=== PATIENT | male | born 1950 | race Caucasian/White ===

== ENCOUNTER 2017-04-16 14:30 | Outpatient (RCR) | payer MEDICARE ==
--- NOTE | 2017-02-11 16:10 | PT INITIAL EVALUATION ---
MEDICAL DIAGNOSIS: Lung CA TREATMENT DIAGNOSIS: Lung CA DATE OF ONSET: 02/11/17 SUBJECTIVE: Jarret is a 66 year-old male referred to physical therapy secondary to diagnosis of lung cancer with metastasis. Pt has an extensive history of smoking and currently is still smoking. Current patient identified problems included decreased motility and constipation secondary to opioid use for pain, occasional dizziness, increased fatigue with decreased activity, and depression. Pt also experiences SOB and has a history of COPD. Pt currently lives alone in a hotel in [place], [place]. REHAB PROBLEM LIST: Increased Pain Decreased ROM Decreased Endurance Decreased Function Decreased ADL's Decreased Gait PREVIOUS MEDICAL HISTORY: See EMR OCCUPATION: Retired, previously unemployed secondary to disability from depression and anxiety OBJECTIVE: Posture: Posture includes rounded shoulders and increased thoracic kyphosis. ROM: UE ROM full without pain B. Strength: MMT UE all 5/5 excluding R shoulder ER at 4+/5 without pain. Sensation: Pt reports neuropathy in toes at this time. Special Tests: ECOG Performance Status: Grade 3 FACT-G: PWB 9/28, SWB 18/28, EWB 16/, FWB 14/, Total Score 57/108. Other Objective Findings: Pt currently utilizes CPAP at night time, but otherwise is on room air with good oxygen saturation levels. ASSESSMENT: Pt shows signs and symptoms consistent with generalized deconditioning secondary to prolonged inactivity with chronic depression, as well as decreased functioning with oncological dx and tx. Physical therapy is indicated to improve functional endurance with ADL's, decrease risk of complications and side-effects with ongoing oncological tx, and maintain functional mobility and strength. Short Term Goals In 2 months pt will improve ECOG performance status to grade 2 indicating increased functional mobility for improved outcomes with ongoing oncological tx. In 2 months pt will be compliant with a regular aerobic exercise program for improved respiratory function and decreased fatigue to improve functional status. In 4 months pt will maintain full UE ROM and strength >4+/5 indicating maintenance of functional strength and mobility for performance of ADL's. In 4 months pt will improve ECOG performance status to grade 2 indicating increased functional mobility for improved outcomes with ongoing oncological tx. In 4 months pt will be compliant with a regular aerobic exercise program for improved respiratory function and decreased fatigue to improve functional status. Patient's Goals Maintain and improve functional status PLAN: Patient to be seen for Manual Therapy/STM/MET Strengthening/condition Ice/Heat Range of Motion Spinal Stabilization Ultrasound Stretching Iontophoresis Neuromuscular Re-ed Closed Chain Program Electrical Stim Posture/Body mechanics Gait Trg/Balance Trg Biofeedback Home Exercise Program Mech./Manual Traction Therapeutic Activities Pelvic Floor 1x/Week for 4 Months If you have any questions, comments, or concerns about this report or plan, please contact me at . Thank you, Safia De La Fuente, PT, DPT, CLT MTDD
--- NOTE | 2017-03-04 17:18 | PT PLAN OF CARE ---
Physician: PEDRO Brand Patient is being seen: 1x/Week Therapist: Safia De La Fuente, PT, DPT, CLT Medical Diagnosis: Lung CA Treatment Diagnosis: Lung CA Date of Onset: 02/11/17 Date of Initial Evaluation: 02/11/17 Date patient was last seen: 03/04/17 Number of treatments: 2 Number of cancellations/No shows: 0 INTERVENTIONS: Manual Therapy/STM/MET Strengthening/condition Ice/Heat Range of Motion Spinal Stabilization Ultrasound Stretching Iontophoresis Neuromuscular Re-ed Closed Chain Program Electrical Stim Posture/Body mechanics Gait Trg/Balance Trg Biofeedback Home Exercise Program Mech./Manual Traction Therapeutic Activities Pelvic Floor GOALS: In 2 months pt will improve ECOG performance status to grade 2 indicating increased functional mobility for improved outcomes with ongoing oncological tx. In progress In 2 months pt will be compliant with a regular aerobic exercise program for improved respiratory function and decreased fatigue to improve functional status. In progress In 4 months pt will maintain full UE ROM and strength >4+/5 indicating maintenance of functional strength and mobility for performance of ADL's. In 4 months pt will improve ECOG performance status to grade 2 indicating increased functional mobility for improved outcomes with ongoing oncological tx. In 4 months pt will be compliant with a regular aerobic exercise program for improved respiratory function and decreased fatigue to improve functional status. PATIENT'S GOAL: Maintain and improve functional status Status of Patient's Goals: In Progress Patient Compliance: Fair Prognosis: Fair Reasons for continuing therapy: Pt shows signs consistent with R patellofemoral syndrome with lateral knee tracking and compression secondary to R hip weakness. Pt showed improved activation of R hip musculature secondary to exercise with frequent cuing to avoid compensations of trunk rotation. Functional status remains consistent with minor changes in well-being. Increased frequency of physical therapy is indicated to maintain functional strength and decrease pain. Posture: Posture includes rounded shoulders and increased thoracic kyphosis. ROM: UE ROM full without pain B. Strength: MMT UE all 5/5 excluding R shoulder ER at 4+/5 without pain. Special Tests: ECOG Performance Status: Grade 3 FACT-G (Eval 02/11/17): PWB 9, SWB 18/, EWB 16, FWB 14, Total Score 57/108. FACT-G (03/04/17): PWB 10/, SWB 17.5/28, EWB , FWB , Total Score 56 /108. Mobility: Lateral patellar tracking on R LE If you have any questions or concerns, please feel free to contact me at . Thank you, Safia De La Fuente, PT, DPT, CLT MTDD
--- NOTE | 2017-03-25 13:52 | PT PLAN OF CARE ---
Physician: PEDRO Brand Patient is being seen: 1-2x/MO Therapist: Safia De La Fuente, PT, DPT, CLT Medical Diagnosis: Lung CA Treatment Diagnosis: Lung CA Date of Onset: 02/11/17 Date of Initial Evaluation: 02/11/17 Date patient was last seen: 03/25/17 Number of treatments: 3 Number of cancellations/No shows: 0 INTERVENTIONS: Manual Therapy/STM/MET Strengthening/condition Ice/Heat Range of Motion Spinal Stabilization Ultrasound Stretching Iontophoresis Neuromuscular Re-ed Closed Chain Program Electrical Stim Posture/Body mechanics Gait Trg/Balance Trg Biofeedback Home Exercise Program Mech./Manual Traction Therapeutic Activities Pelvic Floor GOALS: In 2 months pt will improve ECOG performance status to grade 2 indicating increased functional mobility for improved outcomes with ongoing oncological tx. In progress In 2 months pt will be compliant with a regular aerobic exercise program for improved respiratory function and decreased fatigue to improve functional status. In progress In 4 months pt will maintain full UE ROM and strength >4+/5 indicating maintenance of functional strength and mobility for performance of ADL's. In 4 months pt will improve ECOG performance status to grade 2 indicating increased functional mobility for improved outcomes with ongoing oncological tx. In 4 months pt will be compliant with a regular aerobic exercise program for improved respiratory function and decreased fatigue to improve functional status. PATIENT'S GOAL: Maintain and improve functional status Status of Patient's Goals: In Progress Patient Compliance: Fair Prognosis: Fair Reasons for continuing therapy: Pt shows onset of neuropathy in B LE in the distal toes as well as ankle. Pt progress with knee and hip strengthening shows improvement with associated decreased pain. Pt continues to have difficulties with side-effects of treatment including nausea, and fatigue, but these show improvement with adjustments to medications. Posture: Posture includes rounded shoulders and increased thoracic kyphosis. ROM: UE ROM full without pain B. Strength: MMT UE all 5/5 excluding R shoulder ER at 4+/5 without pain. Special Tests: ECOG Performance Status: Grade 3 FACT-G (Eval 02/11/17): PWB 9, SWB 18, EWB 16, FWB 14, Total Score 57/108. FACT-G (03/04/17): PWB 10, SWB 17.5, EWB 13, FWB 16, Total Score 56 /108. FACT-G (03/04/17): PWB 06/18, SWB 2128, EWB 02/11, FWB , Total Score 50/ 108. Mobility: Lateral patellar tracking on R LE If you have any questions or concerns, please feel free to contact me at . Thank you, Safia De La Fuente, PT, DPT, CLT MTDD
--- NOTE | 2017-03-27 14:44 | Oncology Note ---
Patient came by the clinic today to request a refill of his oxycodone 5/325. Patient is taking 1-2 tablets as needed for pain in his hips. He is requesting a refill to [facility] pharmacy. Patient is routinely seen in the clinic and this will be refilled quantity 45 today. JAE NUNO [facility], ONC Mar 27, 2017 14:44
[~2017-04-16 14:30] MED LIST: ACE325 PO; ADERALL PO; ALPR-429 PO; AMIT-108 PO; AMIT75TA42 PO; ARI10 PO; ARMO150T4 PO; ASP325 PO; ASPI-719 PO; ATEN-1 PO; AZIT-18 PO; BETA15CR2 TP; BUP100 PO; CHOL200021 PO; CIPR-214 PO; CLO1 PO; CYAN100015 PO; CYAN100080 PO; CYAN1TAB PO; CYTOMEL PO; DES100PT PO; DEX4 PO; DEXT5TAB10 PO; DIA5 PO; DIOVAN; DIS250 PO; DISU250T5 PO; DOC100 PO; ENO40I SQ; ESC10 PO; FLU10 PO; FLUO40CA76 PO; FOL1 PO; FOLI-68 PO; GABA-1 PO; GABA-547 PO; GABA-549 PO; HYDR25CA PO; HYDR25CA83 PO; HYDR50CA47 PO; LATA2.5D7 OP; LIO25 PO; LORA-1221 PO; LOSA25TA50 PO; MECL25TA27 PO; MELA3TAB31 PO; MET5 PO; MIR15 PO; MULT-1335 PO; MULT-775 PO; MULT-925 PO; MULT1TAB64 PO; MVM PO; MYLL PO; NEOM28.45 TOP; OLA5 PO; OLAN1CAP15 PO; OLAN2.5T22 PO; OMEG-84 PO; OMEP40CA45 PO; ONDA4TAB PO; ONDA8TAB91 PO; OXYC-373 PO; OXYC-823 PO; OXYC-854 PO; PAN40 PO; POT5L PO; POTT20 PO; PRAM0.252 PO; PROC10TA95 PO; PROP40TA45 PO; PROP80TA25 PO; PROPANOLOL PO; SUCR1TAB85 PO; TAM4 PO; TAMS0.4C76 PO; TEST2.5G6 TD; THIA100T3 PO; THIA100T55 PO; TRA50 PO; TRAZ-133 PO; VORT10TA PO; [UNRECOGNIZED DRUG - CODE] TD; trintellix PO
[2017-04-23] MEDS ORDERED: LOSA25TA50 PO (09:50)
[2017-04-30] MEDS ORDERED: NYST100016 PO (10:43)
[2017-05-09] MEDS ORDERED: DISU250T5 PO (15:08)
== END 2017-05-12 ==
LOC: PT 14:30
PROVIDERS: ATTEND Nurse Practitioner Family
DX: C78.00 Secondary malignant neoplasm of unspecified lung (principal); F17.210 Nicotine dependence, cigarettes, uncomplicated; K59.03 Drug induced constipation; T40.2X5A Adverse effect of other opioids, initial encounter; R42 Dizziness and giddiness; R53.83 Other fatigue; F32.9 Major depressive disorder, single episode, unspecified; R06.02 Shortness of breath; J44.1 Chronic obstructive pulmonary disease with (acute) exacerbation; F41.9 Anxiety disorder, unspecified; G62.9 Polyneuropathy, unspecified; Z99.89 Dependence on other enabling machines and devices
CPT/HCPCS: 97162

== ENCOUNTER 2017-05-05 13:30 | Outpatient (RCR) | payer MEDICARE ==
[2017-02-25 09:28] LABS: PLATELET COUNT, AUTOMATED 134 K/uL (150-450)
[2017-02-25 09:36] VITALS: BP 167/92
[2017-03-04 09:54] VITALS: BP 127/90
[2017-03-04] MEDS: DEXAMETHASONE SOD PHOS 10MG/ML IVP PRN ×2 (10:27→15:42)
[2017-03-04] MEDS: PALONOSETRON 0.25 MG/5 ML VIAL IVP PRN (10:28)
[2017-03-04] MEDS: FAMOTIDINE 10 MG/ML SDV IV PRN (10:59)
[2017-03-04] MEDS: diphenhydrAMINE 50 MG/ML VIAL IVP PRN (11:01)
[2017-03-04] MEDS: FOSAPREPITANT DIM 150 MG/5 ML 150 MG in NS(*) 0.9% 250 ML BAG 245 ML IVPB PRN (11:15)
--- NOTE | 2017-03-04 12:31 | ONC Progress Note - NP.Halsey ---
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 Patient previously had completed chemotherapy with Alimta and carboplatin 4 cycles in April through June 2016. Upon further review patient was noted to have recurrent disease. Patient started on Avastin, paclitaxel and carboplatin on 02/11/2017. He will receive cycle 2 today. Overall patient is feeling stable. He is weak and fatigued. He has a stable cough with shortness of breath with exertion. He continues to smoke. He has chronic nausea possibly related to his other medications. He does have pain in his hip which he reports is improved. Currently he is only using oxycodone and feels that 2-3 tablets a day keeps his pain fairly stable. 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 Problem List (1) Shortness of breath (2) Malignant bone pain (3) Adenocarcinoma of lung Oncology History The patient is a 66-year-old male with heavy history of tobacco abuse with 1-1/ 2 packs a day for forty-three years. The patient presented with history of shortness of breath and he visited the emergency department. CT scan did reveal significant right upper lobe pulmonary nodule. The patient had after that a PET scan done February 09, 2016 which demonstrated increased uptake in the right upper lobe mass. The mass measured 1.8 cm with SUV 3.3. There were several satellite micro nodules ranging from up to 0.9 cm with metabolic activity of about 2.1. There was a small pretracheal lymph node, 1.6 cm with SUV 2.8. There was a precarinal lymph node 2 cm with SUV 2.8. The patient had bronchoscopy with transbronchial biopsy performed and the pathology was positive for atypical cells suspicious for, but not definitive for malignancy. The patient ended by having cervical mediastinoscopy with biopsy of the right paratracheal lymphadenopathy and staging of the left paratracheal region done by Dr. Adonis Lindsay on March 28, 2016. Two out of three lymph nodes removed from the mediastinum on the right side level 4 came back positive for metastatic adenocarcinoma. The lymph node from level 2 on the right side and lymph nodes from level 4 on the left side came back negative for metastasis. Given that the right mediastinal lymph nodes were positive, the patient had stage IIIA adenocarcinoma of the right upper lobe of the right lung. The patient started chemoradiation with carboplatin and Alimta every three weeks for four cycles on April 24, 2016. The patient completed four courses of carboplatin and Alimta on June 27, 2016. Patient then started chemotherapy with Avastin, paclitaxel and carboplatin on . Medical History Family History: Anxiety disorder MOTHER, , Age:51 FH: depression MOTHER, , Age:51 FH: emphysema FATHER, , Age:72 Pulmonary fibrosis BROTHER OR SISTER Psychosocial History Social History Patient is single no children Occupational History He is on disability and currently on Medicare Alcohol History He denies any abuse, previously was noted to be a heavy drinker Smoking History: Yes (1 PPD FOR 44 YRS) Smoking Status: Current: Every Day Smoker Exposure to Second Hand Smoke?: Yes (Patient smokes 1 1/2 packs daily for forty -three years.) Medications and Allergies Active Scripts Oxycodone Hcl/Acet 5/325 Mg (ENDOCET 5-325 TABLET) 1 Each Tablet, 1 EACH PO Q4- 6H Y for PAIN, #45 TAB Prov:JAE NUNO [facility], ONC 02/27/17 Dexamethasone 4 Mg Tab (DEXAMETHASONE 4 MG TAB) 4 Mg Tab, 4 MG PO BID for 3 Days , #36 TAB Take 4 mg bid x 3 days starting 24 hours prior to each chemotherapy x 6 cycles. Prov:JAE NUNO [facility], ONC 02/04/17 Sucralfate (CARAFATE) 1 Gm Tablet, 1 GM PO QID for 14 Days, #60 TAB Take before meals and at bedtime. Crush the tablet and mix with water before taking. Prov:CHRISTOPHE HOLT [employer] DEVELOPER 01/24/17 Oxycodone Hcl (OXYCONTIN) 10 Mg Tab.er.12h, 10 MG PO Q12H, #60 TAB Prov:JAE NUNO [facility], ONC 01/13/17 Ondansetron Hcl (ZOFRAN) 8 Mg Tablet, 8 MG PO Q12H, #30 TAB 1 Refill Prov:JAE NUNO [facility], ONC 04/17/16 Reported Medications Disulfiram (ANTABUSE) 250 Mg Tab, 250 MG PO DAILY Y for PRN, TAB 01/31/17 Gabapentin (GABAPENTIN) 300 Mg Capsule, 300 MG PO BID, CAPSULE 01/31/17 Armodafinil (NUVIGIL) 150 Mg Tablet, 150 MG PO QAM, TAB 01/31/17 Losartan Potassium (LOSARTAN POTASSIUM) 25 Mg Tablet, 25 MG PO QDAY Y for PRN 01/01/17 Amitriptyline Hcl (AMITRIPTYLINE HCL) 75 Mg Tablet, 75 MG PO QHS, #5 TAB 01/01/17 Cyanocobalamin (Vitamin B-12) (VITAMIN B-12) 1,000 Mcg Tablet.er, 1000 MCG PO DAILY 04/11/16 Cholecalciferol (Vitamin D3) (VITAMIN D) 2,000 Unit Capsule, 2000 UNIT PO 2XW, CAPSULE 04/11/16 Latanoprost (LATANOPROST) 2.5 Ml Drops, 2.5 ML OP HS 04/11/16 [trintellix] No Conflict Check, 20 MG PO DAILY 04/11/16 Omeprazole (PRILOSEC) 40 Mg Capsule.dr, 1 TAB PO QDAY TAKE ONE TABLET BY MOUTH ONCE A DAY 01/07/14 Folic Acid (FOLIC ACID) 1 Mg Tablet, 1 MG PO DAILY 05/26/13 Multivit, Min No.21/Folic Acid (SUPERVITE EC CAPLET) 1 Mg Tablet.dr, 1 MG PO 05/26/13 Tamsulosin Hcl (Flomax) 0.4 Mg Cap, 0.4 MG PO QDAY, #30 2 Refills 04/09/11 Allergies: Coded Allergies: No Known Drug Allergies (Unverified , 01/31/17) Review of System/Physical Exam Review of Systems All Systems Reviewed/Normal: Yes, Except as Noted Respiratory: Positive for Cough, Positive for Shortness of Breath (no requirement for oxygen) Hematologic: Positive for Fatigue (rated a 9 out of 10 today), Positive for Weakness (mild weakness in the right hip) Musculoskeletal: Positive for Muscle Pain, Positive for Joint Pain (hip pain currently on oxycodone 2-3 tablets a day), Positive for Bone Pain Psychiatric: Anxiety, Depression Physical Exam Vital Signs Temperature: 96.0 Pulse: 91 BP Systolic: 127 BP Diastolic: 90 Respiratory Rate: 16 O2 SAT: 96 O2 Delivery: Height (inches) 70.00 Weight lb: 198 Weight oz: 7.0 Weight Kg (Fabián): Pain: 0 ECOG Score: 1 General: Stable, Well Developed, Well Nourished, Not In Acute Distress HEENT: No Trauma, No Conjunctivitis, No Icterus, No Mucositis, No Oral Thrush Neck: Supple Lungs: Clear to Auscultation Heart: Regular Rate, Regular Rhythm, No Gallops Abdomen: Soft and Nontender, No Hepatosplenomegaly, No Masses Extremities: No Cyanosis, No Clubbing, No Edema Lymphadenopathy: No Cervical Psychiatric: Mood appears normal Skin: No Skin Rashes, No Bruising, No Purpura Diagnostic Studies Diagnostic Studies Laboratory Laboratory Tests 03/04/17 09:25 Laboratory Tests 02/25/17 09:11: Red Blood Count 3.66, Mean Corpuscular Volume 98.7, Mean Corpuscular Hemoglobin 34.5, Mean Corpuscular Hemoglobin Concent 34.9, Red Cell Distribution Width 15.8 , Mean Platelet Volume 7.9, Monocytes (%) (Auto) , Eosinophils (%) (Auto) , Basophils (%) (Auto) , Nucleated RBC Relative Count (auto) , Monocytes # (Auto) , Eosinophils # (Auto) , Basophils # (Auto) , Nucleated RBC Absolute Count (auto ) , Neutrophils % (Manual) 17, Band Neutrophils % 0, Lymphocytes % (Manual) 37, Atypical Lymphocytes % 0, Monocytes % (Manual) 44, Eosinophils % (Manual) 2, Basophils % (Manual) 0, Nucleated Red Blood Cells 1, Anisocytosis 1+, Macrocytosis 1+, Peripheral Blood Smear Yes 03/04/17 09:25: White Blood Count 5.7, Hemoglobin 11.8, Hematocrit 34.1, Platelet Count 151, Neutrophils (%) (Auto) 70.6, Lymphocytes (%) (Auto) 12.9, Neutrophils # (Auto) 4.0, Lymphocytes # (Auto) 0.7, Sodium Level 135, Potassium Level 4.0, Chloride Level 102, Carbon Dioxide Level 22, Blood Urea Nitrogen 12, Creatinine 0.80, Glomerular Filtration Rate Calc > 60.0, Random Glucose 87, Calcium Level 9.2, Total Bilirubin 0.8, Aspartate Amino Transf (AST/SGOT) 29, Alanine Aminotransferase (ALT/SGPT) 46, Alkaline Phosphatase 97, Total Protein 7.2, Albumin 3.9 03/04/17 09:50: Urine Color Yellow, Urine Clarity Clear, Urine pH 6.0, Urine Specific [place] 1.010, Urine Protein Negative, Urine Glucose (UA) Negative, Urine Ketones Negative, Urine Blood Negative, Urine Nitrite Negative, Urine Bilirubin Negative , Urine Urobilinogen Negative, Urine Leukocyte Esterase Trace, Urine RBC 3, Urine WBC 4, Urine Squamous Epithelial Cells None, Urine Bacteria Negative, Urine Mucus Few Assessment and Plan Assessment & Plan 1. Recurrent metastatic right upper lobe adenocarcinoma of the right lung. Patient initially diagnosed with a stage IIIa (cT1a cN2 cM0). Diagnosis was achieved by cervical mediastinoscopy with two right mediastinal lymph nodes that came back positive for adenocarcinoma done March 28, 2016. Patient received four cycles of carboplatin and Alimta together with radiation therapy between April 21, 2016 through June 27, 2016. He had a PET scan August 21, 2016, which showed actual response to his treatment. CT chest done on October 23, 2016 showed increase in the size of the right upper lobe mass to 2.4 cm, so PET scan done on December 02, 2016 showed worsening of the right upper lobe consolidation. There was also right hilar and subcarinal lymphadenopathy consistent with metastasis, which are new from the August 2016 scan. There was also right iliac crest and head of the right clavicle bone metastases by PET scan, which are new. Molecular markers all came back negative except for low expression of BD- L1 at 2%. Patient started treatment with Avastin, carboplatin, and Taxol in . Patient is scheduled for cycle 2 today. Overall he is tolerating treatment with expected side effects of increased fatigue and occasional episodes of nausea. Patient does have a history of chronic nausea. 2. Pain in the right hip could be due to his bony metastasis. He completed radiation therapy to the right hip and reports improvement today. Currently using oxycodone 3. Coronary artery disease status post myocardial infarction 2002. 4. History of skin cancer status post radiation therapy. 5. Anxiety and depression. Currently on treatment PLAN 1. Oxycodone 5 mg q.4-6 hourly p.r.n. for pain. 2. Cycle 2 of treatment with Avastin, paclitaxel and carboplatin. Weekly labs per chemotherapy order. 3. Patient to follow in 3 weeks with CBC CMP and cycle 3 4. Patient to contact us with questions or concerns. I will continue to refill his pain medications as needed. I personally spent a total of 20 minutes. Of that 15 minutes was counseling/ coordination of patient's care. See my note above for details. Copies to: AHSAN KOTHARI NANCY J [employer] DEVELOPER-BC, ONC Mar 04, 2017 12:31
[2017-03-04] MEDS: NS(*) 0.9% 500 ML BAG 500 ML IV PRN ×2 (13:45→15:45)
[2017-03-11 09:17] VITALS: BP 120/90
[2017-03-11 09:44] LABS: PLATELET COUNT, AUTOMATED 84 K/uL (150-450)
[2017-03-18 09:35] VITALS: BP 150/86
[2017-03-18 09:42] LABS: PLATELET COUNT, AUTOMATED 148 K/uL (150-450)
[2017-03-25 09:29] VITALS: BP 139/90
[2017-03-25] MEDS: diphenhydrAMINE 50 MG/ML VIAL IVP PRN (09:44)
[2017-03-25] MEDS: DEXAMETHASONE SOD PHOS 10MG/ML IVP PRN (09:44)
[2017-03-25] MEDS: NS(*) 0.9% 500 ML BAG 500 ML IV PRN (09:45)
[2017-03-25] MEDS: FAMOTIDINE 10 MG/ML SDV IV PRN (09:45)
[2017-03-25] MEDS: HEPARIN FLSH (PORT) 500 UN/5ML IVP PRN (09:45)
[2017-03-25] MEDS: PALONOSETRON 0.25 MG/5 ML VIAL IVP PRN (09:45)
[2017-03-25] MEDS: LIDOCAINE/SOD BICARB 8.4% SYR ID PRN (09:45)
[2017-03-25] MEDS: FOSAPREPITANT DIM 150 MG/5 ML 150 MG in NS(*) 0.9% 250 ML BAG 245 ML IVPB PRN (09:55)
--- NOTE | 2017-03-25 10:01 | ONC Progress Note - NP.Halsey ---
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 Patient previously had completed chemotherapy with Alimta and carboplatin 4 cycles in April through June 2016. Upon further review patient was noted to have recurrent disease. Patient started on Avastin, paclitaxel and carboplatin on 02/11/2017. He will receive cycle 3 today. Patient experience shortness of breath and difficulty breathing with his last treatment and was taken to the emergency room. Symptoms resolved and patient was discharged to home. We will monitor him closely today. Overall patient is feeling stable and reports he feels the best today than he has for a week. He continues to feel weak and fatigued. He has a stable cough with shortness of breath with exertion. He continues to smoke. He has oxygen at home but does not wear it during the day, usually wears his CPAP at night. He has chronic nausea possibly related to his other medications and he takes Zofran for management. He does have pain in his hip which he reports is improved. Currently he is only using oxycodone and OxyIR as needed and feels that 2-3 tablets a day keeps his pain fairly stable. Oncology History The patient is a 66-year-old male with heavy history of tobacco abuse with 1-1/ 2 packs a day for forty-three years. The patient presented with history of shortness of breath and he visited the emergency department. CT scan did reveal significant right upper lobe pulmonary nodule. The patient had after that a PET scan done February 09, 2016 which demonstrated increased uptake in the right upper lobe mass. The mass measured 1.8 cm with SUV 3.3. There were several satellite micro nodules ranging from up to 0.9 cm with metabolic activity of about 2.1. There was a small pretracheal lymph node, 1.6 cm with SUV 2.8. There was a precarinal lymph node 2 cm with SUV 2.8. The patient had bronchoscopy with transbronchial biopsy performed and the pathology was positive for atypical cells suspicious for, but not definitive for malignancy. The patient ended by having cervical mediastinoscopy with biopsy of the right paratracheal lymphadenopathy and staging of the left paratracheal region done by Dr. Adonis Lindsay on March 28, 2016. Two out of three lymph nodes removed from the mediastinum on the right side level 4 came back positive for metastatic adenocarcinoma. The lymph node from level 2 on the right side and lymph nodes from level 4 on the left side came back negative for metastasis. Given that the right mediastinal lymph nodes were positive, the patient had stage IIIA adenocarcinoma of the right upper lobe of the right lung. The patient started chemoradiation with carboplatin and Alimta every three weeks for four cycles on April 24, 2016. The patient completed four courses of carboplatin and Alimta on June 27, 2016. Patient then started chemotherapy with Avastin, paclitaxel and carboplatin on . Medical History Family History: Anxiety disorder MOTHER, , Age:51 FH: depression MOTHER, , Age:51 FH: emphysema FATHER, , Age:72 Pulmonary fibrosis BROTHER OR SISTER Psychosocial History Social History Patient is single no children Occupational History He is on disability and currently on Medicare Alcohol History He denies any abuse, previously was noted to be a heavy drinker Smoking History: Yes (1 PPD FOR 44 YRS) Smoking Status: Current: Every Day Smoker Exposure to Second Hand Smoke?: Yes (Patient smokes 1 1/2 packs daily for forty -three years.) Medications and Allergies Active Scripts Oxycodone Hcl (OXYCONTIN) 10 Mg Tab.er.12h, 10 MG PO Q12H, #60 TAB Prov:JAE NUNO [facility], ONC 03/11/17 Oxycodone Hcl/Acet 5/325 Mg (ENDOCET 5-325 TABLET) 1 Each Tablet, 1 EACH PO Q4- 6H Y for PAIN, #45 TAB Prov:JAE NUNOP-[facility], ONC 02/27/17 Dexamethasone 4 Mg Tab (DEXAMETHASONE 4 MG TAB) 4 Mg Tab, 4 MG PO BID for 3 Days , #36 TAB Take 4 mg bid x 3 days starting 24 hours prior to each chemotherapy x 6 cycles. Prov:JAE NUNO [facility], ONC 02/04/17 Sucralfate (CARAFATE) 1 Gm Tablet, 1 GM PO QID for 14 Days, #60 TAB Take before meals and at bedtime. Crush the tablet and mix with water before taking. Prov:CHRISTOPHE HOLT [facility] 01/24/17 Ondansetron Hcl (ZOFRAN) 8 Mg Tablet, 8 MG PO Q12H, #30 TAB 1 Refill Prov:JAE NUNO [employer] [facility] [facility], ONC 04/17/16 Reported Medications Disulfiram (ANTABUSE) 250 Mg Tab, 250 MG PO DAILY Y for PRN, TAB 01/31/17 Gabapentin (GABAPENTIN) 300 Mg Capsule, 300 MG PO BID, CAPSULE 01/31/17 Armodafinil (NUVIGIL) 150 Mg Tablet, 150 MG PO QAM, TAB 01/31/17 Losartan Potassium (LOSARTAN POTASSIUM) 25 Mg Tablet, 25 MG PO QDAY Y for PRN 01/01/17 Amitriptyline Hcl (AMITRIPTYLINE HCL) 75 Mg Tablet, 75 MG PO QHS, #5 TAB 01/01/17 Cyanocobalamin (Vitamin B-12) (VITAMIN B-12) 1,000 Mcg Tablet.er, 1000 MCG PO DAILY 04/11/16 Cholecalciferol (Vitamin D3) (VITAMIN D) 2,000 Unit Capsule, 2000 UNIT PO 2XW, CAPSULE 04/11/16 Latanoprost (LATANOPROST) 2.5 Ml Drops, 2.5 ML OP HS 04/11/16 [trintellix] No Conflict Check, 20 MG PO DAILY 04/11/16 Omeprazole (PRILOSEC) 40 Mg Capsule.dr, 1 TAB PO QDAY TAKE ONE TABLET BY MOUTH ONCE A DAY 01/07/14 Folic Acid (FOLIC ACID) 1 Mg Tablet, 1 MG PO DAILY 05/26/13 Multivit, Min No.21/Folic Acid (SUPERVITE EC CAPLET) 1 Mg Tablet.dr, 1 MG PO 05/26/13 Tamsulosin Hcl (Flomax) 0.4 Mg Cap, 0.4 MG PO QDAY, #30 2 Refills 04/09/11 Allergies: Coded Allergies: No Known Drug Allergies (Unverified , 01/31/17) Review of System/Physical Exam Review of Systems All Systems Reviewed/Normal: Yes, Except as Noted Constitutional: Denies Appetite/Weight Change (decreased appetite although he feels like he is maintaining his weight) Gastrointestinal: Nausea Hematologic: Positive for Fatigue, Positive for Weakness Musculoskeletal: Positive for Bone Pain, Positive for Other (patient feels that his lower extremities are weak. He does try to walk and octant will go to [facility] so he can use a shopping cart to hold onto with ambulation) Psychiatric: Anxiety, Depression Physical Exam Vital Signs Temperature: 97.0 Pulse: 94 BP Systolic: 139 BP Diastolic: 90 Respiratory Rate: 16 O2 SAT: 98 O2 Delivery: Height (inches) 71.00 Weight lb: 198 Weight oz: 7.0 Weight Kg (Fabián): Pain: 0 ECOG Score: 2 General: Stable, Well Developed, Well Nourished, Not In Acute Distress HEENT: No Trauma, No Conjunctivitis, No Icterus, No Mucositis Neck: Supple Lungs: Clear to Auscultation Heart: Regular Rate, Regular Rhythm, No Gallops Abdomen: Soft and Nontender, No Hepatosplenomegaly, No Masses Extremities: No Cyanosis, No Clubbing, No Edema Lymphadenopathy: No Cervical Psychiatric: Mood appears normal, Affect appears normal Skin: No Skin Rashes, No Bruising, No Purpura Diagnostic Studies Diagnostic Studies Laboratory Laboratory Tests 03/25/17 09:13 Laboratory Tests 02/25/17 09:11: Neutrophils % (Manual) 17, Band Neutrophils % 0, Lymphocytes % (Manual) 37, Atypical Lymphocytes % 0, Monocytes % (Manual) 44, Eosinophils % (Manual) 2, Basophils % (Manual) 0, Nucleated Red Blood Cells 1, Anisocytosis 1+, Macrocytosis 1+ 03/18/17 09:30: Red Blood Count 3.04, Mean Corpuscular Volume 99.9, Mean Corpuscular Hemoglobin 35.4, Mean Corpuscular Hemoglobin Concent 35.5, Red Cell Distribution Width 19.5 , Mean Platelet Volume 7.8, Monocytes (%) (Auto) 40.5, Eosinophils (%) (Auto) 2.1, Basophils (%) (Auto) 1.9, Nucleated RBC Relative Count (auto) 0.8, Monocytes # (Auto) 0.7, Eosinophils # (Auto) 0.0, Basophils # (Auto) 0.0, Nucleated RBC Absolute Count (auto) 0.01, Peripheral Blood Smear Yes 03/25/17 09:13: White Blood Count 7.0, Hemoglobin 11.7, Hematocrit 33.2, Platelet Count 221, Neutrophils (%) (Auto) 81.0, Lymphocytes (%) (Auto) 8.8, Neutrophils # (Auto) 5.6, Lymphocytes # (Auto) 0.6, Sodium Level 136, Potassium Level 3.8, Chloride Level 103, Carbon Dioxide Level 21, Blood Urea Nitrogen 14, Creatinine 0.90, Glomerular Filtration Rate Calc > 60.0, Random Glucose 146, Calcium Level 9.2, Total Bilirubin 0.9, Aspartate Amino Transf (AST/SGOT) 32, Alanine Aminotransferase (ALT/SGPT) 53, Alkaline Phosphatase 85, Total Protein 7.3, Albumin 4.0 03/25/17 09:45: Assessment and Plan Assessment & Plan 1. Recurrent metastatic right upper lobe adenocarcinoma of the right lung. Patient initially diagnosed with a stage IIIa (cT1a cN2 cM0). Diagnosis was achieved by cervical mediastinoscopy with two right mediastinal lymph nodes that came back positive for adenocarcinoma done March 28, 2016. Patient received four cycles of carboplatin and Alimta together with radiation therapy between April 21, 2016 through June 27, 2016. He had a PET scan August 21, 2016, which showed actual response to his treatment. CT chest done on October 23, 2016 showed increase in the size of the right upper lobe mass to 2.4 cm, so PET scan done on December 02, 2016 showed worsening of the right upper lobe consolidation. There was also right hilar and subcarinal lymphadenopathy consistent with metastasis, which are new from the August 2016 scan. There was also right iliac crest and head of the right clavicle bone metastases by PET scan, which are new. Molecular markers all came back negative except for low expression of BD- L1 at 2%. Patient started treatment with Avastin, carboplatin, and Taxol in . Patient is scheduled for cycle 3 today. He did have shortness of breath and possible reaction with cycle 2 and was transported to the emergency room. Patient was then released to home. We will reinitiate treatment today and monitor him closely. He continues to have expected side effects of increased fatigue , weakness, shortness of breath and chronic nausea. Patient continues to smoke. 2. Pain in the right hip could be due to his bony metastasis. He completed radiation therapy to the right hip and reports improvement today. Currently using oxycodone and OxyContin 2-3 tablets in the day and reports stable pain 3. Coronary artery disease status post myocardial infarction 2002. 4. History of skin cancer status post radiation therapy. 5. Anxiety and depression. Currently on treatment PLAN 1. Oxycodone 5 mg q.4-6 hourly p.r.n. for pain. 2. Cycle 3 of treatment with Avastin, paclitaxel and carboplatin. Weekly labs per chemotherapy order. 3. Patient to follow in 3 weeks with CBC CMP and cycle 4 4. Patient to contact us with questions or concerns. I will continue to refill his pain medications as needed. I personally spent a total of 20 minutes. Of that 15 minutes was counseling/ coordination of patient's care. See my note above for details. JAE NUNO [employer] [facility] [facility], ONC Mar 25, 2017 10:01
--- NOTE | 2017-03-25 15:26 | EKG ---
FACILITY: [facility] PATIENT NAME: PAT DELANEY : [id number] MR: [id number] V: [id number] EXAM DATE: ORDERING PHYSICIAN: JAE NUNO TECHNOLOGIST: ANDRE Test Reason : CHEMO REATION Blood Pressure : / mmHG Vent. Rate : 116 BPM Atrial Rate : 116 BPM P-R Int : 164 ms QRS Dur : 128 ms QT Int : 368 ms P-R-T Axes : 066 -81 061 degrees QTc Int : 511 ms Sinus tachycardia Right bundle branch block Abnormal ECG When compared with ECG of 04-MAR-2017 16:01, No significant change was found Confirmed by MICHEAL HATCH ([id number]) on 03/25/2017 4:18:53 PM Referred By: YAJAIRA Confirmed By:MICHEAL HATCH
[2017-04-01 09:38] VITALS: BP 116/89
[2017-04-01] MEDS: HEPARIN FLSH (PORT) 500 UN/5ML IVP PRN ×2 (09:51→11:38)
[2017-04-01 09:55] LABS: PLATELET COUNT, AUTOMATED 112 K/uL (150-450)
[2017-04-01] MEDS: LIDOCAINE/SOD BICARB 8.4% SYR ID PRN (11:38)
[2017-04-07] MEDS: NS(*) 0.9% 500 ML BAG 500 ML IV PRN (14:15)
[2017-04-08 14:24] VITALS: BP 158/88
[2017-04-08 14:28] LABS: PLATELET COUNT, AUTOMATED 189 K/uL (150-450)
[2017-04-08] MEDS: NS(*) 0.9% 500 ML BAG 500 ML IV PRN (15:20)
--- NOTE | 2017-04-08 15:25 | ONC Progress Note - NP.Halsey ---
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 Patient previously had completed chemotherapy with Alimta and carboplatin 4 cycles in April through June 2016. Upon further review patient was noted to have recurrent disease. Patient started on Avastin, paclitaxel and carboplatin on 02/11/2017. With cycle 3 he experienced shortness of breath and difficulty breathing. Patient had similar symptoms with cycle 2. Today patient reports that he is feeling very fatigued and weak. He has burning with urination, frequency and urgency. He does not feel well today. He has not been eating well and has not been drinking fluids.. He fever or chills today. Problem List (1) Dysuria (2) Adenocarcinoma of lung (3) Malignant bone pain (4) Shortness of breath (5) Depression (6) Fatigue Oncology History The patient is a 66-year-old male with heavy history of tobacco abuse with 1-1/ 2 packs a day for forty-three years. The patient presented with history of shortness of breath and he visited the emergency department. CT scan did reveal significant right upper lobe pulmonary nodule. The patient had after that a PET scan done February 09, 2016 which demonstrated increased uptake in the right upper lobe mass. The mass measured 1.8 cm with SUV 3.3. There were several satellite micro nodules ranging from up to 0.9 cm with metabolic activity of about 2.1. There was a small pretracheal lymph node, 1.6 cm with SUV 2.8. There was a precarinal lymph node 2 cm with SUV 2.8. The patient had bronchoscopy with transbronchial biopsy performed and the pathology was positive for atypical cells suspicious for, but not definitive for malignancy. The patient ended by having cervical mediastinoscopy with biopsy of the right paratracheal lymphadenopathy and staging of the left paratracheal region done by Dr. Adonis Lindsay on March 28, 2016. Two out of three lymph nodes removed from the mediastinum on the right side level 4 came back positive for metastatic adenocarcinoma. The lymph node from level 2 on the right side and lymph nodes from level 4 on the left side came back negative for metastasis. Given that the right mediastinal lymph nodes were positive, the patient had stage IIIA adenocarcinoma of the right upper lobe of the right lung. The patient started chemoradiation with carboplatin and Alimta every three weeks for four cycles on April 24, 2016. The patient completed four courses of carboplatin and Alimta on June 27, 2016. Patient then started chemotherapy with Avastin, paclitaxel and carboplatin on . He had a reaction with the end of cycle 2 and beginning of cycle 3. Carboplatin has been discontinued. Medical History Family History: Anxiety disorder MOTHER, , Age:51 FH: depression MOTHER, , Age:51 FH: emphysema FATHER, , Age:72 Pulmonary fibrosis BROTHER OR SISTER Psychosocial History Social History Patient is single no children Occupational History He is on disability and currently on Medicare Alcohol History He denies any abuse, previously was noted to be a heavy drinker Smoking History: Yes (1 PPD FOR 44 YRS) Smoking Status: Current: Every Day Smoker Exposure to Second Hand Smoke?: Yes (Patient smokes 1 1/2 packs daily for forty -three years.) Medications and Allergies Active Scripts Oxycodone Hcl/Acet 5/325 Mg (ENDOCET 5-325 TABLET) 1 Each Tablet, 1 EACH PO Q4- 6H Y for PAIN, #45 TAB Prov:JAE NUNO [facility]-, ONC 03/27/17 Oxycodone Hcl (OXYCONTIN) 10 Mg Tab.er.12h, 10 MG PO Q12H, #60 TAB Prov:JAE NUNO [facility] ON[facility] 03/11/17 Dexamethasone 4 Mg Tab (DEXAMETHASONE 4 MG TAB) 4 Mg Tab, 4 MG PO BID for 3 Days , #36 TAB Take 4 mg bid x 3 days starting 24 hours prior to each chemotherapy x 6 cycles. Prov:JAE NUNO [facility] ON[facility] 02/04/17 Sucralfate (CARAFATE) 1 Gm Tablet, 1 GM PO QID for 14 Days, #60 TAB Take before meals and at bedtime. Crush the tablet and mix with water before taking. Prov:CHRISTOPHE HOLT [facility] 01/24/17 Ondansetron Hcl (ZOFRAN) 8 Mg Tablet, 8 MG PO Q12H, #30 TAB 1 Refill Prov:JAE NUNO [facility] ONC 04/17/16 Reported Medications Disulfiram (ANTABUSE) 250 Mg Tab, 250 MG PO DAILY Y for PRN, TAB 01/31/17 Gabapentin (GABAPENTIN) 300 Mg Capsule, 300 MG PO BID, CAPSULE 01/31/17 Armodafinil (NUVIGIL) 150 Mg Tablet, 150 MG PO QAM, TAB 01/31/17 Losartan Potassium (LOSARTAN POTASSIUM) 25 Mg Tablet, 25 MG PO QDAY Y for PRN 01/01/17 Amitriptyline Hcl (AMITRIPTYLINE HCL) 75 Mg Tablet, 75 MG PO QHS, #5 TAB 01/01/17 Cyanocobalamin (Vitamin B-12) (VITAMIN B-12) 1,000 Mcg Tablet.er, 1000 MCG PO DAILY 04/11/16 Cholecalciferol (Vitamin D3) (VITAMIN D) 2,000 Unit Capsule, 2000 UNIT PO 2XW, CAPSULE 04/11/16 Latanoprost (LATANOPROST) 2.5 Ml Drops, 2.5 ML OP HS 04/11/16 [trintellix] No Conflict Check, 20 MG PO DAILY 04/11/16 Omeprazole (PRILOSEC) 40 Mg Capsule.dr, 1 TAB PO QDAY TAKE ONE TABLET BY MOUTH ONCE A DAY 01/07/14 Folic Acid (FOLIC ACID) 1 Mg Tablet, 1 MG PO DAILY 05/26/13 Multivit, Min No.21/Folic Acid (SUPERVITE EC CAPLET) 1 Mg Tablet.dr, 1 MG PO 05/26/13 Tamsulosin Hcl (Flomax) 0.4 Mg Cap, 0.4 MG PO QDAY, #30 2 Refills 04/09/11 Allergies: Coded Allergies: carboplatin (Verified Allergy, Severe, ANAPHYLAXIS, 03/25/17) Carboplatin recieved on 02/11/17 no reaction after receiving full dose. Carboplatin recieved again on 03/04/17 200 of the 500mls recieved and patient began to cough, experienced dizziness, nausea and short of breath, rapid response was called and patient was taken to the ER. Carboplatin recieved for th 3rd time on03/26/17 and patient recived around 75mls of the drug and began to experience the same symptoms as above. Review of System/Physical Exam Review of Systems Constitutional: Positive for Appetite/Weight Change, Denies Fever/Chills/Sweating Respiratory: Positive for Cough, Positive for Shortness of Breath Genitourinary: Denies Dysuria, Denies Nocturia Hematologic: Positive for Fatigue, Positive for Weakness Musculoskeletal: Positive for Muscle Pain, Positive for Bone Pain Psychiatric: Depression Skin: Denies Skin Rash Physical Exam Vital Signs Temperature: 98.3 Pulse: 103 BP Systolic: 158 BP Diastolic: 88 Respiratory Rate: 16 O2 SAT: 99 O2 Delivery: Height (inches) 71.00 Weight lb: 191 Weight oz: 7.0 Weight Kg (Fabián): Pain: 0 ECOG Score: 2 General: Stable, Well Developed, Well Nourished, Not In Acute Distress, Other ( He looks pale in the face and is having difficulty sitting without constant moving. ) HEENT: No Trauma, No Conjunctivitis, No Icterus Lungs: Clear to Auscultation (distant bilaterally) Heart: Regular Rate, Regular Rhythm, No Gallops, No Murmurs Abdomen: No Hepatosplenomegaly, No Masses Extremities: No Cyanosis, No Clubbing, No Edema Psychiatric: Mood appears normal, Affect appears normal, Other (Patient smells of smoke today, ) Skin: No Skin Rashes, No Bruising, No Purpura Diagnostic Studies Diagnostic Studies Laboratory Laboratory Tests 04/08/17 14:21 Laboratory Tests 02/25/17 09:11: Neutrophils % (Manual) 17, Band Neutrophils % 0, Lymphocytes % (Manual) 37, Atypical Lymphocytes % 0, Monocytes % (Manual) 44, Eosinophils % (Manual) 2, Basophils % (Manual) 0, Nucleated Red Blood Cells 1, Anisocytosis 1+, Macrocytosis 1+ 03/25/17 09:45: Urine Color Yellow, Urine Clarity Clear, Urine pH 6.0, Urine Specific [place] 1.003, Urine Protein Negative, Urine Glucose (UA) Negative, Urine Ketones Negative, Urine Blood Negative, Urine Nitrite Negative, Urine Bilirubin Negative , Urine Urobilinogen Negative, Urine Leukocyte Esterase Negative, Urine RBC None , Urine WBC <1, Urine Squamous Epithelial Cells None, Urine Bacteria Negative, Urine Mucus None 04/08/17 14:21: White Blood Count 3.4, Red Blood Count 3.18, Hemoglobin 11.2, Hematocrit 32.5, Mean Corpuscular Volume 102.3, Mean Corpuscular Hemoglobin 35.3, Mean Corpuscular Hemoglobin Concent 34.5, Red Cell Distribution Width 21.9, Platelet Count 189, Mean Platelet Volume 7.7, Neutrophils (%) (Auto) 43.5, Lymphocytes (% ) (Auto) 28.3, Monocytes (%) (Auto) 26.5, Eosinophils (%) (Auto) 1.1, Basophils (%) (Auto) 0.6, Nucleated RBC Relative Count (auto) 0.7, Neutrophils # (Auto) 1.5, Lymphocytes # (Auto) 0.9, Monocytes # (Auto) 0.9, Eosinophils # (Auto) 0.0 , Basophils # (Auto) 0.0, Nucleated RBC Absolute Count (auto) 0.02, Peripheral Blood Smear Yes, Sodium Level 137, Potassium Level 3.7, Chloride Level 103, Carbon Dioxide Level 21, Blood Urea Nitrogen 10, Creatinine 1.00, Glomerular Filtration Rate Calc > 60.0, Random Glucose 123, Calcium Level 9.4, Magnesium Level 1.7, Total Bilirubin 0.9, Aspartate Amino Transf (AST/SGOT) 27, Alanine Aminotransferase (ALT/SGPT) 43, Alkaline Phosphatase 103, Total Protein 7.3, Albumin 3.9 Assessment and Plan Assessment & Plan 1. Recurrent metastatic right upper lobe adenocarcinoma of the right lung. Patient initially diagnosed with a stage IIIa (cT1a cN2 cM0). Diagnosis was achieved by cervical mediastinoscopy with two right mediastinal lymph nodes that came back positive for adenocarcinoma done March 28, 2016. Patient received four cycles of carboplatin and Alimta together with radiation therapy between April 21, 2016 through June 27, 2016. He had a PET scan August 21, 2016, which showed actual response to his treatment. CT chest done on October 23, 2016 showed increase in the size of the right upper lobe mass to 2.4 cm, so PET scan done on December 02, 2016 showed worsening of the right upper lobe consolidation. There was also right hilar and subcarinal lymphadenopathy consistent with metastasis, which are new from the August 2016 scan. There was also right iliac crest and head of the right clavicle bone metastases by PET scan, which are new. Molecular markers all came back negative except for low expression of BD- L1 at 2%. Patient started treatment with Avastin, carboplatin, and Taxol in . He developed a reaction to carboplatin at the end of cycle 2 and beginning of cycle 3. Carboplatin has been discontinued. Dr. Zheng will look at his chart this week and determine plan of care. Patient continues to smoke. 2. Pain in the right hip could be due to his bony metastasis. He completed radiation therapy to the right hip and reports improvement today. Currently using oxycodone and OxyContin 2-3 tablets in the day and reports stable pain 3. Coronary artery disease status post myocardial infarction 2002. 4. History of skin cancer status post radiation therapy. 5. Anxiety and depression. Currently on treatment 6. Dysuria, frequency and urgency. UA today is pending. PLAN 1. Patient hydrated today for fatigue and dysuria. 2. Carboplatin discontinued due to reaction. . 3 Dr. Zheng to determine plan of care. 4 Hydration today for dysuria, UA today. I personally spent a total of 20 minutes. Of that 15 minutes was counseling/ coordination of patient's care. See my note above for details. Copies to: AHSAN KOTHARI NANCY J FNP-BC, ONC Apr 08, 2017 15:25
[2017-04-08] MEDS: LIDOCAINE/SOD BICARB 8.4% SYR ID PRN (15:55)
[2017-04-08] MEDS: HEPARIN FLSH (PORT) 500 UN/5ML IVP PRN (15:56)
[2017-04-10 14:38] VITALS: BP 181/91
--- NOTE | 2017-04-15 07:32 | [facility] ONCOLOGY NOTE ---
EVENT DATE: April 10, 2017 DIAGNOSES 1. Stage IIIA adenocarcinoma of the right upper lobe of the lung. 2. Anxiety and depression. 3. Esophagitis and Marlen-Fregoso tear. 4. Gastroparesis. 5. Hypertension. 6. History of coronary artery disease. 7. History of skin cancer, right ear. CHIEF COMPLAINT Patient is here today for follow up of his right lung cancer on chemotherapy with Avastin, carboplatin and Taxol. ONCOLOGY HISTORY The patient is a 66-year-old male with heavy history of tobacco abuse with 1-1/ 2 packs a day for forty-three years. The patient presented with history of shortness of breath and he visited the emergency department. CT scan did reveal significant right upper lobe pulmonary nodule. The patient had after that a PET scan done February 09, 2016 which demonstrated increased uptake in the right upper lobe mass. The mass measured 1.8 cm with SUV 3.3. There were several satellite micro nodules ranging from up to 0.9 cm with metabolic activity of about 2.1. There was a small pretracheal lymph node, 1.6 cm with SUV 2.8. There was a precarinal lymph node 2 cm with SUV 2.8. The patient had bronchoscopy with transbronchial biopsy performed and the pathology was positive for atypical cells suspicious for, but not definitive for malignancy. The patient ended by having cervical mediastinoscopy with biopsy of the right paratracheal lymphadenopathy and staging of the left paratracheal region done by Dr. Adonis Lindsay on March 28, 2016. Two out of three lymph nodes removed from the mediastinum on the right side level 4 came back positive for metastatic adenocarcinoma. The lymph node from level 2 on the right side and lymph nodes from level 4 on the left side came back negative for metastasis. Given that the right mediastinal lymph nodes were positive, the patient had stage IIIA adenocarcinoma of the right upper lobe of the right lung. The patient started chemoradiation with carboplatin and Alimta every three weeks for four cycles on April 24, 2016. The patient completed four courses of carboplatin and Alimta on June 27, 2016. The patient started treatment with Avastin, carboplatin and Taxol for his current metastatic disease on February 11, 2017. He received three cycles, and treatment was discontinued because of the development of reaction to carboplatin with his second and third cycle. HISTORY OF PRESENT ILLNESS Patient is here today for follow up of his right lung cancer on chemotherapy. He is complaining of nasal discharge. He has cough with expectoration and shortness of breath. He has currently a urinary tract infection under treatment with antibiotic. He has pain in the knees and feet. He is weak, tired and fatigued. PAST MEDICAL HISTORY 1. GERD. 2. Gastroparesis. 3. History of skin cancer of the right ear, status post radiation therapy. 4. History of coronary artery disease, status post myocardial infarction. 5. Obstructive sleep apnea. 6. History of esophagitis/Marlen-Fregoso tear. 7. Benign prostatic hypertrophy on Flomax. 8. Major depressive disorder. 9. Hypertension. 10. Anxiety. PAST SURGICAL HISTORY 1. Right carpal tunnel release surgery. 2. Endoscopic treatment for Marlen-Fregoso tear of the esophagus. SOCIAL HISTORY The patient is single with no children. He is on disability before and currently on Medicare. He smoked 1-1/2 packs a day for forty-three years. He denies any abuse of alcohol or illicit drugs. FAMILY HISTORY Negative for cancer or blood diseases. CURRENT MEDICATIONS 1. Multivitamin one a day. 2. Vitamin B12 at 1000 mcg daily. 3. Vitamin D 2000 IU one to two times per week. 4. Folic acid 1 mg daily. 5. Latanoprost 2.5 mL one drop in each eye at night. 6. Losartan 25 mg daily. 7. Adderall 5 mg up to two a day as needed. 8. Amitriptyline 75 mg at bedtime. 9. Antabuse 250 mg daily. 10. Flomax 0.4 mg daily. 11. Gabapentin 100 mg up to three times a day p.r.n. 12. Trintellix 20 mg daily. 13. Zofran 8 mg q.12h. p.r.n. for nausea and vomiting. 14. Prilosec 40 mg daily. ALLERGIES No known drug allergies. REVIEW OF SYSTEMS CONSTITUTIONAL: No appetite or weight change. No fever, chills or sweating. No recent infection. HEENT: Ears: No tinnitus or hearing problem. Nose: He has nasal discharge. Throat: No sore throat or mouth ulcers. Eyes: No diplopia or visual changes. RESPIRATORY: He has cough with expectoration and shortness of breath. CARDIOVASCULAR: No chest pain, orthopnea, or paroxysmal nocturnal dyspnea (PND) . No edema. No palpitations. GASTROINTESTINAL: He has nausea and constipation. GENITOURINARY: He has urinary tract infection on antibiotic currently. MUSCULOSKELETAL: He has pain in the knees and feet. NEUROLOGICAL: No tingling or numbness in the hands or feet. No headaches or convulsions. HEMATOLOGIC/LYMPHATIC: He is weak, tired and fatigued. SKIN: No skin rash or lumps. PSYCHIATRIC: No anxiety or depression. PHYSICAL EXAMINATION GENERAL: Looks stable. Well-developed, well-nourished, and in no acute distress. VITAL SIGNS: Blood pressure 181/91, pulse 115 per minute, respirations 16 per minute, temperature 97.1, pulse oximetry 92% on room air. HEENT: Head: Atraumatic. No sinus tenderness to palpation. Eyes: No icterus or conjunctivitis. Mouth and throat: No oral thrush or mucositis. NECK: Supple. No cervical or supraclavicular lymphadenopathy. LUNGS: Clear to auscultation and percussion bilaterally. HEART: Regular rate and rhythm. No gallops, murmurs, clicks or rubs. ABDOMEN: Soft and lax. No tenderness. No hepatosplenomegaly. No masses. EXTREMITIES: No cyanosis, clubbing or edema. LYMPHATICS: No peripheral lymphadenopathy. NEUROLOGICAL: Conscious, alert and oriented times three. No focal motor or sensory deficits. PSYCHIATRIC: Mood and affect appear normal. SKIN: No skin rash, bruise or purpuric eruption. DIAGNOSTIC/LABORATORY STUDIES CBC shows white count 3400, hemoglobin 11.2, hematocrit 32.5, platelets 189, 000. Chem panel totally normal except blood sugar 123 and carbon dioxide 21, other parameters are normal. ASSESSMENT 1. Recurrent metastatic right upper lobe adenocarcinoma of the right lung. Patient initially diagnosed with a stage IIIa (cT1a cN2 cM0). Diagnosis was achieved by cervical mediastinoscopy with two right mediastinal lymph nodes that came back positive for adenocarcinoma done March 28, 2016. Patient received four cycles of carboplatin and Alimta together with radiation therapy between April 21, 2016 through June 27, 2016. He had a PET scan August 21, 2016, which showed actual response to his treatment. CT chest done on October 23, 2016 showed increase in the size of the right upper lobe mass to 2.4 cm, so PET scan done on December 02, 2016 showed worsening of the right upper lobe consolidation. There was also right hilar and subcarinal lymphadenopathy consistent with metastasis, which are new from the August 2016 scan. There was also right iliac crest and head of the right clavicle bone metastases by PET scan, which are new. Molecular markers came back negative except for low expression of PD-L1 at 2%. Patient started chemotherapy with Avastin, carboplatin, and Taxol on February 11, 2017, and the treatment is discontinued because of the development of reaction to carboplatin with his second and third cycle. I talked to the patient today regarding further management. I am planning to treat him with gemcitabine and Taxol or gemcitabine and Abraxane, and hopefully patient will do fine with that treatment. I am planning to start his treatment on April 17 or , and the patient is agreeable with that, as he will be out of town during the holiday. I will see him in a week after starting chemotherapy with CBC and chem panel at that time. 2. Pain in the right hip from bony metastasis is much better currently, and the patient does not have any pain now in the right hip, but he has pain in the knees and feet, which he attributed to his current chemotherapy. 3. Chemotherapy-induced anemia. Current hemoglobin 11.2. I will consider blood transfusion if the hemoglobin drops below 8 g/dL. 4. Coronary artery disease status post myocardial infarction 2002. 5. History of skin cancer status post radiation therapy. 6. Anxiety and depression. PLAN 1. Stop chemotherapy with Avastin, carboplatin, and Taxol. 2. Start chemotherapy with gemcitabine/Taxol or gemcitabine/Abraxane on April 17 or 2016. 3. Patient to return one week after starting chemotherapy with CBC, chem panel. 4. Patient to contact us for any new concern or complaints. MTDD
[2017-04-16 13:13] VITALS: BP 150/106
[2017-04-16] MEDS: LIDOCAINE/SOD BICARB 8.4% SYR ID PRN (13:21)
[2017-04-16] MEDS: NS(*) 0.9% 500 ML BAG 500 ML IV PRN (13:23)
[2017-04-16] MEDS: PALONOSETRON 0.25 MG/5 ML VIAL IVP PRN (14:05)
[2017-04-16] MEDS: HEPARIN FLSH (PORT) 500 UN/5ML IVP PRN (15:16)
[2017-04-23 09:16] VITALS: BP 189/99
--- NOTE | 2017-04-23 09:56 | ONC Progress Note - NP.Halsey ---
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 Patient previously had completed chemotherapy with Alimta and carboplatin 4 cycles in April through June 2016. Upon further review patient was noted to have recurrent disease. Patient started on Avastin, paclitaxel and carboplatin on 02/11/2017. With cycle 3 he experienced shortness of breath and difficulty breathing. Patient had similar symptoms with cycle 2. This was discontinued. Patient received single agent gemcitabine last week and is scheduled for Taxotere and gemcitabine today. Education regarding Taxotere side effects was reviewed with patient and a consent was signed. Similar side effects to include nausea and vomiting, diarrhea and constipation, numbness and tingling of the fingers and toes, nail changes, low platelets, low white cells and low hemoglobin. Review of oral mouth care was completed. Patient has a education book from previous chemotherapy. Patient reports taking oral dexamethasone prior treatment today and verbalized understanding that he will take it the next 2 days. Patient had no questions or concerns. He reports that he feels relatively good today and he experienced minimal side effects from single agent Gemzar. His blood pressure is elevated today. Previously he was on Losartin and he will be restarted on this. Problem List (1) Hypertension (2) Adenocarcinoma of lung (3) Shortness of breath Oncology History The patient is a 66-year-old male with heavy history of tobacco abuse with 1-1/ 2 packs a day for forty-three years. The patient presented with history of shortness of breath and he visited the emergency department. CT scan did reveal significant right upper lobe pulmonary nodule. The patient had after that a PET scan done February 09, 2016 which demonstrated increased uptake in the right upper lobe mass. The mass measured 1.8 cm with SUV 3.3. There were several satellite micro nodules ranging from up to 0.9 cm with metabolic activity of about 2.1. There was a small pretracheal lymph node, 1.6 cm with SUV 2.8. There was a precarinal lymph node 2 cm with SUV 2.8. The patient had bronchoscopy with transbronchial biopsy performed and the pathology was positive for atypical cells suspicious for, but not definitive for malignancy. The patient ended by having cervical mediastinoscopy with biopsy of the right paratracheal lymphadenopathy and staging of the left paratracheal region done by Dr. Adonis Lindsay on March 28, 2016. Two out of three lymph nodes removed from the mediastinum on the right side level 4 came back positive for metastatic adenocarcinoma. The lymph node from level 2 on the right side and lymph nodes from level 4 on the left side came back negative for metastasis. Given that the right mediastinal lymph nodes were positive, the patient had stage IIIA adenocarcinoma of the right upper lobe of the right lung. The patient started chemoradiation with carboplatin and Alimta every three weeks for four cycles on April 24, 2016. The patient completed four courses of carboplatin and Alimta on June 27, 2016. Patient then started chemotherapy with Avastin, paclitaxel and carboplatin on . He had a reaction with the end of cycle 2 and beginning of cycle 3. Carboplatin has been discontinued. Medical History Family History: Anxiety disorder MOTHER, , Age:51 FH: depression MOTHER, , Age:51 FH: emphysema FATHER, , Age:72 Pulmonary fibrosis BROTHER OR SISTER Psychosocial History Social History Patient is single no children Occupational History He is on disability and currently on Medicare Alcohol History He denies any abuse, previously was noted to be a heavy drinker Smoking History: Yes Smoking Status: Current: Every Day Smoker Exposure to Second Hand Smoke?: Yes (Patient smokes 1 1/2 packs daily for forty -three years.) Medications and Allergies Active Scripts Losartan Potassium (LOSARTAN POTASSIUM) 25 Mg Tablet, 25 MG PO QDAY Y for PRN for 30 Days, #30 TAB 9 Refills Prov:JAE NUNO-BC, ONC 04/23/17 Oxycodone Hcl/Acet 5/325 Mg (ENDOCET 5-325 TABLET) 1 Each Tablet, 1 EACH PO Q4- 6H Y for PAIN, #45 TAB Prov:JAE NUNO-BC, ONC 03/27/17 Oxycodone Hcl (OXYCONTIN) 10 Mg Tab.er.12h, 10 MG PO Q12H, #60 TAB Prov:JAE NUNO-BC, ONC 03/11/17 Dexamethasone 4 Mg Tab (DEXAMETHASONE 4 MG TAB) 4 Mg Tab, 4 MG PO BID for 3 Days , #36 TAB Take 4 mg bid x 3 days starting 24 hours prior to each chemotherapy x 6 cycles. Prov:JAE NUNO-BC, ONC 02/04/17 Sucralfate (CARAFATE) 1 Gm Tablet, 1 GM PO QID for 14 Days, #60 TAB Take before meals and at bedtime. Crush the tablet and mix with water before taking. Prov:CHRISTOPHE HOLT [employer]ENIOR [employer] DEVELOPER 01/24/17 Ondansetron Hcl (ZOFRAN) 8 Mg Tablet, 8 MG PO Q12H, #30 TAB 1 Refill Prov:JAE NUNO [facility], ONC 04/17/16 Reported Medications Disulfiram (ANTABUSE) 250 Mg Tab, 250 MG PO DAILY Y for PRN, TAB 01/31/17 Gabapentin (GABAPENTIN) 300 Mg Capsule, 300 MG PO BID, CAPSULE 01/31/17 Armodafinil (NUVIGIL) 150 Mg Tablet, 150 MG PO QAM, TAB 01/31/17 Amitriptyline Hcl (AMITRIPTYLINE HCL) 75 Mg Tablet, 75 MG PO QHS, #5 TAB 01/01/17 Cyanocobalamin (Vitamin B-12) (VITAMIN B-12) 1,000 Mcg Tablet.er, 1000 MCG PO DAILY 04/11/16 Cholecalciferol (Vitamin D3) (VITAMIN D) 2,000 Unit Capsule, 2000 UNIT PO 2XW, CAPSULE 04/11/16 Latanoprost (LATANOPROST) 2.5 Ml Drops, 2.5 ML OP HS 04/11/16 [trintellix] No Conflict Check, 20 MG PO DAILY 04/11/16 Omeprazole (PRILOSEC) 40 Mg Capsule.dr, 1 TAB PO QDAY TAKE ONE TABLET BY MOUTH ONCE A DAY 01/07/14 Folic Acid (FOLIC ACID) 1 Mg Tablet, 1 MG PO DAILY 05/26/13 Multivit, Min No.21/Folic Acid (SUPERVITE EC CAPLET) 1 Mg Tablet.dr, 1 MG PO 05/26/13 Tamsulosin Hcl (Flomax) 0.4 Mg Cap, 0.4 MG PO QDAY, #30 2 Refills 04/09/11 Discontinued Scripts Ciprofloxacin Hcl (CIPROFLOXACIN HCL) 500 Mg Tablet, 500 MG PO Q12H for 5 Days, #10 TAB Prov:JAE NUNO [facility]-, ONC 04/08/17 Allergies: Coded Allergies: carboplatin (Verified Allergy, Severe, ANAPHYLAXIS, 03/25/17) Carboplatin recieved on 02/11/17 no reaction after receiving full dose. Carboplatin recieved again on 03/04/17 200 of the 500mls recieved and patient began to cough, experienced dizziness, nausea and short of breath, rapid response was called and patient was taken to the ER. Carboplatin recieved for th 3rd time on03/26/17 and patient recived around 75mls of the drug and began to experience the same symptoms as above. Review of System/Physical Exam Review of Systems All Systems Reviewed/Normal: Yes, Except as Noted Respiratory: Positive for Shortness of Breath (patient reports increased shortness of breath with exertion. He is without oxygen today in the office. He does wear oxygen at night. He continues to smoke) Hematologic: Positive for Fatigue, Positive for Weakness Psychiatric: Depression (patient reports that the holidays are very depressing and he felt like he had no one available for him. His sister left with her family and he was alone) Physical Exam Vital Signs Temperature: 97.1 Pulse: 92 BP Systolic: 189 BP Diastolic: 99 Respiratory Rate: 16 O2 SAT: 98 O2 Delivery: Height (inches) 71.00 Weight lb: 191 Weight oz: 7.0 Weight Kg (Fabián): Pain: 0 ECOG Score: 2 General: Stable, Well Developed, Well Nourished, Not In Acute Distress HEENT: No Trauma, No Conjunctivitis, No Icterus Neck: Supple Heart: Regular Rate, Regular Rhythm, No Gallops, No Murmurs Extremities: No Cyanosis, No Clubbing, No Edema Lymphadenopathy: No Cervical Psychiatric: Mood appears normal, Affect appears normal Skin: No Skin Rashes, No Bruising, No Purpura Diagnostic Studies Diagnostic Studies Laboratory Labs are currently pending Laboratory Tests 04/16/17 13:30 Laboratory Tests 02/25/17 09:11: Neutrophils % (Manual) 17, Band Neutrophils % 0, Lymphocytes % (Manual) 37, Atypical Lymphocytes % 0, Monocytes % (Manual) 44, Eosinophils % (Manual) 2, Basophils % (Manual) 0, Nucleated Red Blood Cells 1, Anisocytosis 1+, Macrocytosis 1+ 04/08/17 14:21: Red Blood Count 3.18, Mean Corpuscular Volume 102.3, Mean Corpuscular Hemoglobin 35.3, Mean Corpuscular Hemoglobin Concent 34.5, Red Cell Distribution Width 21.9, Mean Platelet Volume 7.7, Monocytes (%) (Auto) 26.5, Eosinophils (%) (Auto) 1.1, Basophils (%) (Auto) 0.6, Nucleated RBC Relative Count (auto) 0.7, Monocytes # (Auto) 0.9, Eosinophils # (Auto) 0.0, Basophils # (Auto) 0.0, Nucleated RBC Absolute Count (auto) 0.02, Peripheral Blood Smear Yes , Magnesium Level 1.7 04/08/17 15:20: Urine Color Straw, Urine Clarity Clear, Urine pH 7.0, Urine Specific [place] 1.002, Urine Protein Negative, Urine Glucose (UA) Negative, Urine Ketones Negative, Urine Blood Moderate, Urine Nitrite Negative, Urine Bilirubin Negative , Urine Urobilinogen Negative, Urine Leukocyte Esterase Moderate, Urine RBC 2, Urine WBC 70, Urine Squamous Epithelial Cells None, Urine Transitional Epithelial Cells Few, Urine Bacteria Negative, Urine Mucus None 04/16/17 13:30: White Blood Count 13.3, Hemoglobin 12.1, Hematocrit 36.0, Platelet Count 209, Neutrophils (%) (Auto) 89.4, Lymphocytes (%) (Auto) 5.0, Neutrophils # (Auto) 11.9, Lymphocytes # (Auto) 0.7, Sodium Level 136, Potassium Level 4.4, Chloride Level 104, Carbon Dioxide Level 21, Blood Urea Nitrogen 14, Creatinine 0.90, Glomerular Filtration Rate Calc > 60.0, Random Glucose 120, Calcium Level 9.5, Total Bilirubin 0.8, Aspartate Amino Transf (AST/SGOT) 33, Alanine Aminotransferase (ALT/SGPT) 58, Alkaline Phosphatase 92, Total Protein 7.6, Albumin 4.0 Microbiology Microbiology 04/08/17 Urine Culture - Final, Complete Escherichia Coli Assessment and Plan Assessment & Plan 1. Recurrent metastatic right upper lobe adenocarcinoma of the right lung. Patient initially diagnosed with a stage IIIa (cT1a cN2 cM0). Diagnosis was achieved by cervical mediastinoscopy with two right mediastinal lymph nodes that came back positive for adenocarcinoma done March 28, 2016. Patient received four cycles of carboplatin and Alimta together with radiation therapy between April 21, 2016 through June 27, 2016. He had a PET scan August 21, 2016, which showed actual response to his treatment. CT chest done on October 23, 2016 showed increase in the size of the right upper lobe mass to 2.4 cm, so PET scan done on December 02, 2016 showed worsening of the right upper lobe consolidation. There was also right hilar and subcarinal lymphadenopathy consistent with metastasis, which are new from the August 2016 scan. There was also right iliac crest and head of the right clavicle bone metastases by PET scan, which are new. Molecular markers all came back negative except for low expression of BD- L1 at 2%. Patient started treatment with Avastin, carboplatin, and Taxol in , unfortunately he developed a reaction to carboplatin at the end of cycle 2 and beginning of cycle 3 and. Carboplatin was discontinued. Patient was started on Taxotere and gemcitabine receiving single agent gemcitabine last week and the combination will be completed today for cycle 1. Patient is tolerating treatment without difficulty. Patient continues to smoke. 2. Pain in the right hip could be due to his bony metastasis. He completed radiation therapy to the right hip and reports improvement today. Currently using oxycodone and OxyContin 2-3 tablets in the day. Pain is stable today 3. Coronary artery disease status post myocardial infarction 2002. 4. History of skin cancer status post radiation therapy. 5. Anxiety and depression. Currently on treatment. Patient reported that the holidays were very difficult and that he is feeling better now that they are over 6. Fatigue: Patient rates fatigue 8 added 10 today. This is related to disease and side effects of chemotherapy. 7. Hypertension: Patient previously was on medication however his blood pressure was very low for several months so it was discontinued. Blood pressure is elevated today and has been over the last several weeks. I will restart losartan 8. PLAN 1. Cycle 1 day 8 Gemzar and Taxotere 2. Follow with provider with each cycle 3. Patient restarted on blood pressure medication I personally spent a total of 25 minutes. Of that 25 minutes was counseling/ coordination of patient's care. See my note above for details. Copies to: AHSAN KOTHARI NANCY J SENIOR J[employer] J[employer]EE DEVELOPER-BC, ONC Apr 23, 2017 09:56
[2017-04-23] MEDS: PALONOSETRON 0.25 MG/5 ML VIAL IVP PRN (10:45)
[2017-04-23 16:00] VITALS: BP 146/94
[2017-04-23] MEDS: HEPARIN FLSH (PORT) 500 UN/5ML IVP PRN (16:04)
[2017-04-23] MEDS: LIDOCAINE/SOD BICARB 8.4% SYR ID PRN (16:04)
[2017-04-23] MEDS: NS(*) 0.9% 500 ML BAG 500 ML IV PRN (16:06)
[2017-04-30 09:18] VITALS: BP 98/72
--- NOTE | 2017-04-30 09:47 | ONC Progress Note - NP.Halsey ---
Patient History Date of Service Apr 30, 2017 Reason For Visit/HPI Patient is seen in the clinic today with complaint of increased fatigue, shortness of breath, blood from his nose, oral mucositis, increased nausea, headaches and dizziness all the time. 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 Patient previously had completed chemotherapy with Alimta and carboplatin 4 cycles in April through June 2016. Upon further review patient was noted to have recurrent disease. Patient started on Avastin, paclitaxel and carboplatin on 02/11/2017. With cycle 3 he experienced shortness of breath and difficulty breathing. Patient had similar symptoms with cycle 2. This was discontinued. He is currently on Taxotere and gemcitabine completed last week. His blood pressure was elevated and he restarted losartin. Problem List (1) Dizziness, nonspecific (2) Dehydration (3) Stage 4 lung cancer (4) Shortness of breath (5) Malignant bone pain (6) Fatigue (7) Depression (8) Hypertension Oncology History The patient is a 66-year-old male with heavy history of tobacco abuse with 1-1/ 2 packs a day for forty-three years. The patient presented with history of shortness of breath and he visited the emergency department. CT scan did reveal significant right upper lobe pulmonary nodule. The patient had after that a PET scan done February 09, 2016 which demonstrated increased uptake in the right upper lobe mass. The mass measured 1.8 cm with SUV 3.3. There were several satellite micro nodules ranging from up to 0.9 cm with metabolic activity of about 2.1. There was a small pretracheal lymph node, 1.6 cm with SUV 2.8. There was a precarinal lymph node 2 cm with SUV 2.8. The patient had bronchoscopy with transbronchial biopsy performed and the pathology was positive for atypical cells suspicious for, but not definitive for malignancy. The patient ended by having cervical mediastinoscopy with biopsy of the right paratracheal lymphadenopathy and staging of the left paratracheal region done by Dr. Adonis Lindsay on March 28, 2016. Two out of three lymph nodes removed from the mediastinum on the right side level 4 came back positive for metastatic adenocarcinoma. The lymph node from level 2 on the right side and lymph nodes from level 4 on the left side came back negative for metastasis. Given that the right mediastinal lymph nodes were positive, the patient had stage IIIA adenocarcinoma of the right upper lobe of the right lung. The patient started chemoradiation with carboplatin and Alimta every three weeks for four cycles on April 24, 2016. The patient completed four courses of carboplatin and Alimta on June 27, 2016. Patient then started chemotherapy with Avastin, paclitaxel and carboplatin on . He had a reaction with the end of cycle 2 and beginning of cycle 3. Carboplatin has been discontinued. Cycle 1 of Taxotere and Gemcitabine completed April 2017 Medical History Family History: Anxiety disorder MOTHER, , Age:51 FH: depression MOTHER, , Age:51 FH: emphysema FATHER, , Age:72 Pulmonary fibrosis BROTHER OR SISTER Psychosocial History Social History Patient is single no children Occupational History He is on disability and currently on Medicare Alcohol History He denies any abuse, previously was noted to be a heavy drinker Smoking History: Yes Smoking Status: Current: Every Day Smoker Exposure to Second Hand Smoke?: Yes (Patient smokes 1 1/2 packs daily for forty -three years.) Medications and Allergies Active Scripts Nystatin (Nystatin) 100,000 Unit/Ml Oral.susp, 4 ML PO QID for 7 Days, #120 ML Prov:JAE NUNOP-BC, ONC 04/30/17 Losartan Potassium (LOSARTAN POTASSIUM) 25 Mg Tablet, 25 MG PO QDAY Y for PRN for 30 Days, #30 TAB 9 Refills Prov:JAE NUNO-BC, ONC 04/23/17 Oxycodone Hcl/Acet 5/325 Mg (ENDOCET 5-325 TABLET) 1 Each Tablet, 1 EACH PO Q4- 6H Y for PAIN, #45 TAB Prov:JAE NUNO-BC, ONC 03/27/17 Oxycodone Hcl (OXYCONTIN) 10 Mg Tab.er.12h, 10 MG PO Q12H, #60 TAB Prov:JAE NUNO-BC, ONC 03/11/17 Dexamethasone 4 Mg Tab (DEXAMETHASONE 4 MG TAB) 4 Mg Tab, 4 MG PO BID for 3 Days , #36 TAB Take 4 mg bid x 3 days starting 24 hours prior to each chemotherapy x 6 cycles. Prov:JAE NUNO-BC, ONC 02/04/17 Sucralfate (CARAFATE) 1 Gm Tablet, 1 GM PO QID for 14 Days, #60 TAB Take before meals and at bedtime. Crush the tablet and mix with water before taking. Prov:JONATHONCHRISTOPHE GRINDING ROOM SUPERVISOR 01/24/17 Ondansetron Hcl (ZOFRAN) 8 Mg Tablet, 8 MG PO Q12H, #30 TAB 1 Refill Prov:JAE NUNO GRINDING ROOM SUPERVISOR-BC, ONC 04/17/16 Reported Medications Disulfiram (ANTABUSE) 250 Mg Tab, 250 MG PO DAILY Y for PRN, TAB 01/31/17 Gabapentin (GABAPENTIN) 300 Mg Capsule, 300 MG PO BID, CAPSULE 01/31/17 Armodafinil (NUVIGIL) 150 Mg Tablet, 150 MG PO QAM, TAB 01/31/17 Amitriptyline Hcl (AMITRIPTYLINE HCL) 75 Mg Tablet, 75 MG PO QHS, #5 TAB 01/01/17 Cyanocobalamin (Vitamin B-12) (VITAMIN B-12) 1,000 Mcg Tablet.er, 1000 MCG PO DAILY 04/11/16 Cholecalciferol (Vitamin D3) (VITAMIN D) 2,000 Unit Capsule, 2000 UNIT PO 2XW, CAPSULE 04/11/16 Latanoprost (LATANOPROST) 2.5 Ml Drops, 2.5 ML OP HS 04/11/16 [trintellix] No Conflict Check, 20 MG PO DAILY 04/11/16 Omeprazole (PRILOSEC) 40 Mg Capsule.dr, 1 TAB PO QDAY TAKE ONE TABLET BY MOUTH ONCE A DAY 01/07/14 Folic Acid (FOLIC ACID) 1 Mg Tablet, 1 MG PO DAILY 05/26/13 Multivit, Min No.21/Folic Acid (SUPERVITE EC CAPLET) 1 Mg Tablet.dr, 1 MG PO 05/26/13 Tamsulosin Hcl (Flomax) 0.4 Mg Cap, 0.4 MG PO QDAY, #30 2 Refills 04/09/11 Discontinued Scripts Ciprofloxacin Hcl (CIPROFLOXACIN HCL) 500 Mg Tablet, 500 MG PO Q12H for 5 Days, #10 TAB Prov:JAE NUNO GRINDING ROOM SUPERVISOR-BC, ONC 04/08/17 Allergies: Coded Allergies: carboplatin (Verified Allergy, Severe, ANAPHYLAXIS, 03/25/17) Carboplatin recieved on 02/11/17 no reaction after receiving full dose. Carboplatin recieved again on 03/04/17 200 of the 500mls recieved and patient began to cough, experienced dizziness, nausea and short of breath, rapid response was called and patient was taken to the ER. Carboplatin recieved for th 3rd time on03/26/17 and patient recived around 75mls of the drug and began to experience the same symptoms as above. Review of System/Physical Exam Review of Systems All Systems Reviewed/Normal: Yes, Except as Noted Constitutional: Positive for Appetite/Weight Change (decreased due to oral mouth sores) Respiratory: Positive for Cough, Positive for Shortness of Breath (increased), Positive for Wheezing HEENT: Nasal Discharge (nose bleeds), Mouth Ulcers (white film on tongue and pain in the mouth, burning sensation) Gastrointestinal: Nausea (taking zofran tid) Hematologic: Positive for Bleeding (nose bleeds), Positive for Fatigue, Positive for Weakness Musculoskeletal: Positive for Muscle Pain, Positive for Joint Pain, Positive for Bone Pain Psychiatric: Anxiety, Depression Physical Exam Vital Signs Temperature: 97.6 Pulse: 110 BP Systolic: 98 BP Diastolic: 72 Respiratory Rate: 20 O2 SAT: 96 O2 Delivery: Height (inches) 71.00 Weight lb: 191 Weight oz: 7.0 Weight Kg (Fabián): Pain: 7 ECOG Score: 2 General: Stable, Well Developed, Well Nourished, Not In Acute Distress ( patient appears to not feel well but is sitting in the chair without movement. He has oxygen on) HEENT: Mucositis (thick white coating over the tongue, roof of the mouth and posterior pharynx. No oral ulcers noted.) Neck: Supple Lungs: Clear to Auscultation (wheezing in the right lower and upper lung field. Cough experienced with each deep breath) Heart: Regular Rhythm, No Gallops, Irregular Rate Abdomen: Soft and Nontender, No Hepatosplenomegaly, No Masses, Other (bowel sounds active) Extremities: No Cyanosis, No Clubbing, No Edema Lymphadenopathy: No Cervical Psychiatric: Mood appears normal, Affect appears normal (Patient is fatigued ) Skin: No Skin Rashes, No Bruising, No Purpura Diagnostic Studies Diagnostic Studies Laboratory Item Value Date Time White Blood Count 1.0 k/uL *L 04/30/17 09 Hemoglobin 9.9 g/dL L 04/30/17 09 Hematocrit 28.2 % L 1/10/18 0930 Platelet Count 28 K/uL *L 04/30/17 0930 Neutrophils % (Manual) 15 % L 04/30/17 0930 Monocytes % (Manual) 4 % L 04/30/17 0930 Eosinophils % (Manual) 0 % L 04/30/17 0930 Basophils % (Manual) 4 % H 04/30/17 0930 Item Value Date Time Carbon Dioxide Level 21 mmol/L L 04/30/17 0930 Random Glucose 119 mg/dl H 04/30/17 0930 Total Bilirubin 1.7 mg/dl H 04/30/17 0930 Aspartate Amino Transf (AST/SGOT) 37 U/L H 04/30/17 0930 Alanine Aminotransferase (ALT/SGPT) 78 U/L H 04/30/17 0930 Aspartate Amino Transf (AST/SGOT) 38 U/L H 04/23/17 1010 Alanine Aminotransferase (ALT/SGPT) 79 U/L H 04/23/17 1010 Alanine Aminotransferase (ALT/SGPT) 58 U/L H 04/16/17 1330 Laboratory Tests 02/25/17 09:11: Neutrophils % (Manual) 17, Band Neutrophils % 0, Lymphocytes % (Manual) 37, Atypical Lymphocytes % 0, Monocytes % (Manual) 44, Eosinophils % (Manual) 2, Basophils % (Manual) 0, Nucleated Red Blood Cells 1, Anisocytosis 1+, Macrocytosis 1+ 04/08/17 14:21: Peripheral Blood Smear Yes, Magnesium Level 1.7 04/08/17 15:20: Urine Color Straw, Urine Clarity Clear, Urine pH 7.0, Urine Specific [place] 1.002, Urine Protein Negative, Urine Glucose (UA) Negative, Urine Ketones Negative, Urine Blood Moderate, Urine Nitrite Negative, Urine Bilirubin Negative , Urine Urobilinogen Negative, Urine Leukocyte Esterase Moderate, Urine RBC 2, Urine WBC 70, Urine Squamous Epithelial Cells None, Urine Transitional Epithelial Cells Few, Urine Bacteria Negative, Urine Mucus None 04/30/17 09:30: Radiology CT of the head is reported unremarkable - verbal report. Written report pending Microbiology Microbiology 04/08/17 Urine Culture - Final, Complete Escherichia Coli Assessment and Plan Assessment & Plan 1. Recurrent metastatic right upper lobe adenocarcinoma of the right lung. Patient initially diagnosed with a stage IIIa (cT1a cN2 cM0). Diagnosis was achieved by cervical mediastinoscopy with two right mediastinal lymph nodes that came back positive for adenocarcinoma done March 28, 2016. Patient received four cycles of carboplatin and Alimta together with radiation therapy between April 21, 2016 through June 27, 2016. He had a PET scan August 21, 2016, which showed actual response to his treatment. CT chest done on October 23, 2016 showed increase in the size of the right upper lobe mass to 2.4 cm, so PET scan done on December 02, 2016 showed worsening of the right upper lobe consolidation. There was also right hilar and subcarinal lymphadenopathy consistent with metastasis, which are new from the August 2016 scan. There was also right iliac crest and head of the right clavicle bone metastases by PET scan, which are new. Molecular markers all came back negative except for low expression of BD- L1 at 2%. Patient started treatment with Avastin, carboplatin, and Taxol in , unfortunately he developed a reaction to carboplatin at the end of cycle 2 and beginning of cycle 3 and. Carboplatin was discontinued. Patient was started on Taxotere and gemcitabine receiving single agent gemcitabine followed by Taxotere and Gemcitabine on day 8 to complete cycle 1 last week. AST and ALT, Bilirubin are elevated further today from previous. Patient has increased SOB, nausea, headaches, candidiases, fatigue today. He was hydrated with 1 liter NS for dehydration secondary to not eating due to mouth pain. He will complete a CT of the head with IV contrast today and chest, abdomen and pelvis for re-evaluation of disease status. He will follow to review results. I will give him Oxycontin IR 5mg tab now for pain prior to CT scan. He will be started on nystatin swish and swallow for oral candidiases. I deferred the use of diflucan because of the elevated liver enzymes. WBC is 1.0 today with ANC of 150. I will start patient on neupogen 5mcg/kg x 5 days and repeat CBC. Neupogen to continue until ANC > 1000. Patient continues to smoke. 2. Pain in the right hip due to his bony metastasis. He completed radiation therapy to the right hip previously with some relief. Currently using oxycodone and OxyContin 2-3 tablets in the day. 3. Coronary artery disease status post myocardial infarction 2002. 4. History of skin cancer status post radiation therapy. 5. Anxiety and depression. Currently on treatment. He is on medications for this. The holidays were difficult and he is feeling better now. 6. Fatigue: Patient rates fatigue 10 added 10 today. This is related to disease and side effects of chemotherapy. Patient was hydrated and CT scan to follow 7. Hypertension: Patient previously was on medication however his blood pressure was very low for several months so it was discontinued. Blood pressure was elevated with last appointment. He was restarted on Losartin. BP is low today but may be due to dehydration. We will continue to monitor. 8. Neutropenia. Neupogen 480mcg SQ x 5 days then repeat CBC on day 6. If ANC > 1000, discontinue neupogen. Add Neulasta to chemotherapy order. PLAN 1. Cycle 1 day 8 Gemzar and Taxotere completed last week. 2. CT of the head now and of chest, abdomen and pelvis later this week if possible. Follow with provider to review 3. Continue on Losartin and monitor BP 4. Nystatin for oral thrush 5. OxyContin 5mg now for pain prior to CT scan. 6. Neupogen 480 SC x 5 days. Repeat CBC on day 6 CT of the head was reported unremarkable and patient was given results. He will continue with zofran tid for nausea as needed. I personally spent over 40 minutes with patient for counseling, review of symptoms and coordination of patient's care. See my note above for details. JAE NUNO GRINDING ROOM SUPERVISOR-BC, ONC Apr 30, 2017 09:47
[2017-04-30 10:36] LABS: PLATELET COUNT, AUTOMATED 28 K/uL (150-450)
--- NOTE | 2017-04-30 11:53 | RADIOLOGY IMAGING REPORT ---
FACILITY: [facility] PATIENT NAME: Jarret Aguilar : 1950 MR: [id number] V: [id number] EXAM DATE: ORDERING PHYSICIAN: LEELA SAUCEDO TECHNOLOGIST: Location: [facility] - [place] Patient: Jarret Aguilar : 1950 Visit/Account:[id number] Date of Sevice: 04/30/2017 EXAMINATION: CT head without IV contrast CT head with IV contrast HISTORY: Dizziness. COMPARISON: CT head from 11/06/[address] temporal bone from 08/12/2013. TECHNIQUE: Contiguous axial images were obtained from the skull base to the vertex before and after IV contrast. Sagittal and coronal reformatted images are also submitted. CONTRAST: 75 mL of IV Isovue-370. One of the following dose optimization techniques was utilized in the performance of this exam: Autom ated exposure control; adjustment of the mA and/or kV according to the patient's size; or use of an i terative reconstruction technique. Specific details can be referenced in the facility's radiology C T exam operational policy. FINDINGS: Brain volume: Normal. Ventricles: Normal. Acute ischemic changes: None. Hemorrhage: No acute intracranial hemorrhage. Masses/edema: None. Enhancement: There is no abnormal intracranial enhancement. Mello-white: Negative. White matter: A few hypodensities in the deep white matter bilaterally. Vessels: Calcified plaque of both carotid siphons. Extra-axial: Negative. Calvarium/scalp: Mildly increased density in the left occipital scalp without focal lesion. No acut e fracture. Skull base/visualized face: Negative. Visualized sinuses/orbits: Mild mucosal thickening in the bilateral ethmoid air cells and bilateral maxillary sinus mucous retention cysts, measuring up to 2 cm on the left. Trace mastoid effusions wi thout destructive bony process. IMPRESSION: 1. No intracranial mass lesion or hemorrhage. No CT evidence of acute infarct. 2. Mild nonspecific white matter disease suspicious for chronic small vessel ischemia. 3. Mildly increased density in the left occipital scalp is unchanged since 10/2012 and is likely scar ring from old trauma or procedure. 4. Patchy inflammation of paranasal sinuses with bilateral maxillary sinus mucous retention cysts Report Dictated By: Nita Delacruz MD at 04/30/2017 11:43 AM Report E-Signed By: Nita Delacruz MD at 04/30/2017 11:48 AM WSN:[id number]
[2017-04-30] MEDS: HEPARIN FLSH (PORT) 500 UN/5ML IVP PRN (11:58)
[2017-04-30] MEDS: LIDOCAINE/SOD BICARB 8.4% SYR ID PRN (11:59)
[2017-05-01] MEDS: FILGRASTIM 480 MCG/1.6 ML VIAL SC PRN (11:36)
[2017-05-01 12:29] VITALS: BP 108/76
[2017-05-02] MEDS: HEPARIN FLSH (PORT) 500 UN/5ML IVP PRN (12:16)
[2017-05-02] MEDS: FILGRASTIM 480 MCG/1.6 ML VIAL SC PRN (12:17)
[2017-05-02] MEDS: LIDOCAINE/SOD BICARB 8.4% SYR ID PRN (12:17)
--- NOTE | 2017-05-02 14:31 | RADIOLOGY IMAGING REPORT ---
FACILITY: [facility] - [place] PATIENT NAME: Jarret Aguilar : 1950 MR: [id number] V: [id number] EXAM DATE: ORDERING PHYSICIAN: LEELA SAUCEDO TECHNOLOGIST: Location: [facility] [place] Patient: Jarret Aguilar : 1950 Visit/Account:[id number] Date of Sevice: 05/02/2017 CHEST/AB/PELV W/CONTRAST HISTORY: Lung cancer ADDITIONAL HISTORY: None. TECHNIQUE: Following administration of IV contrast axial images acquired through the chest abdomen a nd pelvis during the portal venous phase. Coronal and sagittal reformatting was also performed. Dose Lowering Technique One of the following dose optimization techniques was utilized in the performance of this exam: Autom ated exposure control; adjustment of the mA and/or kV according to the patient's size; or use of an i terative reconstruction technique. Specific details can be referenced in the facility's radiology C T exam operational policy. CONTRAST: 100 mL Isovue-370 COMPARISON: CTA chest March 04, [address] abdomen pelvis February 03, 2017 FINDINGS: CHEST: Lungs/Pleura: Fibrotic changes pulmonary apices appear unchanged. Right upper lobe pulmonary mass a ppears relatively unchanged when compared the prior study measuring approximately 4.5 cm in diameter. The parenchymal soft tissue cystic process/cystic honeycombing extending cephalad and medial from t he mass appears relatively unchanged and extends towards the right hilum. 7 mm intrafissural nodule inferior aspect the right upper lobe appears unchanged best seen on image 45 of series 3. Irregular thickening and cystic changes immediately adjacent to the major fissure on the right also a ppear stable. There is a 5 mm subpleural nodule lateral aspect left lower lobe best seen on image 77 that appears s table. There is a small 4 mm spiculation abutting the major fissure in the left upper lobe best seen on imag e 16. This appears unchanged. There is a new spiculated nodule measuring 8 mm abutting the medial pleural margin left upper lobe best seen on image 39 and a new 1 cm spiculated nodule anterior medial aspect left upper lobe best se en on image 49. There is a 3 mm groundglass opacity lateral aspect left upper lobe best seen on image 54 that is unch anged Mediastinum/lymph nodes: Pretracheal lymph nodes appear to decrease in size and now measure up to 1. 2 cm. As opposed 1.5 cm previously. Subcarinal lymph nodes now measure 2.6 x 1.2 centers as opposed to 3 x 1.6 cm previously. Right hilar lymph nodes also have decreased in size now measuring up to 2 cm as opposed to 2.3 cm pre viously Heart/vessels: There are vascular calcifications in the coronary arteries. Ascending thoracic aorta appears unchanged measuring up to 4 cm in diameter Bones/soft tissues: No aggressive appearing bone lesions are seen ABDOMEN AND PELVIS: Hepatobiliary: Diffuse hepatic steatosis Spleen: Negative. Pancreas: Negative. Adrenals: Right adrenal gland is unremarkable. The two left hypoattenuating left adrenal masses lucina ear unchanged Kidneys ureters and bladder : Negative. Genitalia: Negative. GI: There is diverticulosis left-sided colon although no CT evidence of acute diverticulitis Vessels/spaces/nodes: The previously noted hypoattenuating nodule just anterior and medial to the ga stric fundus has decrease in size and now measures approximately 1 cm as opposed 1.8 cm. Small hypoattenuating nodules adjacent to the splenic hilum have also decreased in size now measuring up to 7 mm as opposed 1.2 cm previously. The previously noted hypoattenuating nodule anterolateral to left psoas muscle now measures 2 x 1.1 c m as opposed to 2.7 x 2.3 cm. Extensive vascular calcifications again noted throughout the abdomen and pelvis Bones/soft tissues: Again noted are bilateral inguinal hernias containing fat There is a small umbilical hernia containing fat Lytic lesion along the anterior superior right iliac bone is again seen although he expansile soft t issue component has decreased in size. The overall measurements are now 2.7 x 2.5 cm as opposed to 3 x 3.4 cm Additional findings: None pertinent. IMPRESSION:Right upper lobe pulmonary mass appears unchanged in size as does the parenchymal soft tis andres cystic process and honeycombing cephalad and medial to the mass. There are bilateral pulmonary nodules. Some appear stable although there are new spiculated nodules in the left upper lobe measuring up to 1 cm. There is been an interval decrease in the right hilar and mediastinal adenopathy Diffuse hepatic steatosis The two left adrenal masses are stable Diverticulosis left-sided colon although no CT evidence of acute diverticulitis The previously noted hypoattenuating nodules adjacent to the gastric fundus, splenic hilum and left l ower abdomen have all decreased in size The soft tissue component of the lytic lesion along the anterior superior right iliac bone has decrea sed in size Report Dictated By: Padmaja Dudley MD at 05/02/2017 1:46 PM Report E-Signed By: Padmaja Dudley MD at 05/02/2017 2:17 PM WSN:[id number]
[2017-05-03] MEDS: FILGRASTIM 480 MCG/1.6 ML VIAL SC PRN (11:45)
[2017-05-03 11:51] VITALS: BP 143/77
[2017-05-04] MEDS: FILGRASTIM 480 MCG/1.6 ML VIAL SC PRN (11:20)
[~2017-05-05] VITALS: Ht 180.3 cm; Wt 88.9 kg
[~2017-05-05 13:30] MED LIST changes: +ALBUTEROL 2.5 MG/3 ML NEB ONE; +ALTEPLASE RECOMB 2 MG VIAL IVP PRN; +BEVACIZUMAB IVPB ONE; +CARBOPLATIN IVPB ONE; +D5W IVPB ONE; +DEXAMETHASONE SOD PHOS 10MG/ML ONE; +DEXTROSE 5%(*) 100 ML BAG 100 ML IVPB PRN; +DOCETAXEL IVPB ONE; +EPINEPHrine HCL 1 MG/ML AMP IM ONLY ONE; +FILGRASTIM 480 MCG/1.6 ML VIAL SC ONE; +GEMCITABINE IVPB ONE; +HYDROCORTISONE 100 MG/2 ML IVP ONE; +IOPAMIDOL 76% 100 ML INFUS BTL 100 ML ONE; +IOPAMIDOL 76% 75 ML INFUS BTL 75 ML ONE; +NS 0.9% 50 ML VIAL 100 ML ONE; +NS 0.9% 50 ML VIAL 50 ML ONE; +NS 0.9% IVPB ONE; +NS(*) 0.9% 100 ML BAG 100 ML IVPB PRN; +NS(*) 0.9% 1000 ML BAG 1,000 ML IV PRN; +NYST100016 PO; +ONDANSETRON 4 MG/2 ML VIAL ONE; +PACLITAXEL IVPB ONE; +PEGFILGRASTIM 6 MG/0.6 ML SYR SUBQ ONE; +PROMETHAZINE 25 MG/ML 1 ML AMP ONE; +WATER STERILE 10 ML VIAL IVP PRN; +[UNRECOGNIZED DRUG - OTHER] IVPB ONE; +[UNRECOGNIZED DRUG - OTHER] IVPB ONE; +oxyCODONE HCL 5 MG CAP PO ONE
[2017-05-05 14:09] LABS: PLATELET COUNT, AUTOMATED 90 K/uL (150-450)
--- NOTE | 2017-05-05 15:18 | ONC Progress Note - NP.Halsey ---
Patient History Date of Service May 05, 2017 Reason For Visit/HPI Patient is seen in the clinic today to review labs and recent CT scan. Patient reports that he continues to have fatigue but is feeling slightly improved from last week. He continues to have dizziness which has been a long-standing issue. He continues to have shortness of breath but is no longer having blood from his nose or oral mucositis, nausea has resolved. Patient was scheduled to have cycle 2 of chemotherapy this week and we will hold until next week because of his fatigue. CT scan remains relatively stable from previous. He reports that he is taking his losartan for his blood pressure management. Problem List (1) Malignant neoplasm of ear (2) Shortness of breath (3) Fatigue (4) Depression (5) Hypertension (6) Dizziness, nonspecific (7) Stage 4 lung cancer Oncology History The patient is a 66-year-old male with heavy history of tobacco abuse with 1-1/ 2 packs a day for forty-three years. The patient presented with history of shortness of breath and he visited the emergency department. CT scan did reveal significant right upper lobe pulmonary nodule. The patient had after that a PET scan done February 09, 2016 which demonstrated increased uptake in the right upper lobe mass. The mass measured 1.8 cm with SUV 3.3. There were several satellite micro nodules ranging from up to 0.9 cm with metabolic activity of about 2.1. There was a small pretracheal lymph node, 1.6 cm with SUV 2.8. There was a precarinal lymph node 2 cm with SUV 2.8. The patient had bronchoscopy with transbronchial biopsy performed and the pathology was positive for atypical cells suspicious for, but not definitive for malignancy. The patient ended by having cervical mediastinoscopy with biopsy of the right paratracheal lymphadenopathy and staging of the left paratracheal region done by Dr. Adonis Lindsay on March 28, 2016. Two out of three lymph nodes removed from the mediastinum on the right side level 4 came back positive for metastatic adenocarcinoma. The lymph node from level 2 on the right side and lymph nodes from level 4 on the left side came back negative for metastasis. Given that the right mediastinal lymph nodes were positive, the patient had stage IIIA adenocarcinoma of the right upper lobe of the right lung. The patient started chemoradiation with carboplatin and Alimta every three weeks for four cycles on April 24, 2016. The patient completed four courses of carboplatin and Alimta on June 27, 2016. Patient then started chemotherapy with Avastin, paclitaxel and carboplatin on . He had a reaction with the end of cycle 2 and beginning of cycle 3. Carboplatin has been discontinued. Cycle 1 of Taxotere and Gemcitabine completed April 2017 with good toleration but development of significant neutropenia requiring 5 days Neupogen injections and holding treatment times one extra week. Neulasta will be ordered with cycle 2. CT of the head on 04/30/[address] of the chest abdomen and pelvis on 05/02/2017 shows relatively stable to unchanged disease with the possibility of one new spiculated nodule measuring 8 mm abutting to the medial pleural margin left upper lobe and one new centimeter spiculated nodule in the medial aspect of the left upper lobe. It is too soon to tell if patient is responding to current chemotherapy as he has only had one cycle. Medical History Family History: Anxiety disorder MOTHER, , Age:51 FH: depression MOTHER, , Age:51 FH: emphysema FATHER, , Age:72 Pulmonary fibrosis BROTHER OR SISTER Psychosocial History Social History Patient is single no children Occupational History He is on disability and currently on Medicare Alcohol History He denies any abuse, previously was noted to be a heavy drinker Smoking History: Yes Smoking Status: Current: Every Day Smoker Exposure to Second Hand Smoke?: Yes (Patient smokes 1 1/2 packs daily for forty -three years.) Medications and Allergies Active Scripts Nystatin (Nystatin) 100,000 Unit/Ml Oral.susp, 4 ML PO QID for 7 Days, #120 ML Prov:JAE NUNOP-BC, ONC 04/30/17 Losartan Potassium (LOSARTAN POTASSIUM) 25 Mg Tablet, 25 MG PO QDAY Y for PRN for 30 Days, #30 TAB 9 Refills Prov:JAE NUNOP-BC, ONC 04/23/17 Oxycodone Hcl/Acet 5/325 Mg (ENDOCET 5-325 TABLET) 1 Each Tablet, 1 EACH PO Q4- 6H Y for PAIN, #45 TAB Prov:JAE NUNOP-BC, ONC 03/27/17 Oxycodone Hcl (OXYCONTIN) 10 Mg Tab.er.12h, 10 MG PO Q12H, #60 TAB Prov:JAE NUNO [employer]CH[employer]IC-BC, ONC 03/11/17 Dexamethasone 4 Mg Tab (DEXAMETHASONE 4 MG TAB) 4 Mg Tab, 4 MG PO BID for 3 Days , #36 TAB Take 4 mg bid x 3 days starting 24 hours prior to each chemotherapy x 6 cycles. Prov:JAE NUNO [employer]-BC, ONC 02/04/17 Sucralfate (CARAFATE) 1 Gm Tablet, 1 GM PO QID for 14 Days, #60 TAB Take before meals and at bedtime. Crush the tablet and mix with water before taking. Prov:CHRISTOPHE HOLT IMPLEMENT MECHANIC 01/24/17 Ondansetron Hcl (ZOFRAN) 8 Mg Tablet, 8 MG PO Q12H, #30 TAB 1 Refill Prov:NURYSJAE BARBA Uzma [facility]-BC, ONC 04/17/16 Reported Medications Disulfiram (ANTABUSE) 250 Mg Tab, 250 MG PO DAILY Y for PRN, TAB 01/31/17 Gabapentin (GABAPENTIN) 300 Mg Capsule, 300 MG PO BID, CAPSULE 01/31/17 Armodafinil (NUVIGIL) 150 Mg Tablet, 150 MG PO QAM, TAB 01/31/17 Amitriptyline Hcl (AMITRIPTYLINE HCL) 75 Mg Tablet, 75 MG PO QHS, #5 TAB 01/01/17 Cyanocobalamin (Vitamin B-12) (VITAMIN B-12) 1,000 Mcg Tablet.er, 1000 MCG PO DAILY 04/11/16 Cholecalciferol (Vitamin D3) (VITAMIN D) 2,000 Unit Capsule, 2000 UNIT PO 2XW, CAPSULE 04/11/16 Latanoprost (LATANOPROST) 2.5 Ml Drops, 2.5 ML OP HS 04/11/16 [trintellix] No Conflict Check, 20 MG PO DAILY 04/11/16 Omeprazole (PRILOSEC) 40 Mg Capsule.dr, 1 TAB PO QDAY TAKE ONE TABLET BY MOUTH ONCE A DAY 01/07/14 Folic Acid (FOLIC ACID) 1 Mg Tablet, 1 MG PO DAILY 05/26/13 Multivit, Min No.21/Folic Acid (SUPERVITE EC CAPLET) 1 Mg Tablet.dr, 1 MG PO 05/26/13 Tamsulosin Hcl (Flomax) 0.4 Mg Cap, 0.4 MG PO QDAY, #30 2 Refills 04/09/11 Allergies: Coded Allergies: carboplatin (Verified Allergy, Severe, ANAPHYLAXIS, 03/25/17) Carboplatin recieved on 02/11/17 no reaction after receiving full dose. Carboplatin recieved again on 03/04/17 200 of the 500mls recieved and patient began to cough, experienced dizziness, nausea and short of breath, rapid response was called and patient was taken to the ER. Carboplatin recieved for th 3rd time on03/26/17 and patient recived around 75mls of the drug and began to experience the same symptoms as above. Review of System/Physical Exam Review of Systems All Systems Reviewed/Normal: Yes, Except as Noted Respiratory: Positive for Cough, Positive for Shortness of Breath HEENT: Other (patient shares that previously he had developed a lot of wax in his ears and has not clean them out recently. He questions if this is part of his dizziness) Hematologic: Positive for Fatigue, Positive for Weakness Musculoskeletal: Positive for Bone Pain (remained stable to improved.) Psychiatric: Depression Physical Exam Vital Signs Temperature: 96.8 Pulse: 110 BP Systolic: 143 BP Diastolic: 77 Respiratory Rate: 22 O2 SAT: 98 O2 Delivery: Height (inches) 71.00 Weight lb: 191 Weight oz: 7.0 Weight Kg (Fabián): Pain: 2 ECOG Score: 2 (Significant fatigue) General: Stable, Well Developed, Well Nourished, Not In Acute Distress HEENT: No Trauma, No Conjunctivitis, No Icterus, No Mucositis, No Oral Thrush, Other (bilateral ear canals positive for earwax with difficulty seeing in the internal ear canal) Neck: Supple Lungs: Clear to Auscultation Heart: Regular Rate, Regular Rhythm Abdomen: Soft and Nontender, No Hepatosplenomegaly, No Masses Lymphadenopathy: No Cervical Psychiatric: Mood appears normal, Affect appears normal Skin: No Skin Rashes, No Bruising, No Purpura Diagnostic Studies Diagnostic Studies Laboratory Laboratory Tests 04/30/17 09:30 05/05/17 13:45 Radiology COMPARISON: CTA chest March 04, [address] abdomen pelvis February 03, 2017 FINDINGS: CHEST: Lungs/Pleura: Fibrotic changes pulmonary apices appear unchanged. Right upper lobe pulmonary mass appears relatively unchanged when compared the prior study measuring approximately 4.5 cm in diameter. The parenchymal soft tissue cystic process/cystic honeycombing extending cephalad and medial from the mass appears relatively unchanged and extends towards the right hilum. 7 mm intrafissural nodule inferior aspect the right upper lobe appears unchanged best seen on image 45 of series 3. Irregular thickening and cystic changes immediately adjacent to the major fissure on the right also appear stable. There is a 5 mm subpleural nodule lateral aspect left lower lobe best seen on image 77 that appears stable. There is a small 4 mm spiculation abutting the major fissure in the left upper lobe best seen on image 16. This appears unchanged. There is a new spiculated nodule measuring 8 mm abutting the medial pleural margin left upper lobe best seen on image 39 and a new 1 cm spiculated nodule anterior medial aspect left upper lobe best seen on image 49. There is a 3 mm groundglass opacity lateral aspect left upper lobe best seen on image 54 that is unchanged Mediastinum/lymph nodes: Pretracheal lymph nodes appear to decrease in size and now measure up to 1.2 cm. As opposed 1.5 cm previously. Subcarinal lymph nodes now measure 2.6 x 1.2 centers as opposed to 3 x 1.6 cm previously. Right hilar lymph nodes also have decreased in size now measuring up to 2 cm as opposed to 2.3 cm previously Heart/vessels: There are vascular calcifications in the coronary arteries. Ascending thoracic aorta appears unchanged measuring up to 4 cm in diameter Bones/soft tissues: No aggressive appearing bone lesions are seen ABDOMEN AND PELVIS: Hepatobiliary: Diffuse hepatic steatosis Spleen: Negative. Pancreas: Negative. Adrenals: Right adrenal gland is unremarkable. The two left hypoattenuating left adrenal masses appear unchanged Kidneys ureters and bladder : Negative. Genitalia: Negative. GI: There is diverticulosis left-sided colon although no CT evidence of acute diverticulitis Vessels/spaces/nodes: The previously noted hypoattenuating nodule just anterior and medial to the gastric fundus has decrease in size and now measures approximately 1 cm as opposed 1.8 cm. Small hypoattenuating nodules adjacent to the splenic hilum have also decreased in size now measuring up to 7 mm as opposed 1.2 cm previously. The previously noted hypoattenuating nodule anterolateral to left psoas muscle now measures 2 x 1.1 cm as opposed to 2.7 x 2.3 cm. Extensive vascular calcifications again noted throughout the abdomen and pelvis Bones/soft tissues: Again noted are bilateral inguinal hernias containing fat There is a small umbilical hernia containing fat Lytic lesion along the anterior superior right iliac bone is again seen although he expansile soft tissue component has decreased in size. The overall measurements are now 2.7 x 2.5 cm as opposed to 3 x 3.4 cm Additional findings: None pertinent. IMPRESSION:Right upper lobe pulmonary mass appears unchanged in size as does the parenchymal soft tissue cystic process and honeycombing cephalad and medial to the mass. There are bilateral pulmonary nodules. Some appear stable although there are new spiculated nodules in the left upper lobe measuring up to 1 cm. There is been an interval decrease in the right hilar and mediastinal adenopathy Diffuse hepatic steatosis The two left adrenal masses are stable Diverticulosis left-sided colon although no CT evidence of acute diverticulitis The previously noted hypoattenuating nodules adjacent to the gastric fundus, splenic hilum and left lower abdomen have all decreased in size The soft tissue component of the lytic lesion along the anterior superior right iliac bone has decreased in size Report Dictated By: Padmaja Dudley MD at 05/02/2017 1:46 PM Microbiology Microbiology 04/08/17 Urine Culture - Final, Complete Escherichia Coli Assessment and Plan Assessment & Plan 1. Recurrent metastatic right upper lobe adenocarcinoma of the right lung. Patient initially diagnosed with a stage IIIa (cT1a cN2 cM0). Diagnosis was achieved by cervical mediastinoscopy with two right mediastinal lymph nodes that came back positive for adenocarcinoma done March 28, 2016. Patient received four cycles of carboplatin and Alimta together with radiation therapy between April 21, 2016 through June 27, 2016. He had a PET scan August 21, 2016, which showed actual response to his treatment. CT chest done on October 23, 2016 showed increase in the size of the right upper lobe mass to 2.4 cm, so PET scan done on December 02, 2016 showed worsening of the right upper lobe consolidation. There was also right hilar and subcarinal lymphadenopathy consistent with metastasis, which are new from the August 2016 scan. There was also right iliac crest and head of the right clavicle bone metastases by PET scan, which are new. Molecular markers all came back negative except for low expression of BD- L1 at 2%. Patient started treatment with Avastin, carboplatin, and Taxol in , unfortunately he developed a reaction to carboplatin at the end of cycle 2 and beginning of cycle 3 and. Carboplatin was discontinued. Patient was started on Taxotere and gemcitabine receiving single agent gemcitabine followed by Taxotere and Gemcitabine on day 8 to complete cycle 1 . AST and ALT , Bilirubin were elevated and patient complained of increased SOB, nausea, headaches, candidiases, and fatigue. He was hydrated with 1 liter NS for dehydration secondary to not eating due to mouth pain. CT of the head with IV contrast was unremarkable. CT of the chest, abdomen and pelvis for re- evaluation of disease status was essentially stable with exception of possibly to new spiculated nodules in the left upper lobe 8 mm and 1 cm in size. Because patient is only completed one cycle of chemotherapy with Taxotere and gemcitabine it is too early to determine treatment response. Fortunately it did give the information that patient did not have progressive disease causing his elevated liver enzymes and increased shortness of breath. Patient developed significant neutropenia and was started on neupogen 5mcg/kg x 5 days repeat CBC today shows a good response. Patient continues to smoke. A discussion was completed again today sharing that his chance of recovery and response to chemotherapy is significantly decreased with the amount of cigarettes that he continues to smoke. Patient reports that he will try to decrease his amount. 2. Pain in the right hip due to his bony metastasis. He completed radiation therapy to the right hip previously with relief. Currently using oxycodone and OxyContin 2-3 tablets in the day. CT scan shows treatment response 3. Coronary artery disease status post myocardial infarction 2002. 4. History of skin cancer status post radiation therapy. 5. Anxiety and depression. Currently on treatment. 6. Fatigue: Patient rates fatigue 10 added 10 today. This is related to disease and side effects of chemotherapy. Chemotherapy will be held 1 week for recovery 7. Hypertension: Patient previously was on medication however his blood pressure was very low for several months so it was discontinued. Blood pressure was elevated with last appointment. He was restarted on Losartin. We will continue to monitor. 8. Neutropenia. Neupogen 480mcg SQ x 5 days then repeat CBC on day 6. If ANC > 1000, discontinue neupogen. Add Neulasta to chemotherapy order. This is resolved. 9. Ongoing dizziness. Patient has ear wax in both ears and will use D Brox earwax removal. Physical therapy was recommended but patient declined. PLAN 1. Cycle 2 day 1 Gemzar and Taxotere to be held this week and will start next week. 2. Hydration offered to patient but he denied the need. 3. Continue on Losartin and monitor BP 4. Patient to use D Brox earwax removal. 5. OxyContin 5mg now for pain prior to CT scan. 6. Patient to be followed with next treatment I personally spent over 25 minutes with patient for counseling, review of symptoms and coordination of patient's care. See my note above for details. JAE NUNO IMPLEMENT MECHANIC-BC, ONC May 05, 2017 15:18
[2017-05-05 15:49] VITALS: BP 143/86
[2017-05-05] MEDS: LIDOCAINE/SOD BICARB 8.4% SYR ID PRN (15:57)
[2017-05-05] MEDS: HEPARIN FLSH (PORT) 500 UN/5ML IVP PRN (15:58)
[2017-05-09] MEDS ORDERED: DISU250T5 PO (15:08)
[2017-05-23] MEDS ORDERED: NS(*) 0.9% 10 ML VIAL 0 ML ONE (08:41)
[2020-03-04] MEDS ORDERED: HEPARIN FLSH (PORT) 500 UN/5ML IVP PRN (07:00)
[2020-03-04] MEDS ORDERED: DEXTROSE 5%(*) 100 ML BAG 100 ML IVPB PRN (07:00)
[2020-03-04] MEDS ORDERED: LIDOCAINE/SOD BICARB 8.4% SYR ID PRN (07:00)
[2020-03-04] MEDS ORDERED: ALTEPLASE RECOMB 2 MG VIAL IVP PRN (07:00)
[2020-03-04] MEDS ORDERED: NS(*) 0.9% 500 ML BAG 500 ML IV PRN (07:00)
[2020-03-04] MEDS ORDERED: WATER STERILE 10 ML VIAL IVP PRN (07:00)
[2020-03-04] MEDS ORDERED: NS(*) 0.9% 100 ML BAG 100 ML IVPB PRN (07:00)
== END 2017-05-25 ==
LOC: SPU 13:30
PROVIDERS: ATTEND Nurse Practitioner Family
DX: Z51.11 Encounter for antineoplastic chemotherapy (principal); C34.11 Malignant neoplasm of upper lobe, right bronchus or lung; R53.0 Neoplastic (malignant) related fatigue; I25.10 Atherosclerotic heart disease of native coronary artery without angina pectoris; I25.2 Old myocardial infarction; Z85.828 Personal history of other malignant neoplasm of skin; Z92.3 Personal history of irradiation; I10 Essential (primary) hypertension; R05 Cough; R06.02 Shortness of breath; R11.0 Nausea; R53.1 Weakness; R53.83 Other fatigue; Z79.899 Other long term (current) drug therapy; F17.210 Nicotine dependence, cigarettes, uncomplicated; R00.0 Tachycardia, unspecified; I45.10 Unspecified right bundle-branch block; R94.31 Abnormal electrocardiogram [ECG] [EKG]; R91.8 Other nonspecific abnormal finding of lung field; K76.0 Fatty (change of) liver, not elsewhere classified; K57.30 Diverticulosis of large intestine without perforation or abscess without bleeding
CPT/HCPCS: 36415; 36591; 70470; 71260; 74177; 81001; 83735; 85025; 85027; 87077; 87088; 87186; 93005; 96367; 96372; 96375; 96411; 96413; 96415; 96417; A9270; G0463; J0171; J1100; J1200; J1442; J1453; J1642; J1720; J2405; J2469; J2550; J3490; J7040; J7050; J9035; J9045; J9171; J9201; J9267; Q9967; 82040; 82247; 82310; 82374; 82435; 82565; 82947; 84075; 84132; 84155; 84295; 84450; 84460; 84520; 99212; J7613; S0028

== ENCOUNTER 2017-05-08 15:21 | Inpatient (IN) | payer MEDICARE ==
[~2017-05-08] VITALS: Ht 180.3 cm; Wt 87.1 kg
[2017-05-08] MEDS ORDERED: ONDANSETRON 4 MG/2 ML VIAL ONE (15:23)
[2017-05-08] MEDS ORDERED: LR(*) 1000 ML BAG 1,000 ML IV ONE (15:31)
--- NOTE | 2017-05-08 15:31 | ER Report ---
History and Physical Time Seen By MD: 15:30 Hx. of Stated Complaint: DIFFICULTY BREATHING AND NAUSEA; TERMINAL LUNG CANCER METS TO BONE MARROW HPI/ROS 66 y/o male with stage 4 adenocarcinoma of the lung presents with acute worsening of SOB and generalized weakness that started on Friday. A mild cough that is no different than his usual "smokers cough." No chest pain. No fever/ chills. Last chemo 3 weeks ago, and was the first cycle of Taxotere and Gemcitabine. Due for next round next week. Supposed to be on home oxygen, but does not use. Said he has become so weak that he can barely stand. Lives alone. Remainder of the 14 system rev: Yes Allergies: Coded Allergies: carboplatin (Verified Allergy, Severe, ANAPHYLAXIS, 03/25/17) Carboplatin recieved on 02/11/17 no reaction after receiving full dose. Carboplatin recieved again on 03/04/17 200 of the 500mls recieved and patient began to cough, experienced dizziness, nausea and short of breath, rapid response was called and patient was taken to the ER. Carboplatin recieved for time on03/26/17 and patient recived around 75mls of the drug and began to experience the same symptoms as above. Home Meds Active Scripts Nystatin (Nystatin) 100,000 Unit/Ml Oral.susp, 4 ML PO QID for 7 Days, #120 ML Prov:JAE NUNOP-BC, ONC 04/30/17 Losartan Potassium (LOSARTAN POTASSIUM) 25 Mg Tablet, 25 MG PO QDAY Y for PRN for 30 Days, #30 TAB 9 Refills Prov:JAE NUNOP-BC, ONC 04/23/17 Oxycodone Hcl/Acet 5/325 Mg (ENDOCET 5-325 TABLET) 1 Each Tablet, 1 EACH PO Q4- 6H Y for PAIN, #45 TAB Prov:JAE NUNOP-BC, ONC 03/27/17 Oxycodone Hcl (OXYCONTIN) 10 Mg Tab.er.12h, 10 MG PO Q12H, #60 TAB Prov:JAE NUNOP-BC, ONC 03/11/17 Dexamethasone 4 Mg Tab (DEXAMETHASONE 4 MG TAB) 4 Mg Tab, 4 MG PO BID for 3 Days , #36 TAB Take 4 mg bid x 3 days starting 24 hours prior to each chemotherapy x 6 cycles. Prov:JAE NUNO [employer] TRAFFIC COORDINATOR-BC, ONC 02/04/17 Ondansetron Hcl (ZOFRAN) 8 Mg Tablet, 8 MG PO Q12H, #30 TAB 1 Refill Prov:JAE NUNO [employer] CO[employer]INATOR-BC, ONC 04/17/16 Reported Medications Gabapentin (GABAPENTIN) 300 Mg Capsule, 300 MG PO BID, CAPSULE 01/31/17 Armodafinil (NUVIGIL) 150 Mg Tablet, 150 MG PO QAM, TAB 01/31/17 Amitriptyline Hcl (AMITRIPTYLINE HCL) 75 Mg Tablet, 75 MG PO QHS, #5 TAB 01/01/17 Cyanocobalamin (Vitamin B-12) (VITAMIN B-12) 1,000 Mcg Tablet.er, 1000 MCG PO DAILY 04/11/16 Cholecalciferol (Vitamin D3) (VITAMIN D) 2,000 Unit Capsule, 2000 UNIT PO 2XW, CAPSULE 04/11/16 Latanoprost (LATANOPROST) 2.5 Ml Drops, 2.5 ML OP HS 04/11/16 [trintellix] No Conflict Check, 20 MG PO DAILY 04/11/16 Omeprazole (PRILOSEC) 40 Mg Capsule.dr, 1 TAB PO QDAY TAKE ONE TABLET BY MOUTH ONCE A DAY 01/07/14 Folic Acid (FOLIC ACID) 1 Mg Tablet, 1 MG PO DAILY 05/26/13 Multivit, Min No.21/Folic Acid (SUPERVITE EC CAPLET) 1 Mg Tablet.dr, 1 MG PO 05/26/13 Tamsulosin Hcl (Flomax) 0.4 Mg Cap, 0.4 MG PO QDAY, #30 2 Refills 04/09/11 Discontinued Reported Medications Disulfiram (ANTABUSE) 250 Mg Tab, 250 MG PO DAILY Y for PRN, TAB 01/31/17 Discontinued Scripts Sucralfate (CARAFATE) 1 Gm Tablet, 1 GM PO QID for 14 Days, #60 TAB Take before meals and at bedtime. Crush the tablet and mix with water before taking. Prov:CHRISTOPHE HOLT [facility] 01/24/17 Reviewed Nurses Notes: Yes Old Medical Records Reviewed: Yes Hx Smoking: Yes Smoking Status: Current: Every Day Smoker Exposure to Second Hand Smoke?: Yes (Patient smokes 1 1/2 packs daily for forty -three years.) Hx Substance Use Disorder: No Constitutional Vital Sign - Last 24 Hours 05/08/17 05/08/17 05/08/17 05/08/17 15:21 15:21 15:24 15:30 Temp 98.7 Pulse 120 ??? Resp 30 B/P (MAP) 150/112 151/147 (148) 150/112 (125) Pulse Ox 100 O2 Delivery Nasal Cannula 05/08/17 05/08/17 05/08/17 05/08/17 15:36 15:43 15:43 15:51 Pulse 108 115 100 Resp 36 28 20 Pulse Ox 100 98 100 O2 Delivery Nasal Cannula O2 Flow Rate 4.0 05/08/17 05/08/17 05/08/17 05/08/17 16:00 16:02 16:06 16:10 Pulse 101 98 Resp 28 26 B/P (MAP) 90/64 (73) 85/74 (78) Pulse Ox 96 05/08/17 05/08/17 05/08/17 05/08/17 16:17 16:21 16:31 16:31 Pulse 103 95 Resp 26 15 B/P (MAP) 98/70 (79) Pulse Ox 100 96 O2 Delivery Nasal Cannula O2 Flow Rate 5.0 4.0 05/08/17 05/08/17 05/08/17 16:31 17:05 17:50 Temp 99.0 Pulse 99 Resp 26 B/P (MAP) 95/80 (85) Physical Exam General Appearance: The patient is alert, has no immediate need for airway protection and no current signs of toxicity. He is in mild resp. distress Eyes: Pupils equal and round no injection. Respiratory: Chest is non tender, decreased air movement throughout. No wheezing. Scattered crackles Cardiac: tachycardic, normal rhythm Gastrointestinal: Abdomen is soft and non tender, no masses, bowel sounds normal. Extremities have full range of motion and are non tender. Skin: No rashes or lesions. Neuro: moving all extremities, strength/sensation grossly in tact [ ] DIFFERENTIAL DIAGNOSIS: After history and physical exam differential diagnosis was considered for shortness of breath including but not limited to pulmonary infectious process, COPD, asthma, pulmonary embolus and congestive heart failure. Medical Decision Making Data Points Result Diagram: 05/08/177 1/18/18 1627 Laboratory Hematology Test 05/08/17 16:27 05/08/17 17:15 05/08/17 17:30 Red Blood Count 2.46 M/uL (4.00-5.60) Mean Corpuscular Volume 103.7 fL (80.0-96.0) Mean Corpuscular Hemoglobin 36.3 pg (26.0-33.0) Mean Corpuscular Hemoglobin Concent 35.0 g/dL (32.0-36.0) Red Cell Distribution Width 20.1 % (11.5-14.5) Mean Platelet Volume 9.0 fL (7.2-11.1) Neutrophils (%) (Auto) 69.5 % (39.4-72.5) Lymphocytes (%) (Auto) 8.9 % (17.6-49.6) Monocytes (%) (Auto) 21.1 % (4.1-12.4) Eosinophils (%) (Auto) 0.1 % (0.4-6.7) Basophils (%) (Auto) 0.4 % (0.3-1.4) Nucleated RBC Relative Count (auto) 0.5 /100WBC Neutrophils # (Auto) 5.1 K/uL (2.0-7.4) Lymphocytes # (Auto) 0.7 K/uL (1.3-3.6) Monocytes # (Auto) 1.5 K/uL (0.3-1.0) Eosinophils # (Auto) 0.0 K/uL (0.0-0.5) Basophils # (Auto) 0.0 K/uL (0.0-0.1) Nucleated RBC Absolute Count (auto) 0.04 K/uL Peripheral Blood Smear Yes Y/N Sodium Level 129 mmol/L (137-145) Potassium Level 3.6 mmol/L (3.5-5.0) Chloride Level 98 mmol/L (98-107) Carbon Dioxide Level 21 mmol/L (22-30) Blood Urea Nitrogen 12 mg/dl (9-21) Creatinine 1.00 mg/dl (0.66-1.25) Glomerular Filtration Rate Calc > 60.0 Random Glucose 106 mg/dl (75-110) Calcium Level 8.5 mg/dl (8.4-10.2) Total Bilirubin 1.6 mg/dl (0.2-1.3) Aspartate Amino Transf (AST/SGOT) 22 U/L (0-35) Alanine Aminotransferase (ALT/SGPT) 35 U/L (0-56) Alkaline Phosphatase 76 U/L (0-126) Troponin I 0.013 ng/ml Total Protein 6.5 gm/dl (6.3-8.2) Albumin 3.4 g/dl (3.5-5.0) Stool Occult Blood (IFOB) Negative (NEGATIVE) Chemistry Test 05/08/17 16:27 05/08/17 17:15 05/08/17 17:30 White Blood Count 7.3 k/uL (4.5-11.0) Red Blood Count 2.46 M/uL (4.00-5.60) Hemoglobin 8.9 g/dL (14.0-18.0) Hematocrit 25.5 % (42.0-52.0) Mean Corpuscular Volume 103.7 fL (80.0-96.0) Mean Corpuscular Hemoglobin 36.3 pg (26.0-33.0) Mean Corpuscular Hemoglobin Concent 35.0 g/dL (32.0-36.0) Red Cell Distribution Width 20.1 % (11.5-14.5) Platelet Count 117 K/uL (150-450) Mean Platelet Volume 9.0 fL (7.2-11.1) Neutrophils (%) (Auto) 69.5 % (39.4-72.5) Lymphocytes (%) (Auto) 8.9 % (17.6-49.6) Monocytes (%) (Auto) 21.1 % (4.1-12.4) Eosinophils (%) (Auto) 0.1 % (0.4-6.7) Basophils (%) (Auto) 0.4 % (0.3-1.4) Nucleated RBC Relative Count (auto) 0.5 /100WBC Neutrophils # (Auto) 5.1 K/uL (2.0-7.4) Lymphocytes # (Auto) 0.7 K/uL (1.3-3.6) Monocytes # (Auto) 1.5 K/uL (0.3-1.0) Eosinophils # (Auto) 0.0 K/uL (0.0-0.5) Basophils # (Auto) 0.0 K/uL (0.0-0.1) Nucleated RBC Absolute Count (auto) 0.04 K/uL Peripheral Blood Smear Yes Y/N Glomerular Filtration Rate Calc > 60.0 Calcium Level 8.5 mg/dl (8.4-10.2) Total Bilirubin 1.6 mg/dl (0.2-1.3) Aspartate Amino Transf (AST/SGOT) 22 U/L (0-35) Alanine Aminotransferase (ALT/SGPT) 35 U/L (0-56) Alkaline Phosphatase 76 U/L (0-126) Troponin I 0.013 ng/ml Total Protein 6.5 gm/dl (6.3-8.2) Albumin 3.4 g/dl (3.5-5.0) Stool Occult Blood (IFOB) Negative (NEGATIVE) EKG/Imaging EKG Interpretation 12 lead EKG: Rhythm: sinus tachycardia [place]: left QRS: right bundle branch block ST segments: non specific changes Monitor Interpretation: Sinus Tachycardia Imaging X-ray: CXR was obtained. I viewed the images myself on the PACS system. My interpretation of the images is: no change from previous CXR 02/04. The radiologist interpretation had no clinically significant variation from this interpretation. ED Course/Re-evaluation ED Course Known stage IV lung adenocarcinoma with worsening shortness of breath since Friday. No neutropenia. Afebrile. No new changes in chest x-ray. Had transient hypotension while in the ED and drop in H&H for the past few weeks noted on these labs. Occult stool blood is pending. I sent a type and cross for 2 units for symptomatic anemia. He is currently using a CT of the chest to rule out a PE. Regardless, given his increased work of breathing and symptomatic anemia he will require admission. Decision to Disposition Date: May 08, 2017 Decision to Disposition Time: 17:46 Depart Departure Latest Vital Signs Vital Signs Date Time Temp Pulse Resp B/P (MAP) Pulse Ox O2 Delivery O2 Flow Rate FiO2 05/08/17 17:50 99.0 05/08/17 17:05 95/80 (85) 05/08/17 16:31 99 26 05/08/17 16:31 96 Nasal Cannula 4.0 Core Temperature (Celsius): 36.39 Impression: Primary Impression: Shortness of breath Additional Impression: Weakness generalized Condition: Improved Disposition: Admitted from ER Referrals: AHSAN KOTHARI (PCP) Problem Qualifiers VAIBHAV KAPADIA MD May 08, 2017 15:31
[2017-05-08] MEDS ORDERED: methylPREDNIS SUCC 125 MG/2ML IVP ONE (15:35)
[2017-05-08] MEDS: ALBUTEROL 2.5 MG/3 ML NEB NEB SCH ×3 (15:43→16:16)
--- NOTE | 2017-05-08 15:55 | EKG ---
FACILITY: [facility] PATIENT NAME: PAT DELANEY : [id number] MR: [id number] V: [id number] EXAM DATE: ORDERING PHYSICIAN: VAIBHAV KAPADIA TECHNOLOGIST: MARQUISE Harris Reason : RESPIRATRORY Blood Pressure : / mmHG Vent. Rate : 114 BPM Atrial Rate : 114 BPM P-R Int : 156 ms QRS Dur : 126 ms QT Int : 368 ms P-R-T Axes : 052 -61 036 degrees QTc Int : 507 ms Sinus tachycardia with frequent premature ventricular complexes Right bundle branch block Left anterior fascicular block Bifascicular block Abnormal ECG When compared with ECG of 25-MAR-2017 15:04, premature ventricular complexes are now present Nonspecific T wave abnormality now evident in Inferior leads Nonspecific T wave abnormality no longer evident in Anterior leads Confirmed by KEVIN GORDON ([id number]) on 05/09/2017 2:33:20 AM Referred By: STEFFI Confirmed By:KEVIN GORDON
[2017-05-08 16:39] LABS: PLATELET COUNT, AUTOMATED 117 K/uL (150-450)
--- NOTE | 2017-05-08 16:44 | RADIOLOGY IMAGING REPORT ---
FACILITY: [facility] - [place] PATIENT NAME: Jarret Aguilar : 1950 MR: [id number] V: [id number] EXAM DATE: ORDERING PHYSICIAN: VAIBHAV KAPADIA TECHNOLOGIST: [place] [facility] [place]: Jarret Aguilar : 1950 Visit/Account:[id number] Date of Sevice: 05/08/2017 CHEST SINGLE AP INDICATION: RESP DISTRESS COMPARISON: 01/24/2017 FINDINGS: Heart size within normal limits. Reidentified is right upper lobe pulmonary mass with associated chronic interstitial changes involvin g the right upper lobe apex. The remainder the lungs are clear. There is no pneumothorax or pleural effusion. IMPRESSION: 1. Stable right upper lobe mass, no acute process is identified Report Dictated By: Juanito Michele at 05/08/2017 4:38 PM Report E-Signed By: Juanito Michele at 05/08/2017 4:40 PM WSN:[id number]
[2017-05-08] MEDS ORDERED: NS(*) 0.9% 1000 ML BAG 1,000 ML IV ONE (17:00)
[2017-05-08] MEDS ORDERED: NS 0.9% 50 ML VIAL 100 ML ONE (17:52)
[2017-05-08] MEDS ORDERED: IOPAMIDOL 76% 75 ML INFUS BTL 75 ML ONE (17:52)
--- NOTE | 2017-05-08 19:27 | RADIOLOGY IMAGING REPORT ---
FACILITY: [facility] - [place] PATIENT NAME: Jarret Aguilar : 1950 MR: [id number] V: [id number] EXAM DATE: ORDERING PHYSICIAN: VAIBHAV KAPADIA TECHNOLOGIST: Location: [facility] - [place] Patient: Jarret Aguilar : 1950 Visit/Account:[id number] Date of Sevice: 05/08/2017 CT angiogram chest with contrast Indication: Shortness breath. Hypertensive. Stage IV lung cancer. Comparison: 05/02/2017. Technique: Axial CT images are obtained through the chest after administration of 75 mL Isovue 370 IV contrast. Reformatted coronal and sagittal images were reviewed as well as coronal MIP images. One of the following dose optimization techniques was utilized in the performance of this exam: auto mated exposure control; adjustment of the mA and/or kV according to the patient's size; or use of an iterative reconstruction technique. Specific details can be referenced in the facility's radiology C T exam operational policy. FINDINGS: No evidence of filling defect within the pulmonary vasculature to suggest pulmonary embolus. Heart is normal size without pericardial effusion. Mild coronary artery calcifications. Aorta shows n o aneurysm or dissection. The mediastinum and hilar regions show no abnormal density with several enl arged lymph nodes, right hilar measuring 2.5 x 1.7 cm, subcarinal measuring 2.9 x 1.9 cm several smal ler lymph nodes are identified. These have not significantly changed from the previous exam. Loss again seen in the right lung. The right upper lobe does show coarse interstitial changes with br onchiectasis in the area of consolidation in the posterior aspect which is unchanged. The remaining r ight lung shows no consolidation, pleural effusion or discrete nodule. There are some chronic periphe ral interstitial changes. No pneumothorax seen in either lung. The anterior aspect of the left upper lobe does show worsening interstitial opacities without a focal area of consolidation. The left lung shows no other consolidations or pleural effusion. The lateral aspect left lower lobe does show a 6.5 mm pleural-based nodule which appears relatively stable. No other discrete nodules. Bony structures show no acute fracture or discrete aggressive bony lesions. Degenerative changes spin e. Chest wall shows no enlarged axillary lymph nodes or masses. Stable left adrenal gland nodule measuring 2.3 cm. Upper abdomen is otherwise unremarkable. IMPRESSION: 1. No evidence of pulmonary embolus. 2. There is worsening interstitial opacities seen anterior aspect left upper lobe which could be due to evolving pneumonitis/pneumonia. 3. Stable chronic lung changes to the right lung. 4. Stable left lower lobe lung nodule. 5. Stable left adrenal gland nodule. 6. Stable adenopathy in the mediastinum and hilar regions. Report Dictated By: Adonis Plunkett at 05/08/2017 7:11 PM Report E-Signed By: Adonis Plunkett at 05/08/2017 7:23 PM WSN:[id number]
[2017-05-08 19:47] VITALS: BP 136/95
[2017-05-08] MEDS: NS(*) 0.9% 500 ML BAG 500 ML IV PRN (20:52)
--- NOTE | 2017-05-08 20:55 | History & Physical ---
History of Present Illness Chief Complaint Dizziness and fatigue History of Present Illness This patient presented to the emergency room complaining of dizziness and fatigue. He reports that his symptoms have been slowly worsening over the past week, but became much more noticeable on Friday of this week. He reports that today he was so weak that he couldn't get out of chair. He denies any fever or chills. 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 Home Meds Active Scripts Nystatin (Nystatin) 100,000 Unit/Ml Oral.susp, 4 ML PO QID for 7 Days, #120 ML Prov:JAE NUNO [facility]-BC, ONC 04/30/17 Losartan Potassium (LOSARTAN POTASSIUM) 25 Mg Tablet, 25 MG PO QDAY Y for PRN for 30 Days, #30 TAB 9 Refills Prov:JAE NUNO [employer] REP-BC, ONC 04/23/17 Oxycodone Hcl/Acet 5/325 Mg (ENDOCET 5-325 TABLET) 1 Each Tablet, 1 EACH PO Q4- 6H Y for PAIN, #45 TAB Prov:JAE NUNO [facility]-BC, ONC 03/27/17 Oxycodone Hcl (OXYCONTIN) 10 Mg Tab.er.12h, 10 MG PO Q12H, #60 TAB Prov:JAE NUNO [facility]-BC, ONC 03/11/17 Dexamethasone 4 Mg Tab (DEXAMETHASONE 4 MG TAB) 4 Mg Tab, 4 MG PO BID for 3 Days , #36 TAB Take 4 mg bid x 3 days starting 24 hours prior to each chemotherapy x 6 cycles. Prov:JAE NUNO [employer]UN[employer] RELATIONS REP-BC, ONC 02/04/17 Ondansetron Hcl (ZOFRAN) 8 Mg Tablet, 8 MG PO Q12H, #30 TAB 1 Refill Prov:JAE NUNO [facility]-BC, ONC 04/17/16 Reported Medications Armodafinil (NUVIGIL) 150 Mg Tablet, 150 MG PO QAM, TAB 01/31/17 Amitriptyline Hcl (AMITRIPTYLINE HCL) 75 Mg Tablet, 75 MG PO QHS, #5 TAB 01/01/17 Cyanocobalamin (Vitamin B-12) (VITAMIN B-12) 1,000 Mcg Tablet.er, 1000 MCG PO DAILY 04/11/16 Cholecalciferol (Vitamin D3) (VITAMIN D) 2,000 Unit Capsule, 2000 UNIT PO 2XW, CAPSULE 04/11/16 Latanoprost (LATANOPROST) 2.5 Ml Drops, 2.5 ML OP HS 04/11/16 [trintellix] No Conflict Check, 20 MG PO DAILY 04/11/16 Omeprazole (PRILOSEC) 40 Mg Capsule.dr, 1 TAB PO QDAY TAKE ONE TABLET BY MOUTH ONCE A DAY 01/07/14 Folic Acid (FOLIC ACID) 1 Mg Tablet, 1 MG PO DAILY 05/26/13 Multivit, Min No.21/Folic Acid (SUPERVITE EC CAPLET) 1 Mg Tablet.dr, 1 MG PO 05/26/13 Tamsulosin Hcl (Flomax) 0.4 Mg Cap, 0.4 MG PO QDAY, #30 2 Refills 04/09/11 Discontinued Reported Medications Disulfiram (ANTABUSE) 250 Mg Tab, 250 MG PO DAILY Y for PRN, TAB 01/31/17 Discontinued Scripts Sucralfate (CARAFATE) 1 Gm Tablet, 1 GM PO QID for 14 Days, #60 TAB Take before meals and at bedtime. Crush the tablet and mix with water before taking. Prov:CHRISTOPHE HOLT [employer]ATIONS REP 01/24/17 Allergies: Coded Allergies: carboplatin (Verified Allergy, Severe, ANAPHYLAXIS, 03/25/17) Carboplatin recieved on 02/11/17 no reaction after receiving full dose. Carboplatin recieved again on 03/04/17 200 of the 500mls recieved and patient began to cough, experienced dizziness, nausea and short of breath, rapid response was called and patient was taken to the ER. Carboplatin recieved for th 3rd time on03/26/17 and patient recived around 75mls of the drug and began to experience the same symptoms as above. Patient History: Anxiety disorder MOTHER, , Age:51 FH: depression MOTHER, , Age:51 FH: emphysema FATHER, , Age:72 Pulmonary fibrosis BROTHER OR SISTER Hx Smoking: Yes (1ppd) Smoking Status: Current: Every Day Smoker Exposure to Second Hand Smoke?: Yes (Patient smokes 1 1/2 packs daily for forty -three years.) Caffeine Intake: Coffee, Soda Caffeine/Cups Per Day: 2 CUPS OF COFFEE EVERY MORNING, ONE SMALL COKE EVERY AFTERNOON Hx Substance Use Disorder: No Social Drug Use: Never Social Drugs: Marijuana Amount Of Social Drug/s Used: a couple times in college Review of Systems All Systems Reviewed/Normal: Yes, Except as Noted Neurological: Weakness, Dizziness Exam Vital Signs Vital Signs Date Time Temp Pulse Resp B/P (MAP) Pulse Ox O2 Delivery O2 Flow Rate FiO2 05/08/17 19:47 98.4 87 24 136/95 (109) 99 Nasal Cannula 3.0 Neuro: No Gross deficits Eyes: PERRLA Cardiovascular: Regular Rate and Rhythm Respiratory: Clear to Auscultation GI: Abd Soft and Non-Tender Extremities: No Edema Integumentary: No Cyanosis Medical Decision Making Data Points Result Diagram: 05/08/17 1627 05/08/17 1627 EKG / Imaging Imaging Chest x-ray and CT scan reviewed. Assessment and Plan Problems: (1) Symptomatic anemia Assessment & Plan: He did present with dizziness and fatigue. He also described some orthostatic type symptoms. His Hgb has decreased over the last month, but his symptoms do seem to correlate with an acute decrease on 05/05/17. We do plan to transfuse 2 units of red cells overnight and will reevaluate his symptoms in the morning. (2) Stage 4 lung cancer Status: Chronic Assessment & Plan: He is followed in the Cancer Center and is on a treatment regimen. His treatment was held earlier this week secondary to his increased fatigue and dizziness. (3) Malignant bone pain Assessment & Plan: He does have metastasis to the right iliac crest and right clavicle. (4) Malignant neoplasm of ear Status: Chronic (5) Hypertension Assessment & Plan: He is on chronic treatment with losartan, which has been held secondary to anemia and borderline hypotension. (6) Alcohol abuse Status: Acute Assessment & Plan: He does have a history of alcohol abuse, but has not been drinking over the last 4 years. Copies to: JAE NUNO [employer]ATIONS REP-BC, ONC Venous Thromboembolism Antithrombotics Is Pt On Any Antithrombotics?: No Exam Sepsis Risk: No Definite Risk KEVIN GORDON DO May 08, 2017 20:55
[2017-05-08] MEDS: GABAPENTIN 300 MG CAP PO SCH (20:57)
[2017-05-08] MEDS: LATANOPRO 0.005% OP SOLN 2.5ML OU SCH (20:58)
[2017-05-08 21:27] VITALS: BP 98/59
[2017-05-08 21:45] VITALS: BP 100/66
[2017-05-08 23:38] VITALS: BP 99/62
[2017-05-08 23:47] VITALS: BP 86/56
[2017-05-09 00:03] VITALS: BP 89/62
[2017-05-09 02:16] VITALS: BP 113/73
[2017-05-09 06:14] LABS: PLATELET COUNT, AUTOMATED 111 K/uL (150-450)
--- NOTE | 2017-05-09 07:34 | RADIOLOGY IMAGING REPORT ---
FACILITY: [facility] PATIENT NAME: Jarret Aguilar : 1950 MR: [id number] V: [id number] EXAM DATE: ORDERING PHYSICIAN: KEVIN GORDON TECHNOLOGIST: Location: [facility] Patient: Jarret Aguilar : 1950 Visit/Account:[id number] Date of Sevice: 05/09/2017 EXAMINATION: Portable AP Chest 05/09/2017 6:25 AM HISTORY: SOB COMPARISON: 05/08/2017 FINDINGS: Cardiomediastinal contours: Stable contours. Unchanged port catheter position. Lungs and pleura: Stable right upper lobe opacity. Left upper lobe infiltrates shown by CTA chest tod ay are less evident radiographically. Bones/soft tissues: Normal IMPRESSION: Stable chest x-ray with right upper lobe infiltrate or opacity. Report Dictated By: Landry English MD at 05/09/2017 7:28 AM Report E-Signed By: Landry English MD at 05/09/2017 7:30 AM WSN:[id number]
[2017-05-09] MEDS ORDERED: ARMODAFINIL 150 MG PO SCH (09:00)
[2017-05-09] MEDS: FOLIC ACID 1 MG TAB PO SCH (09:43)
[2017-05-09] MEDS: GABAPENTIN 300 MG CAP PO SCH ×2 (09:43→21:35)
[2017-05-09] MEDS: CYANOCOBALAMIN 1000 MCG TAB PO SCH (09:43)
[2017-05-09] MEDS: TAMSULOSIN HCL 0.4 MG CAP PO SCH (09:43)
[2017-05-09] MEDS: oxyCODONE HCL 5 MG CAP PO PRN ×2 (09:44→19:31)
[2017-05-09] MEDS: MORPHINE 2 MG/ML SYR IVP PRN ×2 (09:44→11:48)
[2017-05-09] MEDS: NS(*) 0.9% 500 ML BAG 500 ML IV PRN (09:50)
[2017-05-09] MEDS: LEVOFLOXACIN/D5W 750 MG/150 ML 150 ML IVPB SCH (09:51)
[2017-05-09] MEDS: VORTIOXETINE HYDROBROMIDE 20 MG TABLET PO SCH (09:55)
--- NOTE | 2017-05-09 10:10 | Hospitalist Progress Note ---
Subjective Progress Notes Subjective He reports feeling weak. Episodic cough. No fever. Physical Exam Vital Signs Date Time Temp Pulse Resp B/P (MAP) Pulse Ox O2 Delivery O2 Flow Rate FiO2 05/09/17 08:12 98.2 83 24 95 Room Air 05/09/17 02:45 1.5 General Appearance: Alert, Awake Cardiovascular: Regular Rate and Rhythm Respiratory: Other (diminished breath sounds bilaterally with a few scattered rhonchi) Chest: Other (Chemo-port site unremarkable) GI: Soft and Non-Tender Extremities: Warm, Perfused, Other (pain over right hip/pelvis) Result Diagram: 05/09/1751905/09/17519 Assessment and Plan Problems: (1) Pneumonia Status: Acute Assessment & Plan: He does have left lingular infiltrate on CT scan that was not present just one week prior. I suspect this may have been responsible for his acute decompensation. He most likely does not have much of a WBC count response due to the chemotherapy. Will get him started on Primaxin 300mg IV q6hrs. (2) Symptomatic anemia Assessment & Plan: He did present with dizziness and fatigue. He also described some orthostatic type symptoms. His Hgb has decreased over the last month, but his symptoms did seem to correlate with an acute decrease on . We transfused 2 units of PRBCs overnight. Counts are improved, but symptoms do persist. His symptoms could be due to acute pneumonia vs. his lung cancer/chemo. (3) Stage 4 lung cancer Status: Chronic Assessment & Plan: He is followed in the Cancer Center and is on a treatment regimen. His treatment was held earlier this week secondary to his increased fatigue and dizziness. He discussed options with [facility] and they have decided to hold off on any further chemotherapy for the next month and will re- address his status and options at that time. He has decided he wants to be DNR/ DNI status. 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 (7) Alcohol abuse Status: Acute Assessment & Plan: He does have a history of alcohol abuse, but has not been drinking over the last 4 years. Exam Sepsis Risk: No Definite Risk MICHEAL HATCH MD May 09, 2017 10:10
[2017-05-09] MEDS ORDERED: ONDANSETRON 4 MG/2 ML VIAL IVP PRN (11:10)
[2017-05-09] MEDS ORDERED: HEPARIN FLSH (PORT) 500 UN/5ML IVP PRN (11:30)
[2017-05-09] MEDS: PROMETHAZINE 25 MG/ML 1 ML AMP IVP PRN ×2 (11:36→19:22)
[2017-05-09 11:41] VITALS: BP 92/68
[2017-05-09 13:52] VITALS: Ht 180.3 cm; Wt 87.1 kg
[2017-05-09] MEDS ORDERED: DISU250T5 PO (15:08)
[2017-05-09 15:09] VITALS: BP 103/75
[2017-05-09 19:25] VITALS: BP 99/77
[2017-05-09] MEDS: AMITRIPTYLINE HCL 25 MG TAB PO SCH (21:35)
[2017-05-09] MEDS: LATANOPRO 0.005% OP SOLN 2.5ML OU SCH (21:35)
[2017-05-09 23:22] VITALS: BP 112/72
[2017-05-10] MEDS: oxyCODONE HCL 5 MG CAP PO PRN (00:54)
[2017-05-10 05:45] LABS: PLATELET COUNT, AUTOMATED 116 K/uL (150-450)
[2017-05-10] MEDS: GABAPENTIN 300 MG CAP PO SCH ×2 (10:14→20:46)
[2017-05-10] MEDS: CYANOCOBALAMIN 1000 MCG TAB PO SCH (10:14)
[2017-05-10] MEDS: FOLIC ACID 1 MG TAB PO SCH (10:14)
[2017-05-10] MEDS: TAMSULOSIN HCL 0.4 MG CAP PO SCH (10:14)
[2017-05-10] MEDS: LEVOFLOXACIN/D5W 750 MG/150 ML 150 ML IVPB SCH (10:15)
[2017-05-10] MEDS: VORTIOXETINE HYDROBROMIDE 20 MG TABLET PO SCH ×2 (10:15→14:52)
[2017-05-10 10:19] VITALS: BP 154/97
[2017-05-10 11:46] VITALS: BP 148/94
[2017-05-10] MEDS: LORazepam 0.5 MG TAB PO PRN ×2 (12:09→20:53)
--- NOTE | 2017-05-10 12:48 | Hospitalist Progress Note ---
Subjective Progress Notes Subjective No new complaints. Physical Exam Vital Signs Date Time Temp Pulse Resp B/P (MAP) Pulse Ox O2 Delivery O2 Flow Rate FiO2 05/10/17 11:46 98.3 94 24 148/94 (112) 90 Nasal Cannula 2.0 Intake and Output 05/11/17 07:00 Intake Total 120 ml Balance 120 ml Intake Oral 120 ml # Bowel Movements 0 General Appearance: Alert, Awake, No Acute Distress Neuro: Other (The patient has trouble completing a thought. He has some confusion.) Eyes: PERRLA Cardiovascular: Regular Rate and Rhythm Respiratory: No Respiratory Distress, Other (Diminished BS throughout. No rhonchi. ) Chest: Other (Chemo port L upper chest without redness or drainage. ) Lymph: Cervical Nodes Benign Extremities: Warm, Perfused Psych: Appropriate Mood & Affect Result Diagram: 05/10/1752505/10/17525 Assessment and Plan Problems: (1) Pneumonia Status: Acute Assessment & Plan: He does have left lingular infiltrate on CT scan that was not present just one week prior. I suspect this may have been responsible for his acute decompensation. He most likely does not have much of a WBC count response due to the chemotherapy. Will get him started on Primaxin 300mg IV q6hrs. (2) Symptomatic anemia Assessment & Plan: He did present with dizziness and fatigue. He also described some orthostatic type symptoms. His Hgb has decreased over the last month, but his symptoms did seem to correlate with an acute decrease on . We transfused 2 units of PRBCs overnight. Counts are improved, but symptoms do persist. His symptoms could be due to acute pneumonia vs. his lung cancer/chemo. (3) Stage 4 lung cancer Status: Chronic Assessment & Plan: He is followed in the Cancer [facility] and is on a treatment regimen. His treatment was held earlier this week secondary to his increased fatigue and dizziness. He discussed options with [facility] and they have decided to hold off on any further chemotherapy for the next month and will re- address his status and options at that time. He has decided he wants to be DNR/ DNI status. 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 (7) Alcohol abuse Status: Acute Assessment & Plan: He does have a history of alcohol abuse, but has not been drinking over the last 4 years. Time Spent on Plan of Care: < 30 min Exam Sepsis Risk: No Definite Risk CHERRI HATCH MD May 10, 2017 12:48
--- NOTE | 2017-05-10 12:56 | Medical Nutrition Therapy ---
Nutrition Anthropometrics Height (Inches): 71.00 Height (Calculated Centimeters: 180.352421 Weight (Pounds): 192 Weight (Calculated Kilograms): 87.288 BMI Calculated: 26.78 Nathen Nutrition Score: Very Poor Nathen Nutrition Risk Score: 16 Dietary Referral Nutrition Risk Factors: Unplanned Loss >10lbs Nutrition Risk Comment: etoh Physical Findings Physical Appearance: Overweight BMI 25-29 Skin Appearance Skin Appearance: Edema Edema Location Modifier: Edema Location: Type of Edema: Degree of Edema: Gastrointestinal Symptoms GI Symtoms: Nausea, Vomiting, Appetite Changes, Bloating, Change in Bowel Pattern Tube Present: Bowel Sounds: Recent Bowel Pattern: Diarrhea Stool Characteristics: Nutrition/Food History No Significant Nutr. HX Nutritional Diagnosis Nutritional Risk Acuity 2: Head/Neck/GI Cancer Nutritional Risk Acuity 3: Cancer Past Medical History: upper GI bleed, depression, HTN, malignant neoplasm of ear, stage 4 adenocarcinoma, alcohol abuse (hasn't drank in 4 years) Nutritional Acuity: 2-Moderate Diet Type: Diet as Tolerated DOMINIQUE/REG Nutrition Intervention: Cont diet as ordered, Encourage intake Nutrition Monitoring & Eval Nutrition Goals: Eat 50-100% Meal RD Patient Assessment Time: [address] Assessment Type: RD Assessment Patient Nutrition Acuity: 2-Moderate Follow Up Date: May 11, 2017 Nutritional Comment: Pt admitted for pneumonia and anemia. Pt on chemo for stage 4 adenocarcinoma. Last chemo was 3 weeks ago. Notable labs include low H/H, Na 135, and Glu 116. Pt is DOMINIQUE with no intake documentation available. Will continue to monitor intakes, labs, etc. LUCY ARNOLD May 10, 2017 12:56
[2017-05-10 15:32] VITALS: BP 137/98
[2017-05-10] MEDS: PROMETHAZINE 25 MG/ML 1 ML AMP IVP PRN ×2 (15:44→20:47)
[2017-05-10 19:12] VITALS: BP 133/101
[2017-05-10] MEDS: LATANOPRO 0.005% OP SOLN 2.5ML OU SCH (20:46)
[2017-05-10] MEDS: AMITRIPTYLINE HCL 25 MG TAB PO SCH (20:46)
[2017-05-11 01:38] VITALS: BP 116/74
[2017-05-11] MEDS: oxyCODONE HCL 5 MG CAP PO PRN (01:50)
[2017-05-11 06:13] LABS: PLATELET COUNT, AUTOMATED 120 K/uL (150-450)
[2017-05-11 07:32] VITALS: BP 153/91
[2017-05-11] MEDS: VORTIOXETINE HYDROBROMIDE 20 MG TABLET PO SCH (09:27)
[2017-05-11] MEDS: TAMSULOSIN HCL 0.4 MG CAP PO SCH (09:27)
[2017-05-11] MEDS: CYANOCOBALAMIN 1000 MCG TAB PO SCH (09:27)
[2017-05-11] MEDS: FOLIC ACID 1 MG TAB PO SCH (09:27)
[2017-05-11] MEDS: GABAPENTIN 300 MG CAP PO SCH ×2 (09:27→21:00)
[2017-05-11] MEDS: LEVOFLOXACIN/D5W 750 MG/150 ML 150 ML IVPB SCH (09:28)
--- NOTE | 2017-05-11 11:22 | Medical Nutrition Therapy ---
Nutrition Anthropometrics Height (Inches): 71.00 Height (Calculated Centimeters: 180.997503 Weight (Pounds): 192 Weight (Calculated Kilograms): 87.288 BMI Calculated: 26.78 Nathen Nutrition Score: Very Poor Nathen Nutrition Risk Score: 16 Dietary Referral Nutrition Risk Factors: Unplanned Loss >10lbs Nutrition Risk Comment: etoh Physical Findings Physical Appearance: Overweight BMI 25-29 Skin Appearance Skin Appearance: Edema Edema Location Modifier: Edema Location: Type of Edema: Degree of Edema: Gastrointestinal Symptoms GI Symtoms: Nausea, Vomiting, Appetite Changes, Bloating, Change in Bowel Pattern Tube Present: Bowel Sounds: Recent Bowel Pattern: Diarrhea Stool Characteristics: Nutrition/Food History No Significant Nutr. HX Nutritional Diagnosis Nutritional Risk Acuity 2: Head/Neck/GI Cancer Nutritional Risk Acuity 3: Cancer Past Medical History: upper GI bleed, depression, HTN, malignant neoplasm of ear, stage 4 adenocarcinoma, alcohol abuse (hasn't drank in 4 years) Nutritional Acuity: 2-Moderate Nutrition Diagnosis: Increased Nutrient Needs Nutrition Etiology: Physiological Causes Nutrition Problem/Etiology/Sym: Increased Nutrient Needs related to physiological causes increasing nutrient needs, e.g., Stage 4 Lung cancer and chemotherapy AEB low albumin status indicating increased stress and increased metabolic needs. Energy Requirement: 2500 ([place]-St Jeor: Actual BW X 1.5) Protein Requirement: 87 (Actual BW Kg X 1.0) Fluid Requirement: 2500 Diet Type: Diet as Tolerated DOMINIQUE/REG Nutrition Intervention: Cont diet as ordered, Encourage intake Nutrition Monitoring & Eval Nutrition Goals: Eat 75-100% Meal RD Patient Assessment Time: [address] Assessment Type: RD Assessment Patient Nutrition Acuity: 2-Moderate Follow Up Date: May 14, 2017 Nutritional Comment: Pt admitted for pneumonia and anemia. Pt on chemo for stage 4 adenocarcinoma. Last chemo was 3 weeks ago. Notable labs include low H/H, Na 135, Alb 2.9, and Glu 116. Pt receiving DOMINIQUE and consumed 75% of first two meals in facility. Will continue to monitor intakes, labs, etc. LUCY ARNOLD May 11, 2017 11:22
[2017-05-11 11:47] VITALS: BP 112/78
--- NOTE | 2017-05-11 11:48 | Hospitalist Progress Note ---
Subjective Progress Notes Subjective Overall feeling improved, but not to baseline. He is still feeling weak in the legs. Physical Exam Vital Signs Date Time Temp Pulse Resp B/P (MAP) Pulse Ox O2 Delivery O2 Flow Rate FiO2 05/11/17 08:10 92 Nasal Cannula 1.0 05/11/17 07:32 99.5 86 18 153/91 (111) General Appearance: Alert, Awake, No Acute Distress Cardiovascular: Regular Rate and Rhythm Respiratory: Clear to Auscultation Result Diagram: 05/11/1752705/11/17527 Assessment and Plan Problems: (1) Pneumonia Status: Acute Assessment & Plan: He does have left lingular infiltrate on CT scan that was not present just one week prior. This is likely responsible for his acute decompensation. He most likely does not have much of a WBC count response due to the chemotherapy. On Levofloxacin 750mg a day. (2) Symptomatic anemia Assessment & Plan: He did present with dizziness and fatigue. He also described some orthostatic type symptoms. His Hgb has decreased over the last month, but his symptoms did seem to correlate with an acute decrease on . We transfused 2 units of PRBCs on 05/08. Counts are improved, but symptoms do persist. His symptoms could be due to acute pneumonia vs. his lung cancer/ chemo. Will ask OT/PT to evaluate. (3) Stage 4 lung cancer Status: Chronic Assessment & Plan: He is followed in the Cancer Center and is on a treatment regimen. His treatment was held earlier this week secondary to his increased fatigue and dizziness. He discussed options with [facility] and they have decided to hold off on any further chemotherapy for the next month and will re- address his status and options at that time. He has decided he wants to be DNR/ DNI status. 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 (5) Hypertension Assessment & Plan: He is on chronic treatment with losartan, which has been held secondary to anemia and borderline hypotension. (6) Alcohol abuse Status: Acute Assessment & Plan: He does have a history of alcohol abuse, but has not been drinking over the last 4 years. (7) Malignant neoplasm of ear Status: Chronic Exam Sepsis Risk: No Definite Risk SATHYA EARL MD May 11, 2017 11:48
[2017-05-11 15:45] VITALS: BP 117/76
[2017-05-11] MEDS: PROMETHAZINE 25 MG/ML 1 ML AMP IVP PRN (19:36)
[2017-05-11] MEDS: LATANOPRO 0.005% OP SOLN 2.5ML OU SCH (21:01)
[2017-05-11] MEDS: AMITRIPTYLINE HCL 25 MG TAB PO SCH (21:01)
[2017-05-11 21:04] VITALS: BP 157/85
[2017-05-12 02:49] VITALS: BP 135/83
[2017-05-12 05:47] LABS: PLATELET COUNT, AUTOMATED 135 K/uL (150-450)
[2017-05-12 07:33] VITALS: BP 141/89
[2017-05-12] MEDS: GABAPENTIN 300 MG CAP PO SCH ×2 (08:38→21:09)
[2017-05-12] MEDS: CYANOCOBALAMIN 1000 MCG TAB PO SCH (08:38)
[2017-05-12] MEDS: TAMSULOSIN HCL 0.4 MG CAP PO SCH (08:38)
[2017-05-12] MEDS: FOLIC ACID 1 MG TAB PO SCH (08:38)
[2017-05-12] MEDS: VORTIOXETINE HYDROBROMIDE 20 MG TABLET PO SCH (08:39)
[2017-05-12] MEDS: LEVOFLOXACIN/D5W 750 MG/150 ML 150 ML IVPB SCH (10:33)
--- NOTE | 2017-05-12 13:00 | Hospitalist Progress Note ---
Subjective Progress Notes Subjective He reports "about the same...maybe a little better". Physical Exam Vital Signs Date Time Temp Pulse Resp B/P (MAP) Pulse Ox O2 Delivery O2 Flow Rate FiO2 05/12/17 07:36 96 Nasal Cannula 2.0 05/12/17 07:33 98.3 94 22 141/89 (106) General Appearance: Alert, Awake Cardiovascular: Regular Rate and Rhythm, No Edema Respiratory: Other (Fairly clear with a few scattered rhonchi) GI: Other (soft/BS present) Extremities: Warm, Perfused Result Diagram: 05/12/1752205/12/17522 Assessment and Plan Problems: (1) Pneumonia Status: Acute Assessment & Plan: He does have left lingular infiltrate on CT scan that was not present just one week prior. This is likely responsible for his acute decompensation. He most likely does not have much of a WBC count response due to the chemotherapy. On Levofloxacin 750mg IV daily. (2) Symptomatic anemia Assessment & Plan: He did present with dizziness and fatigue. He also described some orthostatic type symptoms. His Hgb has decreased over the last month, but his symptoms did seem to correlate with an acute decrease on . We transfused 2 units of PRBCs on 05/08. Counts are improved, but symptoms do persist. His symptoms could be due to acute pneumonia vs. his lung cancer/ chemo. OT/PT to evaluate. (3) Stage 4 lung cancer Status: Chronic Assessment & Plan: He is followed in the Cancer Center and is on a treatment regimen. His treatment was held earlier this week secondary to his increased fatigue and dizziness. He discussed options with [facility] and they have decided to hold off on any further chemotherapy for the next month and will re- address his status and options at that time. He has decided he wants to be DNR/ DNI status. 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 He is on OxyContin and OxyIR for pain control and seems to be doing fairly well. (5) Hypertension Assessment & Plan: He is on chronic treatment with losartan, which has been held secondary to anemia and borderline hypotension. (6) Alcohol abuse Status: Acute Assessment & Plan: He does have a history of alcohol abuse, but has not been drinking over the last 4 years. (7) Malignant neoplasm of ear Status: Chronic Exam Sepsis Risk: No Definite Risk MICHEAL HATCH MD May 12, 2017 13:00
[2017-05-12 16:05] VITALS: BP 142/87
[2017-05-12 19:19] VITALS: BP 107/93
[2017-05-12] MEDS: PROMETHAZINE 25 MG/ML 1 ML AMP IVP PRN (19:55)
[2017-05-12] MEDS: LORazepam 0.5 MG TAB PO PRN (19:55)
[2017-05-12] MEDS: AMITRIPTYLINE HCL 25 MG TAB PO SCH (21:11)
[2017-05-12] MEDS: LATANOPRO 0.005% OP SOLN 2.5ML OU SCH (21:11)
[2017-05-12 23:50] VITALS: BP 136/90
[2017-05-13 03:06] VITALS: BP 100/68
[2017-05-13 08:11] VITALS: BP 109/74
[2017-05-13] MEDS: CYANOCOBALAMIN 1000 MCG TAB PO SCH (08:27)
[2017-05-13] MEDS: FOLIC ACID 1 MG TAB PO SCH (08:28)
[2017-05-13] MEDS: GABAPENTIN 300 MG CAP PO SCH ×2 (08:28→20:20)
[2017-05-13] MEDS: VORTIOXETINE HYDROBROMIDE 20 MG TABLET PO SCH (08:31)
[2017-05-13] MEDS: TAMSULOSIN HCL 0.4 MG CAP PO SCH (08:31)
[2017-05-13] MEDS ORDERED: BISACODYL 10 MG SUPP PR PRN (09:25)
[2017-05-13] MEDS ORDERED: MAGNESIUM HYDROXIDE* 30ML UDCP PO PRN (09:25)
[2017-05-13] MEDS: DOCUSATE SODIUM 100 MG CAP PO SCH ×2 (10:28→20:20)
[2017-05-13] MEDS: POLYETHYLENE GLYCOL 17 GM PKT PO SCH (10:29)
[2017-05-13] MEDS: LEVOFLOXACIN/D5W 750 MG/150 ML 150 ML IVPB SCH (10:29)
--- NOTE | 2017-05-13 10:45 | RADIOLOGY IMAGING REPORT ---
FACILITY: [facility] PATIENT NAME: Jarret Aguilar : 1950 MR: [id number] V: [id number] EXAM DATE: ORDERING PHYSICIAN: CHERRI HATCH TECHNOLOGIST: Location[place] [facility] [place] Patient: Jarret Aguilar : 1950 Visit/Account:[id number] Date of Sevice: 05/13/2017 Single view of the chest Indication: Lung cancer, pneumonia. Comparison: X-ray examination May 09, 2017. CT a chest May 08. Findings: Compared to prior modalities, stable volume loss on the right with persistent right perihilar interst itial opacities and right upper lobe scarring, bronchiectasis and consolidation. Vague interstitial opacities are noted on the left without consolidation. Stable appearance of the left chest port. IMPRESSION: 1. Stable volume loss, scarring, bronchiectasis and consolidation in the right upper lobe. 2. Vague interstitial opacities within the left perihilar and mid lung suspicious for superimposed b ronchitis. No new alveolar consolidation. Report Dictated By: Mark Sneed MD at 05/13/2017 10:35 AM Report E-Signed By: Mark Sneed MD at 05/13/2017 10:40 AM WSN:[id number]
[2017-05-13 11:17] VITALS: BP 141/82
--- NOTE | 2017-05-13 12:11 | Hospitalist Progress Note ---
Subjective Progress Notes Subjective The patient complains of headache today. Physical Exam Vital Signs Date Time Temp Pulse Resp B/P (MAP) Pulse Ox O2 Delivery O2 Flow Rate FiO2 05/13/17 11:17 99.8 88 20 141/82 (101) 90 Room Air 1.5 Intake and Output 05/14/17 07:00 Intake Total 240 ml Output Total 450 ml Balance -210 ml Intake Oral 240 ml Output Urine Total 450 ml General Appearance: Alert, Awake, No Acute Distress Neuro: No Gross deficits Eyes: PERRLA Cardiovascular: Regular Rate and Rhythm Respiratory: Other (Decreased BS throughout.) GI: Soft and Non-Tender Extremities: Warm, Perfused Psych: Appropriate Mood & Affect Result Diagram: 05/12/1752205/12/17522 Assessment and Plan Problems: (1) Pneumonia Status: Acute Assessment & Plan: He does have left lingular infiltrate on CT scan that was not present just one week prior. This is likely responsible for his acute decompensation. He most likely does not have much of a WBC count response due to the chemotherapy. On Levofloxacin 750mg IV daily. He did develop low grade fever overnight. Will reculture and recheck CXR. Continue Levaquin for now. (2) Symptomatic anemia Assessment & Plan: He did present with dizziness and fatigue. He also described some orthostatic type symptoms. His Hgb has decreased over the last month, but his symptoms did seem to correlate with an acute decrease on . We transfused 2 units of PRBCs on 05/08. Counts are improved, but symptoms do persist. His symptoms could be due to acute pneumonia vs. his lung cancer/ chemo. OT/PT to evaluate. (3) Stage 4 lung cancer Status: Chronic Assessment & Plan: He is followed in the Cancer Center and is on a treatment regimen. His treatment was held earlier this week secondary to his increased fatigue and dizziness. He discussed options with [facility] and they have decided to hold off on any further chemotherapy for the next month and will re- address his status and options at that time. He has decided he wants to be DNR/ DNI status. 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 He is on OxyContin and OxyIR for pain control and seems to be doing fairly well. (5) Hypertension Assessment & Plan: He is on chronic treatment with losartan, which has been held secondary to anemia and borderline hypotension. (6) Alcohol abuse Status: Acute Assessment & Plan: He does have a history of alcohol abuse, but has not been drinking over the last 4 years. (7) Malignant neoplasm of ear Status: Chronic (8) Headache Status: Acute Assessment & Plan: The patient was off of his antidepressant, vortioxetine, for several days and it was just restarted. Per clinical pharmacist, headache is a common symptom of withdrawal. Will monitor. No neurologic findings. Exam Sepsis Risk: Sepsis Risk CHERRI HATCH MD May 13, 2017 12:11
[2017-05-13] MEDS: LORazepam 0.5 MG TAB PO PRN (13:09)
[2017-05-13 14:54] VITALS: BP 128/86
[2017-05-13] MEDS: AMITRIPTYLINE HCL 25 MG TAB PO SCH (20:20)
[2017-05-13 20:26] VITALS: BP 104/66
[2017-05-13] MEDS: LATANOPRO 0.005% OP SOLN 2.5ML OU SCH (20:26)
[2017-05-13] MEDS: PROMETHAZINE 25 MG/ML 1 ML AMP IVP PRN (21:10)
[2017-05-13 23:02] VITALS: BP 107/77
[2017-05-14 02:36] VITALS: BP 107/80
[2017-05-14] MEDS: oxyCODONE HCL 5 MG CAP PO PRN (02:44)
[2017-05-14 05:41] LABS: PLATELET COUNT, AUTOMATED 145 K/uL (150-450)
[2017-05-14 08:09] VITALS: BP 164/89
[2017-05-14] MEDS: TAMSULOSIN HCL 0.4 MG CAP PO SCH (09:05)
[2017-05-14] MEDS: FOLIC ACID 1 MG TAB PO SCH (09:05)
[2017-05-14] MEDS: GABAPENTIN 300 MG CAP PO SCH ×2 (09:05→20:23)
[2017-05-14] MEDS: CYANOCOBALAMIN 1000 MCG TAB PO SCH (09:05)
[2017-05-14] MEDS: DOCUSATE SODIUM 100 MG CAP PO SCH ×2 (09:05→20:23)
[2017-05-14] MEDS: VORTIOXETINE HYDROBROMIDE 20 MG TABLET PO SCH (09:05)
[2017-05-14] MEDS: LORazepam 0.5 MG TAB PO PRN ×2 (09:50→20:27)
[2017-05-14] MEDS ORDERED: VANCOMYCIN(*) 1 GM VIAL 2 GM in NS(*) 0.9% 250 ML BAG 250 ML IVPB ONE ×2 (10:00→12:00)
[2017-05-14] MEDS: LEVOFLOXACIN/D5W 750 MG/150 ML 150 ML IVPB SCH (10:00)
[2017-05-14] MEDS: POLYETHYLENE GLYCOL 17 GM PKT PO SCH (10:00)
[2017-05-14] MEDS: PROMETHAZINE 25 MG/ML 1 ML AMP IVP PRN ×2 (10:26→21:00)
[2017-05-14 11:03] VITALS: BP 144/84
--- NOTE | 2017-05-14 11:10 | Hospitalist Progress Note ---
Subjective Progress Notes Subjective This patient was initially admitted for anemia, but was then found to have pneumonia. He had no acute events overnight. Patient Complains of: Cardiovascular: No: Chest Pain Respiratory: No: Shortness of Breath Physical Exam Vital Signs Date Time Temp Pulse Resp B/P (MAP) Pulse Ox O2 Delivery O2 Flow Rate FiO2 05/14/17 10:00 93 Nasal Cannula 1.5 05/14/17 08:09 97.3 84 20 164/89 (114) Intake and Output 05/15/17 07:00 Output Total 400 ml Balance -400 ml Output Urine Total 400 ml Cardiovascular: Regular Rate and Rhythm Respiratory: Clear to Auscultation Result Diagram: 05/14/17 0513 05/14/17 0513 Item Value Date Time Blood Culture - Final Resulted 05/13/17 1033 Blood Peripheral Draw Blood Culture - Final Resulted 05/13/17 1025 Blood Port Draw Assessment and Plan Problems: (1) Bacterial pneumonia Assessment & Plan: His initial CT scan suggested an infiltrate in the left lower lobe. At that time he was placed on empiric treatment with Primaxin, and was later converted to oral levofloxacin. (2) Sepsis Assessment & Plan: He developed a fever on 05/12, while on antibiotics. His cultures from that time are growing gram positive cocci. He has been on levofloxacin, as above, vancomycin was added today. (3) Symptomatic anemia Assessment & Plan: He did present with dizziness and fatigue. He also described some orthostatic type symptoms. His Hgb has decreased over the last month, but his symptoms did seem to correlate with an acute decrease on . We transfused 2 units of PRBCs on 05/08. His Hgb has since been stable. (4) Stage 4 lung cancer Status: Chronic Assessment & Plan: He is followed in the Cancer Center and is on a treatment regimen. His treatment was held earlier this week secondary to his increased fatigue and dizziness. He discussed options with [facility] and they have decided to hold off on any further chemotherapy for the next month and will re- address his status and options at that time. He has decided he wants to be DNR/ DNI status. (5) Malignant bone pain Assessment & Plan: He does have metastasis to the right iliac crest and right clavicle. He is on OxyContin and OxyIR for pain control and seems to be doing fairly well. (6) Hypertension Assessment & Plan: He is on chronic treatment with losartan, which has been held secondary to anemia and borderline hypotension. (7) Alcohol abuse Status: Acute Assessment & Plan: He does have a history of alcohol abuse, but has not been drinking over the last 4 years. (8) Malignant neoplasm of ear Status: Chronic (9) Headache Status: Acute Assessment & Plan: The patient was off of his antidepressant, vortioxetine, for several days and it was just restarted. Per clinical pharmacist, headache is a common symptom of withdrawal. Will monitor. No neurologic findings. Exam Sepsis Risk: Sepsis Risk KEVIN GORDON DO May 14, 2017 11:10
[2017-05-14 15:24] VITALS: BP 130/109
[2017-05-14 18:10] VITALS: BP 106/67
[2017-05-14] MEDS: NS(*) 0.9% 1000 ML BAG 1,000 ML IV PRN (19:03)
[2017-05-14] MEDS: AMITRIPTYLINE HCL 25 MG TAB PO SCH (20:23)
[2017-05-14] MEDS: LATANOPRO 0.005% OP SOLN 2.5ML OU SCH (20:23)
[2017-05-14 23:15] VITALS: BP 121/71
[2017-05-14] MEDS: VANCOMYCIN(*) 1 GM VIAL 1 GM, VANCOMYCIN (*) 0.5 GM VIAL 0.5 GM in NS(*) 0.9% 250 ML BA... IVPB SCH (23:38)
[2017-05-15] MEDS: oxyCODONE HCL 5 MG CAP PO PRN ×3 (02:59→23:49)
[2017-05-15 03:01] VITALS: BP 106/65
[2017-05-15] MEDS: NS(*) 0.9% 1000 ML BAG 1,000 ML IV PRN (05:07)
[2017-05-15 05:30] LABS: PLATELET COUNT, AUTOMATED 131 K/uL (150-450)
[2017-05-15 07:39] VITALS: BP 144/106
[2017-05-15] MEDS: POLYETHYLENE GLYCOL 17 GM PKT PO SCH (07:55)
[2017-05-15] MEDS: GABAPENTIN 300 MG CAP PO SCH ×2 (07:56→21:17)
[2017-05-15] MEDS: TAMSULOSIN HCL 0.4 MG CAP PO SCH (07:56)
[2017-05-15] MEDS: VORTIOXETINE HYDROBROMIDE 20 MG TABLET PO SCH (07:56)
[2017-05-15] MEDS: CYANOCOBALAMIN 1000 MCG TAB PO SCH (07:56)
[2017-05-15] MEDS: DOCUSATE SODIUM 100 MG CAP PO SCH ×2 (07:56→21:17)
[2017-05-15] MEDS: FOLIC ACID 1 MG TAB PO SCH (07:56)
[2017-05-15] MEDS ORDERED: NS(*) 0.9% 1000 ML BAG 1,000 ML IV PRN (08:47)
[2017-05-15] MEDS ORDERED: NICOTINE INH SYSTEM 10 MG/INH INH PRN (08:50)
[2017-05-15] MEDS: ACETAMINOPHEN 500 MG TAB PO PRN ×2 (09:22→19:08)
[2017-05-15] MEDS: LEVOFLOXACIN/D5W 750 MG/150 ML 150 ML IVPB SCH (09:24)
[2017-05-15 10:58] VITALS: BP 117/75
[2017-05-15] MEDS: VANCOMYCIN(*) 1 GM VIAL 1 GM, VANCOMYCIN (*) 0.5 GM VIAL 0.5 GM in NS(*) 0.9% 250 ML BA... IVPB SCH ×2 (12:31→23:43)
--- NOTE | 2017-05-15 13:12 | Medical Nutrition Therapy ---
Nutrition Anthropometrics Height (Inches): 71.00 Height (Calculated Centimeters: 180.713824 Weight (Pounds): 192 Weight (Calculated Kilograms): 87.288 BMI Calculated: 26.78 Nathen Nutrition Score: Very Poor Nathen Nutrition Risk Score: 14 Dietary Referral Nutrition Risk Factors: Unplanned Loss >10lbs Nutrition Risk Comment: etoh Physical Findings Physical Appearance: Overweight BMI 25-29 (26.8) Skin Appearance Skin Appearance: Edema Edema Location Modifier: Edema Location: Type of Edema: Degree of Edema: Gastrointestinal Symptoms GI Symtoms: Nausea Tube Present: Bowel Sounds: Recent Bowel Pattern: Diarrhea Stool Characteristics: Nutritional Diagnosis Nutritional Risk Acuity 2: Head/Neck/GI Cancer Nutritional Risk Acuity 3: Cancer Past Medical History: upper GI bleed, depression, HTN, malignant neoplasm of ear, stage 4 adenocarcinoma, alcohol abuse (hasn't drank in 4 years) Nutritional Acuity: 2-Moderate Nutrition Diagnosis: Increased Nutrient Needs Nutrition Etiology: Physiological Causes Nutrition Problem/Etiology/Sym: Increased Nutrient Needs related to physiological causes increasing nutrient needs, e.g., Stage 4 Lung cancer and chemotherapy AEB low albumin status indicating increased stress and increased metabolic needs. Energy Requirement: 2500 ([place]-St Jeor: Actual BW X 1.5) Protein Requirement: 87 (Actual BW Kg X 1.0) Fluid Requirement: 2500 Diet Type: Diet as Tolerated DOMINIQUE/REG Nutrition Intervention: Cont diet as ordered, Encourage intake Diet Comment To [facility]: PLEASE PUT PROTEIN POWDER IN APPROPRIATE FOODS AND/OR OFFER NUTR SUPPLEMENT Nutrition Monitoring & Eval Nutrition Follow-Up: Good Intake RD Patient Assessment Time: [address] Assessment Type: RD Re-Assessment Patient Nutrition Acuity: 2-Moderate Follow Up Date: May 17, 2017 Nutritional Comment: Pt admitted for pneumonia and anemia. Pt on chemo for stage 4 adenocarcinoma. Last chemo was 3 weeks ago. Notable labs include low H/H, Na 135, Alb 2.9, and Glu 116. Pt receiving DOMINIQUE and consumed 75% of first two meals in facility. Will continue to monitor intakes, labs, etc. 05/14 Pt continues on DOMINIQUE averaging 81% intake of small to reg portions. Notable labs include low H/H, Na 129, Ca 8.2, total pro 5.4, and alb 2.7. Will continue to encourage intake and monitor labs, intakes, etc. DORCAS TRACY May 14, 2017 10:58
--- NOTE | 2017-05-15 15:16 | Hospitalist Progress Note ---
Subjective Progress Notes Subjective He reports a left sided headache for the last day or so. He hasn't had a BM since admission. Growing GPC from both blood cultures. Physical Exam Vital Signs Date Time Temp Pulse Resp B/P (MAP) Pulse Ox O2 Delivery O2 Flow Rate FiO2 05/15/17 10:58 97.8 78 20 117/75 (89) 96 Nasal Cannula 2.0 Intake and Output 05/16/17 07:00 Intake Total 90 ml Output Total 500 ml Balance -410 ml Intake Oral 90 ml Output Urine Total 500 ml General Appearance: Alert, Awake, No Acute Distress Respiratory: Clear to Auscultation Chest: Other (Port without surrounding erythema or tenderness. It is accessed. ) Result Diagram: 05/15/17 0506 05/15/17 0506 Assessment and Plan Problems: (1) Bacteremia Status: Acute Assessment & Plan: He spiked a fever on 05/13 despite being on Levofloxacin. Both blood cultures are growing GPC which is worrisome for a port infection. Vancomycin started on 05/14. He has been afebrile since 1800 on 05/14. He will likely need the port removed, but will await the culture results. (2) Bacterial pneumonia Status: Acute Assessment & Plan: He does have left lingular infiltrate on CT scan that was not present just one week prior. Initially, placed on empiric treatment with Primaxin, and was later converted to oral levofloxacin. Vancomycin added on . See above. (3) Symptomatic anemia Status: Acute Assessment & Plan: He did present with dizziness and fatigue. He also described some orthostatic type symptoms. His Hgb has decreased over the last month, but his symptoms did seem to correlate with an acute decrease on . We transfused 2 units of PRBCs on 05/08. His Hgb has since been stable. (4) Headache Status: Acute Assessment & Plan: The patient was off of his antidepressant, vortioxetine, for several days and it was just restarted. However, his headache persists. Will try Tylenol and possibly Celebrex. He had a head CT on 04/30 that didn't show any evidence of metastasis. However, if not improving, then will likely need an MRI to evaluate. (5) Constipation Status: Acute Assessment & Plan: No BM since admission. He is on a bowel regimen. If no improvement, the likely will try enemas. (6) Stage 4 lung cancer Status: Chronic Assessment & Plan: He is followed in the Cancer Center and is on a treatment regimen. His treatment was held earlier secondary to his increased fatigue and dizziness. He discussed options with [facility] and they have decided to hold off on any further chemotherapy for the next month and will re-address his status and options at that time. He has decided he wants to be DNR/DNI status. (7) Malignant bone pain Assessment & Plan: He does have metastasis to the right iliac crest and right clavicle. He is on OxyContin and OxyIR for pain control and seems to be doing fairly well. (8) Malignant neoplasm of ear Status: Chronic (9) Hypertension Assessment & Plan: He is on chronic treatment with losartan, which has been held secondary to anemia and borderline hypotension. (10) Alcohol abuse Status: Acute Assessment & Plan: He does have a history of alcohol abuse, but has not been drinking over the last 4 years. Exam Sepsis Risk: No Definite Risk SATHYA EARL MD May 15, 2017 15:16
[2017-05-15 15:26] VITALS: BP 117/77
[2017-05-15 18:40] VITALS: BP 144/89
[2017-05-15] MEDS: PROMETHAZINE 25 MG/ML 1 ML AMP IVP PRN (19:08)
[2017-05-15] MEDS: AMITRIPTYLINE HCL 25 MG TAB PO SCH (21:17)
[2017-05-15] MEDS: LATANOPRO 0.005% OP SOLN 2.5ML OU SCH (21:17)
[2017-05-15 23:28] VITALS: BP 131/78
[2017-05-16 03:37] VITALS: BP 103/77
[2017-05-16 07:51] VITALS: BP 140/85
[2017-05-16] MEDS: DOCUSATE SODIUM 100 MG CAP PO SCH ×2 (07:57→20:19)
[2017-05-16] MEDS: GABAPENTIN 300 MG CAP PO SCH ×2 (07:57→20:19)
[2017-05-16] MEDS: TAMSULOSIN HCL 0.4 MG CAP PO SCH (07:57)
[2017-05-16] MEDS: ACETAMINOPHEN 500 MG TAB PO PRN (07:57)
[2017-05-16] MEDS: VORTIOXETINE HYDROBROMIDE 20 MG TABLET PO SCH (07:58)
[2017-05-16] MEDS: FOLIC ACID 1 MG TAB PO SCH (07:58)
[2017-05-16] MEDS: CYANOCOBALAMIN 1000 MCG TAB PO SCH (07:58)
[2017-05-16] MEDS: oxyCODONE HCL 5 MG CAP PO PRN (07:58)
[2017-05-16] MEDS: POLYETHYLENE GLYCOL 17 GM PKT PO SCH (07:58)
[2017-05-16] MEDS ORDERED: LACTULOSE 10 GM/15 ML UDCUP PO PRN (09:45)
[2017-05-16 11:01] VITALS: BP 128/83
[2017-05-16] MEDS: VANCOMYCIN(*) 1 GM VIAL 1 GM, VANCOMYCIN HCL 0.750 GM VIAL 0.75 GM in NS(*) 0.9% 250 ML... IVPB SCH (12:20)
--- NOTE | 2017-05-16 13:33 | General Surgery Consultation ---
History of Present Illness Requesting Physician dr aguilar Reason for Consult infected chemoport Chief Complaint sepsis History of Present Illness 66 yo male with lung cancer has sepsis and needs port removed History Home Meds Active Scripts Nystatin (Nystatin) 100,000 Unit/Ml Oral.susp, 4 ML PO QID for 7 Days, #120 ML Prov:NURYSJAE J [facility], ONC 04/30/17 Losartan Potassium (LOSARTAN POTASSIUM) 25 Mg Tablet, 25 MG PO QDAY Y for PRN for 30 Days, #30 TAB 9 Refills Prov:JAE NUNO [facility], ONC 04/23/17 Oxycodone Hcl/Acet 5/325 Mg (ENDOCET 5-325 TABLET) 1 Each Tablet, 1 EACH PO Q4- 6H Y for PAIN, #45 TAB Prov:JAE NUNO [facility], ONC 03/27/17 Oxycodone Hcl (OXYCONTIN) 10 Mg Tab.er.12h, 10 MG PO Q12H, #60 TAB Prov:JAE NUNO [facility]-, ONC 03/11/17 Dexamethasone 4 Mg Tab (DEXAMETHASONE 4 MG TAB) 4 Mg Tab, 4 MG PO BID for 3 Days , #36 TAB Take 4 mg bid x 3 days starting 24 hours prior to each chemotherapy x 6 cycles. Prov:JAE NUNO [facility]-, ONC 02/04/17 Ondansetron Hcl (ZOFRAN) 8 Mg Tablet, 8 MG PO Q12H, #30 TAB 1 Refill Prov:JAE NUNO [facility] ONC 04/17/16 Reported Medications Disulfiram (DISULFIRAM) 250 Mg Tablet, 250 MG PO DAILY Y for prn 05/09/17 Gabapentin (GABAPENTIN) 300 Mg Capsule, 300 MG PO BID, CAPSULE 01/31/17 Armodafinil (NUVIGIL) 150 Mg Tablet, 150 MG PO QAM, TAB 01/31/17 Amitriptyline Hcl (AMITRIPTYLINE HCL) 75 Mg Tablet, 75 MG PO QHS, #5 TAB 01/01/17 Cyanocobalamin (Vitamin B-12) (VITAMIN B-12) 1,000 Mcg Tablet.er, 1000 MCG PO DAILY 04/11/16 Cholecalciferol (Vitamin D3) (VITAMIN D) 2,000 Unit Capsule, 2000 UNIT PO 2XW, CAPSULE 04/11/16 Latanoprost (LATANOPROST) 2.5 Ml Drops, 2.5 ML OP HS 04/11/16 [trintellix] No Conflict Check, 20 MG PO DAILY 04/11/16 Omeprazole (PRILOSEC) 40 Mg Capsule.dr, 1 TAB PO QDAY TAKE ONE TABLET BY MOUTH ONCE A DAY 01/07/14 Folic Acid (FOLIC ACID) 1 Mg Tablet, 1 MG PO DAILY 05/26/13 Multivit, Min No.21/Folic Acid (SUPERVITE EC CAPLET) 1 Mg Tablet.dr, 1 MG PO 05/26/13 Tamsulosin Hcl (Flomax) 0.4 Mg Cap, 0.4 MG PO QDAY, #30 2 Refills 04/09/11 Allergies: Coded Allergies: carboplatin (Verified Allergy, Severe, ANAPHYLAXIS, 03/25/17) Carboplatin recieved on 02/11/17 no reaction after receiving full dose. Carboplatin recieved again on 03/04/17 200 of the 500mls recieved and patient began to cough, experienced dizziness, nausea and short of breath, rapid response was called and patient was taken to the ER. Carboplatin recieved for th 3rd time on03/26/17 and patient recived around 75mls of the drug and began to experience the same symptoms as above. Family History: Anxiety disorder MOTHER, , Age:51 FH: depression MOTHER, , Age:51 FH: emphysema FATHER, , Age:72 Pulmonary fibrosis BROTHER OR SISTER Exam Vital Signs Vital Signs Date Time Temp Pulse Resp B/P (MAP) Pulse Ox O2 Delivery O2 Flow Rate FiO2 05/16/17 11:01 97.5 83 20 128/83 (98) 96 Nasal Cannula 2.0 General Appearance: Alert, Awake, No Acute Distress Chest: Other (port in place on the left) Medical Decision Making Data Points Result Diagram: 05/15/17 0506 05/15/17 0506 Assessment and Plan Problems: (1) Bacteremia Status: Acute Assessment & Plan: He spiked a fever on 05/13 despite being on Levofloxacin. Both blood cultures are growing GPC which is worrisome for a port infection. Vancomycin started on 05/14. He has been afebrile since 1800 on 05/14. He will likely need the port removed, but will await the culture results. 05/16/17 will remove port Copies to: NILSA WAN MD Venous Thromboembolism Antithrombotics Is Pt On Any Antithrombotics?: No NILSA WAN MD May 16, 2017 13:33
--- NOTE | 2017-05-16 14:16 | Post Operative Progress Note ---
Post Operative Progress Note Date: May 16, 2017 Time: 14:15 Surgeon: kirill Anesthesia: local Pre-Op Diagnosis: infected powerport Post-Op Diagnosis: same Procedure(s): removal of port NILSA WAN MD May 16, 2017 14:16
[2017-05-16 14:35] VITALS: BP 133/81
[2017-05-16] MEDS: NS(*) 0.9% 500 ML BAG 500 ML IV PRN (15:05)
--- NOTE | 2017-05-16 15:21 | Hospitalist Progress Note ---
Subjective Progress Notes Subjective Mr. Aguilar is a 66 y.o. male with PMH of stage 4 Lung Cancer, presented to the emergency room complaining of dizziness and fatigue. He found to have fever and positive blood culture for GPC. He has pot-a-cath for his chemotherapy. He is currently on Vancomycin and Levaquin. His Vanco level is 11.2. He has advance lung cancer and he still smoke. He is DNR/DNI and he would prefer comfort care if chemotherapy is futile.. He c/o headach. If his headachs persist then I will get Brain MRI to r/o mets. Patient Complains of: Neurological: Weakness, No: Syncope, Confusion Cardiovascular: No: Chest Pain, Palpitations Respiratory: Shortness of Breath, No: Cough, Congestion Gastrointestinal: Nausea, Flatus, No Vomiting, No Bowel Movement Genitourinary: No Dysuria, No Hematuria Musculoskeletal: No: Pain, Sprain, Strain Physical Exam Vital Signs Date Time Temp Pulse Resp B/P (MAP) Pulse Ox O2 Delivery O2 Flow Rate FiO2 05/16/17 14:35 97.5 89 20 133/81 (98) 95 Nasal Cannula 2.0 Intake and Output 05/17/17 07:00 Intake Total 0 ml Balance 0 ml Intake Oral 0 ml # Voids 1 General Appearance: Alert, Awake, No Acute Distress, Afebrile Neuro: No Gross deficits Eyes: PERRLA ENT: Normal Cardiovascular: Normal Rhythm & Peripheral Pulses Respiratory: No Respiratory Distress GI: Soft and Non-Tender Musculoskeletal: No Weakness/Pain Psych: Alert & Oriented X3 Result Diagram: 05/15/17 0506 05/15/17 0506 Assessment and Plan Problems: (1) Bacteremia Status: Acute Assessment & Plan: He spiked a fever on 05/13 despite being on Levofloxacin. Both blood cultures are growing GPC which is worrisome for a port infection. Vancomycin started on 05/14. He has been afebrile since 1800 on 05/14. He will likely need the port removed, but will await the culture results. 05/16: His Blood Cx are positive for GPC and I will plan to remove his IV port. I will stop his Levaquin today. I will get CBC, BMP and BCx in am (2) Bacterial pneumonia Status: Acute Assessment & Plan: He does have left lingular infiltrate on CT scan that was not present just one week prior. Initially, placed on empiric treatment with Primaxin, and was later converted to oral levofloxacin. Vancomycin added on . See above. 05/16: I will stop his Levaquin and continue his Vancomycin. I will increase his Vanco dose. (3) Symptomatic anemia Status: Chronic Assessment & Plan: He did present with dizziness and fatigue. He also described some orthostatic type symptoms. His Hgb has decreased over the last month, but his symptoms did seem to correlate with an acute decrease on . We transfused 2 units of PRBCs on 05/08. His Hgb has since been stable. (4) Headache Status: Acute Assessment & Plan: The patient was off of his antidepressant, vortioxetine, for several days and it was just restarted. However, his headache persists. Will try Tylenol and possibly Celebrex. He had a head CT on 04/30 that didn't show any evidence of metastasis. However, if not improving, then will likely need an MRI to evaluate. (5) Constipation Status: Acute Assessment & Plan: No BM since admission. He is on a bowel regimen. If no improvement, the likely will try enemas. 05/16: I will use Lactulose 30ml/day (6) Stage 4 lung cancer Status: Chronic Assessment & Plan: He is followed in the Cancer Center and is on a treatment regimen. His treatment was held earlier secondary to his increased fatigue and dizziness. He discussed options with [facility]ASQUE[facility] and they have decided to hold off on any further chemotherapy for the next month and will re-address his status and options at that time. He has decided he wants to be DNR/DNI status. (7) Malignant bone pain Assessment & Plan: He does have metastasis to the right iliac crest and right clavicle. He is on OxyContin and OxyIR for pain control and seems to be doing fairly well. 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 (10) Alcohol abuse Status: Acute Assessment & Plan: He does have a history of alcohol abuse, but has not been drinking over the last 4 years. Time Spent on Plan of Care: < 30 min Copies to: SANIYA,AHSAN [employer]JUN[employer] WRITING INSTRUCTOR Exam Sepsis Risk: No Definite Risk ELA SERRANO MD May 16, 2017 15:21
--- NOTE | 2017-05-16 18:32 | PROCEDURE NOTE ---
EVENT DATE: May 16, 2017 SURGEON: Joey Burns MD ANESTHESIA: Local. PREOPERATIVE DIAGNOSIS Sepsis secondary to chemotherapy port infection. POSTOPERATIVE DIAGNOSIS Sepsis secondary to chemotherapy port infection. PROCEDURE PERFORMED Removal of chemotherapy port. DESCRIPTION OF PROCEDURE The patient was placed in the supine position and given a local anesthetic. The area was prepped and draped in a sterile fashion. An incision was made through the old scar. Sutures were removed. The catheter was then removed. It was closed with 4-0 Maxon. Steri-Strips and an Airstrip were placed. MTDD
[2017-05-16] MEDS: PROMETHAZINE 25 MG/ML 1 ML AMP IVP PRN (18:44)
[2017-05-16 19:50] VITALS: BP 97/63
[2017-05-16] MEDS: LATANOPRO 0.005% OP SOLN 2.5ML OU SCH (20:19)
[2017-05-16] MEDS: AMITRIPTYLINE HCL 25 MG TAB PO SCH (20:19)
[2017-05-16] MEDS: LORazepam 0.5 MG TAB PO PRN (20:24)
[2017-05-17] VITALS (7 sets, daily range): BP systolic 97–149; BP diastolic 65–99
[2017-05-17] MEDS: VANCOMYCIN(*) 1 GM VIAL 1 GM, VANCOMYCIN HCL 0.750 GM VIAL 0.75 GM in NS(*) 0.9% 250 ML... IVPB SCH ×3 (00:46→23:54)
[2017-05-17 05:54] LABS: PLATELET COUNT, AUTOMATED 150 K/uL (150-450)
[2017-05-17] MEDS: PROMETHAZINE 25 MG/ML 1 ML AMP IVP PRN (07:27)
[2017-05-17] MEDS: POLYETHYLENE GLYCOL 17 GM PKT PO SCH (09:00)
[2017-05-17] MEDS: DOCUSATE SODIUM 100 MG CAP PO SCH ×2 (09:28→20:28)
[2017-05-17] MEDS: VORTIOXETINE HYDROBROMIDE 20 MG TABLET PO SCH (09:28)
[2017-05-17] MEDS: TAMSULOSIN HCL 0.4 MG CAP PO SCH (09:28)
[2017-05-17] MEDS: GABAPENTIN 300 MG CAP PO SCH ×2 (09:29→20:28)
[2017-05-17] MEDS: CYANOCOBALAMIN 1000 MCG TAB PO SCH (09:29)
[2017-05-17] MEDS: FOLIC ACID 1 MG TAB PO SCH (09:29)
[2017-05-17] MEDS: POTASSIUM CHL 20 MEQ TABCR PO SCH ×3 (09:29→20:28)
[2017-05-17] MEDS: PANTOPRAZOLE SOD 40 MG TABEC PO SCH (09:30)
--- NOTE | 2017-05-17 11:23 | Medical Nutrition Therapy ---
Nutrition Anthropometrics Height (Inches): 71.00 Height (Calculated Centimeters: 180.548280 Weight (Pounds): 192 Weight (Calculated Kilograms): 87.288 BMI Calculated: 26.78 Nathen Nutrition Score: Adequate Nathen Nutrition Risk Score: 17 Dietary Referral Nutrition Risk Factors: Unplanned Loss >10lbs Nutrition Risk Comment: etoh Nutritional Diagnosis Nutritional Risk Acuity 2: Pr Appetite > 3d, Head/Neck/GI Cancer (lung Ca with mets to ear) Nutritional Risk Acuity 3: Cancer Past Medical History: upper GI bleed, depression, HTN, malignant neoplasm of ear, stage 4 adenocarcinoma, alcohol abuse (hasn't drank in 4 years) Nutritional Acuity: 2-Moderate Nutrition Diagnosis: Increased Nutrient Needs Nutrition Etiology: Physiological Causes Nutrition Problem/Etiology/Sym: Increased Nutrient Needs related to physiological causes increasing nutrient needs, e.g., Stage 4 Lung cancer and chemotherapy AEB low albumin status indicating increased stress and increased metabolic needs. Energy Requirement: 2500 (Walton-St Jeor: Actual BW X 1.5) Protein Requirement: 87 (Actual BW Kg X 1.0) Fluid Requirement: 2500 Diet Type: Diet as Tolerated DOMINIQUE/REG Nutrition Intervention: Cont diet as ordered, Encourage intake, Between meal supplement Diet Comment To [facility]: PLEASE PUT PROTEIN POWDER IN APPROPRIATE FOODS AND OFFER NUTR SUPPLEMENT Nutrition Monitoring & Eval Nutrition Goals: Eat 75-100% Meal Nutrition Follow-Up: Fair Intake, Poor Intake RD Patient Assessment Time: [address] Assessment Type: RD Re-Assessment Patient Nutrition Acuity: 2-Moderate Follow Up Date: May 20, 2017 Nutritional Comment: Pt admitted for pneumonia and anemia. Pt on chemo for stage 4 adenocarcinoma. Last chemo was 3 weeks ago. Notable labs include low H/H, Na 135, Alb 2.9, and Glu 116. Pt receiving DOMINIQUE and consumed 75% of first two meals in facility. Will continue to monitor intakes, labs, etc. 05/14 Pt continues on DOMINIQUE averaging 81% intake of small to reg portions. Notable labs include low H/H, Na 129, Ca 8.2, total pro 5.4, and alb 2.7. Will continue to encourage intake and monitor labs, intakes, etc. 05/17 Pt's intake had declined and averaging 40%past 3 days. Pt reporting nausea with liquid stools which may be contributing to decreased intake. K+ 3, receiving K+ supplement. Pt asleep and unable to discuss intake. Will cont to monitor and encourage intake. YOEL TALLEY May 17, 2017 11:23
--- NOTE | 2017-05-17 12:06 | Hospitalist Progress Note ---
Subjective Progress Notes Subjective Mr. Aguilar is a 66 y.o. male with PMH of stage 4 Lung Cancer, presented to the emergency room complaining of dizziness and fatigue. He found to have fever and positive blood culture for GPC. He has pot-a-cath for his chemotherapy. He is currently on Vancomycin and Levaquin. His Vanco level is 11.2. He has advance lung cancer and he still smoke. He is DNR/DNI and he would prefer comfort care if chemotherapy is futile.. He c/o headach. If his headachs persist then I will get Brain MRI to r/o mets. 05/17: He is feeling down with nausea. He responded to Lactulose and had episodes of diarrhea. His K level is 3.0. His Port a cath was removed due to bacteremia.His repeat blood CX were done today. Patient Complains of: Neurological: Weakness, Dizziness, No: Syncope, Confusion Cardiovascular: Orthostatic Hypotension (will check orthostasis), No: Chest Pain, Palpitations Respiratory: Shortness of Breath, No: Cough, Congestion, Wheezing Gastrointestinal: Nausea, Bowel Movement, Other, No Vomiting, No Flatus Genitourinary: No Dysuria, No Hematuria Musculoskeletal: Impaired Mobility, No: Pain, Sprain, Strain Physical Exam Vital Signs Date Time Temp Pulse Resp B/P (MAP) Pulse Ox O2 Delivery O2 Flow Rate FiO2 05/17/17 07:30 97.7 100 24 149/87 (107) 88 Nasal Cannula 4.0 Intake and Output 05/18/17 07:00 Intake Total 0 ml Balance 0 ml Intake Oral 0 ml # Voids 1 General Appearance: Alert, Awake, No Acute Distress, Afebrile Neuro: No Gross deficits Eyes: PERRLA ENT: Normal Neck: No Masses Cardiovascular: Normal Rhythm & Peripheral Pulses Respiratory: No Respiratory Distress GI: Soft and Non-Tender Extremities: Soft and Non Tender Psych: Alert & Oriented X3, Other (seems depressed) Result Diagram: 05/17/17 0540 05/17/17 0540 Assessment and Plan Problems: (1) Bacteremia Status: Acute Assessment & Plan: He spiked a fever on 05/13 despite being on Levofloxacin. Both blood cultures are growing GPC which is worrisome for a port infection. Vancomycin started on 05/14. He has been afebrile since 1800 on 05/14. He will likely need the port removed, but will await the culture results. 05/16: His Blood Cx are positive for GPC and I will plan to remove his IV port. I will stop his Levaquin today. I will get CBC, BMP and BCx in am 05/17: His Blood Cxis positive for Strept. sanguinis and sensitivities is pending. I will continue his Vancomycin and his vanco trough is 16 today. (2) Bacterial pneumonia Status: Acute Assessment & Plan: He does have left lingular infiltrate on CT scan that was not present just one week prior. Initially, placed on empiric treatment with Primaxin, and was later converted to oral levofloxacin. Vancomycin added on . See above. 05/16: I will stop his Levaquin and continue his Vancomycin. I will increase his Vanco dose. 05/17: He is afebrile and his VS are stable. I will continue his Vanco (3) Symptomatic anemia Status: Chronic Assessment & Plan: He did present with dizziness and fatigue. He also described some orthostatic type symptoms. His Hgb has decreased over the last month, but his symptoms did seem to correlate with an acute decrease on . We transfused 2 units of PRBCs on 05/08. His Hgb has since been stable. (4) Headache Status: Acute Assessment & Plan: The patient was off of his antidepressant, vortioxetine, for several days and it was just restarted. However, his headache persists. Will try Tylenol and possibly Celebrex. He had a head CT on 04/30 that didn't show any evidence of metastasis. However, if not improving, then will likely need an MRI to evaluate. 05/17: His headache is off and on now. I will continue to watch. (5) Constipation Status: Resolved Assessment & Plan: No BM since admission. He is on a bowel regimen. If no improvement, the likely will try enemas. 05/16: I will use Lactulose 30ml/day (6) Stage 4 lung cancer Status: Chronic Assessment & Plan: He is followed in the Cancer Center and is on a treatment regimen. His treatment was held earlier secondary to his increased fatigue and dizziness. He discussed options with [facility] and they have decided to hold off on any further chemotherapy for the next month and will re-address his status and options at that time. He has decided he wants to be DNR/DNI status. 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 He is on OxyContin and OxyIR for pain control and seems to be doing fairly well. 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 (10) Alcohol abuse Status: Resolved Assessment & Plan: He does have a history of alcohol abuse, but has not been drinking over the last 4 years. (11) Hypokalemia Status: Acute Assessment & Plan: I will start him on KCL 20meq po 3 doses and repeat his BMP in am Central Venous Access Medical Necessity for Access: IV Access, Medication Administration Time Spent on Plan of Care: < 30 min Copies to: [facility], ONC Exam Sepsis Risk: No Definite Risk ELA SERRANO MD May 17, 2017 12:06
[2017-05-17] MEDS: oxyCODONE HCL 5 MG CAP PO PRN (19:28)
[2017-05-17] MEDS: AMITRIPTYLINE HCL 25 MG TAB PO SCH (20:28)
[2017-05-17] MEDS: LATANOPRO 0.005% OP SOLN 2.5ML OU SCH (20:29)
[2017-05-17] MEDS: LORazepam 0.5 MG TAB PO PRN (20:32)
[2017-05-18 03:11] VITALS: BP 99/67
[2017-05-18 05:52] LABS: PLATELET COUNT, AUTOMATED 162 K/uL (150-450)
[2017-05-18 07:55] VITALS: BP 136/88
[2017-05-18] MEDS: POLYETHYLENE GLYCOL 17 GM PKT PO SCH (09:00)
[2017-05-18] MEDS: PANTOPRAZOLE SOD 40 MG TABEC PO SCH (09:20)
[2017-05-18] MEDS: GABAPENTIN 300 MG CAP PO SCH ×2 (09:21→21:01)
[2017-05-18] MEDS: DOCUSATE SODIUM 100 MG CAP PO SCH ×2 (09:21→21:01)
[2017-05-18] MEDS: oxyCODONE HCL 5 MG CAP PO PRN (09:21)
[2017-05-18] MEDS: TAMSULOSIN HCL 0.4 MG CAP PO SCH (09:21)
[2017-05-18] MEDS: POTASSIUM CHL 20 MEQ TABCR PO SCH ×3 (09:21→21:01)
[2017-05-18] MEDS: CYANOCOBALAMIN 1000 MCG TAB PO SCH (09:21)
[2017-05-18] MEDS: FOLIC ACID 1 MG TAB PO SCH (09:21)
[2017-05-18] MEDS: VORTIOXETINE HYDROBROMIDE 20 MG TABLET PO SCH (09:22)
--- NOTE | 2017-05-18 09:27 | Hospitalist Progress Note ---
Subjective Progress Notes Subjective This patient was admitted for anemia and pneumonia. He had no acute changes overnight. Patient Complains of: Cardiovascular: No: Chest Pain Respiratory: No: Shortness of Breath Physical Exam Vital Signs Date Time Temp Pulse Resp B/P (MAP) Pulse Ox O2 Delivery O2 Flow Rate FiO2 05/18/17 07:56 90 Nasal Cannula 4.0 05/18/17 07:55 99.0 94 18 136/88 (104) Intake and Output 05/19/17 07:00 Intake Total 720 ml Balance 720 ml Intake Oral 720 ml Cardiovascular: Regular Rate and Rhythm Respiratory: Clear to Auscultation Extremities: No Edema Integumentary: No Cyanosis Result Diagram: 05/18/17 0528 05/18/17 0528 Item Value Date Time Blood Culture - Final Complete 05/13/17 1033 Blood Peripheral Draw Blood Culture - Final Complete 05/13/17 1025 Blood Port Draw Assessment and Plan Problems: (1) Bacteremia Status: Acute Assessment & Plan: He spiked a fever on 05/13 despite being on Levofloxacin. Both blood cultures are growing GPC which is worrisome for a port infection. Vancomycin started on 05/14. He has been afebrile since 1800 on 05/14. He will likely need the port removed, but will await the culture results. 05/16: His Blood Cx are positive for GPC and I will plan to remove his IV port. I will stop his Levaquin today. I will get CBC, BMP and BCx in am 05/17: His Blood Cxis positive for Strept. sanguinis and sensitivities is pending. I will continue his Vancomycin and his vanco trough is 16 today. He remains on treatment with vancomycin. Sensitivities are pending. A trough is ordered for tomorrow. His port has been removed and the tip is showing no growth. A second set of blood cultures is also negative. (2) Bacterial pneumonia Status: Acute Assessment & Plan: He did have left lingular infiltrate on CT scan that was not present just one week prior. Initially, he was placed on empiric treatment with Primaxin, and was later converted to oral levofloxacin. He has now completed a full course of levofloxacin. A repeat chest x-ray is ordered for today. 05/16: I will stop his Levaquin and continue his Vancomycin. I will increase his Vanco dose. 05/17: He is afebrile and his VS are stable. I will continue his Vanco (3) Symptomatic anemia Status: Chronic Assessment & Plan: He did present with dizziness and fatigue. He also described some orthostatic type symptoms. His Hgb has decreased over the last month, but his symptoms did seem to correlate with an acute decrease on . We transfused 2 units of PRBCs on 05/08. His Hgb has since been stable. (4) Headache Status: Acute Assessment & Plan: The patient was off of his antidepressant, vortioxetine, for several days and it was just restarted. However, his headache persists. Will try Tylenol and possibly Celebrex. He had a head CT on 04/30 that didn't show any evidence of metastasis. However, if not improving, then will likely need an MRI to evaluate. 05/17: His headache is off and on now. I will continue to watch. (5) Constipation Status: Resolved Assessment & Plan: No BM since admission. He is on a bowel regimen. If no improvement, the likely will try enemas. 05/16: I will use Lactulose 30ml/day Resolved with lactulose. (6) Stage 4 lung cancer Status: Chronic Assessment & Plan: He is followed in the Cancer Center and is on a treatment regimen. His treatment was held earlier secondary to his increased fatigue and dizziness. He discussed options with [facility] and they have decided to hold off on any further chemotherapy for the next month and will re-address his status and options at that time. He has decided he wants to be DNR/DNI status. 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 He is on OxyContin and OxyIR for pain control and seems to be doing fairly well. 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 (10) Alcohol abuse Status: Resolved Assessment & Plan: He does have a history of alcohol abuse, but has not been drinking over the last 4 years. (11) Hypokalemia Status: Acute Assessment & Plan: I will start him on KCL 20meq po 3 doses and repeat his BMP in am Central Venous Access Medical Necessity for Access: IV Access, Medication Administration Exam Sepsis Risk: No Definite Risk KEVIN GORDON DO May 18, 2017 09:27
[2017-05-18 11:35] VITALS: BP 137/74
[2017-05-18] MEDS: VANCOMYCIN(*) 1 GM VIAL 1 GM, VANCOMYCIN HCL 0.750 GM VIAL 0.75 GM in NS(*) 0.9% 250 ML... IVPB SCH (12:19)
--- NOTE | 2017-05-18 13:22 | RADIOLOGY IMAGING REPORT ---
FACILITY: [facility] [place]IENT NAME: Jarret Aguilar : 1950 MR: [id number] V: [id number] EXAM DATE: ORDERING PHYSICIAN: KEVIN GORDON TECHNOLOGIST: [place] [facility] [place]: Jarret Aguilar : 1950 Visit/Account:[id number] Date of Sevice: 05/18/2017 EXAMINATION: Portable AP Chest 05/18/2017 8:16 AM HISTORY: SOB COMPARISON: 05/13/2017 FINDINGS: Cardiomediastinal contours: Stable heart size. Atherosclerotic aorta. Port or central venous catheter entering from the left has been removed. Lungs and pleura: Diffuse increased interstitium. Focal opacity along the minor fissure on the right. Left costophrenic sulcus is blunted. Bones/soft tissues: Spurring in the spine. IMPRESSION: 1. Persistent opacity or infiltrate along the minor fissure on the right. 2. Accentuated interstitium some which is chronic but with a change from more remote priors consisten t with superimposed atypical infiltrate or interstitial edema. Report Dictated By: Landry English MD at 05/18/2017 1:13 PM Report E-Signed By: Landry English MD at 05/18/2017 1:18 PM WSN:[id number]
[2017-05-18] MEDS ORDERED: FUROSEMIDE 20 MG/2 ML VIAL IVP ONE (14:30)
[2017-05-18 14:49] VITALS: BP 97/63
[2017-05-18] MEDS: PROMETHAZINE 25 MG/ML 1 ML AMP IVP PRN (18:36)
[2017-05-18 18:44] VITALS: BP 107/85
[2017-05-18] MEDS: LATANOPRO 0.005% OP SOLN 2.5ML OU SCH (21:01)
[2017-05-18] MEDS: LORazepam 0.5 MG TAB PO PRN (21:01)
[2017-05-18] MEDS: AMITRIPTYLINE HCL 25 MG TAB PO SCH (21:01)
[2017-05-19] MEDS: VANCOMYCIN(*) 1 GM VIAL 1 GM, VANCOMYCIN HCL 0.750 GM VIAL 0.75 GM in NS(*) 0.9% 250 ML... IVPB SCH (00:33)
[2017-05-19] MEDS: POLYETHYLENE GLYCOL 17 GM PKT PO SCH (09:00)
[2017-05-19 09:55] VITALS: BP 88/59
[2017-05-19] MEDS: GABAPENTIN 300 MG CAP PO SCH (10:00)
[2017-05-19] MEDS: POTASSIUM CHL 20 MEQ TABCR PO SCH (10:00)
[2017-05-19] MEDS: TAMSULOSIN HCL 0.4 MG CAP PO SCH (10:00)
[2017-05-19] MEDS: FOLIC ACID 1 MG TAB PO SCH (10:00)
[2017-05-19] MEDS: CYANOCOBALAMIN 1000 MCG TAB PO SCH (10:00)
[2017-05-19] MEDS: PANTOPRAZOLE SOD 40 MG TABEC PO SCH (10:00)
[2017-05-19] MEDS: DOCUSATE SODIUM 100 MG CAP PO SCH (10:01)
[2017-05-19] MEDS: VORTIOXETINE HYDROBROMIDE 20 MG TABLET PO SCH (10:01)
[2017-05-19] MEDS: ACETAMINOPHEN 500 MG TAB PO PRN (10:09)
--- NOTE | 2017-05-19 13:36 | Hospitalist Depart ---
Discharge Summary Reason for Hosp/Final Diag: (1) Bacteremia Status: Acute Hospital Course & Plan: Mr. Aguilar is a 66 y.o. male with PMH of stage 4 Lung Cancer, presented to the emergency room complaining of dizziness and fatigue. He found to have fever and positive blood culture for GPC. He has pot-a-cath for his chemotherapy. He is currently on Vancomycin and Levaquin. His Vanco level is 11.2. He has advance lung cancer and he still smoke. He is DNR/DNI and he would prefer comfort care if chemotherapy is futile.. He c/o headache. His previous CT scan of the head was negative for any mets. If his headache persists , possible MRI. 05/17: He is feeling down with nausea. He responded to Lactulose and had episodes of diarrhea. His K level is 3.0. His Port a cath was removed due to bacteremia.His repeat blood CX were done today.He spiked a fever on 05/13 despite being on Levofloxacin. Both blood cultures are growing GPC which is worrisome for a port infection. Vancomycin started on 05/14. He has been afebrile since 1800 on 05/14. He will likely need the port removed, but will await the culture results. 05/16: His Blood Cx are positive for GPC and I will plan to remove his IV port. I will stop his Levaquin today. I will get CBC, BMP and BCx in am 05/17: His Blood Cxis positive for Strept. sanguinis and sensitivities is pending. I will continue his Vancomycin and his vanco trough is 16 today. 05/18: He remains on treatment with vancomycin. Sensitivities are pending. A trough is ordered for tomorrow. His port has been removed and the tip is showing no growth. A second set of blood cultures is also negative. 05/19: He still feels very weak and fatigue and remains in the bed. His BCX Strept Sanguinis sensitivity is pending. His Vanco level is high today>30 and I will hold his Vancomycin. His catheter is out and his repeat BCX are negative and the catheter tip is also negative. He is being transferred to [facility] for rehabilitation. (2) Bacterial pneumonia Status: Resolved Hospital Course & Plan: He did have left lingular infiltrate on CT scan that was not present just one week prior. Initially, he was placed on empiric treatment with Primaxin, and was later converted to oral levofloxacin. He has now completed a full course of levofloxacin. A repeat chest x-ray is ordered for today. 05/16: I will stop his Levaquin and continue his Vancomycin. I will increase his Vanco dose. 05/17: He is afebrile and his VS are stable. I will continue his Vanco 05/19: He completed his Levaquin course (3) Symptomatic anemia Status: Chronic Hospital Course & Plan: He did present with dizziness and fatigue. He also described some orthostatic type symptoms. His Hgb has decreased over the last month, but his symptoms did seem to correlate with an acute decrease on . We transfused 2 units of PRBCs on 05/08. His Hgb has since been stable. (4) Headache Status: Acute Hospital Course & Plan: The patient was off of his antidepressant, vortioxetine , for several days and it was just restarted. However, his headache persists. Will try Tylenol and possibly Celebrex. He had a head CT on 04/30 that didn't show any evidence of metastasis. However, if not improving, then will likely need an MRI to evaluate. 05/17: His headache is off and on now. I will continue to watch. (5) Constipation Status: Resolved Hospital Course & Plan: No BM since admission. He is on a bowel regimen. If no improvement, the likely will try enemas. 05/16: I will use Lactulose 30ml/day Resolved with lactulose. (6) Stage 4 lung cancer Status: Chronic Hospital Course & Plan: He is followed in the Cancer Center and is on a treatment regimen. His treatment was held earlier secondary to his increased fatigue and dizziness. He discussed options with Honey VASQUEZ and they have decided to hold off on any further chemotherapy for the next month and will re- address his status and options at that time. He has decided he wants to be DNR/ DNI status. (7) Malignant bone pain Status: Chronic Hospital Course & Plan: He does have metastasis to the right iliac crest and right clavicle. He is on OxyContin and OxyIR for pain control and seems to be doing fairly well. 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 (10) Alcohol abuse Status: Resolved Hospital Course & Plan: He does have a history of alcohol abuse, but has not been drinking over the last 4 years. (11) Hypokalemia Status: Resolved Hospital Course & Plan: I will start him on KCL 20meq po 3 doses and repeat his BMP in am 05/19: His K level is 3.7 and resolved Departure Weight (Pounds): 192 Weight (Ounces): 7.0 Result Diagram: 05/18/1752705/18/17527 Condition: Improved Discharge: [facility] PT/OT Follow Up For: PT For Strengthening Discharge Code Status: DNR Time Spent: < 30 min Discharge Instructions Home Meds Active Scripts Nystatin (Nystatin) 100,000 Unit/Ml Oral.susp, 4 ML PO QID for 7 Days, #120 ML Prov:HONEY NUNO CASE FITTER-BC, ONC 04/30/17 Losartan Potassium (LOSARTAN POTASSIUM) 25 Mg Tablet, 25 MG PO QDAY Y for PRN for 30 Days, #30 TAB 9 Refills Prov:HONEY NUNO CASE FITTER-BC, ONC 04/23/17 Oxycodone Hcl/Acet 5/325 Mg (ENDOCET 5-325 TABLET) 1 Each Tablet, 1 EACH PO Q4- 6H Y for PAIN, #45 TAB Prov:HONEY NUNO [facility]-BC, ONC 03/27/17 Oxycodone Hcl (OXYCONTIN) 10 Mg Tab.er.12h, 10 MG PO Q12H, #60 TAB Prov:HONEY NUNO CASE FITTER-BC, ONC 03/11/17 Dexamethasone 4 Mg Tab (DEXAMETHASONE 4 MG TAB) 4 Mg Tab, 4 MG PO BID for 3 Days , #36 TAB Take 4 mg bid x 3 days starting 24 hours prior to each chemotherapy x 6 cycles. Prov:HONEY NUNO CASE FITTER-BC, ONC 02/04/17 Ondansetron Hcl (ZOFRAN) 8 Mg Tablet, 8 MG PO Q12H, #30 TAB 1 Refill Prov:HONEY NUNO [facility]-BC, ONC 04/17/16 Reported Medications Disulfiram (DISULFIRAM) 250 Mg Tablet, 250 MG PO DAILY Y for prn 05/09/17 Gabapentin (GABAPENTIN) 300 Mg Capsule, 300 MG PO BID, CAPSULE 01/31/17 Armodafinil (NUVIGIL) 150 Mg Tablet, 150 MG PO QAM, TAB 01/31/17 Amitriptyline Hcl (AMITRIPTYLINE HCL) 75 Mg Tablet, 75 MG PO QHS, #5 TAB 01/01/17 Cyanocobalamin (Vitamin B-12) (VITAMIN B-12) 1,000 Mcg Tablet.er, 1000 MCG PO DAILY 04/11/16 Cholecalciferol (Vitamin D3) (VITAMIN D) 2,000 Unit Capsule, 2000 UNIT PO 2XW, CAPSULE 04/11/16 Latanoprost (LATANOPROST) 2.5 Ml Drops, 2.5 ML OP HS 04/11/16 [trintellix] No Conflict Check, 20 MG PO DAILY 04/11/16 Omeprazole (PRILOSEC) 40 Mg Capsule.dr, 1 TAB PO QDAY TAKE ONE TABLET BY MOUTH ONCE A DAY 01/07/14 Folic Acid (FOLIC ACID) 1 Mg Tablet, 1 MG PO DAILY 05/26/13 Multivit, Min No.21/Folic Acid (SUPERVITE EC CAPLET) 1 Mg Tablet.dr, 1 MG PO 05/26/13 Tamsulosin Hcl (Flomax) 0.4 Mg Cap, 0.4 MG PO QDAY, #30 2 Refills 04/09/11 Diet: Regular Activity: As Tolerated Special Instructions: Copies to: HONEY NUNO CASE FITTER-BC, ONC; KEVIN SCHAFFER MD Venous Thromboembolism Antithrombotics Is Pt On Any Antithrombotics?: No ELA SERRANO MD May 19, 2017 13:36
== END 2017-05-19 11:25 | DRG 193 ==
LOC: ER 15:22 → MED 18:28
PROVIDERS: ADMIT Family Medicine; ATTEND Family Medicine
PROC: 30233N1 Transfusion of Nonautologous Red Blood Cells into Peripheral Vein, Percutaneous Approach (ICD-10-PCS; 2017-05-08)
PROC: 02PY33Z Removal of Infusion Device from Great Vessel, Percutaneous Approach (ICD-10-PCS; 2017-05-16)
PROC: 0JPT0WZ Removal of Totally Implantable Vascular Access Device from Trunk Subcutaneous Tissue and Fascia, Open Approach (ICD-10-PCS; principal; 2017-05-16 13:53)
DX: J15.9 Unspecified bacterial pneumonia (principal); A41.9 Sepsis, unspecified organism; C34.91 Malignant neoplasm of unspecified part of right bronchus or lung; C79.51 Secondary malignant neoplasm of bone; C79.2 Secondary malignant neoplasm of skin; F15.93 Other stimulant use, unspecified with withdrawal; T80.211A Bloodstream infection due to central venous catheter, initial encounter; D64.9 Anemia, unspecified; R51 Headache; K59.00 Constipation, unspecified; I10 Essential (primary) hypertension; F10.11 Alcohol abuse, in remission; E87.6 Hypokalemia; F32.9 Major depressive disorder, single episode, unspecified; F12.90 Cannabis use, unspecified, uncomplicated; Z66 Do not resuscitate; G89.3 Neoplasm related pain (acute) (chronic); T41.5X6A Underdosing of therapeutic gases, initial encounter; T43.296A Underdosing of other antidepressants, initial encounter; F17.210 Nicotine dependence, cigarettes, uncomplicated; Z92.21 Personal history of antineoplastic chemotherapy; Z88.8 Allergy status to other drugs, medicaments and biological substances; I25.2 Old myocardial infarction; Z91.128 Patient's intentional underdosing of medication regimen for other reason
CPT/HCPCS: 36415; 36430; 71045; 71275; 80202; 81001; 82040; 82247; 82274; 82310; 82374; 82435; 82565; 82947; 83605; 84075; 84132; 84155; 84295; 84450; 84460; 84484; 84520; 85025; 86850; 86900; 86901; 86920; 87040; 87071; 87077; 87088; 87502; 93005; 94644; 96361; 96374; 96375; 97161; 97165; 99285; J1642; J1940; J1956; J2270; J2405; J2550; J2930; J3370; J7030; J7040; J7050; J7120; J7613; P9016; Q9967

== ENCOUNTER → 2017-05-08 | Outpatient (CLI) | payer MEDICARE ==
[~2017-05-08] MED LIST changes: -ALBUTEROL 2.5 MG/3 ML NEB ONE; -ALTEPLASE RECOMB 2 MG VIAL IVP PRN; -BEVACIZUMAB IVPB ONE; -CARBOPLATIN IVPB ONE; -D5W IVPB ONE; -DEXAMETHASONE SOD PHOS 10MG/ML ONE; -DEXTROSE 5%(*) 100 ML BAG 100 ML IVPB PRN; -DOCETAXEL IVPB ONE; -EPINEPHrine HCL 1 MG/ML AMP IM ONLY ONE; -FILGRASTIM 480 MCG/1.6 ML VIAL SC ONE; -GEMCITABINE IVPB ONE; -HYDROCORTISONE 100 MG/2 ML IVP ONE; -IOPAMIDOL 76% 100 ML INFUS BTL 100 ML ONE; -IOPAMIDOL 76% 75 ML INFUS BTL 75 ML ONE; -NS 0.9% 50 ML VIAL 100 ML ONE; -NS 0.9% 50 ML VIAL 50 ML ONE; -NS 0.9% IVPB ONE; -NS(*) 0.9% 100 ML BAG 100 ML IVPB PRN; -NS(*) 0.9% 1000 ML BAG 1,000 ML IV PRN; -ONDANSETRON 4 MG/2 ML VIAL ONE; -PACLITAXEL IVPB ONE; -PEGFILGRASTIM 6 MG/0.6 ML SYR SUBQ ONE; -PROMETHAZINE 25 MG/ML 1 ML AMP ONE; -WATER STERILE 10 ML VIAL IVP PRN; -[UNRECOGNIZED DRUG - OTHER] IVPB ONE; -[UNRECOGNIZED DRUG - OTHER] IVPB ONE; -oxyCODONE HCL 5 MG CAP PO ONE
[2017-05-09 13:52] VITALS: BMI 26.8
== END ==
LOC: AMB 14:55
PROVIDERS: ATTEND Nurse Practitioner
DX: R06.00 Dyspnea, unspecified (principal); R09.02 Hypoxemia
CPT/HCPCS: A0425; A0427

== ENCOUNTER 2017-05-19 11:25 | Inpatient (IN) | payer MEDICARE ==
[2017-05-09 13:52] VITALS: Ht 180.3 cm; Wt 83.9 kg
[~2017-05-19] VITALS: Ht 180.3 cm; Wt 83.9 kg
[2017-05-19] MEDS ORDERED: PROMETHAZINE 25 MG/ML 1 ML AMP IVP PRN (11:42)
[2017-05-19] MEDS ORDERED: NICOTINE INH SYSTEM 10 MG/INH INH PRN (11:42)
[2017-05-19] MEDS ORDERED: ACETAMINOPHEN 500 MG TAB PO PRN (11:42)
[2017-05-19 11:54] VITALS: BP 97/75
--- NOTE | 2017-05-19 14:00 | History & Physical ---
History of Present Illness Chief Complaint Generalized weakness and fatigue requiring rehabilitation History of Present Illness Mr. Aguilar is a 66 y.o. male with PMH of stage 4 Lung Cancer, presented to the emergency room complaining of dizziness and fatigue. He found to have fever and positive blood culture for GPC. He has pot-a-cath for his chemotherapy. He is currently on Vancomycin and Levaquin. His Vanco level is 11.2. He has advance lung cancer and he still smoke. He is DNR/DNI and he would prefer comfort care if chemotherapy is futile.. He c/o headache. His previous CT scan of the head was negative for any mets. If his headache persists, possible MRI. History Home Meds Active Scripts Nystatin (Nystatin) 100,000 Unit/Ml Oral.susp, 4 ML PO QID for 7 Days, #120 ML Prov:HONEY NUNOP-BC, ONC 04/30/17 Losartan Potassium (LOSARTAN POTASSIUM) 25 Mg Tablet, 25 MG PO QDAY Y for PRN for 30 Days, #30 TAB 9 Refills Prov:HONEY NUONP-BC, ONC 04/23/17 Oxycodone Hcl/Acet 5/325 Mg (ENDOCET 5-325 TABLET) 1 Each Tablet, 1 EACH PO Q4- 6H Y for PAIN, #45 TAB Prov:HONEY NUNOP-BC, ONC 03/27/17 Oxycodone Hcl (OXYCONTIN) 10 Mg Tab.er.12h, 10 MG PO Q12H, #60 TAB Prov:HONEY NUNOP-BC, ONC 03/11/17 Dexamethasone 4 Mg Tab (DEXAMETHASONE 4 MG TAB) 4 Mg Tab, 4 MG PO BID for 3 Days , #36 TAB Take 4 mg bid x 3 days starting 24 hours prior to each chemotherapy x 6 cycles. Prov:HONEY NUNOP-BC, ONC 02/04/17 Ondansetron Hcl (ZOFRAN) 8 Mg Tablet, 8 MG PO Q12H, #30 TAB 1 Refill Prov:HONEY NUNO MEDIA SERVICES DIRECTOR-BC, ONC 04/17/16 Reported Medications Disulfiram (DISULFIRAM) 250 Mg Tablet, 250 MG PO DAILY Y for prn 05/09/17 Gabapentin (GABAPENTIN) 300 Mg Capsule, 300 MG PO BID, CAPSULE 01/31/17 Armodafinil (NUVIGIL) 150 Mg Tablet, 150 MG PO QAM, TAB 01/31/17 Amitriptyline Hcl (AMITRIPTYLINE HCL) 75 Mg Tablet, 75 MG PO QHS, #5 TAB 01/01/17 Cyanocobalamin (Vitamin B-12) (VITAMIN B-12) 1,000 Mcg Tablet.er, 1000 MCG PO DAILY 04/11/16 Cholecalciferol (Vitamin D3) (VITAMIN D) 2,000 Unit Capsule, 2000 UNIT PO 2XW, CAPSULE 04/11/16 Latanoprost (LATANOPROST) 2.5 Ml Drops, 2.5 ML OP HS 04/11/16 [trintellix] No Conflict Check, 20 MG PO DAILY 04/11/16 Omeprazole (PRILOSEC) 40 Mg Capsule.dr, 1 TAB PO QDAY TAKE ONE TABLET BY MOUTH ONCE A DAY 01/07/14 Folic Acid (FOLIC ACID) 1 Mg Tablet, 1 MG PO DAILY 05/26/13 Multivit, Min No.21/Folic Acid (SUPERVITE EC CAPLET) 1 Mg Tablet.dr, 1 MG PO 05/26/13 Tamsulosin Hcl (Flomax) 0.4 Mg Cap, 0.4 MG PO QDAY, #30 2 Refills 04/09/11 Allergies: Coded Allergies: carboplatin (Verified Allergy, Severe, ANAPHYLAXIS, 03/25/17) Carboplatin recieved on 02/11/17 no reaction after receiving full dose. Carboplatin recieved again on 03/04/17 200 of the 500mls recieved and patient began to cough, experienced dizziness, nausea and short of breath, rapid response was called and patient was taken to the ER. Carboplatin recieved for th 3rd time on03/26/17 and patient recived around 75mls of the drug and began to experience the same symptoms as above. Patient History: Anxiety disorder MOTHER, , Age:51 FH: depression MOTHER, , Age:51 FH: emphysema FATHER, , Age:72 Pulmonary fibrosis BROTHER OR SISTER Hx Smoking: Yes Smoking Status: Current: Every Day Smoker Exposure to Second Hand Smoke?: Yes (Patient smokes 1 1/2 packs daily for forty -three years.) Caffeine Intake: Coffee Caffeine/Cups Per Day: 2 Hx Alcohol Use: Yes Alcohol Used: Liquor When Quit Alcohol?: 2014 Hx Substance Use Disorder: No Social Drug Use: Never Social Drugs: Marijuana Amount Of Social Drug/s Used: a couple times in college History of IV Drug Use: No Review of Systems Constitutional: Weight Loss, No Fever, No Weight Gain, No Chills Neurological: Weakness, No Syncope, No Confusion, No Dizziness Eyes: No Vision Change, No Loss of Vision ENT: No Sinus Congestion, No Sore Throat, No Ear Ache Cardiovascular: No Chest Pain, No Palpitations Respiratory: No Shortness of Breath, No Cough Gastrointestinal: Nausea, No Vomiting, No Diarrhea, No Dysphagia, No Constipation, No Early Satiety, No Abdominal Pain Genitourinary: No Dysuria, No Hematuria Musculoskeletal: Impaired Mobility, No Pain, No Sprain, No Strain Psychiatric: Depression, No Anxiety Exam Vital Signs Vital Signs Date Time Temp Pulse Resp B/P (MAP) Pulse Ox O2 Delivery O2 Flow Rate FiO2 05/19/17 12:24 Nasal Cannula 5.0 05/19/17 11:54 97.0 70 20 97/75 (82) 97 General Appearance: Alert, Awake, No Acute Distress, Afebrile Neuro: No Gross deficits Eyes: PERRLA ENT: Normal Cardiovascular: Normal Rhythm & Peripheral Pulses Respiratory: No Respiratory Distress (mild respiratory distress) GI: Abd Soft and Non-Tender Extremities: Soft and Non Tender Integumentary: Skin Intact without Lesion / Mass Psych: Alert & Oriented X3, Other (depressed) Assessment and Plan Problems: (1) Sepsis Status: Acute Assessment & Plan: Hospital Course & Plan: Mr. Aguilar is a 66 y.o. male with PMH of stage 4 Lung Cancer, presented to the emergency room complaining of dizziness and fatigue. He found to have fever and positive blood culture for GPC. He has pot-a-cath for his chemotherapy. He is currently on Vancomycin and Levaquin. His Vanco level is 11.2. He has advance lung cancer and he still smoke. He is DNR/DNI and he would prefer comfort care if chemotherapy is futile.. He c/o headache. His previous CT scan of the head was negative for any mets. If his headache persists, possible MRI. 05/17: He is feeling down with nausea. He responded to Lactulose and had episodes of diarrhea. His K level is 3.0. His Port a cath was removed due to bacteremia.His repeat blood CX were done today.He spiked a fever on 05/13 despite being on Levofloxacin. Both blood cultures are growing GPC which is worrisome for a port infection. Vancomycin started on 05/14. He has been afebrile since 1800 on 05/14. He will likely need the port removed, but will await the culture results. 05/16: His Blood Cx are positive for GPC and I will plan to remove his IV port. I will stop his Levaquin today. I will get CBC, BMP and BCx in am 05/17: His Blood Cxis positive for Strept. sanguinis and sensitivities is pending. I will continue his Vancomycin and his vanco trough is 16 today. 05/18: He remains on treatment with vancomycin. Sensitivities are pending. A trough is ordered for tomorrow. His port has been removed and the tip is showing no growth. A second set of blood cultures is also negative. 05/19: He still feels very weak and fatigue and remains in the bed. His BCX Strept Sanguinis sensitivity is pending. His Vanco level is high today>30 and I will hold his Vancomycin. His catheter is out and his repeat BCX are negative and the catheter tip is also negative. He is being transferred to [facility] for rehabilitation. (2) Bacterial pneumonia Status: Resolved Assessment & Plan: (2) Bacterial pneumonia Status: Resolved Hospital Course & Plan: He did have left lingular infiltrate on CT scan that was not present just one week prior. Initially, he was placed on empiric treatment with Primaxin, and was later converted to oral levofloxacin. He has now completed a full course of levofloxacin. A repeat chest x-ray is ordered for today. 05/16: I will stop his Levaquin and continue his Vancomycin. I will increase his Vanco dose. 05/17: He is afebrile and his VS are stable. I will continue his Vanco 05/19: He completed his Levaquin course (3) Stage 4 lung cancer Status: Chronic Assessment & Plan: Hospital Course & Plan: He is followed in the Cancer Center and is on a treatment regimen. His treatment was held earlier secondary to his increased fatigue and dizziness. He discussed options with Honey VASQUEZ and they have decided to hold off on any further chemotherapy for the next month and will re-address his status and options at that time. He has decided he wants to be DNR/DNI status. 05/19: I will start Lovenox 40mg SQ daily for his DVTP (4) Headache Status: Acute Assessment & Plan: Hospital Course & Plan: The patient was off of his antidepressant, vortioxetine, for several days and it was just restarted. However, his headache persists. Will try Tylenol and possibly Celebrex. He had a head CT on 04/30 that didn't show any evidence of metastasis. However, if not improving, then will likely need an MRI to evaluate. 05/17: His headache is off and on now. I will continue to watch 05/19: If his headache persists MRI could be an option if he needs to pursue management aggressively.. Time Spent on Plan of Care: < 30 min Copies to: HONEY NUNO MEDIA SERVICES DIRECTOR-BC, ONC Venous Thromboembolism VTE Risk Physician Assess for VTE Risk: Yes Patient's VTE Risk: High VTE Diagnostic Test 2 Days Prior to Admit: No Antithrombotics Is Pt On Any Antithrombotics?: No ELA SERRANO MD May 19, 2017 14:00
--- NOTE | 2017-05-19 14:16 | PT ECF NOTE ---
Type of Note: Initial Note Primary Medical Diagnosis: Symptomatic anemia, pneumonia, sepsis Physical Therapy Evaluation Date: 05/19/16 SUBJECTIVE: Prior Hospitalization: H 05/08/17-05/19/17 Prior Level of Function: Kyle with no AD Prior Living Status: [facility] 8, Alone Community Services: nutrition services aide via the Cancer Center, pt has previously denied HHC, MOW etc. Home Accessibility: All needs on one level Equipment Owned: None Medical Complications/Past Medical History: Lung cancer, see EMR for details Psychosocial Support: Sister and nephew live in town Pain Scale (0-10): none reported at eval OBJECTIVE: Strength: Right Lower Extremity: DF: 5/5 Knee flexion: 5/5 Knee extension: 5/5 Hip flexion: 4/5 Left Lower Extremity: DF: 5/5 Knee flexion: 5/5 Knee extension: 5/5 Hip flexion: 4/5 ROM: WNL Sensation: bilateral peripheral neuropathy, slight decrease light touch sensation in B) feet Other Neuro findings: See EMR Bed Mobility: SBA with HOB raised and bed rail Transfers: SBA with RW Gait: SBA x 100' with RW Stairs: Not tested Timed Up and Go (>12 seconds indicated increased risk for falls): 26 seconds ASSESSMENT: Pt demonstrates increased risk of falls and a decreased tolerance to prolonged functional mobility. TUG test completed in 26 seconds indicating an increased risk of falls. Ambulation x100' with use of RW, pt demonstrates narrow GEORGINA with gait and slight path deviation. He reports "dizziness", SpO2, pulse rate WNL on 4L, BP was measured at 100/67 which is elevated from resting measurements. Pt will benefit from skilled PT services in order to improve functional activity tolerance and facilitate safest d/c possible. Problem List/Current Limitations: Pain Decreased activity inge Decreased strength Decreased balance Decreased problem solving Lack of motivation Short Term Goals: 1: Pt to complete bed mobility with Kyle and HOB flat with no use of railing 2: Pt to complete transfers with Kyle and least restrictive AD 3: Pt to ambulate 400' with Kyle and least restrictive AD, with seated rest breaks as needed 4: Pt to asc/desc platform stair with Kyle to simulate community mobility 5: Pt to demonstrate decreased TUG time to indicate and decreased risk of falls. Master Yacht Goals: Pt to discharge to [place] [id number] with adequate services in place Patient Goals: "To be able to walk in the grocery store" Rehabilitation Prognosis: Fair Barriers for Discharge: Decreased motivation to participate, chronic dizziness, previous resistance to additional assistance in the home. PLAN: The patient will benefit from skilled physical therapy services 5 times per week for 2 weeks including: Therapeutic Exercise Therapeutic Activities Transfer Training Gait Training Stair Training Manual Therapy ADL's Safety Training Neuromuscular Re-educ. Pt/Caregiver Training Bed Mobility Thank you for this referral. If you have any questions, concerns, or comments about this report or plan, please contact me at . Daniela Durant, PT, DPT MTDD
--- NOTE | 2017-05-19 14:52 | OT ECF NOTE ---
Type of Note: Initial Note Primary Medical Diagnosis: Generalized Weakness s/p sepsis, anemia, pneumonia Occupational Therapy Evaluation Date: 05/19/17 SUBJECTIVE: Prior Hospitalization: [facility] Medical 05/08/17 thru 05/19/17 Prior Level of Function: Independent with ADLs/IADLs. Pt reports he would drive to grocery store and purchase prepared meals from [employer]. Prior Living Status: Alone Community Services: No known needs Home Accessibility: All needs on one level-Resides at [facility] 8 Tub/shower combination Equipment Owned: None Medical Complications/Past Medical History: Stage IV lung cancer with mets to bone marrow, depression, HTN Psychosocial Support: Pt does have a sister in [place]-Unclear of how frequently she provides assistance Pain Scale (0-10): None at time of evaluation. Pt reporting chronic dizziness that is present in standing and supine OBJECTIVE: Strength: MMT: Right Left Shoulder Flexion 3+/5 3+/5 Elbow Flexion 3+/5 3+/5 Wrist Extension 4/5 4/5 Etl Application Developer 4/5 4/5 (5= normal, 4= good, 3= fair, 2= poor, 1= trace) ROM: Both upper extremities, WFL Functional Transfer: Assistive Device: Front wheeled walker Transfer Ability: SBA. Verbal cues for safety with RW. ADL: Upper body dressing: Assistive device: Upper body dressing ability: Set-up Lower body dressing: Assistive device: Lower body dressing ability: Not tested. Offered to wash patient's clothes for him today. Pt refused and reported he will call his sister to bring him clothes from home. Toileting: Assistive device: Grab bars Toileting ability: SBA Grooming/hygiene: Assistive device: Grooming ability: N/T Bathing: Assistive device: Bathing ability: N/T Standardized Assessment: Mitali Index of Activities of Daily Livin/20 at initial evaluation (). ASSESSMENT: Andrea presents to [facility] with decreased activity tolerance for engagement in ADLs/IADLs. At [facility], pt ambulated with no AD and drove to grocery stores for meals from the [employer]. Pt anxious to return home and agreeable to consider services and PATs bus upon discharge home. Declines option of MOW and utilizing power cart at grocery store. Andrea will benefit from skilled OT services to improve activity tolerance/optimize independence for ADLs/IADLs and receive appropriate AE recommendations and community resources. Problem List/Current Limitations: Pain Decreased activity tolerance Generalized weakness Poor safety awareness Shortness of breath Short Term Goals: 1) Pt will be Independent UB/LB dressing. 2) Pt will be Independent toileting. 3) Pt will be Independent grooming/hygiene. 4) Pt will be SBA shower task. 5) Pt Mitali Index of ADLs score will increase by 2 points. 5) Pt will be educated on appropriate AE needs and community resources. Casino Investigator Goals: Return home with services and encouraged use of [employer] management for community mobility Patient Goals: "Get rid of the dizziness" Rehabilitation Prognosis: Fair Barriers to Discharge: Medical hx, Pain/Dizziness PLAN: The patient will benefit from skilled occupational therapy services 5 times per week for 2 weeks including: Ther ex ADL training Safety training Ther act IADL training Transfer training Adaptive equip training Bed mobility Energy conservation Thank you for this referral. If you have any questions, concerns, or comments about this report or plan, please contact me at . Hayde Vences MS, OTR/L Occupational Therapist YEIMI
[2017-05-19] MEDS: GABAPENTIN 300 MG CAP PO SCH (20:32)
[2017-05-19] MEDS: DOCUSATE SODIUM 100 MG CAP PO SCH (20:32)
[2017-05-19] MEDS: LATANOPRO 0.005% OP SOLN 2.5ML OU SCH (20:32)
[2017-05-19] MEDS: AMITRIPTYLINE HCL 25 MG TAB PO SCH (20:33)
[2017-05-19] MEDS: LORazepam 0.5 MG TAB PO PRN (20:42)
[2017-05-19] MEDS: oxyCODONE HCL 5 MG CAP PO PRN (23:09)
[2017-05-20 07:40] VITALS: BP 134/84
--- NOTE | 2017-05-20 08:46 | Medical Nutrition Therapy ---
Nutrition Anthropometrics Height (Inches): 71.00 Height (Calculated Centimeters: 180.774757 Weight (Pounds): 183 Weight (Calculated Kilograms): 83.064 BMI Calculated: 26.78 Nathen Nutrition Score: Probably Inadequate Nathen Nutrition Risk Score: 18 Dietary Referral Nutrition Risk Factors: Unplanned Loss >10lbs Nutrition Risk Comment: etoh Physical Findings Physical Appearance: Overweight BMI 25-29 Skin Appearance Skin Appearance: Edema Edema Location Modifier: Edema Location: Type of Edema: Degree of Edema: Gastrointestinal Symptoms GI Symtoms: Constipation Tube Present: Bowel Sounds: Recent Bowel Pattern: Constipated Stool Characteristics: Nutritional Diagnosis Nutritional Risk Acuity 2: Head/Neck/GI Cancer Nutritional Risk Acuity 3: Cancer Past Medical History: upper GI bleed, depression, HTN, malignant neoplasm of ear, stage 4 adenocarcinoma, alcohol abuse (hasn't drank in 4 years) Nutritional Acuity: 2-Moderate Nutrition Diagnosis: Involuntary Wt. Loss Nutrition Etiology: Inadeq. Food/Mariana Intake, Physiological Causes Nutrition Problem/Etiology/Sym: Involuntary wt loss r/t suboptimal caloric intake and stage 4 adenocarcinoma AEB 9# wt loss x 11 days. Energy Requirement: 2100 ([place] St Jeor) Protein Requirement: 83 (1 g/kg) Fluid Requirement: 2490 (30 ml/kg) Diet Type: Diet as Tolerated DOMINIQUE/REG Nutrition Intervention: Cont diet as ordered, Encourage intake Additional Diet Restrictions: PLEASE OFFER NUTRITION SUPPLEMENT Diet Comment To RSA: PLEASE PUT PROTEIN POWDER IN APPROPRIATE FOODS Nutrition Monitoring & Eval RD Patient Assessment Time: [address] Assessment Type: RD Assessment Patient Nutrition Acuity: 2-Moderate Follow Up Date: May 27, 2017 Nutritional Comment: 05/19 Pt originally admitted to med/surg for pneumonia and anemia. Pt transferred to [facility] for further rehabilitation due to weakness. On med/surg, pt had nausea w/ liquid stools. Intakes were 41% of small portions. No current labs or inakes available. Pt wt 183# which is a 9# loss since 05/08. Will encourage intake, offer nutr supplement, put protein powder in appropriate foods, and continue to monitor. DORCAS TRACY May 19, 2017 15:17
[2017-05-20] MEDS: FOLIC ACID 1 MG TAB PO SCH (08:53)
[2017-05-20] MEDS: DOCUSATE SODIUM 100 MG CAP PO SCH ×2 (08:53→20:48)
[2017-05-20] MEDS: GABAPENTIN 300 MG CAP PO SCH ×2 (08:54→20:48)
[2017-05-20] MEDS: TAMSULOSIN HCL 0.4 MG CAP PO SCH (08:54)
[2017-05-20] MEDS: PANTOPRAZOLE SOD 40 MG TABEC PO SCH (08:54)
[2017-05-20] MEDS: CYANOCOBALAMIN 1000 MCG TAB PO SCH (08:54)
[2017-05-20] MEDS: VORTIOXETINE HYDROBROMIDE 20 MG TABLET PO SCH (08:55)
[2017-05-20] MEDS: ENOXAPARIN 40 MG/0.4ML SYR SC SCH (08:55)
[2017-05-20] MEDS: CHOLECALCIFEROL 1000 UNIT TAB PO SCH (08:55)
[2017-05-20] MEDS ORDERED: POTASSIUM CHL 20 MEQ TABCR PO SCH (09:00)
[2017-05-20] MEDS ORDERED: NS(*) 0.9% 500 ML BAG 500 ML ONE (12:20)
[2017-05-20] MEDS: VANCOMYCIN(*) 1 GM VIAL 1 GM, VANCOMYCIN HCL 0.750 GM VIAL 0.75 GM in NS(*) 0.9% 250 ML... IVPB SCH (13:23)
[2017-05-20 15:45] VITALS: BP 118/83
--- NOTE | 2017-05-20 16:00 | Consultant Pharmacy Review ---
Form Builder Helper Review Other General Cautions Potassium Chloride; Protonix; Thiamine; Trintellix; Vancomycin; Xalacom (CAN) * Drug-Drug Interactions * X Amitriptyline (Anticholinergic Agents) Potassium Chloride Depends on Dosage Form X Phenergan (Anticholinergic Agents) Potassium Chloride Depends on Dosage Form D Amitriptyline (FACILITIES MAINTENANCE WORKER Depressants) OxyCONTIN (OxyCODONE) D Ativan (FACILITIES MAINTENANCE WORKER Depressants) OxyCONTIN (OxyCODONE) D Neurontin (FACILITIES MAINTENANCE WORKER Depressants) OxyCONTIN (OxyCODONE) D OxyCONTIN (OxyCODONE) Phenergan (FACILITIES MAINTENANCE WORKER Depressants) C Amitriptyline (Anticholinergic Agents) Phenergan (Anticholinergic Agents) C Amitriptyline (FACILITIES MAINTENANCE WORKER Depressants) Ativan (FACILITIES MAINTENANCE WORKER Depressants) C Amitriptyline (FACILITIES MAINTENANCE WORKER Depressants) Neurontin (FACILITIES MAINTENANCE WORKER Depressants) C Amitriptyline (FACILITIES MAINTENANCE WORKER Depressants) Phenergan (FACILITIES MAINTENANCE WORKER Depressants) C Amitriptyline (FACILITIES MAINTENANCE WORKER Depressants) Trintellix (Selective Serotonin Reuptake Inhibitors) C Amitriptyline (Serotonin Modulators) Phenergan (Serotonin Modulators) C Amitriptyline (Serotonin Modulators) Trintellix (Serotonin Modulators) C Ativan (FACILITIES MAINTENANCE WORKER Depressants) Neurontin (FACILITIES MAINTENANCE WORKER Depressants) C Ativan (FACILITIES MAINTENANCE WORKER Depressants) Phenergan (FACILITIES MAINTENANCE WORKER Depressants) C Ativan (FACILITIES MAINTENANCE WORKER Depressants) Trintellix (Selective Serotonin Reuptake Inhibitors ) C Flomax (Alpha1-Blockers) Xalacom (CAN) (Beta-Blockers) Depends on Dosage Form C Lovenox (Anticoagulants) Trintellix (Agents with Antiplatelet Properties) Depends on International labeling C Lovenox (Heparins (Low Molecular Weight)) Potassium Chloride (Potassium Salts) C Neurontin (FACILITIES MAINTENANCE WORKER Depressants) Phenergan (FACILITIES MAINTENANCE WORKER Depressants) C Neurontin (FACILITIES MAINTENANCE WORKER Depressants) Trintellix (Selective Serotonin Reuptake Inhibitors) C OxyCONTIN (FACILITIES MAINTENANCE WORKER Depressants) Trintellix (Selective Serotonin Reuptake Inhibitors) C OxyCONTIN (Opioid Analgesics) Trintellix (Serotonin Modulators) C Phenergan (FACILITIES MAINTENANCE WORKER Depressants) Trintellix (Selective Serotonin Reuptake Inhibitors) C Phenergan (Serotonin Modulators) Trintellix (Serotonin Modulators) C Trintellix (Selective Serotonin Reuptake Inhibitors) Xalacom (CAN) (Beta- Blockers) B Acetaminophen OxyCONTIN (Opioid Analgesics) * We were unable to retrieve Duplicate Therapy information for the following drugs: Xalacom (CAN) Disclaimer: Readers are advised that decisions regarding drug therapy must be based on the independent judgment of the clinician, changing information about a drug (eg, as reflected in the literature and medical payment poster's most current product information), and changing medical practices. * Terms & Conditions // * Disclaimer * [employer] on Facebook * [employer] on [employer] * Get [employer] 2018 Nancy [employer] and its affiliates and/or licensors. All Rights Reserved. * Top of Form 1 * Bottom of Form 1 Pneumococcal Vaccine HX Pneumo Vac ([id number]): Yes (may,) HX Pneumo Vac (Pneumovax): Yes (may 2016) CHERRI RICHMOND May 20, 2017 16:00
--- NOTE | 2017-05-20 17:20 | Consultant Pharmacy Review ---
Stained Glass Glazier Helper Review Medication Review Do All Mecications have a Diag: Yes Beers Criteria Medication 2014 Anticholinergics exclude TCAs: Promethazine (12.5 MG PRN NAUSEA) Antidepressants: Amytriptyline (25M MG AT HS) Benzodiazapines (short/interm): Lorazepam (0.5 MG Q6 HOURS PRN) Proton Pump Inhibitors: Pantoprazole (DAILY) Pneumococcal Vaccine HX Pneumo Vac ([id number]): Yes (may,) HX Pneumo Vac (Pneumovax): Yes (may 2016) Comments Regarding the Review Do not exceed 4 gm of acetaminophen per 24 hours. Labs: Perform Vancomycin trough periodically; serum potassium periodically.since patient is on kcl 20 meq daily. Evaluate the need for Ativan, Oxycontin and Oxyir q 14 days. Patient has received both pnuemococcal vaccine.; his influlenza vaccine status is unkown. CHERRI RICHMOND May 20, 2017 17:20
[2017-05-20] MEDS: LATANOPRO 0.005% OP SOLN 2.5ML OU SCH (20:48)
[2017-05-20] MEDS: AMITRIPTYLINE HCL 25 MG TAB PO SCH (20:48)
[2017-05-20] MEDS: LORazepam 0.5 MG TAB PO PRN (20:52)
[2017-05-21] MEDS: VANCOMYCIN(*) 1 GM VIAL 1 GM, VANCOMYCIN HCL 0.750 GM VIAL 0.75 GM in NS(*) 0.9% 250 ML... IVPB SCH ×2 (01:36→13:00)
[2017-05-21 08:00] VITALS: BP 133/79
[2017-05-21] MEDS: PANTOPRAZOLE SOD 40 MG TABEC PO SCH (08:50)
[2017-05-21] MEDS: ENOXAPARIN 40 MG/0.4ML SYR SC SCH (08:50)
[2017-05-21] MEDS: DOCUSATE SODIUM 100 MG CAP PO SCH ×2 (08:50→20:39)
[2017-05-21] MEDS: GABAPENTIN 300 MG CAP PO SCH ×2 (08:50→20:39)
[2017-05-21] MEDS: VORTIOXETINE HYDROBROMIDE 20 MG TABLET PO SCH (08:50)
[2017-05-21] MEDS: FOLIC ACID 1 MG TAB PO SCH (08:51)
[2017-05-21] MEDS: CYANOCOBALAMIN 1000 MCG TAB PO SCH (08:51)
[2017-05-21] MEDS: POTASSIUM CHL PWDR 20 MEQ PKT PO SCH (08:51)
[2017-05-21] MEDS: TAMSULOSIN HCL 0.4 MG CAP PO SCH (08:51)
--- NOTE | 2017-05-21 14:50 | Hospitalist Progress Note ---
Subjective Progress Notes Subjective The patient feels better overall. He still complains of fatigue. Physical Exam Vital Signs Date Time Temp Pulse Resp B/P (MAP) Pulse Ox O2 Delivery O2 Flow Rate FiO2 05/21/17 10:00 96 Nasal Cannula 4.0 05/21/17 08:00 96.0 85 24 133/79 (97) Intake and Output 05/22/17 07:01 Intake Total 800 ml Balance 800 ml Intake Oral 800 ml # Voids 2 General Appearance: Alert, Awake, No Acute Distress Neuro: No Gross deficits Eyes: PERRLA Cardiovascular: Regular Rate and Rhythm Respiratory: Clear to Auscultation GI: Soft and Non-Tender Extremities: Other (Clubbing of fingers.) Assessment and Plan Problems: (1) Sepsis Status: Acute Assessment & Plan: Mr. Aguilar is a 66 y.o. male with PMH of stage 4 Lung Cancer, who presented to the emergency room complaining of dizziness and fatigue. He was found to have fever and positive blood culture for Strep sanguinis from port and peripheral cultures. He had port-a-cath for his chemotherapy. This was removed. He was transferred to [facility] for ongoing IV antibiotics and rehabilitation. He is currently on Vancomycin. His Vanco level was high today. Will hold and repeat level at 1100 tomorrow. Per clinical pharmacist, he most likely will do well on a dose of 1.25g IV q 12 hours. He is DNR/DNI and he would prefer comfort care if chemotherapy is futile. (2) Bacterial pneumonia Status: Resolved Assessment & Plan: (2) Bacterial pneumonia Status: Resolved He did have left lingular infiltrate on CT scan that was not present just one week prior. Initially, he was placed on empiric treatment with Primaxin, and was later converted to oral levofloxacin. He completed a full course of levofloxacin. (3) Stage 4 lung cancer Status: Chronic Assessment & Plan: He is followed in the Cancer Center and is on a treatment regimen. His treatment was held earlier secondary to his increased fatigue and dizziness. He discussed options with Honey VASQUEZ and they have decided to hold off on any further chemotherapy for the next month and will re-address his status and options at that time. He has decided he wants to be DNR/DNI status. (4) Headache Status: Acute Assessment & Plan: Hospital Course & Plan: The patient was off of his antidepressant, vortioxetine, for several days and it was just restarted. However, his headache persists. Will try Tylenol and possibly Celebrex. He had a head CT on 04/30 that didn't show any evidence of metastasis. However, if not improving, then will likely need an MRI to evaluate. Time Spent on Plan of Care: < 30 min CHERRI HATCH MD May 21, 2017 14:50
[2017-05-21 15:45] VITALS: BP 143/76
[2017-05-21] MEDS: ONDANSETRON 4 MG ODT TABDP SL PRN (17:09)
[2017-05-21] MEDS: LORazepam 0.5 MG TAB PO PRN (20:39)
[2017-05-21] MEDS: AMITRIPTYLINE HCL 25 MG TAB PO SCH (20:40)
[2017-05-21] MEDS: LATANOPRO 0.005% OP SOLN 2.5ML OU SCH (20:40)
--- NOTE | 2017-05-22 08:00 | Pharmacy Note ---
Pharmacy Note Note: Medication renewal notice printed for oxycontin as it has been 14 days since he was started on this. Upon review will continue for another 14 days due to Stage IV lung cancer with mets. ARJUN DUNN May 22, 2017 08:00
[2017-05-22 08:30] VITALS: BP_SYST 121; BP_SYST 125; BP_DIAS 76; BP_DIAS 80
[2017-05-22] MEDS: ENOXAPARIN 40 MG/0.4ML SYR SC SCH (09:02)
[2017-05-22] MEDS: POTASSIUM CHL PWDR 20 MEQ PKT PO SCH (09:02)
[2017-05-22] MEDS: DOCUSATE SODIUM 100 MG CAP PO SCH ×2 (09:03→20:44)
[2017-05-22] MEDS: PANTOPRAZOLE SOD 40 MG TABEC PO SCH (09:03)
[2017-05-22] MEDS: VORTIOXETINE HYDROBROMIDE 20 MG TABLET PO SCH (09:03)
[2017-05-22] MEDS: FOLIC ACID 1 MG TAB PO SCH (09:03)
[2017-05-22] MEDS: TAMSULOSIN HCL 0.4 MG CAP PO SCH (09:03)
[2017-05-22] MEDS: GABAPENTIN 300 MG CAP PO SCH ×2 (09:03→20:43)
[2017-05-22] MEDS: CYANOCOBALAMIN 1000 MCG TAB PO SCH (09:03)
[2017-05-22] MEDS ORDERED: VANCOMYCIN 1 GM ADDVIAL 1 GM in NS(*) 0.9% 250 ML ADDVAN BAG 250 ML IVPB SCH (12:15)
[2017-05-22] MEDS ORDERED: LIDOCAINE/SOD BICARB 8.4% SYR ID ONE (12:30)
[2017-05-22] MEDS: POLYETHYLENE GLYCOL 17 GM PKT PO PRN (14:53)
[2017-05-22 16:20] VITALS: BP 130/74
[2017-05-22] MEDS: ONDANSETRON 4 MG ODT TABDP SL PRN (16:34)
[2017-05-22] MEDS: AMITRIPTYLINE HCL 25 MG TAB PO SCH (20:43)
[2017-05-22] MEDS: LORazepam 0.5 MG TAB PO PRN (20:44)
[2017-05-22] MEDS: LATANOPRO 0.005% OP SOLN 2.5ML OU SCH (20:44)
[2017-05-23] MEDS ORDERED: VANCOMYCIN 1 GM ADDVIAL 1 GM in NS(*) 0.9% 250 ML ADDVAN BAG 250 ML IVPB SCH (01:00)
[2017-05-23 08:00] VITALS: BP 125/76
[2017-05-23] MEDS: VORTIOXETINE HYDROBROMIDE 20 MG TABLET PO SCH (08:40)
[2017-05-23] MEDS: PANTOPRAZOLE SOD 40 MG TABEC PO SCH (08:41)
[2017-05-23] MEDS: POTASSIUM CHL PWDR 20 MEQ PKT PO SCH (08:41)
[2017-05-23] MEDS: ENOXAPARIN 40 MG/0.4ML SYR SC SCH (08:41)
[2017-05-23] MEDS: TAMSULOSIN HCL 0.4 MG CAP PO SCH (08:41)
[2017-05-23] MEDS: DOCUSATE SODIUM 100 MG CAP PO SCH ×2 (08:41→20:52)
[2017-05-23] MEDS: GABAPENTIN 300 MG CAP PO SCH ×2 (08:41→20:52)
[2017-05-23] MEDS: FOLIC ACID 1 MG TAB PO SCH (08:41)
[2017-05-23] MEDS: CYANOCOBALAMIN 1000 MCG TAB PO SCH (08:41)
[2017-05-23] MEDS: CHOLECALCIFEROL 1000 UNIT TAB PO SCH (10:16)
[2017-05-23] MEDS ORDERED: MAGNESIUM HYDROXIDE* 30ML UDCP PO PRN (13:00)
--- NOTE | 2017-05-23 14:57 | RADIOLOGY IMAGING REPORT ---
FACILITY: [facility] PATIENT NAME: Jarret Aguilar : 1950 MR: [id number] V: [id number] EXAM DATE: ORDERING PHYSICIAN: CHERRI HATCH TECHNOLOGIST: Location: [facility] Patient: Jarret Aguilar : 1950 Visit/Account:[id number] Date of Sevice: 05/23/2017 Exam type: PICC LINE INSERTION, PICC LINE PLACEMENT History: long term care administrator IV abx Comparison: None. Findings: Informed consent was obtained. The left-sided the patient's arm was prepped and draped in usual ster ile fashion. Local anesthesia was accomplished with 1% lidocaine. Utilizing both sonographic and fl uoroscopic guidance a 45 cm long trimmed 5 Turkmen double lumen power PICC was inserted via the patent left brachial vein with the distal tip resting in superior vena cava. Both lumens of power PICC wer e flushed with 5 mL of saline flush. Proximal portion of the PICC line was adhered to the patient's arm with a sterile dressing. The sonographic images were saved to PACS. The procedure was accomplis hed that apparent cortication.. The fluoroscopic image demonstrating placement of the PICC line to d emonstrate interval worsening of the bilateral infiltrates particularly in the right upper lobe when compared to May 18, 2017. The fluoroscopy dose area product was 87.61 micro-Mello per meter squar ed IMPRESSION: 1. Successful placement of a 45 cm long trimmed 5 Turkmen double-lumen power PICC inserted via the pa tent left brachial vein with the distal tip resting in superior vena cava Interval worsening of the bilateral pulmonary infiltrates particularly in the right upper lobe Report Dictated By: Padmaja Dudley MD at 05/23/2017 2:49 PM Report E-Signed By: Padmaja Dudley MD at 05/23/2017 2:53 PM WSN:FLORIAN
--- NOTE | 2017-05-23 14:58 | RADIOLOGY IMAGING REPORT ---
FACILITY: [facility] [place], [place] PATIENT NAME: Jarret Aguilar : 1950 MR: [id number] V: [id number] EXAM DATE: ORDERING PHYSICIAN: CHERRI HATCH TECHNOLOGIST: Location: [facility] [place] Patient: Jarret Aguilar : 1950 Visit/Account:[id number] Date of Sevice: 05/23/2017 Exam type: PICC LINE INSERTION, PICC LINE PLACEMENT History: intermodal dispatcher IV abx Comparison: None. Findings: Informed consent was obtained. The left-sided the patient's arm was prepped and draped in usual ster ile fashion. Local anesthesia was accomplished with 1% lidocaine. Utilizing both sonographic and fl uoroscopic guidance a 45 cm long trimmed 5 Chadian double lumen power PICC was inserted via the patent left brachial vein with the distal tip resting in superior vena cava. Both lumens of power PICC wer e flushed with 5 mL of saline flush. Proximal portion of the PICC line was adhered to the patient's arm with a sterile dressing. The sonographic images were saved to PACS. The procedure was accomplis hed that apparent cortication.. The fluoroscopic image demonstrating placement of the PICC line to d emonstrate interval worsening of the bilateral infiltrates particularly in the right upper lobe when compared to May 18, 2017. The fluoroscopy dose area product was 87.61 micro-Mello per meter squar ed IMPRESSION: 1. Successful placement of a 45 cm long trimmed 5 Chadian double-lumen power PICC inserted via the pa tent left brachial vein with the distal tip resting in superior vena cava Interval worsening of the bilateral pulmonary infiltrates particularly in the right upper lobe Report Dictated By: Padmaja Dudley MD at 05/23/2017 2:49 PM Report E-Signed By: Padmaja Dudley MD at 05/23/2017 2:53 PM WSN:FLORIAN
[2017-05-23 17:10] VITALS: BP 138/78
[2017-05-23] MEDS: AMITRIPTYLINE HCL 25 MG TAB PO SCH (20:52)
[2017-05-23] MEDS: LATANOPRO 0.005% OP SOLN 2.5ML OU SCH (20:52)
[2017-05-23] MEDS: LORazepam 0.5 MG TAB PO PRN (20:57)
[2017-05-24 07:44] VITALS: BP 116/78
[2017-05-24] MEDS: VORTIOXETINE HYDROBROMIDE 20 MG TABLET PO SCH (09:13)
[2017-05-24] MEDS: DOCUSATE SODIUM 100 MG CAP PO SCH ×2 (09:14→21:02)
[2017-05-24] MEDS: POTASSIUM CHL PWDR 20 MEQ PKT PO SCH (09:14)
[2017-05-24] MEDS: GABAPENTIN 300 MG CAP PO SCH ×2 (09:14→21:00)
[2017-05-24] MEDS: FOLIC ACID 1 MG TAB PO SCH (09:14)
[2017-05-24] MEDS: ENOXAPARIN 40 MG/0.4ML SYR SC SCH (09:14)
[2017-05-24] MEDS: PANTOPRAZOLE SOD 40 MG TABEC PO SCH (09:14)
[2017-05-24] MEDS: CYANOCOBALAMIN 1000 MCG TAB PO SCH (09:14)
[2017-05-24] MEDS: TAMSULOSIN HCL 0.4 MG CAP PO SCH (09:14)
[2017-05-24] MEDS: LORazepam 0.5 MG TAB PO PRN ×2 (09:27→21:00)
[2017-05-24] MEDS: ONDANSETRON 4 MG ODT TABDP SL PRN (11:42)
[2017-05-24] MEDS ORDERED: VANCOMYCIN 1 GM ADDVIAL 1 GM in NS(*) 0.9% 250 ML ADDVAN BAG 250 ML IVPB SCH ×2 (13:00)
[2017-05-24] MEDS: POLYETHYLENE GLYCOL 17 GM PKT PO PRN (14:35)
[2017-05-24 15:00] VITALS: BP 110/70
[2017-05-24] MEDS: AMITRIPTYLINE HCL 25 MG TAB PO SCH (21:00)
[2017-05-24] MEDS: LATANOPRO 0.005% OP SOLN 2.5ML OU SCH (21:00)
[2017-05-25 08:05] VITALS: BP 135/89
[2017-05-25] MEDS: DOCUSATE SODIUM 100 MG CAP PO SCH ×2 (08:52→20:51)
[2017-05-25] MEDS: CYANOCOBALAMIN 1000 MCG TAB PO SCH (08:52)
[2017-05-25] MEDS: FOLIC ACID 1 MG TAB PO SCH (08:53)
[2017-05-25] MEDS: POTASSIUM CHL PWDR 20 MEQ PKT PO SCH (08:53)
[2017-05-25] MEDS: ENOXAPARIN 40 MG/0.4ML SYR SC SCH (08:53)
[2017-05-25] MEDS: PANTOPRAZOLE SOD 40 MG TABEC PO SCH (08:53)
[2017-05-25] MEDS: TAMSULOSIN HCL 0.4 MG CAP PO SCH (08:53)
[2017-05-25] MEDS: GABAPENTIN 300 MG CAP PO SCH ×2 (08:53→20:51)
[2017-05-25] MEDS: VORTIOXETINE HYDROBROMIDE 20 MG TABLET PO SCH (08:54)
[2017-05-25] MEDS: ONDANSETRON 4 MG ODT TABDP SL PRN (12:17)
[2017-05-25] MEDS ORDERED: BISACODYL 10 MG SUPP PR PRN (12:35)
[2017-05-25] MEDS ORDERED: NS(*) 0.9% 500 ML BAG 500 ML IV PRN (13:10)
[2017-05-25] MEDS: VANCOMYCIN 1 GM ADDVIAL 1 GM in NS(*) 0.9% 250 ML ADDVAN BAG 250 ML IVPB SCH (13:25)
[2017-05-25] MEDS: POLYETHYLENE GLYCOL 17 GM PKT PO SCH (13:26)
[2017-05-25 16:20] VITALS: BP 122/77
[2017-05-25] MEDS: AMITRIPTYLINE HCL 25 MG TAB PO SCH (20:51)
[2017-05-25] MEDS: LATANOPRO 0.005% OP SOLN 2.5ML OU SCH (20:51)
[2017-05-25] MEDS: LORazepam 0.5 MG TAB PO PRN (20:54)
[2017-05-26] MEDS: VANCOMYCIN 1 GM ADDVIAL 1 GM in NS(*) 0.9% 250 ML ADDVAN BAG 250 ML IVPB SCH (06:47)
[2017-05-26 08:00] VITALS: BP 124/83
[2017-05-26] MEDS: ENOXAPARIN 40 MG/0.4ML SYR SC SCH (08:44)
[2017-05-26] MEDS: TAMSULOSIN HCL 0.4 MG CAP PO SCH (08:45)
[2017-05-26] MEDS: POLYETHYLENE GLYCOL 17 GM PKT PO SCH (08:45)
[2017-05-26] MEDS: CYANOCOBALAMIN 1000 MCG TAB PO SCH (08:45)
[2017-05-26] MEDS: VORTIOXETINE HYDROBROMIDE 20 MG TABLET PO SCH (08:45)
[2017-05-26] MEDS: FOLIC ACID 1 MG TAB PO SCH (08:45)
[2017-05-26] MEDS: PANTOPRAZOLE SOD 40 MG TABEC PO SCH (08:45)
[2017-05-26] MEDS: DOCUSATE SODIUM 100 MG CAP PO SCH ×2 (08:45→21:33)
[2017-05-26] MEDS: GABAPENTIN 300 MG CAP PO SCH ×2 (08:45→21:33)
[2017-05-26] MEDS: POTASSIUM CHL PWDR 20 MEQ PKT PO SCH (08:46)
--- NOTE | 2017-05-26 09:25 | RADIOLOGY IMAGING REPORT ---
FACILITY: [facility] [place] PATIENT NAME: Jarret Aguilar : 1950 MR: [id number] V: [id number] EXAM DATE: ORDERING PHYSICIAN: CHERRI HATCH TECHNOLOGIST: Location: [facility] Patient: Jarret Aguilar : 1950 Visit/Account:[id number] Date of Sevice: 05/26/2017 Exam type: KUB SINGLE VIEW ABDOMEN History: Constipation Comparison: CT abdomen pelvis February 03, 2017. Findings: There is large amount of fecal material throughout the colon consistent clinical history of constipat ion. Remainder the bowel gas pattern is nonspecific. No gross evidence of organomegaly lucency over the lateral aspect of the right iliac bone consistent with the previously noted lytic metastases. IMPRESSION: Large amount of fecal material seen throughout the colon which can be seen with constipation as the c linical history suggests Report Dictated By: Padmaja Dudley MD at 05/26/2017 9:17 AM Report E-Signed By: Padmaja Dudley MD at 05/26/2017 9:20 AM WSN:[email or web address]
[2017-05-26 16:50] VITALS: BP 111/70
[2017-05-26] MEDS: AMITRIPTYLINE HCL 25 MG TAB PO SCH (21:33)
[2017-05-26] MEDS: LATANOPRO 0.005% OP SOLN 2.5ML OU SCH (21:33)
[2017-05-26] MEDS: LORazepam 0.5 MG TAB PO PRN (21:33)
[2017-05-27] MEDS: VANCOMYCIN 1 GM ADDVIAL 1 GM in NS(*) 0.9% 250 ML ADDVAN BAG 250 ML IVPB SCH ×2 (01:16→19:24)
[2017-05-27] MEDS: CHOLECALCIFEROL 1000 UNIT TAB PO SCH (06:20)
[2017-05-27 07:10] VITALS: BP 110/76
[2017-05-27] MEDS: PANTOPRAZOLE SOD 40 MG TABEC PO SCH (08:55)
[2017-05-27] MEDS: TAMSULOSIN HCL 0.4 MG CAP PO SCH (08:55)
[2017-05-27] MEDS: VORTIOXETINE HYDROBROMIDE 20 MG TABLET PO SCH (08:55)
[2017-05-27] MEDS: ENOXAPARIN 40 MG/0.4ML SYR SC SCH (08:55)
[2017-05-27] MEDS: POTASSIUM CHL PWDR 20 MEQ PKT PO SCH (08:55)
[2017-05-27] MEDS: CYANOCOBALAMIN 1000 MCG TAB PO SCH (08:55)
[2017-05-27] MEDS: DOCUSATE SODIUM 100 MG CAP PO SCH ×2 (08:55→20:49)
[2017-05-27] MEDS: GABAPENTIN 300 MG CAP PO SCH ×2 (08:55→20:49)
[2017-05-27] MEDS: POLYETHYLENE GLYCOL 17 GM PKT PO SCH (08:55)
[2017-05-27] MEDS: FOLIC ACID 1 MG TAB PO SCH (08:56)
--- NOTE | 2017-05-27 11:00 | Medical Nutrition Therapy ---
Nutrition Anthropometrics Height (Inches): 71.00 Height (Calculated Centimeters: 180.728401 Weight (Pounds): 185 Weight (Calculated Kilograms): 83.915 BMI Calculated: 26.78 Nathen Nutrition Score: Probably Inadequate Nathen Nutrition Risk Score: 16 Dietary Referral Nutrition Risk Factors: Unplanned Loss >10lbs Nutrition Risk Comment: etoh Nutritional Diagnosis Nutritional Risk Acuity 2: Head/Neck/GI Cancer Nutritional Risk Acuity 3: Cancer Past Medical History: upper GI bleed, depression, HTN, malignant neoplasm of ear, stage 4 adenocarcinoma, alcohol abuse (hasn't drank in 4 years) Nutritional Acuity: 2-Moderate Nutrition Diagnosis: Involuntary Wt. Loss Nutrition Etiology: Inadeq. Food/Mariana Intake, Physiological Causes Nutrition Problem/Etiology/Sym: Involuntary wt loss r/t suboptimal caloric intake and stage 4 adenocarcinoma AEB 9# wt loss x 11 days. Energy Requirement: 2100 ([place] St Jeor) Protein Requirement: 83 (1 g/kg) Fluid Requirement: 2490 (30 ml/kg) Diet Type: Diet as Tolerated DOMINIQUE/REG Nutrition Intervention: Cont diet as ordered, Encourage intake Food Likes: ivy cervantes shakes home made ones Additional Diet Restrictions: PLEASE OFFER NUTRITION SUPPLEMENT Diet Comment To RSA: PLEASE PUT PROTEIN POWDER IN APPROPRIATE FOODS Nutrition Monitoring & Eval Nutrition Goals: Eat 75-100% Meal Nutrition Follow-Up: Fair Intake RD Patient Assessment Time: [address] Assessment Type: RD Re-Assessment Patient Nutrition Acuity: 2-Moderate Follow Up Date: Jun 03, 2017 Nutritional Comment: 05/19 Pt originally admitted to med/surg for pneumonia and anemia. Pt transferred to [facility] for further rehabilitation due to weakness. On med/surg, pt had nausea w/ liquid stools. Intakes were 41% of small portions. No current labs or inakes available. Pt wt 183# which is a 9# loss since 05/08. Will encourage intake, offer nutr supplement, put protein powder in appropriate foods, and continue to monitor. / Intake averaged 80% of small to regular portions past 3 days. Wt is up 2# from last week. Will cont to follow and encourage intake. YOEL TALLEY May 27, 2017 11:00
[2017-05-27 20:07] VITALS: BP 116/74
[2017-05-27] MEDS: AMITRIPTYLINE HCL 25 MG TAB PO SCH (20:49)
[2017-05-27] MEDS: LORazepam 0.5 MG TAB PO PRN (20:49)
[2017-05-27] MEDS: LATANOPRO 0.005% OP SOLN 2.5ML OU SCH (20:49)
[2017-05-28 08:10] VITALS: BP 110/61
[2017-05-28] MEDS: VORTIOXETINE HYDROBROMIDE 20 MG TABLET PO SCH (08:56)
[2017-05-28] MEDS: CYANOCOBALAMIN 1000 MCG TAB PO SCH (08:57)
[2017-05-28] MEDS: TAMSULOSIN HCL 0.4 MG CAP PO SCH (08:57)
[2017-05-28] MEDS: PANTOPRAZOLE SOD 40 MG TABEC PO SCH (08:57)
[2017-05-28] MEDS: ONDANSETRON 4 MG ODT TABDP SL PRN ×2 (08:57→17:10)
[2017-05-28] MEDS: GABAPENTIN 300 MG CAP PO SCH ×2 (08:57→20:51)
[2017-05-28] MEDS: POTASSIUM CHL PWDR 20 MEQ PKT PO SCH (08:57)
[2017-05-28] MEDS: DOCUSATE SODIUM 100 MG CAP PO SCH ×2 (08:58→20:51)
[2017-05-28] MEDS: ENOXAPARIN 40 MG/0.4ML SYR SC SCH (08:58)
[2017-05-28] MEDS: FOLIC ACID 1 MG TAB PO SCH (08:58)
[2017-05-28] MEDS: POLYETHYLENE GLYCOL 17 GM PKT PO SCH (08:58)
--- NOTE | 2017-05-28 09:57 | Hospitalist Progress Note ---
Subjective Progress Notes Subjective Still with some dizziness. Otherwise feeling better. Physical Exam Vital Signs Date Time Temp Pulse Resp B/P (MAP) Pulse Ox O2 Delivery O2 Flow Rate FiO2 05/28/17 08:10 98.3 80 16 110/61 (77) 93 Nasal Cannula 3.5 Intake and Output 05/29/17 07:00 Intake Total 120 ml Balance 120 ml Intake Oral 120 ml General Appearance: Alert, Awake, No Acute Distress Neuro: Other (Short term memory is poor at times.) Eyes: PERRLA Cardiovascular: Regular Rate and Rhythm Respiratory: Other (R lung with rhonchi, midlung field.) GI: Soft and Non-Tender Extremities: Warm, Perfused Psych: Appropriate Mood & Affect Assessment and Plan Problems: (1) Sepsis Status: Acute Assessment & Plan: Mr. Aguilar is a 66 y.o. male with PMH of stage 4 Lung Cancer, who presented to the emergency room complaining of dizziness and fatigue. He was found to have fever and positive blood culture for Strep sanguinis from port and peripheral cultures. He also had pneumonia. He had port- a-cath for his chemotherapy. This was removed. He was transferred to [facility] for ongoing IV antibiotics and rehabilitation. He is currently on Vancomycin. He will complete his course on 05/29/17. He is DNR/DNI and has decided to forego further chemo as it is palliative and not curative at this point. (2) Bacterial pneumonia Status: Resolved Assessment & Plan: (2) Bacterial pneumonia Status: Resolved He did have left lingular infiltrate on CT scan that was not present just one week prior. Initially, he was placed on empiric treatment with Primaxin, and was later converted to oral levofloxacin. He completed a full course of levofloxacin. (3) Stage 4 lung cancer Status: Chronic Assessment & Plan: He is followed in the Cancer Center and is on a treatment regimen. His treatment was held earlier secondary to his increased fatigue and dizziness. He discussed options with Honey VASQUEZ and he has decided to forego further chemo. He has decided he wants to be DNR/DNI status. (4) Headache Status: Acute Assessment & Plan: Hospital Course & Plan: The patient was off of his antidepressant, vortioxetine, for several days and it was restarted. He is taking Tylenol. He had a head CT on 04/30 that didn't show any evidence of metastasis. However, if not improving, then will likely need an MRI to evaluate. Time Spent on Plan of Care: < 30 min CHERRI HATCH MD May 28, 2017 09:57
[2017-05-28] MEDS ORDERED: VORT20TA PO (10:00)
[2017-05-28] MEDS ORDERED: ESOM40CA6 PO (10:02)
[2017-05-28] MEDS ORDERED: MECL25TA9 PO (10:05)
--- NOTE | 2017-05-28 10:22 | Hospitalist Depart ---
Discharge Summary Reason for Hosp/Final Diag: (1) Sepsis Status: Acute Hospital Course & Plan: Mr. Aguilar has PMH of stage 4 Lung Cancer and presented to the emergency room complaining of dizziness and fatigue prior to admission. He was ultimately found to have positive blood culture for Strep sanguinis from port and peripheral cultures. He also had pneumonia. He had port- a-cath for his chemotherapy. This was removed. He was transferred to [facility] for ongoing IV antibiotics and rehabilitation. He completed a course Vancomycin on May 29. (2) Bacterial pneumonia Status: Resolved Hospital Course & Plan: (2) Bacterial pneumonia Status: Resolved He did have left lingular infiltrate on CT scan that was not present just one week prior to his admission. Initially, he was placed on empiric treatment with Primaxin, and was later converted to oral levofloxacin. He completed a full course of levofloxacin. (3) Stage 4 lung cancer Status: Chronic Hospital Course & Plan: He was followed by the Cancer Center and was on a treatment regimen. His treatment was held earlier secondary to his increased fatigue and dizziness. He discussed options with Honey VASQUEZ and decided to forego further chemo. He also decided to be DNR/DNI status. (4) Headache Status: Acute Hospital Course & Plan: Hospital Course & Plan: The patient was off of his antidepressant, vortioxetine, for several days and it was restarted. He was treated with Tylenol. He had a head CT on 04/30 that didn't show any evidence of metastasis. (5) Symptomatic anemia Status: Chronic Hospital Course & Plan: The patient's hemoglobin dropped to 8.5 during his stay on ECF and he was transfused 2u PRBCs. His hemoglobin improved to 10.6 after transfusion. Departure Weight (Pounds): 185 Weight (Ounces): 2.0 Condition: Improved Discharge: Home, Home Health PT/OT Follow Up For: PT For Strengthening, OT For ADL's Time Spent: < 30 min Discharge Instructions Home Meds Active Scripts Lorazepam (LORAZEPAM) 0.5 Mg Tablet, 0.5 MG PO Q8H Y for ANXIETY, #30 TAB 0 Refills Prov:MICHEAL HATCH MD 05/31/17 Oxycodone Hcl/Acet 5/325 Mg (ENDOCET 5-325 TABLET) 1 Each Tablet, 1 EACH PO Q4- 6H Y for PAIN, #45 TAB Prov:[facility], ONC 03/27/17 Oxycodone Hcl (OXYCONTIN) 10 Mg Tab.er.12h, 10 MG PO Q12H, #60 TAB Prov:HONEY NUNO B[employer]ING REPRESENTATIVE-BC, ONC 03/11/17 Ondansetron Hcl (ZOFRAN) 8 Mg Tablet, 8 MG PO Q12H, #30 TAB 1 Refill Prov:[facility]-, ONC 04/17/16 Reported Medications Esomeprazole Magnesium (Esomeprazole Magnesium) 40 Mg Capsule.dr, 1 CAP PO DAILY 05/28/17 Vortioxetine Hydrobromide (Brintellix) 20 Mg Tablet, 1 TAB PO DAILY 05/28/17 Gabapentin (GABAPENTIN) 300 Mg Capsule, 300 MG PO BID, CAPSULE 01/31/17 Amitriptyline Hcl (AMITRIPTYLINE HCL) 75 Mg Tablet, 75 MG PO QHS, #5 TAB 01/01/17 Cyanocobalamin (Vitamin B-12) (VITAMIN B-12) 1,000 Mcg Tablet.er, 1000 MCG PO DAILY 04/11/16 Cholecalciferol (Vitamin D3) (VITAMIN D) 2,000 Unit Capsule, 2000 UNIT PO 2XW, CAPSULE 04/11/16 Latanoprost (LATANOPROST) 2.5 Ml Drops, 2.5 ML OP HS 04/11/16 Folic Acid (FOLIC ACID) 1 Mg Tablet, 1 MG PO DAILY 05/26/13 Multivit, Min No.21/Folic Acid (SUPERVITE EC CAPLET) 1 Mg Tablet.dr, 1 MG PO 05/26/13 Tamsulosin Hcl (Flomax) 0.4 Mg Cap, 0.4 MG PO QDAY, #30 2 Refills 04/09/11 Discontinued Reported Medications Meclizine Hcl (MECLIZINE HCL) 25 Mg Tablet, 1 TAB PO TID Y for DIZZINESS 05/28/17 Disulfiram (DISULFIRAM) 250 Mg Tablet, 250 MG PO DAILY Y for prn 05/09/17 Armodafinil (NUVIGIL) 150 Mg Tablet, 150 MG PO QAM, TAB 01/31/17 [trintellix] No Conflict Check, 20 MG PO DAILY 04/11/16 Omeprazole (PRILOSEC) 40 Mg Capsule.dr, 1 TAB PO QDAY TAKE ONE TABLET BY MOUTH ONCE A DAY 01/07/14 Discontinued Scripts Losartan Potassium (LOSARTAN POTASSIUM) 25 Mg Tablet, 25 MG PO QDAY Y for PRN for 30 Days, #30 TAB 9 Refills Prov:HONEY NUNO B[employer] REPRESENTATIVE-BC, ONC 04/23/17 Dexamethasone 4 Mg Tab (DEXAMETHASONE 4 MG TAB) 4 Mg Tab, 4 MG PO BID for 3 Days , #36 TAB Take 4 mg bid x 3 days starting 24 hours prior to each chemotherapy x 6 cycles. Prov:HONEY NUNO B[employer]ING REPRESENTATIVE-BC, ONC 02/04/17 Follow up Referrals: Family Practice - In One Week with Vivian Foss Diet: Regular Activity: As Tolerated Copies to: VIVIAN FOSS Venous Thromboembolism Antithrombotics Is Pt On Any Antithrombotics?: No CHERRI HATCH MD May 28, 2017 10:22
[2017-05-28] MEDS ORDERED: ALTEPLASE RECOMB 2 MG VIAL IVP PRN (12:20)
[2017-05-28] MEDS ORDERED: WATER STERILE 10 ML VIAL IV PRN (12:20)
[2017-05-28 12:23] LABS: PLATELET COUNT, AUTOMATED 215 K/uL (150-450)
[2017-05-28] MEDS: VANCOMYCIN 1 GM ADDVIAL 1 GM in NS(*) 0.9% 250 ML ADDVAN BAG 250 ML IVPB SCH ×2 (13:26→19:47)
[2017-05-28 17:00] VITALS: BP 124/79
[2017-05-28] MEDS ORDERED: NS(*) 0.9% 1000 ML BAG 1,000 ML IV ONE (18:35)
--- NOTE | 2017-05-28 18:36 | Miscellaneous Provider Note ---
Miscellaneous Provider Note Note Item Value Date Time Lidocaine/Sodium 1 ml 05/22/17 1230 Bicarbonate ONCE ONCE/ID 05/22/17 1234 (Buffered Lidocaine 8.4% 1 ml Syr) Pantoprazole 40 mg 05/17/17 0900 Sodium QDAY/PO 05/19/17 1000 (Protonix (*) (Or Equiv)) Sodium Chloride 1,000 ml @ 125 mls/hr 05/14/17 1005 Vancomycin HCl 1 250 ml @ 250 mls/hr 05/23/17 0100 gm/Sodium Chloride Q12H@0100,1300/IVPB 05/23/17 0026 Creatinine 0.70 mg/dl 05/17/17 0540 Creatinine 0.80 mg/dl 05/18/17 0528 Creatinine 1.50 mg/dl H 05/21/17 1440 Creatinine 1.70 mg/dl H 05/28/17 1215 Blood Urea Nitrogen 16 mg/dl 05/28/17 1215 Blood Urea Nitrogen 15 mg/dl 05/21/17 1440 Blood Urea Nitrogen 6 mg/dl L 05/18/17 0528 Blood Urea Nitrogen 5 mg/dl L 05/17/17 0540 Hemoglobin 9.3 g/dL L 05/15/17 0506 Hemoglobin 9.5 g/dL L 05/17/17 0540 Hemoglobin 9.8 g/dL L 05/18/17 0528 Hemoglobin 8.8 g/dL *L 05/28/17 1215 Hemoglobin 10.3 g/dL L 05/14/17 0513 Vancomycin level is therapeutic. He will get a liter of fluid and then have labs in the morning. SATHYA EARL MD May 28, 2017 18:36
[2017-05-28] MEDS: AMITRIPTYLINE HCL 25 MG TAB PO SCH (20:51)
[2017-05-28] MEDS: LATANOPRO 0.005% OP SOLN 2.5ML OU SCH (20:51)
[2017-05-29 06:24] LABS: PLATELET COUNT, AUTOMATED 197 K/uL (150-450)
[2017-05-29] MEDS ORDERED: NS(*) 0.9% 1000 ML BAG 1,000 ML IV PRN (07:05)
[2017-05-29] MEDS: POLYETHYLENE GLYCOL 17 GM PKT PO SCH (09:27)
[2017-05-29] MEDS: TAMSULOSIN HCL 0.4 MG CAP PO SCH (09:27)
[2017-05-29] MEDS: POTASSIUM CHL PWDR 20 MEQ PKT PO SCH (09:27)
[2017-05-29] MEDS: ENOXAPARIN 40 MG/0.4ML SYR SC SCH (09:27)
[2017-05-29] MEDS: CYANOCOBALAMIN 1000 MCG TAB PO SCH (09:28)
[2017-05-29] MEDS: FOLIC ACID 1 MG TAB PO SCH (09:28)
[2017-05-29] MEDS: PANTOPRAZOLE SOD 40 MG TABEC PO SCH (09:28)
[2017-05-29] MEDS: GABAPENTIN 300 MG CAP PO SCH ×2 (09:28→20:46)
[2017-05-29] MEDS: DOCUSATE SODIUM 100 MG CAP PO SCH ×2 (09:29→20:46)
[2017-05-29] MEDS: VORTIOXETINE HYDROBROMIDE 20 MG TABLET PO SCH (09:29)
--- NOTE | 2017-05-29 09:40 | RADIOLOGY IMAGING REPORT ---
FACILITY: [facility] [place] PATIENT NAME: Jarret Aguilar : 1950 MR: [id number] V: [id number] EXAM DATE: ORDERING PHYSICIAN: SATHYA EARL TECHNOLOGIST: Location: [facility] Patient: Jarret Aguilar : 1950 Visit/Account:[id number] Date of Sevice: 05/29/2017 EXAMINATION: Renal ultrasound HISTORY: Elevated creatinine. COMPARISON: Correlation made with CT scan 05/02/2017 FINDINGS: Kidneys: Right kidney- 11.2 x 6.4 x 5.3 cm, normal parenchymal thickness and echogenicity. No focal abnormali ty is seen. Left kidney- 11.4 x 6.0 x 4.6 cm, normal parenchymal thickness and echogenicity. No focal abnormali ty is seen. Uniform and symmetric blood flow in each kidney by Doppler ultrasound. Resistive index on the right is calculated at 0.77, resistive index on the left is calculated at 0.76. Hydronephrosis: None. Bladder: Distended without focal abnormality. Normal bilateral ureteral jets visualized. Prevoid vo lume is calculated at 131 mL, postvoid volume 60 mL Abdominal aorta and IVC: Patent by Doppler ultrasound. IMPRESSION: 1. Normal sonographic appearance of the kidneys. There is no hydronephrosis. 2. No focal abnormality seen in the bladder. Post void volume of 68 mL is noted. Report Dictated By: Dinora Bauer MD at 05/29/2017 9:34 AM Report E-Signed By: Dinora Bauer MD at 05/29/2017 9:37 AM WSN:[id number]
[2017-05-29 10:20] VITALS: BP 113/78
[2017-05-29] MEDS ORDERED: VANCOMYCIN 1 GM ADDVIAL 1 GM in NS(*) 0.9% 250 ML ADDVAN BAG 250 ML IVPB ONE (13:00)
[2017-05-29 17:15] VITALS: BP 116/69
[2017-05-29] MEDS: LORazepam 0.5 MG TAB PO PRN (17:40)
[2017-05-29] MEDS: ONDANSETRON 4 MG ODT TABDP SL PRN (20:45)
[2017-05-29] MEDS: AMITRIPTYLINE HCL 25 MG TAB PO SCH (20:46)
[2017-05-29] MEDS: LATANOPRO 0.005% OP SOLN 2.5ML OU SCH (21:00)
[2017-05-30] VITALS (9 sets, daily range): BP systolic 105–138; BP diastolic 46–77
[2017-05-30 06:30] LABS: PLATELET COUNT, AUTOMATED 198 K/uL (150-450)
[2017-05-30] MEDS: TAMSULOSIN HCL 0.4 MG CAP PO SCH (08:25)
[2017-05-30] MEDS: FOLIC ACID 1 MG TAB PO SCH (08:25)
[2017-05-30] MEDS: GABAPENTIN 300 MG CAP PO SCH ×2 (08:25→20:39)
[2017-05-30] MEDS: PANTOPRAZOLE SOD 40 MG TABEC PO SCH (08:25)
[2017-05-30] MEDS: CYANOCOBALAMIN 1000 MCG TAB PO SCH (08:25)
[2017-05-30] MEDS: POLYETHYLENE GLYCOL 17 GM PKT PO SCH (08:25)
[2017-05-30] MEDS: ENOXAPARIN 40 MG/0.4ML SYR SC SCH (08:26)
[2017-05-30] MEDS: VORTIOXETINE HYDROBROMIDE 20 MG TABLET PO SCH (08:26)
[2017-05-30] MEDS: POTASSIUM CHL PWDR 20 MEQ PKT PO SCH (08:26)
[2017-05-30] MEDS: DOCUSATE SODIUM 100 MG CAP PO SCH ×2 (08:26→20:40)
[2017-05-30] MEDS: CHOLECALCIFEROL 1000 UNIT TAB PO SCH (08:34)
[2017-05-30] MEDS: LORazepam 0.5 MG TAB PO PRN ×2 (15:55→22:08)
--- NOTE | 2017-05-30 16:11 | PT ECF NOTE ---
Type of Note: Discharge Summary Primary Medical Diagnosis: Symptomatic anemia, pneumonia, sepsis Physical Therapy Discharge Date: 05/30/17 SUBJECTIVE: Prior Hospitalization: H 05/08/17-05/19/17 Prior Level of Function: Kyle with no AD Prior Living Status: [facility] 8, Alone Community Services: accounting advisory services manager [facility], pt has previously denied HHC, MOW etc. Home Accessibility: All needs on one level Equipment Owned: None Medical Complications/Past Medical History: Lung cancer, see EMR for details Psychosocial Support: Sister and nephew live in town Pain Scale (0-10): none reported at eval OBJECTIVE: Strength: Right Lower Extremity: DF: 5/5 Knee flexion: 5/5 Knee extension: 5/5 Hip flexion: 5/5 Left Lower Extremity: DF: 5/5 Knee flexion: 5/5 Knee extension: 5/5 Hip flexion: 5/5 ROM: WNL Sensation: bilateral peripheral neuropathy, slight decrease light touch sensation in B) feet Other Neuro findings: See EMR Bed Mobility: Kyle Transfers: Kyle with no AD and with 4WW Gait: SBA x 400' with 4WW, Kyle in room distances Stairs: Not tested Timed Up and Go (>12 seconds indicated increased risk for falls): 12 seconds ASSESSMENT: Andrea has demonstrated increased tolerance to functional mobility and decreased need of assistance from others. He has plateaued towards reaching goal of independence with all mobility, but demonstrates adequate safety with use of 4WW for mobility. Pt is unsure if he will obtain a 4WW upon d/c, but was agreeable to initiation of [facility] services upon d/c home. Problem List/Current Limitations: Pain Decreased activity inge Decreased strength Decreased balance Decreased problem solving Short Term Goals: 1: Pt to complete bed mobility with Kyle and HOB flat with no use of railing (met) 2: Pt to complete transfers with Kyle and least restrictive AD (met) 3: Pt to ambulate 400' with Kyle and least restrictive AD, with seated rest breaks as needed (partially met) 4: Pt to asc/desc platform stair with Kyle to simulate community mobility ( not met) 5: Pt to demonstrate decreased TUG time to indicate and decreased risk of falls. (met) Senior Living Goals: Pt to discharge to [place] [address] [address] ( met) Patient Goals: "To be able to walk in the grocery store" (partially met, pt resistant to using 4WW for community mobility) PLAN: The patient will discharge to [place] [address] with [facility] services in place and recommendation to use 4WW for community mobility. Thank you for this referral. If you have any questions, concerns, or comments about this report or plan, please contact me at . Daniela Durant, PT, DPT MTDD
[2017-05-30] MEDS: LATANOPRO 0.005% OP SOLN 2.5ML OU SCH (20:39)
[2017-05-30] MEDS: AMITRIPTYLINE HCL 25 MG TAB PO SCH (20:40)
[2017-05-31] MEDS: oxyCODONE HCL 5 MG CAP PO PRN (05:20)
[2017-05-31 06:34] LABS: PLATELET COUNT, AUTOMATED 206 K/uL (150-450)
[2017-05-31 07:40] VITALS: BP 124/86
[2017-05-31] MEDS: VORTIOXETINE HYDROBROMIDE 20 MG TABLET PO SCH (08:49)
[2017-05-31] MEDS: FOLIC ACID 1 MG TAB PO SCH (08:49)
[2017-05-31] MEDS: POLYETHYLENE GLYCOL 17 GM PKT PO SCH (08:49)
[2017-05-31] MEDS: POTASSIUM CHL PWDR 20 MEQ PKT PO SCH (08:49)
[2017-05-31] MEDS: DOCUSATE SODIUM 100 MG CAP PO SCH (08:49)
[2017-05-31] MEDS: TAMSULOSIN HCL 0.4 MG CAP PO SCH (08:50)
[2017-05-31] MEDS: GABAPENTIN 300 MG CAP PO SCH (08:50)
[2017-05-31] MEDS: PANTOPRAZOLE SOD 40 MG TABEC PO SCH (08:50)
[2017-05-31] MEDS: CYANOCOBALAMIN 1000 MCG TAB PO SCH (08:50)
[2017-05-31] MEDS: ENOXAPARIN 40 MG/0.4ML SYR SC SCH (08:50)
[2017-05-31] MEDS: ONDANSETRON 4 MG ODT TABDP SL PRN (10:57)
[2017-05-31] MEDS: LORazepam 0.5 MG TAB PO PRN (10:57)
[2017-05-31] MEDS ORDERED: LORA-630 PO (14:06)
--- NOTE | 2017-06-02 07:59 | OT ECF NOTE ---
Type of Note: Discharge Note Primary Medical Diagnosis: Generalized Weakness s/p sepsis, anemia, pneumonia Occupational Therapy Evaluation Date: 05/19/17 SUBJECTIVE: Prior Hospitalization: [facility] 05/08/17 thru 05/19/17 Prior Level of Function: Independent with ADLs/IADLs. Pt reports he would drive to grocery store and purchase prepared meals from [employer]. Prior Living Status: Alone Community Services: No known needs Home Accessibility: All needs on one level-Resides at [facility] 8 Tub/shower combination Equipment Owned: None Medical Complications/Past Medical History: Stage IV lung cancer with mets to bone marrow, depression, HTN Psychosocial Support: Pt does have a sister in [place]-Unclear of how frequently she provides assistance Pain Scale (0-10): None at time of discharge. OBJECTIVE: Strength: MMT: Right Left Shoulder Flexion 4+/5 4+/5 Elbow Flexion 5/5 5/5 Wrist Extension 5/5 5/5 Coloring Checker 5/5 5/5 (5= normal, 4= good, 3= fair, 2= poor, 1= trace) ROM: Both upper extremities, WFL Functional Transfer: Assistive Device: 4WW recommended. Pt educated on benefits of 4WW and where to obtain should he elect to utilize one. At this time, pt resistant to use of 4WW. Transfer Ability: Modified Independent ADL: Upper body dressing: Assistive device: None Upper body dressing ability: Independent Lower body dressing: Assistive device: None Lower body dressing ability: Independent Toileting: Assistive device: None Toileting ability: Independent Grooming/hygiene: Assistive device: Standing/Seated Grooming ability: Independent. Encouraged pt to complete grooming/hygiene in seated for energy conservation. Pt verbalized understanding. Bathing: Assistive device: Standing/Seated Bathing ability: Encouraged pt to complete shower in seated position for energy conservation. Pt verbalized understanding. Independent bathtub transfer with no assistive device. Pt provided with information for where to obtain and how to use an extended tub transfer bench should elect to do so later. Standardized Assessment: Mitali Index of Activities of Daily Livin/20 at initial evaluation (). 20/20 at discharge date (05/30/17). ASSESSMENT: Andrea presented to [facility] with decreased activity tolerance for engagement in ADLs/IADLs. He has improved his activity tolerance for ADLs and community mobility. Adaptive equipment recommendations (4WW/shower chair) have been provided. Pt declines to obtain them at this time but was provided information for where to obtain in the future, pt verbalized understanding. Recommend medication organizer, pt verbalized understanding but declines at this time. Reports nephew may assist with IADLs such as picking up prescriptions at the pharmacy. OT goals have been met. MOW, HH services are in place. [employer] senior transportation information has been provided as an alternative to (I)ly driving. Pt voices no further questions or concerns for OT at this time in regards to discharge home. Problem List/Current Limitations: Pain Decreased activity tolerance Generalized weakness Poor safety awareness Shortness of breath Short Term Goals: 1) Pt will be Independent UB/LB dressing. Goal Met. 2) Pt will be Independent toileting. Goal Met. 3) Pt will be Independent grooming/hygiene. Goal Met. 4) Pt will be SBA shower task. Goal Met. 5) Pt Mitali Index of ADLs score will increase by 2 points. Goal Met. 5) Pt will be educated on appropriate AE needs and community resources. Goal Met. [facility]ci Goals: Return home with HH services, MOW, and encouraged use of [employer] bus for community mobility Patient Goals: Return home Rehabilitation Prognosis: Fair Barriers to Discharge: Medical hx, Pain/Dizziness PLAN: The patient will discharge home with HH services, MOW and information for [facility] public transportation. Thank you for this referral. If you have any questions, concerns, or comments about this report or plan, please contact me at . Hayde Vences MS, OTR/L Occupational Therapist YEIMI
== END 2017-05-31 14:44 | disposition home health service (06) | DRG 872 ==
LOC: ECF 11:25
PROVIDERS: ADMIT Specialist; ATTEND Specialist
PROC: 02HV33Z Insertion of Infusion Device into Superior Vena Cava, Percutaneous Approach (ICD-10-PCS; principal; 2017-05-23)
PROC: 30233N1 Transfusion of Nonautologous Red Blood Cells into Peripheral Vein, Percutaneous Approach (ICD-10-PCS; 2017-05-30)
DX: A40.8 Other streptococcal sepsis (principal); C34.90 Malignant neoplasm of unspecified part of unspecified bronchus or lung; Z66 Do not resuscitate; F17.210 Nicotine dependence, cigarettes, uncomplicated; R51 Headache; R53.1 Weakness; D64.9 Anemia, unspecified; Z79.52 Long term (current) use of systemic steroids; Z79.899 Other long term (current) drug therapy; Z88.8 Allergy status to other drugs, medicaments and biological substances; Z87.01 Personal history of pneumonia (recurrent)
CPT/HCPCS: 36415; 36569; 74018; 76705; 76937; 80202; 81001; 82040; 82247; 82310; 82374; 82435; 82565; 82947; 84075; 84132; 84155; 84295; 84450; 84460; 84520; 85025; 86850; 86900; 86901; 86920; 97161; 97165; C1751; J1650; J2997; J3370; J7030; J7040; J7050; P9016; S0119

== ENCOUNTER 2017-06-01 14:37 | Inpatient (IN) | payer MEDICARE ==
[~2017-06-01] VITALS: Ht 180.3 cm; Wt 84.4 kg
[~2017-06-01 14:37] MED LIST changes: +ESOM40CA6 PO; +LORA-630 PO; +MECL25TA9 PO; +VORT20TA PO
--- NOTE | 2017-06-01 14:53 | ER Report ---
History and Physical Time Seen By MD: 14:52 Hx. of Stated Complaint: pt c/o SOB. HPI/ROS CHIEF COMPLAINT: Shortness of breath HISTORY OF PRESENT ILLNESS: 66-year-old male patient persists to emergency room with complaint shortness of breath. Patient was recently diagnosed with stage IV lung cancer. Patient states that he was discharged yesterday from [facility] after getting 14 days of IV antibiotics. Patient states that he was brought into the emergency room 2 weeks ago with complaints of not being able to think well, and severe weakness. Patient states he is starting to have very similar symptoms, states he is having hard time thinking and feels like he is just extremely short of breath. Patient is currently living in a hotel. He states that he was doing fine yesterday but was unable to diamond picker his medications. He states he is feeling significantly worse today. REVIEW OF SYSTEMS: Respiratory: As noted above Cardiovascular: No chest pain, no palpitations. Gastrointestinal: Patient states she's been nauseated all day but denies any vomiting. Musculoskeletal: No back pain. Allergies: Coded Allergies: carboplatin (Verified Allergy, Severe, ANAPHYLAXIS, 06/01/17) Carboplatin recieved on 02/11/17 no reaction after receiving full dose. Carboplatin recieved again on 03/04/17 200 of the 500mls recieved and patient began to cough, experienced dizziness, nausea and short of breath, rapid response was called and patient was taken to the ER. Carboplatin recieved for th 3rd time on03/26/17 and patient recived around 75mls of the drug and began to experience the same symptoms as above. Home Meds Active Scripts Lorazepam (LORAZEPAM) 0.5 Mg Tablet, 0.5 MG PO Q8H Y for ANXIETY, #30 TAB 0 Refills Prov:MICHEAL FAJARDO MD 05/31/17 Oxycodone Hcl/Acet 5/325 Mg (ENDOCET 5-325 TABLET) 1 Each Tablet, 1 EACH PO Q4- 6H Y for PAIN, #45 TAB Prov:JAE NUNO-BC, ONC 03/27/17 Oxycodone Hcl (OXYCONTIN) 10 Mg Tab.er.12h, 10 MG PO Q12H, #60 TAB Prov:JAE NUNO-BC, ONC 03/11/17 Ondansetron Hcl (ZOFRAN) 8 Mg Tablet, 8 MG PO Q12H, #30 TAB 1 Refill Prov:JAE NUNO MACHINE SIGN WRITER-BC, ONC 04/17/16 Reported Medications Esomeprazole Magnesium (Esomeprazole Magnesium) 40 Mg Capsule.dr, 1 CAP PO DAILY 05/28/17 Vortioxetine Hydrobromide (Brintellix) 20 Mg Tablet, 1 TAB PO DAILY 05/28/17 Gabapentin (GABAPENTIN) 300 Mg Capsule, 300 MG PO BID, CAPSULE 01/31/17 Amitriptyline Hcl (AMITRIPTYLINE HCL) 75 Mg Tablet, 75 MG PO QHS, #5 TAB 01/01/17 Cyanocobalamin (Vitamin B-12) (VITAMIN B-12) 1,000 Mcg Tablet.er, 1000 MCG PO DAILY 04/11/16 Cholecalciferol (Vitamin D3) (VITAMIN D) 2,000 Unit Capsule, 2000 UNIT PO 2XW, CAPSULE 04/11/16 Latanoprost (LATANOPROST) 2.5 Ml Drops, 2.5 ML OP HS 04/11/16 Folic Acid (FOLIC ACID) 1 Mg Tablet, 1 MG PO DAILY 05/26/13 Multivit, Min No.21/Folic Acid (SUPERVITE EC CAPLET) 1 Mg Tablet.dr, 1 MG PO 05/26/13 Tamsulosin Hcl (Flomax) 0.4 Mg Cap, 0.4 MG PO QDAY, #30 2 Refills 04/09/11 Discontinued Reported Medications Meclizine Hcl (MECLIZINE HCL) 25 Mg Tablet, 1 TAB PO TID Y for DIZZINESS 05/28/17 Disulfiram (DISULFIRAM) 250 Mg Tablet, 250 MG PO DAILY Y for prn 05/09/17 Armodafinil (NUVIGIL) 150 Mg Tablet, 150 MG PO QAM, TAB 01/31/17 [trintellix] No Conflict Check, 20 MG PO DAILY 04/11/16 Omeprazole (PRILOSEC) 40 Mg Capsule.dr, 1 TAB PO QDAY TAKE ONE TABLET BY MOUTH ONCE A DAY 01/07/14 Discontinued Scripts Losartan Potassium (LOSARTAN POTASSIUM) 25 Mg Tablet, 25 MG PO QDAY Y for PRN for 30 Days, #30 TAB 9 Refills Prov:JAE NUNO MACHINE SIGN WRITER-BC, ONC 04/23/17 Dexamethasone 4 Mg Tab (DEXAMETHASONE 4 MG TAB) 4 Mg Tab, 4 MG PO BID for 3 Days , #36 TAB Take 4 mg bid x 3 days starting 24 hours prior to each chemotherapy x 6 cycles. Prov:JAE NUNO Uzma MACHINE SIGN WRITER-BC, ONC 02/04/17 Past Medical/Surgical History Patient has a past medical history of [place], lung cancer, pneumonia, COPD, gastroparesis, reflux, back pain, ear cancer, alcohol use, depression, suicide attempt. Patient has a surgical history of carpal tunnel release, port placement, PFC cozier, endoscopy. Patient has a family medical history of alcohol abuse. Hx Smoking: Yes Smoking Status: Current: Every Day Smoker Exposure to Second Hand Smoke?: Yes (Patient smokes 1 1/2 packs daily for forty -three years.) Hx Substance Use Disorder: No Hx Alcohol Use: Yes Constitutional Vital Sign - Last 24 Hours 06/01/17 06/01/17 06/01/17 06/01/17 14:45 14:53 15:00 15:20 Temp 97.7 Pulse 111 108 Resp 36 34 B/P (MAP) 137/96 132/67 (88) Pulse Ox 94 96 95 O2 Delivery Nasal Cannula Nasal Cannula O2 Flow Rate 3.0 3.0 06/01/17 06/01/17 06/01/17 06/01/17 15:20 15:26 15:30 16:30 Pulse 93 95 97 118 Resp 36 24 44 42 B/P (MAP) 118/92 (101) 89/72 (78) Pulse Ox 98 97 06/01/17 06/01/17 06/01/17 17:00 17:30 18:00 Pulse 94 93 96 Resp 13 17 13 B/P (MAP) 106/80 (89) 101/72 (82) 115/80 (92) Pulse Ox 98 98 97 Intake and Output 06/01/17 06/01/17 06/02/17 15:00 23:00 07:00 Intake Total 100 ml Balance 100 ml Physical Exam General Appearance: The patient is alert, has no immediate need for airway protection and no current signs of toxicity. ENT: Tympanic membranes are pearly-boyce, auditory canals are patent, mucous membranes are moist. Respiratory: Chest is non tender, lungs are clear to auscultation. Cardiac: regular rate and rhythm Gastrointestinal: Abdomen is soft and mildly tender in the periumbilical region , no masses, bowel sounds normal. Musculoskeletal: Neck: Neck is supple and non tender. Extremities have full range of motion and are non tender. Skin: No rashes or lesions. DIFFERENTIAL DIAGNOSIS: After history and physical exam differential diagnosis was considered for shortness of breath including but not limited to pulmonary infectious process, COPD, asthma, pulmonary embolus and congestive heart failure. I do wonder if there is some anxiety associated with this, as patient had been doing well with people around him and then is doing worse upon discharge. Medical Decision Making Data Points Result Diagram: 06/01/17 1455 06/01/17 1455 Laboratory Hematology Test 06/01/17 14:55 06/01/17 16:36 Red Blood Count 3.67 M/uL (4.00-5.60) Mean Corpuscular Volume 95.0 fL (80.0-96.0) Mean Corpuscular Hemoglobin 32.0 pg (26.0-33.0) Mean Corpuscular Hemoglobin Concent 33.6 g/dL (32.0-36.0) Red Cell Distribution Width 21.0 % (11.5-14.5) Mean Platelet Volume 8.0 fL (7.2-11.1) Neutrophils (%) (Auto) 77.3 % (39.4-72.5) Lymphocytes (%) (Auto) 7.6 % (17.6-49.6) Monocytes (%) (Auto) 11.6 % (4.1-12.4) Eosinophils (%) (Auto) 2.6 % (0.4-6.7) Basophils (%) (Auto) 0.9 % (0.3-1.4) Nucleated RBC Relative Count (auto) 0.0 /100WBC Neutrophils # (Auto) 9.8 K/uL (2.0-7.4) Lymphocytes # (Auto) 1.0 K/uL (1.3-3.6) Monocytes # (Auto) 1.5 K/uL (0.3-1.0) Eosinophils # (Auto) 0.3 K/uL (0.0-0.5) Basophils # (Auto) 0.1 K/uL (0.0-0.1) Nucleated RBC Absolute Count (auto) 0.00 K/uL Peripheral Blood Smear Y/N Sodium Level 133 mmol/L (137-145) Potassium Level 4.4 mmol/L (3.5-5.0) Chloride Level 96 mmol/L (98-107) Carbon Dioxide Level 23 mmol/L (22-30) Blood Urea Nitrogen 16 mg/dl (9-21) Creatinine 1.80 mg/dl (0.66-1.25) Glomerular Filtration Rate Calc 37.8 Random Glucose 100 mg/dl (75-110) Calcium Level 10.2 mg/dl (8.4-10.2) Total Bilirubin 1.1 mg/dl (0.2-1.3) Aspartate Amino Transf (AST/SGOT) 46 U/L (0-35) Alanine Aminotransferase (ALT/SGPT) 45 U/L (0-56) Alkaline Phosphatase 111 U/L (0-126) Troponin I < 0.012 ng/ml B-Type Natriuretic Peptide 203 pg/ml (0-100) Total Protein 8.2 gm/dl (6.3-8.2) Albumin 3.9 g/dl (3.5-5.0) Urine Color Yellow Urine Clarity Clear Urine pH 6.0 pH (4.8-9.5) Urine Specific [place] 1.013 Urine Protein 30 mg/dL (NEGATIVE) Urine Glucose (UA) Negative mg/dL (NEGATIVE) Urine Ketones 20 mg/dL (NEGATIVE) Urine Blood Small (NEGATIVE) Urine Nitrite Negative (NEGATIVE) Urine Bilirubin Negative (NEGATIVE) Urine Urobilinogen 4.0 mg/dL (0.2-1.9) Urine Leukocyte Esterase Trace (NEGATIVE) Urine RBC 1 /HPF (0-2/HPF) Urine WBC 7 /HPF (0-5/HPF) Urine Squamous Epithelial Cells Few /LPF (</=FEW) Urine Bacteria Negative /HPF (NONE-FEW) Urine Mucus Few /HPF (NONE-FEW) Chemistry Test 06/01/17 14:55 06/01/17 16:36 White Blood Count 12.6 k/uL (4.5-11.0) Red Blood Count 3.67 M/uL (4.00-5.60) Hemoglobin 11.7 g/dL (14.0-18.0) Hematocrit 34.9 % (42.0-52.0) Mean Corpuscular Volume 95.0 fL (80.0-96.0) Mean Corpuscular Hemoglobin 32.0 pg (26.0-33.0) Mean Corpuscular Hemoglobin Concent 33.6 g/dL (32.0-36.0) Red Cell Distribution Width 21.0 % (11.5-14.5) Platelet Count 273 K/uL (150-450) Mean Platelet Volume 8.0 fL (7.2-11.1) Neutrophils (%) (Auto) 77.3 % (39.4-72.5) Lymphocytes (%) (Auto) 7.6 % (17.6-49.6) Monocytes (%) (Auto) 11.6 % (4.1-12.4) Eosinophils (%) (Auto) 2.6 % (0.4-6.7) Basophils (%) (Auto) 0.9 % (0.3-1.4) Nucleated RBC Relative Count (auto) 0.0 /100WBC Neutrophils # (Auto) 9.8 K/uL (2.0-7.4) Lymphocytes # (Auto) 1.0 K/uL (1.3-3.6) Monocytes # (Auto) 1.5 K/uL (0.3-1.0) Eosinophils # (Auto) 0.3 K/uL (0.0-0.5) Basophils # (Auto) 0.1 K/uL (0.0-0.1) Nucleated RBC Absolute Count (auto) 0.00 K/uL Peripheral Blood Smear Y/N Glomerular Filtration Rate Calc 37.8 Calcium Level 10.2 mg/dl (8.4-10.2) Total Bilirubin 1.1 mg/dl (0.2-1.3) Aspartate Amino Transf (AST/SGOT) 46 U/L (0-35) Alanine Aminotransferase (ALT/SGPT) 45 U/L (0-56) Alkaline Phosphatase 111 U/L (0-126) Troponin I < 0.012 ng/ml B-Type Natriuretic Peptide 203 pg/ml (0-100) Total Protein 8.2 gm/dl (6.3-8.2) Albumin 3.9 g/dl (3.5-5.0) Urine Color Yellow Urine Clarity Clear Urine pH 6.0 pH (4.8-9.5) Urine Specific [place] 1.013 Urine Protein 30 mg/dL (NEGATIVE) Urine Glucose (UA) Negative mg/dL (NEGATIVE) Urine Ketones 20 mg/dL (NEGATIVE) Urine Blood Small (NEGATIVE) Urine Nitrite Negative (NEGATIVE) Urine Bilirubin Negative (NEGATIVE) Urine Urobilinogen 4.0 mg/dL (0.2-1.9) Urine Leukocyte Esterase Trace (NEGATIVE) Urine RBC 1 /HPF (0-2/HPF) Urine WBC 7 /HPF (0-5/HPF) Urine Squamous Epithelial Cells Few /LPF (</=FEW) Urine Bacteria Negative /HPF (NONE-FEW) Urine Mucus Few /HPF (NONE-FEW) Urinalysis Test 06/01/17 16:36 Urine Color Yellow Urine Clarity Clear Urine pH 6.0 pH (4.8-9.5) Urine Specific [place] 1.013 Urine Protein 30 mg/dL (NEGATIVE) Urine Glucose (UA) Negative mg/dL (NEGATIVE) Urine Ketones 20 mg/dL (NEGATIVE) Urine Blood Small (NEGATIVE) Urine Nitrite Negative (NEGATIVE) Urine Bilirubin Negative (NEGATIVE) Urine Urobilinogen 4.0 mg/dL (0.2-1.9) Urine Leukocyte Esterase Trace (NEGATIVE) Urine RBC 1 /HPF (0-2/HPF) Urine WBC 7 /HPF (0-5/HPF) Urine Squamous Epithelial Cells Few /LPF (</=FEW) Urine Bacteria Negative /HPF (NONE-FEW) Urine Mucus Few /HPF (NONE-FEW) EKG/Imaging EKG Interpretation 12 lead EKG: Rhythm: Sinus tachycardia with ventricular rate of 104 bpm [place]: normal QRS: Bifascicular block ST segments: normal Imaging EXAMINATION: Chest radiographs 2 views HISTORY: Respiratory distress. COMPARISON: 05/18/2017. FINDINGS: 2 AP views and a lateral view of the chest are submitted. Lines/tubes: None. Lungs/pleura: There is patchy consolidation in the right upper lobe which is new. Thickening and elevation of the minor fissure is unchanged. There a few coarse reticular opacities peripherally. There is no pleural effusion. Heart: Atrial septal closure device is unchanged position. Cardiac silhouette is within normal limits. Mediastinum: Negative. Bony structures/body wall: Negative. IMPRESSION: 1. Findings suspicious for right upper lobe pneumonia. Radiographic follow-up to resolution is recommended. 2. A few coarse reticular opacities peripherally are suspicious for chronic interstitial lung disease. Report Dictated By: Nita Delacruz MD at 06/01/2017 4:13 PM Report E-Signed By: Nita Delacruz MD at 06/01/2017 4:15 PM ED Course/Re-evaluation ED Course Patient was admitted to exam room, history and physical were obtained. Differential diagnoses were considered. On examination patient is very anxious, breathing very rapidly. Patient did receive a dose of Ativan 1 mg which seemed to help considerably. A CBC, CMP, urinalysis, EKG, troponin, chest x-ray were done. Patient had an elevated white count of 12,000, left shift. CMP was unremarkable except he had creatinine of 1.8. Urinalysis was unremarkable, EKG shows sinus tachycardia. Chest x-ray did show a right upper lobe pneumonia. I did compare that with the chest x-ray from May 18 which shows significant worsening. I discussed the case with Dr. Marion Fajardo, hospitalist, who agreed to accept the patient for admission. Decision to Disposition Date: Jun 01, 2017 Decision to Disposition Time: 18:25 Depart Departure Latest Vital Signs Vital Signs Date Time Temp Pulse Resp B/P (MAP) Pulse Ox O2 Delivery O2 Flow Rate FiO2 06/01/17 18:00 96 13 115/80 (92) 97 06/01/17 15:20 Nasal Cannula 3.0 06/01/17 14:45 97.7 Core Temperature (Celsius): 36.39 Impression: Primary Impression: Right upper lobe pneumonia Additional Impression: Stage 4 lung cancer Condition: Condition Unchanged Disposition: Admitted from ER Referrals: AHSAN KOTHARI (PCP) Problem Qualifiers Primary Impression: Right upper lobe pneumonia Pneumonia type: due to unspecified organism Qualified Codes: J18.1 - Lobar pneumonia, unspecified organism Additional Impression: Stage 4 lung cancer Laterality: right Qualified Codes: C34.91 - Malignant neoplasm of unspecified part of right bronchus or lung CHRISTOPHE HOLT MACHINE SIGN WRITER Jun 01, 2017 14:53
[2017-06-01] MEDS ORDERED: LORazepam 2 MG/ML VIAL IVP ONE (15:15)
[2017-06-01] MEDS ORDERED: ALBUTEROL/IPRATROPIUM 3 ML NEB NEB ONE (15:15)
[2017-06-01] MEDS ORDERED: ONDANSETRON 4 MG/2 ML VIAL IVP ONE (15:25)
[2017-06-01 15:28] LABS: PLATELET COUNT, AUTOMATED 273 K/uL (150-450)
--- NOTE | 2017-06-01 16:21 | RADIOLOGY IMAGING REPORT ---
FACILITY: [facility] [place] PATIENT NAME: Jarret Aguilar : 1950 MR: [id number] V: [id number] EXAM DATE: ORDERING PHYSICIAN: CHRISTOPHE HOLT TECHNOLOGIST: Location: [facility] [place] Patient: Jarret Aguilar : 1950 Visit/Account:[id number] Date of Sevice: 06/01/2017 EXAMINATION: Chest radiographs 2 views HISTORY: Respiratory distress. COMPARISON: 05/18/2017. FINDINGS: 2 AP views and a lateral view of the chest are submitted. Lines/tubes: None. Lungs/pleura: There is patchy consolidation in the right upper lobe which is new. Thickening and leah vation of the minor fissure is unchanged. There a few coarse reticular opacities peripherally. There is no pleural effusion. Heart: Atrial septal closure device is unchanged position. Cardiac silhouette is within normal limit s. Mediastinum: Negative. Bony structures/body wall: Negative. IMPRESSION: 1. Findings suspicious for right upper lobe pneumonia. Radiographic follow-up to resolution is recomm ended. 2. A few coarse reticular opacities peripherally are suspicious for chronic interstitial lung disease . Report Dictated By: Nita Delacruz MD at 06/01/2017 4:13 PM Report E-Signed By: Nita Delacruz MD at 06/01/2017 4:15 PM WSN:[id number]
[2017-06-01] MEDS ORDERED: PIPERACILLIN/TAZO* 4.5 GM VIAL 4.5 GM in NS(*) 0.9% 100 ML ADDVANT BAG 100 ML IVPB ONE (16:45)
[2017-06-01 19:30] VITALS: BP 105/92
[2017-06-01] MEDS ORDERED: INFLUENZA VIRUS VAC 0.5 ML SYR IM ONLY ONE (20:35)
[2017-06-01] MEDS ORDERED: ACETAMINOPHEN 325 MG TAB PO PRN (20:35)
[2017-06-01] MEDS ORDERED: IMIPENEM/CILASTA(*) 500MG VIAL 500 MG in NS(*) 0.9% 100 ML BAG 100 ML IVPB SCH ×2 (20:40→23:00)
[2017-06-01] MEDS: LATANOPRO 0.005% OP SOLN 2.5ML OU SCH (21:00)
[2017-06-01] MEDS: ONDANSETRON 8 MG TAB PO SCH (21:00)
[2017-06-01] MEDS ORDERED: ALBUTEROL/IPRATROPIUM 3 ML NEB NEB PRN (21:15)
[2017-06-01] MEDS: GABAPENTIN 300 MG CAP PO SCH (21:18)
[2017-06-01] MEDS: NS(*) 0.9% 1000 ML BAG 1,000 ML IV PRN (21:18)
[2017-06-01] MEDS: AMITRIPTYLINE HCL 25 MG TAB PO SCH (21:18)
--- NOTE | 2017-06-01 21:30 | History & Physical ---
History of Present Illness Chief Complaint Extreme shortness of breath. History of Present Illness Mr. Aguilar has PMH of stage 4 Lung Cancer and was recently discharged from [facility] on 05/31/17. Previously he had presented to the emergency room complaining of dizziness and fatigue. He was ultimately found to have positive blood culture for Strep sanguinis from his port and peripheral cultures. He also had a left lingular pneumonia and was treated with a course of Levaquin. His port was removed. He was transferred to [facility] to complete a course of IV Vanco and rehabilitation. He completed the course Vancomycin on May 30. He was subsequently discharged on May 31 and states he felt well. He went to bed that evening and woke up this morning extremely short of breath. He says he felt "horrible all over". He had his nephew bring him back to [facility] ER for evaluation. CXR in ER today shows a new RUL pneumonia. His WBC is also elevated. His was recommended for admission for further evaluation and treatment. 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 (7) Upper GI hemorrhage Status: Chronic (8) Depression Status: Chronic Home Meds Active Scripts Lorazepam (LORAZEPAM) 0.5 Mg Tablet, 0.5 MG PO Q8H Y for ANXIETY, #30 TAB 0 Refills Prov:MICHEAL HATCH MD 05/31/17 Oxycodone Hcl/Acet 5/325 Mg (ENDOCET 5-325 TABLET) 1 Each Tablet, 1 EACH PO Q4- 6H Y for PAIN, #45 TAB Prov:JAE NUNO-BC, ONC 03/27/17 Oxycodone Hcl (OXYCONTIN) 10 Mg Tab.er.12h, 10 MG PO Q12H, #60 TAB Prov:JAE NUNO-RADHA, ONC 03/11/17 Ondansetron Hcl (ZOFRAN) 8 Mg Tablet, 8 MG PO Q12H, #30 TAB 1 Refill Prov:JAE NUNO, ONC 04/17/16 Reported Medications Esomeprazole Magnesium (Esomeprazole Magnesium) 40 Mg Capsule., 1 CAP PO DAILY 05/28/17 Vortioxetine Hydrobromide (Brintellix) 20 Mg Tablet, 1 TAB PO DAILY 05/28/17 Gabapentin (GABAPENTIN) 300 Mg Capsule, 300 MG PO BID, CAPSULE 01/31/17 Amitriptyline Hcl (AMITRIPTYLINE HCL) 75 Mg Tablet, 75 MG PO QHS, #5 TAB 01/01/17 Cyanocobalamin (Vitamin B-12) (VITAMIN B-12) 1,000 Mcg Tablet.er, 1000 MCG PO DAILY 04/11/16 Cholecalciferol (Vitamin D3) (VITAMIN D) 2,000 Unit Capsule, 2000 UNIT PO 2XW, CAPSULE 04/11/16 Latanoprost (LATANOPROST) 2.5 Ml Drops, 2.5 ML OP HS 04/11/16 Folic Acid (FOLIC ACID) 1 Mg Tablet, 1 MG PO DAILY 05/26/13 Multivit, Min No.21/Folic Acid (SUPERVITE EC CAPLET) 1 Mg Tablet.dr, 1 MG PO 05/26/13 Tamsulosin Hcl (Flomax) 0.4 Mg Cap, 0.4 MG PO QDAY, #30 2 Refills 04/09/11 Discontinued Reported Medications Meclizine Hcl (MECLIZINE HCL) 25 Mg Tablet, 1 TAB PO TID Y for DIZZINESS 05/28/17 Disulfiram (DISULFIRAM) 250 Mg Tablet, 250 MG PO DAILY Y for prn 05/09/17 Armodafinil (NUVIGIL) 150 Mg Tablet, 150 MG PO QAM, TAB 01/31/17 [trintellix] No Conflict Check, 20 MG PO DAILY 04/11/16 Omeprazole (PRILOSEC) 40 Mg Capsule.dr, 1 TAB PO QDAY TAKE ONE TABLET BY MOUTH ONCE A DAY 01/07/14 Discontinued Scripts Losartan Potassium (LOSARTAN POTASSIUM) 25 Mg Tablet, 25 MG PO QDAY Y for PRN for 30 Days, #30 TAB 9 Refills Prov:JAE NUNO AUDIT CONTROL CLERK-BC, ONC 04/23/17 Dexamethasone 4 Mg Tab (DEXAMETHASONE 4 MG TAB) 4 Mg Tab, 4 MG PO BID for 3 Days , #36 TAB Take 4 mg bid x 3 days starting 24 hours prior to each chemotherapy x 6 cycles. Prov:JAE NUNO AUDIT CONTROL CLERK-BC, ONC 02/04/17 Allergies: Coded Allergies: carboplatin (Verified Allergy, Severe, ANAPHYLAXIS, 06/01/17) Carboplatin recieved on 02/11/17 no reaction after receiving full dose. Carboplatin recieved again on 03/04/17 200 of the 500mls recieved and patient began to cough, experienced dizziness, nausea and short of breath, rapid response was called and patient was taken to the ER. Carboplatin recieved for th 3rd time on03/26/17 and patient recived around 75mls of the drug and began to experience the same symptoms as above. Patient History: Anxiety disorder MOTHER, , Age:51 FH: depression MOTHER, , Age:51 FH: emphysema FATHER, , Age:72 Pulmonary fibrosis BROTHER OR SISTER Other Social/Family Hx The patient lives alone in a motel in [place]. His nephew helps him at home. Hx Smoking: Yes Smoking Status: Current: Every Day Smoker Exposure to Second Hand Smoke?: Yes (Patient smokes 1 1/2 packs daily for forty -three years.) Caffeine Intake: Coffee Caffeine/Cups Per Day: 2 Hx Alcohol Use: Yes Hx Substance Use Disorder: No Social Drug Use: Never Social Drugs: Marijuana Amount Of Social Drug/s Used: a couple times in college History of IV Drug Use: No Review of Systems Constitutional: No Fever, No Chills Neurological: Weakness Eyes: No Vision Change ENT: No Hearing Loss Cardiovascular: No Chest Pain Respiratory: Shortness of Breath, Cough Gastrointestinal: No Nausea Genitourinary: No Dysuria Musculoskeletal: Pain (Bone pain from bony mets.) Psychiatric: Depression Exam Vital Signs Vital Signs Date Time Temp Pulse Resp B/P (MAP) Pulse Ox O2 Delivery O2 Flow Rate FiO2 06/01/17 18:45 93 98 06/01/17 18:30 134/86 (102) 06/01/17 18:15 12 06/01/17 15:20 Nasal Cannula 3.0 06/01/17 14:45 97.7 General Appearance: Alert, Awake, No Acute Distress Neuro: Other (Some difficulty with memory at times.) Eyes: PERRLA ENT: Moist Mucous Membranes Cardiovascular: Regular Rate and Rhythm Respiratory: No Respiratory Distress, Other (Decreased BS right upper lung field posteriorly. Localized wheeze heard anteriorly on the right.) GI: Abd Soft and Non-Tender Extremities: Warm, Perfused Integumentary: Skin Intact without Lesion / Mass Psych: Appropriate Mood & Affect Medical Decision Making Data Points Result Diagram: 06/01/17 1455 06/01/17 1455 Item Value Date Time Calcium Level 10.2 mg/dl 06/01/17 1455 Total Bilirubin 1.1 mg/dl 06/01/17 1455 Aspartate Amino Transf (AST/SGOT) 46 U/L H 06/01/17 1455 Alanine Aminotransferase (ALT/SGPT) 45 U/L 06/01/17 1455 Alkaline Phosphatase 111 U/L 06/01/17 1455 Troponin I < 0.012 ng/ml 06/01/17 1455 Total Protein 8.2 gm/dl 06/01/17 1455 Albumin 3.9 g/dl 06/01/17 1455 B-Type Natriuretic Peptide 203 pg/ml H 06/01/17 1455 Urine Color Yellow 06/01/17 1636 Urine Clarity Clear 06/01/17 1636 Urine pH 6.0 pH 06/01/17 1636 Urine Specific [place] 1.013 06/01/17 1636 Urine Protein 30 mg/dL 06/01/17 1636 Urine Glucose (UA) Negative mg/dL 06/01/17 1636 Urine Ketones 20 mg/dL H 06/01/17 1636 Urine Blood Small 06/01/17 1636 Urine Nitrite Negative 06/01/17 1636 Urine Bilirubin Negative 06/01/17 1636 Urine Urobilinogen 4.0 mg/dL H 06/01/17 1636 Urine Leukocyte Esterase Trace H 06/01/17 1636 Urine RBC 1 /HPF 06/01/17 1636 Urine WBC 7 /HPF 06/01/17 1636 Urine Squamous Epithelial Cells Few /LPF 06/01/17 1636 Urine Bacteria Negative /HPF 06/01/17 1636 Urine Mucus Few /HPF 06/01/17 1636 Urine and blood cultures pending. EKG / Imaging Monitor Interpretation: Sinus Tachycardia Imaging FACILITY: [facility] PATIENT NAME: Jarret Aguilar : 1950 MR: [id number] V: [id number] EXAM DATE: ORDERING PHYSICIAN: CHRISTOPHE HOLT TECHNOLOGIST: Location: [facility] [place] Patient: Jarret Aguilar : 1950 Visit/Account:[id number] Date of Sevdiana: 06/01/2017 EXAMINATION: Chest radiographs 2 views HISTORY: Respiratory distress. COMPARISON: 05/18/2017. FINDINGS: 2 AP views and a lateral view of the chest are submitted. Lines/tubes: None. Lungs/pleura: There is patchy consolidation in the right upper lobe which is new. Thickening and elevation of the minor fissure is unchanged. There a few coarse reticular opacities peripherally. There is no pleural effusion. Heart: Atrial septal closure device is unchanged position. Cardiac silhouette is within normal limits. Mediastinum: Negative. Bony structures/body wall: Negative. IMPRESSION: 1. Findings suspicious for right upper lobe pneumonia. Radiographic follow-up to resolution is recommended. 2. A few coarse reticular opacities peripherally are suspicious for chronic interstitial lung disease. Report Dictated By: Nita Delacruz MD at 06/01/2017 4:13 PM Report E-Signed By: Nita Delacruz MD at 06/01/2017 4:15 PM [id number] Pre-Admit Course ED Medications Duoneb, Ativan, Zosyn, Zofran. Medical Record Review: Yes Assessment and Plan Problems: (1) Right upper lobe pneumonia Status: Acute Assessment & Plan: Will admit and start Primaxin and Vanco. Blood cultures pending. Hydrate. Monitor labs. Duonebs prn. (2) Stage 4 lung cancer Status: Chronic Assessment & Plan: The patient was followed by the Cancer Center. He has elected to stop chemotherapy and his port was removed during his previous admission due to infection. (3) Hypertension Status: Chronic Assessment & Plan: He is no longer on antihypertensives and his BP remains WNL. (4) Bloodstream infection due to portacath Status: Resolved Assessment & Plan: He completed a 14 day course of Vancomycin during his last admission. Time Spent on Plan of Care: < 30 min Copies to: AHSAN KOTHARI Venous Thromboembolism VTE Risk Physician Assess for VTE Risk: Yes Patient's VTE Risk: High VTE Diagnostic Test 2 Days Prior to Admit: No Antithrombotics Is Pt On Any Antithrombotics?: Yes Exam Sepsis Risk: No Definite Risk Problem Qualifiers (1) Right upper lobe pneumonia: Pneumonia type: due to unspecified organism Qualified Codes: J18.1 - Lobar pneumonia, unspecified organism (2) Stage 4 lung cancer: Laterality: right Qualified Codes: C34.91 - Malignant neoplasm of unspecified part of right bronchus or lung CHERRI HATCH MD Jun 01, 2017 21:30
[2017-06-01] MEDS: VANCOMYCIN 1 GM ADDVIAL 1 GM in NS(*) 0.9% 250 ML ADDVAN BAG 250 ML IVPB SCH (21:31)
[2017-06-01 23:31] VITALS: BP 110/75
[2017-06-02 02:54] VITALS: BP 119/73
[2017-06-02 06:24] LABS: PLATELET COUNT, AUTOMATED 210 K/uL (150-450)
[2017-06-02 07:59] VITALS: BP 121/84
[2017-06-02] MEDS: IMIPENEM/CILASTA(*) 500MG VIAL 500 MG in NS(*) 0.9% 100 ML BAG 100 ML IVPB SCH ×3 (08:30→23:32)
--- NOTE | 2017-06-02 08:43 | RADIOLOGY IMAGING REPORT ---
FACILITY: [facility] [place] PATIENT NAME: Jarret Aguilar : 1950 MR: [id number] V: [id number] EXAM DATE: ORDERING PHYSICIAN: KEVIN GORDON TECHNOLOGIST: Location: [facility] Patient: Jarret Aguilar : 1950 Visit/Account:[id number] Date of Sevice: 06/02/2017 CHEST SINGLE AP HISTORY: pneumonia COMPARISON: 06/01/2017 FINDINGS: Cardiomediastinal contours: Prior ASD closure Lungs and pleura: Right upper lobe consolidation with retraction of the fissure, unchanged. Stable r eticular opacities within both lungs. No pneumothorax. No pleural effusion. Bones/soft tissues: Normal Other findings: None significant IMPRESSION: 1. No interval change. Report Dictated By: Jose M Mejia MD at 06/02/2017 8:35 AM Report E-Signed By: Jose M Mejia MD at 06/02/2017 8:38 AM WSN:[email or web address]
[2017-06-02] MEDS: VORTIOXETINE HYDROBROMIDE 20 MG TABLET PO SCH (09:00)
[2017-06-02] MEDS ORDERED: VORTIOXETINE 20 MG PO SCH (09:00)
[2017-06-02] MEDS: MULTIVITAMINS TAB PO SCH (09:06)
[2017-06-02] MEDS: PANTOPRAZOLE SOD 40 MG TABEC PO SCH (09:06)
[2017-06-02] MEDS: GABAPENTIN 300 MG CAP PO SCH ×2 (09:06→20:21)
[2017-06-02] MEDS: CYANOCOBALAMIN 1000 MCG TAB PO SCH (09:06)
[2017-06-02] MEDS: ENOXAPARIN 30 MG/0.3 ML SYR SC SCH (09:06)
[2017-06-02] MEDS: TAMSULOSIN HCL 0.4 MG CAP PO SCH (09:06)
[2017-06-02] MEDS: FOLIC ACID 1 MG TAB PO SCH (09:06)
[2017-06-02] MEDS: ONDANSETRON 8 MG TAB PO SCH ×2 (09:07→20:21)
[2017-06-02] MEDS: CHOLECALCIFEROL 1000 UNIT TAB PO SCH (09:12)
--- NOTE | 2017-06-02 09:33 | EKG ---
FACILITY: [facility] [place] PATIENT NAME: PAT DELANEY : [id number] MR: [id number] V: [id number] EXAM DATE: ORDERING PHYSICIAN: CHRISTOPHE HOLT TECHNOLOGIST: JOY Harris Reason : SOB Blood Pressure : / mmHG Vent. Rate : 104 BPM Atrial Rate : 104 BPM P-R Int : 176 ms QRS Dur : 128 ms QT Int : 404 ms P-R-T Axes : 062 -76 049 degrees QTc Int : 531 ms Sinus tachycardia Right bundle branch block Left anterior fascicular block Bifascicular block Abnormal ECG When compared with ECG of 08-MAY-2017 15:32, premature ventricular complexes are no longer present Confirmed by KEVIN GORDON ([id number]) on 06/02/2017 11:53:13 AM Referred By: JUAN Confirmed By:KEVIN GORDON
[2017-06-02] MEDS: LORazepam 0.5 MG TAB PO PRN ×2 (10:36→18:44)
[2017-06-02] MEDS: NS(*) 0.9% 1000 ML BAG 1,000 ML IV PRN ×2 (10:36→22:09)
[2017-06-02 11:31] VITALS: Ht 180.3 cm; Wt 84.4 kg
--- NOTE | 2017-06-02 11:33 | Hospitalist Progress Note ---
Subjective Progress Notes Subjective This patient was admitted for pneumonia. He had no acute events overnight. Patient Complains of: Cardiovascular: No: Chest Pain Respiratory: No: Shortness of Breath Physical Exam Vital Signs Date Time Temp Pulse Resp B/P (MAP) Pulse Ox O2 Delivery O2 Flow Rate FiO2 06/02/17 07:59 98.3 19 121/84 (96) 93 Nasal Cannula 3.0 06/02/17 02:54 81 Intake and Output 06/03/17 07:00 Intake Total 1295 ml Balance 1295 ml Intake Oral 220 ml IV Total 1075 ml # Voids 3 Cardiovascular: Regular Rate and Rhythm Respiratory: Other (Bilateral rhonchi.) Extremities: No Edema Integumentary: No Cyanosis Result Diagram: 06/02/1752106/02/17521 Imaging Chest x-ray reviewed. Monitor Interpretation: Sinus Tachycardia Assessment and Plan Problems: (1) Right upper lobe pneumonia Status: Acute Assessment & Plan: He did develop pneumonia shortly after discharge from extended care. He has also been on multiple courses of antibiotics during his previous admission. His chest x-ray has shown worsening infiltrates from previous studies. We are currently treating him empirically with Primaxin and vancomycin. Cultures have been negative to this point. (2) Stage 4 lung cancer Status: Chronic Assessment & Plan: The patient was followed by the Cancer Center. He has elected to stop chemotherapy and his port was removed during his previous admission due to infection. (3) Bloodstream infection due to portacath Status: Resolved Assessment & Plan: He completed a 14 day course of Vancomycin during his last admission. (4) Acute renal failure Assessment & Plan: He does have an elevated creatinine. We do have him on IV fluids and pharmacy has adjusted his medications. Exam Sepsis Risk: No Definite Risk Problem Qualifiers (1) Right upper lobe pneumonia: Pneumonia type: due to unspecified organism Qualified Codes: J18.1 - Lobar pneumonia, unspecified organism (2) Stage 4 lung cancer: Laterality: right Qualified Codes: C34.91 - Malignant neoplasm of unspecified part of right bronchus or lung KEVIN GORDON DO Jun 02, 2017 11:33
[2017-06-02 13:22] VITALS: BP 117/75
[2017-06-02 15:17] VITALS: BP 113/97
[2017-06-02] MEDS: VANCOMYCIN 1 GM ADDVIAL 1 GM in NS(*) 0.9% 250 ML ADDVAN BAG 250 ML IVPB SCH (15:17)
[2017-06-02 19:33] VITALS: BP 143/97
[2017-06-02] MEDS: LATANOPRO 0.005% OP SOLN 2.5ML OU SCH (20:21)
[2017-06-02] MEDS: AMITRIPTYLINE HCL 25 MG TAB PO SCH (20:21)
[2017-06-03 04:14] VITALS: BP 126/82
[2017-06-03 07:13] VITALS: BP 131/84
[2017-06-03 08:15] LABS: PLATELET COUNT, AUTOMATED 203 K/uL (150-450)
[2017-06-03] MEDS: IMIPENEM/CILASTA(*) 500MG VIAL 500 MG in NS(*) 0.9% 100 ML BAG 100 ML IVPB SCH ×2 (08:22→15:46)
[2017-06-03] MEDS: VANCOMYCIN 1 GM ADDVIAL 1 GM in NS(*) 0.9% 250 ML ADDVAN BAG 250 ML IVPB SCH (09:00)
[2017-06-03] MEDS: VORTIOXETINE HYDROBROMIDE 20 MG TABLET PO SCH ×2 (09:00→18:59)
[2017-06-03] MEDS: GABAPENTIN 300 MG CAP PO SCH ×2 (09:43→21:35)
[2017-06-03] MEDS: ENOXAPARIN 30 MG/0.3 ML SYR SC SCH (09:43)
[2017-06-03] MEDS: MULTIVITAMINS TAB PO SCH (09:44)
[2017-06-03] MEDS: CYANOCOBALAMIN 1000 MCG TAB PO SCH (09:44)
[2017-06-03] MEDS: PANTOPRAZOLE SOD 40 MG TABEC PO SCH (09:44)
[2017-06-03] MEDS: TAMSULOSIN HCL 0.4 MG CAP PO SCH ×2 (09:44→21:35)
[2017-06-03] MEDS: FOLIC ACID 1 MG TAB PO SCH (09:44)
[2017-06-03] MEDS ORDERED: BISACODYL 10 MG SUPP PR PRN (09:45)
[2017-06-03] MEDS ORDERED: MAGNESIUM HYDROXIDE* 30ML UDCP PO PRN (09:45)
[2017-06-03] MEDS: LORazepam 0.5 MG TAB PO PRN ×2 (09:50→18:59)
[2017-06-03] MEDS: ONDANSETRON 8 MG TAB PO SCH ×2 (09:57→21:36)
--- NOTE | 2017-06-03 11:28 | Hospitalist Progress Note ---
Subjective Progress Notes Subjective Overall, still feeling weak, but better from admission. No concerns from staff. SOB is improving some. Physical Exam Vital Signs Date Time Temp Pulse Resp B/P (MAP) Pulse Ox O2 Delivery O2 Flow Rate FiO2 06/03/17 07:37 94 Nasal Cannula 3.0 06/03/17 07:13 97.4 79 20 131/84 (100) Intake and Output 06/04/17 07:00 Intake Total 240 ml Balance 240 ml Intake Oral 240 ml # Voids 2 General Appearance: Alert, Awake, No Acute Distress Respiratory: Clear to Auscultation Result Diagram: 06/03/1780106/03/17801 Monitor Interpretation: Sinus Tachycardia Assessment and Plan Problems: (1) Right upper lobe pneumonia Status: Acute Assessment & Plan: He did develop pneumonia shortly after discharge from extended care. He has also been on multiple courses of antibiotics during his previous admission. His chest x-ray has shown worsening infiltrates from previous studies. We are currently treating him empirically with Primaxin and vancomycin. Will stop vancomycin and follow symptoms. Cultures have been negative to this point. (2) Stage 4 lung cancer Status: Chronic Assessment & Plan: The patient was followed by the Cancer Center. He has elected to stop chemotherapy and his port was removed during his previous admission due to infection. (3) Bloodstream infection due to portacath Status: Resolved Assessment & Plan: He completed a 14 day course of Vancomycin during his last admission. (4) Acute renal failure Assessment & Plan: He does have an elevated creatinine. We do have him on IV fluids and pharmacy has adjusted his medications. This developed while on ECF, so concerned about vancomycin as a cause. He had a normal renal US then. Will follow. Vancomycin stopped. Exam Sepsis Risk: No Definite Risk Problem Qualifiers (1) Right upper lobe pneumonia: Pneumonia type: due to unspecified organism Qualified Codes: J18.1 - Lobar pneumonia, unspecified organism (2) Stage 4 lung cancer: Laterality: right Qualified Codes: C34.91 - Malignant neoplasm of unspecified part of right bronchus or lung SATHYA EARL MD Jun 03, 2017 11:28
[2017-06-03 11:29] VITALS: BP 124/86
[2017-06-03] MEDS: NS(*) 0.9% 1000 ML BAG 1,000 ML IV PRN ×2 (12:00→12:02)
[2017-06-03 14:36] VITALS: BP 127/71
[2017-06-03 19:05] VITALS: BP 150/80
[2017-06-03] MEDS: AMITRIPTYLINE HCL 25 MG TAB PO SCH (21:35)
[2017-06-03] MEDS: DOCUSATE SODIUM 100 MG CAP PO SCH (21:35)
[2017-06-03] MEDS: LATANOPRO 0.005% OP SOLN 2.5ML OU SCH (21:36)
[2017-06-03 22:33] VITALS: BP 134/91
[2017-06-04] MEDS: IMIPENEM/CILASTA(*) 500MG VIAL 500 MG in NS(*) 0.9% 100 ML BAG 100 ML IVPB SCH ×3 (00:05→16:14)
[2017-06-04 05:31] VITALS: BP 126/82
[2017-06-04 06:01] LABS: PLATELET COUNT, AUTOMATED 212 K/uL (150-450)
[2017-06-04] MEDS: MULTIVITAMINS TAB PO SCH (08:56)
[2017-06-04] MEDS: FOLIC ACID 1 MG TAB PO SCH (08:56)
[2017-06-04] MEDS: GABAPENTIN 300 MG CAP PO SCH ×2 (08:56→20:16)
[2017-06-04] MEDS: CYANOCOBALAMIN 1000 MCG TAB PO SCH (08:56)
[2017-06-04] MEDS: DOCUSATE SODIUM 100 MG CAP PO SCH ×2 (08:56→20:16)
[2017-06-04] MEDS: PANTOPRAZOLE SOD 40 MG TABEC PO SCH (08:56)
[2017-06-04] MEDS: TAMSULOSIN HCL 0.4 MG CAP PO SCH ×2 (08:56→20:17)
[2017-06-04] MEDS: VORTIOXETINE HYDROBROMIDE 20 MG TABLET PO SCH (08:57)
[2017-06-04] MEDS: ONDANSETRON 8 MG TAB PO SCH ×2 (08:57→20:16)
[2017-06-04] MEDS: ENOXAPARIN 30 MG/0.3 ML SYR SC SCH (08:57)
[2017-06-04] MEDS: POLYETHYLENE GLYCOL 17 GM PKT PO SCH (08:58)
[2017-06-04 11:07] VITALS: BP 121/1
[2017-06-04] MEDS: NS(*) 0.9% 1000 ML BAG 1,000 ML IV PRN (11:07)
--- NOTE | 2017-06-04 11:23 | RADIOLOGY IMAGING REPORT ---
FACILITY: [facility] PATIENT NAME: Jarret Aguilar : 1950 MR: [id number] V: [id number] EXAM DATE: ORDERING PHYSICIAN: MICHEAL HATCH TECHNOLOGIST: Location: [facility] [place] Patient: Jarret Aguilar : 1950 Visit/Account:[id number] Date of Sevice: 06/04/2017 CHEST/AB/PELV W/OUT CONTRAST History: Stage IV lung cancer right side. Technique: Thin axial CT images were obtained through the chest, abdomen and pelvis without the injec tion of intravenous contrast. Coronal and sagittal reformations were then created. One of the following dose optimization techniques was utilized in the performance of this exam: Autom ated exposure control; adjustment of the mA and/or kV according to the patient's size; or use of an i terative reconstruction technique. Specific details can be referenced in the facility's radiology C T exam operational policy. Comparison: CT scan May 08, 2017. Findings: Chest: Lower neck: There is a supraclavicular lymph node on the right side that measures 1.8 cm in size. It is likely related to the patient's known lung carcinoma. Thyroid gland/mediastinum/hilum/lymph nodes: The thyroid gland is unremarkable. There is significant right hilar and mediastinal lymphadenopathy. Right hilar lymphadenopathy may slightly compromises t he right upper lobe bronchus, but more peripheral lymphadenopathy also may compromise segmental bronc hi in the right upper lobe. Again noted is a large subcarinal lymph node measuring 3.2 x 2.4 cm in size. Other large lymph nodes are also noted in the kristen mass is confluent with adenopathy in the right hilum. Small lymph nodes are noted in the AP region. Heart and pericardium: There has been prior closure of an ASD or PFO. There is very significant thre e-vessel coronary calcification. There is no pericardial effusion. The heart size is probably withi n normal limits. Lungs/pleura: In general there is hyperinflation of the lungs and there are prominent findings of maxim tral lobar emphysema in the upper lung day bilaterally. Postobstructive pneumonia involving the r ight upper lobe again manifest as volume loss and parenchymal density. The parenchymal density is mo re prominent than was noted on the prior exam. The volume loss of the right upper lobe is stable. T here is new parenchymal density in the superior segment of the right lower lobe. There are again not ed to be patchy focal areas of groundglass density in the left upper lobe; they have progressed sligh tly. There is no new pleural effusion. Bones/soft tissues: There are no vertebral body compression fractures. Abdomen and pelvis: Hepatobiliary: On this noncontrast examination no liver lesions are seen and there is no biliary duct al dilatation. The gallbladder is unremarkable and there is no gallstone disease. Spleen: Negative. Adrenals: There is a 2.8 x 2.1 cm mass in the left adrenal gland that is very suspicious for metastat ic disease in this patient with known stage IV lung carcinoma. The right adrenal gland is unremarkab le. Pancreas: Negative. Kidneys/genitourinary: There is stranding around both kidneys suggestive of prior inflammatory insult but there is no nephrolithiasis, hydronephrosis or mass.. Bowel/peritoneum/mesentery: There is a normal appendix in the right lower quadrant. There are no dil ated loops of large or small bowel to suggest ileus or obstruction. Pelvis/genitourinary: The bladder is unremarkable. The prostate is enlarged. There is a small right inguinal hernia containing adipose tissue. Vessels: There is diffuse aphthous chronic calcification of the aorta and iliac vessels. There is no aneurysmal dilatation.. Lymph node: Negative. Body wall/bones: There is a lytic lesion in the right iliac crest that measures approximately 2.6 cm in size. It is highly suggestive of a metastatic lesion. No additional bony metastases are identifi ed. Air in the subcutaneous tissues of the right lower quadrant is likely rela ed to an injection. IMPRESSION:1. Stage IV lung carcinoma manifesting as right hilar and mediastinal lymphadenopathy. T here is postobstructive pneumonia involving the right upper lobe with volume loss. This has progress ed when compared to the previous study. 2. New infiltrate in the superior segment of the right lower lobe. Mild progression of previously n oted patchy groundglass densities in the left upper lobe. 3. Left adrenal metastasis without change. 4. Right iliac wing bone lytic metastasis. 5. Findings of hyperinflation and central lobar emphysema likely related to a previous history of sm oking. Prominence the central pulmonary vessels probably reflects findings of chronic pulmonary hype rtension. 6. Three-vessel coronary artery disease. Status post ASD or PFO closure in the heart. 7. BPH. Report Dictated By: Asif Iverson MD at 06/04/2017 11:00 AM Report E-Signed By: Asif Iverson MD at 06/04/2017 11:18 AM WSN:[email or web address]
[2017-06-04] MEDS: LORazepam 0.5 MG TAB PO PRN ×2 (11:24→20:17)
--- NOTE | 2017-06-04 12:32 | Hospitalist Progress Note ---
Subjective Progress Notes Subjective He reports feeling "a little swimmy-headed", but overall improved. No fevers. Physical Exam Vital Signs Date Time Temp Pulse Resp B/P (MAP) Pulse Ox O2 Delivery O2 Flow Rate FiO2 06/04/17 11:07 98.3 79 20 121/1 (41) 95 Nasal Cannula 2.0 General Appearance: Alert, Awake Cardiovascular: Regular Rate and Rhythm Respiratory: Other (fairly clear with a few scattered rhonchi) Chest: No Tenderness GI: Soft and Non-Tender Extremities: Warm, Perfused Result Diagram: 06/04/1736 06/04/17535 Assessment and Plan Problems: (1) Right upper lobe pneumonia Status: Acute Assessment & Plan: It appears he may have developed pneumonia shortly after discharge from extended care. He had been on multiple courses of antibiotics during his previous admission. His chest x-ray has shown worsening infiltrates from previous studies. We are currently treating him empirically with Primaxin (he did have vancomycin for a short time as well). Cultures have been negative to this point. Question if he may have worsening adenopathy/mass with or without a pneumonia (post-obstructive). Will check CT scan of chest/abd/pelvis to evaluate the current state of his malignancy. (2) Stage 4 lung cancer Status: Chronic Assessment & Plan: The patient was followed by the Cancer Center. He has elected to stop chemotherapy. Will re-evaluate the status of his malignancy. His port was removed during his previous admission due to infection. (3) Bloodstream infection due to portacath Status: Resolved Assessment & Plan: He completed a 14 day course of Vancomycin during his last admission. (4) Acute renal failure Assessment & Plan: He does have an elevated creatinine (1.5 today). We do have him on IV fluids and pharmacy has adjusted his medications. This developed while on ECF, so concerned about vancomycin as a cause. He had a normal renal US at that time. Will follow. Vancomycin has been stopped. Exam Sepsis Risk: No Definite Risk Problem Qualifiers (1) Right upper lobe pneumonia: Pneumonia type: due to unspecified organism Qualified Codes: J18.1 - Lobar pneumonia, unspecified organism (2) Stage 4 lung cancer: Laterality: right Qualified Codes: C34.91 - Malignant neoplasm of unspecified part of right bronchus or lung MICHEAL HATCH MD Jun 04, 2017 12:32
[2017-06-04 20:10] VITALS: BP 127/74
[2017-06-04] MEDS: AMITRIPTYLINE HCL 25 MG TAB PO SCH (20:16)
[2017-06-04] MEDS: LATANOPRO 0.005% OP SOLN 2.5ML OU SCH (20:17)
[2017-06-04 23:35] VITALS: BP 126/73
[2017-06-05] MEDS: IMIPENEM/CILASTA(*) 500MG VIAL 500 MG in NS(*) 0.9% 100 ML BAG 100 ML IVPB SCH ×2 (00:34→08:23)
[2017-06-05 03:35] VITALS: BP 119/74
[2017-06-05] MEDS: VORTIOXETINE HYDROBROMIDE 20 MG TABLET PO SCH (08:23)
[2017-06-05] MEDS: DOCUSATE SODIUM 100 MG CAP PO SCH ×2 (08:23→20:35)
[2017-06-05] MEDS: ENOXAPARIN 30 MG/0.3 ML SYR SC SCH (08:23)
[2017-06-05] MEDS: TAMSULOSIN HCL 0.4 MG CAP PO SCH ×2 (08:23→20:35)
[2017-06-05] MEDS: PANTOPRAZOLE SOD 40 MG TABEC PO SCH (08:24)
[2017-06-05] MEDS: MULTIVITAMINS TAB PO SCH (08:24)
[2017-06-05] MEDS: POLYETHYLENE GLYCOL 17 GM PKT PO SCH (08:24)
[2017-06-05] MEDS: ONDANSETRON 8 MG TAB PO SCH (08:24)
[2017-06-05] MEDS: GABAPENTIN 300 MG CAP PO SCH ×2 (08:24→20:35)
[2017-06-05] MEDS: CYANOCOBALAMIN 1000 MCG TAB PO SCH (08:24)
[2017-06-05] MEDS: FOLIC ACID 1 MG TAB PO SCH (08:24)
[2017-06-05] MEDS: CHOLECALCIFEROL 1000 UNIT TAB PO SCH (09:00)
[2017-06-05] MEDS ORDERED: LEVOFLOXACIN 750 MG TAB PO SCH (10:05)
[2017-06-05] MEDS: LORazepam 0.5 MG TAB PO PRN ×2 (12:13→20:35)
--- NOTE | 2017-06-05 16:26 | Hospitalist Progress Note ---
Subjective Progress Notes Subjective He is still reporting LE weakness. He is working with OT/PT. Physical Exam Vital Signs Date Time Temp Pulse Resp B/P (MAP) Pulse Ox O2 Delivery O2 Flow Rate FiO2 06/05/17 07:25 94 Nasal Cannula 3.0 06/05/17 03:35 97.8 65 20 119/74 (89) Intake and Output 06/06/17 07:00 Intake Total 2314 ml Balance 2314 ml Intake Oral 1240 ml IV Total 1074 ml # Voids 1 General Appearance: Alert, Awake, No Acute Distress Respiratory: Clear to Auscultation Extremities: No Edema Result Diagram: 06/04/1753506/04/17535 Assessment and Plan Problems: (1) Right upper lobe pneumonia Status: Acute Assessment & Plan: It appears he may have developed pneumonia shortly after discharge from extended care. He had been on multiple courses of antibiotics during his previous admission. His chest x-ray has shown worsening infiltrates from previous studies. We are currently treating him empirically with Primaxin (he did have vancomycin for a short time as well). Cultures have been negative to this point. CT of the chest/abd/pelvis showed a postobstructive pneumonia involving the RUL with volume loss that has progressed since the previous study and new infiltrate in the superior segment of the RLL. The patient is wanting to potentially go home tomorrow. He has been switched to oral Levofloxacin. Because he is opting not to have further cancer treatment, there is a good possibility that he is not going to clear the pneumonia. Potentially, he would benefit from chronic suppressive antibiotics. (2) Stage 4 lung cancer Status: Chronic Assessment & Plan: The patient was followed by the Cancer Center. He has elected to stop chemotherapy. Will re-evaluate the status of his malignancy. His port was removed during his previous admission due to infection. (3) Bloodstream infection due to portacath Status: Resolved Assessment & Plan: He completed a 14 day course of Vancomycin during his last admission. (4) Acute renal failure Assessment & Plan: He does have an elevated creatinine (1.5 today). We do have him on IV fluids and pharmacy has adjusted his medications. This developed while on ECF, so concerned about vancomycin as a cause. He had a normal renal US at that time. Will follow. Vancomycin has been stopped. Exam Sepsis Risk: No Definite Risk Problem Qualifiers (1) Right upper lobe pneumonia: Pneumonia type: due to unspecified organism Qualified Codes: J18.1 - Lobar pneumonia, unspecified organism (2) Stage 4 lung cancer: Laterality: right Qualified Codes: C34.91 - Malignant neoplasm of unspecified part of right bronchus or lung SATHYA EARL MD Jun 05, 2017 16:26
[2017-06-05 20:23] VITALS: BP 117/80
[2017-06-05] MEDS: AMITRIPTYLINE HCL 25 MG TAB PO SCH (20:35)
[2017-06-05] MEDS: LATANOPRO 0.005% OP SOLN 2.5ML OU SCH (20:36)
[2017-06-05] MEDS ORDERED: PROMETHAZINE 25 MG/ML 1 ML AMP IVP PRN (20:50)
[2017-06-06 03:40] VITALS: BP 101/75
[2017-06-06 06:02] LABS: PLATELET COUNT, AUTOMATED 226 K/uL (150-450)
--- NOTE | 2017-06-06 07:26 | Medical Nutrition Therapy ---
Nutrition Anthropometrics Height (Inches): 71.00 Height (Calculated Centimeters: 180.268545 Weight (Pounds): 186 Weight (Calculated Kilograms): 84.425 BMI Calculated: 25.94 Hx Weight Loss: No Nathen Nutrition Score: Probably Inadequate Nathen Nutrition Risk Score: 18 Dietary Referral Nutrition Risk Factors: Unplanned Loss >10lbs Nutrition Risk Comment: etoh Nutritional Diagnosis Nutritional Risk Acuity 1: Acute/ES Renal Nutritional Risk Acuity 2: Head/Neck/GI Cancer Nutritional Risk Acuity 3: Weight Loss, Cancer Nutritional Risk Acuity 4: Good Appetite Past Medical History: upper GI bleed, depression, HTN, malignant neoplasm of ear, stage 4 adenocarcinoma, alcohol abuse (hasn't drank in 4 years) Nutritional Acuity: 1-High Energy Requirement: 2604 ([place] [employer] 1.3) Protein Requirement: 83 (1g/kg) Fluid Requirement: 2490 (30mL/kg) Diet Type: Diet as Tolerated DOMINIQUE/REG Nutrition Intervention: Cont diet as ordered, Encourage intake Nutrition Monitoring & Eval Nutrition Goals: Eat 50-100% Meal RD Patient Assessment Time: [address] Assessment Type: RD Screen Patient Nutrition Acuity: 3-Mild Follow Up Date: Jun 05, 2017 Nutritional Comment: 06/02)Pt. was discharged 05/31 and readmitted 06/01 for extreme SOB,stated "feeling horrible all over" CXR showed RUL pneumonia. 06/02) alb 2.8, Cre 1.70. Regular diet, PO intake 100% x 1 meal. Pt has dx of CA with 4% wt loss last month. Will cont to monitor and encourage intake. 06/05)Pt. has improved. 06/04) Cre 1.5, Alb 2.8, Regular diet po intake 100% x 4 meals. Monitor wt, labs, po intake CURT MAYS Jun 05, 2017 14:19
[2017-06-06 08:27] VITALS: BP 129/88
[2017-06-06] MEDS: DOCUSATE SODIUM 100 MG CAP PO SCH (08:44)
[2017-06-06] MEDS: FOLIC ACID 1 MG TAB PO SCH (08:44)
[2017-06-06] MEDS: TAMSULOSIN HCL 0.4 MG CAP PO SCH (08:44)
[2017-06-06] MEDS: MULTIVITAMINS TAB PO SCH (08:44)
[2017-06-06] MEDS: PANTOPRAZOLE SOD 40 MG TABEC PO SCH (08:45)
[2017-06-06] MEDS: CYANOCOBALAMIN 1000 MCG TAB PO SCH (08:45)
[2017-06-06] MEDS: GABAPENTIN 300 MG CAP PO SCH (08:45)
[2017-06-06] MEDS: POLYETHYLENE GLYCOL 17 GM PKT PO SCH (08:46)
[2017-06-06] MEDS: ENOXAPARIN 30 MG/0.3 ML SYR SC SCH (08:46)
[2017-06-06] MEDS: VORTIOXETINE HYDROBROMIDE 20 MG TABLET PO SCH (08:46)
[2017-06-06] MEDS: LORazepam 0.5 MG TAB PO PRN (09:58)
--- NOTE | 2017-06-06 10:25 | Medical Nutrition Therapy ---
Nutrition Monitoring & Eval Nutrition Goals: Eat 50-100% Meal RD Patient Assessment Time: [address] Assessment Type: RD Screen Patient Nutrition Acuity: 3-Mild Follow Up Date: Jun 11, 2017 Nutritional Comment: 06/02)Pt. was discharged 05/31 and readmitted 06/01 for extreme SOB,stated "feeling horrible all over" CXR showed RUL pneumonia. 06/02) alb 2.8, Cre 1.70. Regular diet, PO intake 100% x 1 meal. Pt has dx of CA with 4% wt loss last month. Will cont to monitor and encourage intake. 06/05)Pt. has improved. 06/04) Cre 1.5, Alb 2.8, Regular diet po intake 100% x 4 meals. Monitor wt, labs, po intake CURT MAYS Jun 06, 2017 10:25
[2017-06-06] MEDS ORDERED: LEVO750T27 PO (10:59)
--- NOTE | 2017-06-06 11:10 | Hospitalist Depart ---
Discharge Summary Reason for Hosp/Final Diag: (1) Right upper lobe pneumonia Status: Acute Hospital Course & Plan: He did present with increased shortness of breath. His CT scan showed new findings, but was unclear if this showed infiltrates or worsening cancer. He did have an elevated WBC count and elected to treat empirically with Primaxin and Levofloxacin. He has an additional two doses to complete of Levofloxacin as an outpatient. (2) Stage 4 lung cancer Status: Chronic Hospital Course & Plan: The patient was followed by the Cancer Center. He has elected to stop chemotherapy. His port was removed during his previous admission due to infection. (3) Bloodstream infection due to portacath Status: Resolved Hospital Course & Plan: He completed a 14 day course of Vancomycin during his last admission. (4) Acute renal failure Hospital Course & Plan: He does have an elevated creatinine. This was improved with IV fluids. Departure Weight (Pounds): 186 Weight (Ounces): 2.0 Result Diagram: 06/06/1753306/06/17533 Condition: Improved Discharge: Home, Home Health PT/OT Follow Up For: PT For Strengthening, OT For ADL's Discharge Code Status: DNR, DNI Discharge Instructions Home Meds Active Scripts Levofloxacin 750 Mg Tab (LEVOFLOXACIN 750 MG TAB) 750 Mg Tablet, 750 MG PO Q48H@ 1000, #2 TAB 0 Refills Prov:KEVIN GORDON DO 06/06/17 Lorazepam (LORAZEPAM) 0.5 Mg Tablet, 0.5 MG PO Q8H Y for ANXIETY, #30 TAB 0 Refills Prov:MICHEAL HATCH MD 05/31/17 Oxycodone Hcl/Acet 5/325 Mg (ENDOCET 5-325 TABLET) 1 Each Tablet, 1 EACH PO Q4- 6H Y for PAIN, #45 TAB Prov:JAE NUNO SUGAR MIXER-BC, ONC 03/27/17 Oxycodone Hcl (OXYCONTIN) 10 Mg Tab.er.12h, 10 MG PO Q12H, #60 TAB Prov:JAE NUNO SUGAR MIXER-BC, ONC 03/11/17 Reported Medications Esomeprazole Magnesium (Esomeprazole Magnesium) 40 Mg Capsule.dr, 1 CAP PO DAILY 05/28/17 Vortioxetine Hydrobromide (Brintellix) 20 Mg Tablet, 1 TAB PO DAILY 05/28/17 Gabapentin (GABAPENTIN) 300 Mg Capsule, 300 MG PO BID, CAPSULE 01/31/17 Amitriptyline Hcl (AMITRIPTYLINE HCL) 75 Mg Tablet, 75 MG PO QHS, #5 TAB 01/01/17 Cyanocobalamin (Vitamin B-12) (VITAMIN B-12) 1,000 Mcg Tablet.er, 1000 MCG PO DAILY 04/11/16 Cholecalciferol (Vitamin D3) (VITAMIN D) 2,000 Unit Capsule, 2000 UNIT PO 2XW, CAPSULE 04/11/16 Latanoprost (LATANOPROST) 2.5 Ml Drops, 2.5 ML OP HS 04/11/16 Folic Acid (FOLIC ACID) 1 Mg Tablet, 1 MG PO DAILY 05/26/13 Multivit, Min No.21/Folic Acid (SUPERVITE EC CAPLET) 1 Mg Tablet.dr, 1 MG PO 05/26/13 Tamsulosin Hcl (Flomax) 0.4 Mg Cap, 0.4 MG PO QDAY, #30 2 Refills 04/09/11 Discontinued Reported Medications Meclizine Hcl (MECLIZINE HCL) 25 Mg Tablet, 1 TAB PO TID Y for DIZZINESS 05/28/17 Discontinued Scripts Ondansetron Hcl (ZOFRAN) 8 Mg Tablet, 8 MG PO Q12H, #30 TAB 1 Refill Prov:JAE NUNO, ONC 04/17/16 Diet: Regular Activity: As Tolerated Copies to: JAE NUNO, ONC Venous Thromboembolism Antithrombotics Is Pt On Any Antithrombotics?: Yes [id number] Certification Face to Face Home Health Certification Institutional Provider conducted the [id number] encounter. Electronic Undersigning Physician Certifies Home Health. I certify that the patient has been under my care and that I had a [id number] encounter that meets the physician [id number] encounter requirements with this patient. This patient is home-bound due to safety issues and continues to require assistance with ADL's. I certify that based on my findings, that Nursing, Aides and the following Home Health services are medically necessary: Medical Necessity: Nursing, Rehab Date Face to Face Conducted: Jun 06, 2017 Problem Qualifiers (1) Right upper lobe pneumonia: Pneumonia type: due to unspecified organism Qualified Codes: J18.1 - Lobar pneumonia, unspecified organism (2) Stage 4 lung cancer: Laterality: right Qualified Codes: C34.91 - Malignant neoplasm of unspecified part of right bronchus or lung KEVIN GORDON DO Jun 06, 2017 11:10
[2017-06-06 11:47] VITALS: BP 154/92
[2017-06-06] MEDS ORDERED: ONDANSETRON 4 MG TAB PO PRN (12:00)
[2017-06-09] MEDS ORDERED: OXYC-823 PO (15:23)
[2017-06-09] MEDS ORDERED: OXYC-854 PO (15:23)
== END 2017-06-06 14:00 | disposition home health service (06) | DRG 194 ==
LOC: ER 14:46 → MED 18:30
PROVIDERS: ADMIT Internal Medicine; ATTEND Internal Medicine
DX: J18.1 Lobar pneumonia, unspecified organism (principal); C34.91 Malignant neoplasm of unspecified part of right bronchus or lung; N17.9 Acute kidney failure, unspecified; C79.2 Secondary malignant neoplasm of skin; C79.51 Secondary malignant neoplasm of bone; J44.0 Chronic obstructive pulmonary disease with (acute) lower respiratory infection; I10 Essential (primary) hypertension; F32.9 Major depressive disorder, single episode, unspecified; F17.210 Nicotine dependence, cigarettes, uncomplicated; K21.9 Gastro-esophageal reflux disease without esophagitis; T36.8X5A Adverse effect of other systemic antibiotics, initial encounter; F10.11 Alcohol abuse, in remission; Y92.230 Patient room in hospital as the place of occurrence of the external cause; Z92.21 Personal history of antineoplastic chemotherapy; Z88.8 Allergy status to other drugs, medicaments and biological substances; I25.2 Old myocardial infarction; Z91.5 Personal history of self-harm
CPT/HCPCS: 36415; 71045; 71046; 71250; 74176; 80202; 81001; 82040; 82247; 82310; 82374; 82435; 82565; 82947; 83880; 84075; 84132; 84155; 84295; 84450; 84460; 84484; 84520; 85025; 87040; 87088; 93005; 94640; 96365; 96375; 97161; 97165; 99285; J0743; J1650; J2060; J2405; J2543; J2550; J3370; J7030; J7050; S0119

== ENCOUNTER 2017-06-16 17:17 | Inpatient (IN) | payer MEDICARE ==
[~2017-06-16] VITALS: Ht 180.3 cm; Wt 80.3 kg
--- NOTE | 2017-06-16 17:19 | ER Report ---
History and Physical Time Seen By MD: 17:18 Hx. 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 Carboplatin recieved again on 03/04/17 200 of the 500mls recieved and patient began to cough, experienced dizziness, nausea and short of breath, rapid response was called and patient was taken to the ER. Carboplatin recieved for th 3rd time on03/26/17 and patient recived around 75mls of the drug and began to experience the same symptoms as above. Home Meds Active Scripts Oxycodone Hcl/Acet 5/325 Mg (ENDOCET 5-325 TABLET) 1 Each Tablet, 1 EACH PO Q4- 6H Y for PAIN, #45 TAB Prov:JAE NUNO SLOT ROUTER-BC, ONC 06/09/17 Oxycodone Hcl (OXYCONTIN) 10 Mg Tab.er.12h, 10 MG PO Q12H, #60 TAB Prov:JAE NUNO SLOT ROUTER-BC, ONC 06/09/17 Levofloxacin 750 Mg Tab (LEVOFLOXACIN 750 MG TAB) 750 Mg Tablet, 750 MG PO Q48H@ 1000, #2 TAB 0 Refills Prov:KEVIN GORDON DO 06/06/17 Lorazepam (LORAZEPAM) 0.5 Mg Tablet, 0.5 MG PO Q8H Y for ANXIETY, #30 TAB 0 Refills Prov:MICHEAL HATCH MD 05/31/17 Reported Medications Esomeprazole Magnesium (Esomeprazole Magnesium) 40 Mg Capsule.dr, 1 CAP PO DAILY 05/28/17 Vortioxetine Hydrobromide (Brintellix) 20 Mg Tablet, 1 TAB PO DAILY 05/28/17 Gabapentin (GABAPENTIN) 300 Mg Capsule, 300 MG PO BID, CAPSULE 01/31/17 Amitriptyline Hcl (AMITRIPTYLINE HCL) 75 Mg Tablet, 75 MG PO QHS, #5 TAB 01/01/17 Cyanocobalamin (Vitamin B-12) (VITAMIN B-12) 1,000 Mcg Tablet.er, 1000 MCG PO DAILY 04/11/16 Cholecalciferol (Vitamin D3) (VITAMIN D) 2,000 Unit Capsule, 2000 UNIT PO 2XW, CAPSULE 04/11/16 Latanoprost (LATANOPROST) 2.5 Ml Drops, 2.5 ML OP HS 04/11/16 Folic Acid (FOLIC ACID) 1 Mg Tablet, 1 MG PO DAILY 05/26/13 Multivit, Min No.21/Folic Acid (SUPERVITE EC CAPLET) 1 Mg Tablet.dr, 1 MG PO 05/26/13 Tamsulosin Hcl (Flomax) 0.4 Mg Cap, 0.4 MG PO QDAY, #30 2 Refills 04/09/11 Past Medical/Surgical History History of ear cancer with radiation, peripheral artery disease, stage IV lung cancer, COPD, CPAP with oxygen at 2-1/2 L, gastroparesis, Reviewed Nurses Notes: Yes Old Medical Records Reviewed: Yes Hx Smoking: Yes Smoking Status: Current: Every Day Smoker Exposure to Second Hand Smoke?: Yes (Patient smokes 1 1/2 packs daily for forty -three years.) Hx Substance Use Disorder: No Hx Alcohol Use: Yes Family History of: Cancer Constitutional Vital Sign - Last 24 Hours 06/16/17 06/16/17 06/16/17 06/16/17 17:17 17:20 17:22 17:30 Temp 98.6 Pulse ??? 98 Resp 28 B/P (MAP) 128/100 128/100 (109) 129/108 (115) Pulse Ox 98 O2 Delivery Room Air 06/16/17 06/16/17 06/16/17 06/16/17 17:32 17:38 17:47 17:55 Pulse 102 98 85 90 Resp 28 20 Pulse Ox 99 100 06/16/17 06/16/17 06/16/17 06/16/17 18:00 18:02 18:17 18:22 Pulse 88 93 85 Resp 81 22 B/P (MAP) 133/93 (106) Pulse Ox 100 100 06/16/17 06/16/17 06/16/17 06/16/17 18:28 18:30 18:37 18:42 Pulse 88 89 Resp 30 23 B/P (MAP) ???/??? (3617) O2 Flow Rate 3.0 06/16/17 06/16/17 06/16/17 06/16/17 19:12 19:17 19:30 19:32 Pulse 89 85 82 B/P (MAP) 148/108 (121) Pulse Ox 98 99 99 06/16/17 06/16/17 06/16/17 19:47 20:00 20:30 B/P (MAP) 134/100 (111) 124/109 (114) Pulse Ox 95 Intake and Output 06/16/17 06/16/17 06/17/17 15:00 23:00 07:00 Intake Total 1000 ml Balance 1000 ml Physical Exam 67-year-old male alert anxious mild distress HEENT has normocephalic atraumatic impingement membranes are non-reddened throat is non-reddened X membranes are dry neck is supple no JVD heart rate is tachycardic murmurs rubs or gallops lungs decreased bilateral bases scattered rales in the right lower base abdomen is soft bowel sounds 4 moves all extremities no peripheral edema Medical Decision Making Data Points Result Diagram: 06/16/17 1712 06/16/17 1712 Laboratory Hematology Test 06/16/17 17:12 06/16/17 17:51 06/16/17 18:20 Red Blood Count 3.81 M/uL (4.00-5.60) Mean Corpuscular Volume 94.6 fL (80.0-96.0) Mean Corpuscular Hemoglobin 32.0 pg (26.0-33.0) Mean Corpuscular Hemoglobin Concent 33.9 g/dL (32.0-36.0) Red Cell Distribution Width 19.8 % (11.5-14.5) Mean Platelet Volume 7.7 fL (7.2-11.1) Neutrophils (%) (Auto) 74.1 % (39.4-72.5) Lymphocytes (%) (Auto) 9.5 % (17.6-49.6) Monocytes (%) (Auto) 13.1 % (4.1-12.4) Eosinophils (%) (Auto) 2.6 % (0.4-6.7) Basophils (%) (Auto) 0.7 % (0.3-1.4) Nucleated RBC Relative Count (auto) 0.1 /100WBC Neutrophils # (Auto) 8.0 K/uL (2.0-7.4) Lymphocytes # (Auto) 1.0 K/uL (1.3-3.6) Monocytes # (Auto) 1.4 K/uL (0.3-1.0) Eosinophils # (Auto) 0.3 K/uL (0.0-0.5) Basophils # (Auto) 0.1 K/uL (0.0-0.1) Nucleated RBC Absolute Count (auto) 0.01 K/uL Prothrombin Time 13.3 seconds (12.0-14.4) Prothromb Time International Ratio 1.01 Activated Partial Thromboplast Time 31 seconds (23-35) Sodium Level 136 mmol/L (137-145) Potassium Level 3.7 mmol/L (3.5-5.0) Chloride Level 96 mmol/L (98-107) Carbon Dioxide Level 22 mmol/L (22-30) Blood Urea Nitrogen 13 mg/dl (9-21) Creatinine 1.30 mg/dl (0.66-1.25) Glomerular Filtration Rate Calc 54.9 Random Glucose 92 mg/dl (75-110) Calcium Level 10.0 mg/dl (8.4-10.2) Magnesium Level 1.8 mg/dl (1.7-2.2) Total Bilirubin 1.0 mg/dl (0.2-1.3) Aspartate Amino Transf (AST/SGOT) 26 U/L (0-35) Alanine Aminotransferase (ALT/SGPT) 33 U/L (0-56) Alkaline Phosphatase 108 U/L (0-126) Troponin I < 0.012 ng/ml B-Type Natriuretic Peptide 107 pg/ml (0-100) Total Protein 8.1 gm/dl (6.3-8.2) Albumin 4.2 g/dl (3.5-5.0) Venous Blood pH 7.51 (7.31-7.41) Lactate 2.4 mmol/L (0.7-2.1) Urine Color Yellow Urine Clarity Clear Urine pH 7.0 pH (4.8-9.5) Urine Specific Laurel 1.005 Urine Protein Negative mg/dL (NEGATIVE) Urine Glucose (UA) Negative mg/dL (NEGATIVE) Urine Ketones Trace mg/dL (NEGATIVE) Urine Blood Negative (NEGATIVE) Urine Nitrite Negative (NEGATIVE) Urine Bilirubin Negative (NEGATIVE) Urine Urobilinogen Negative mg/dL (0.2-1.9) Urine Leukocyte Esterase Negative (NEGATIVE) Urine RBC None /HPF (0-2/HPF) Urine WBC 1 /HPF (0-5/HPF) Urine Squamous Epithelial Cells Few /LPF (</=FEW) Urine Bacteria Negative /HPF (NONE-FEW) Urine Mucus None /HPF (NONE-FEW) Chemistry Test 06/16/17 17:12 06/16/17 17:51 06/16/17 18:20 White Blood Count 10.7 k/uL (4.5-11.0) Red Blood Count 3.81 M/uL (4.00-5.60) Hemoglobin 12.2 g/dL (14.0-18.0) Hematocrit 36.0 % (42.0-52.0) Mean Corpuscular Volume 94.6 fL (80.0-96.0) Mean Corpuscular Hemoglobin 32.0 pg (26.0-33.0) Mean Corpuscular Hemoglobin Concent 33.9 g/dL (32.0-36.0) Red Cell Distribution Width 19.8 % (11.5-14.5) Platelet Count 264 K/uL (150-450) Mean Platelet Volume 7.7 fL (7.2-11.1) Neutrophils (%) (Auto) 74.1 % (39.4-72.5) Lymphocytes (%) (Auto) 9.5 % (17.6-49.6) Monocytes (%) (Auto) 13.1 % (4.1-12.4) Eosinophils (%) (Auto) 2.6 % (0.4-6.7) Basophils (%) (Auto) 0.7 % (0.3-1.4) Nucleated RBC Relative Count (auto) 0.1 /100WBC Neutrophils # (Auto) 8.0 K/uL (2.0-7.4) Lymphocytes # (Auto) 1.0 K/uL (1.3-3.6) Monocytes # (Auto) 1.4 K/uL (0.3-1.0) Eosinophils # (Auto) 0.3 K/uL (0.0-0.5) Basophils # (Auto) 0.1 K/uL (0.0-0.1) Nucleated RBC Absolute Count (auto) 0.01 K/uL Prothrombin Time 13.3 seconds (12.0-14.4) Prothromb Time International Ratio 1.01 Activated Partial Thromboplast Time 31 seconds (23-35) Glomerular Filtration Rate Calc 54.9 Calcium Level 10.0 mg/dl (8.4-10.2) Magnesium Level 1.8 mg/dl (1.7-2.2) Total Bilirubin 1.0 mg/dl (0.2-1.3) Aspartate Amino Transf (AST/SGOT) 26 U/L (0-35) Alanine Aminotransferase (ALT/SGPT) 33 U/L (0-56) Alkaline Phosphatase 108 U/L (0-126) Troponin I < 0.012 ng/ml B-Type Natriuretic Peptide 107 pg/ml (0-100) Total Protein 8.1 gm/dl (6.3-8.2) Albumin 4.2 g/dl (3.5-5.0) Venous Blood pH 7.51 (7.31-7.41) Lactate 2.4 mmol/L (0.7-2.1) Urine Color Yellow Urine Clarity Clear Urine pH 7.0 pH (4.8-9.5) Urine Specific Laurel 1.005 Urine Protein Negative mg/dL (NEGATIVE) Urine Glucose (UA) Negative mg/dL (NEGATIVE) Urine Ketones Trace mg/dL (NEGATIVE) Urine Blood Negative (NEGATIVE) Urine Nitrite Negative (NEGATIVE) Urine Bilirubin Negative (NEGATIVE) Urine Urobilinogen Negative mg/dL (0.2-1.9) Urine Leukocyte Esterase Negative (NEGATIVE) Urine RBC None /HPF (0-2/HPF) Urine WBC 1 /HPF (0-5/HPF) Urine Squamous Epithelial Cells Few /LPF (</=FEW) Urine Bacteria Negative /HPF (NONE-FEW) Urine Mucus None /HPF (NONE-FEW) Coagulation Test 06/16/17 17:12 Prothrombin Time 13.3 seconds Prothromb Time International Ratio 1.01 Activated Partial Thromboplast Time 31 seconds Urinalysis Test 06/16/17 18:20 Urine Color Yellow Urine Clarity Clear Urine pH 7.0 pH (4.8-9.5) Urine Specific Laurel 1.005 Urine Protein Negative mg/dL (NEGATIVE) Urine Glucose (UA) Negative mg/dL (NEGATIVE) Urine Ketones Trace mg/dL (NEGATIVE) Urine Blood Negative (NEGATIVE) Urine Nitrite Negative (NEGATIVE) Urine Bilirubin Negative (NEGATIVE) Urine Urobilinogen Negative mg/dL (0.2-1.9) Urine Leukocyte Esterase Negative (NEGATIVE) Urine RBC None /HPF (0-2/HPF) Urine WBC 1 /HPF (0-5/HPF) Urine Squamous Epithelial Cells Few /LPF (</=FEW) Urine Bacteria Negative /HPF (NONE-FEW) Urine Mucus None /HPF (NONE-FEW) EKG/Imaging EKG Interpretation EKG at 1734 sinus rhythm with a right bundle branch block noted twice fascicular block ventricular rate 89 QTCs 518 this is unchanged from prior admission Imaging [place]AC[place] [facility] [place]IENT NAME: Jarret Aguilar : 1950 MR: [id number] V: [id number] EXAM DATE: [id number] ORDERING PHYSICIAN: MILES MARROQUIN TECHNOLOGIST: [place] [facility] [place]: Jarret Aguilar : 1950 Visit/Account:[id number] Date of Sevice: 06/16/2017 Examination: CHEST SINGLE AP Comparison: 06/04/2017 and earlier History: Respiratory distress. Lung cancer. Findings: Background chronic lung disease. Right upper lobe ill-defined consolidation has slightly increased in the interval. No other new or enlarging consolidation. No pneumothorax or effusion. Cardiac and hilar contour size is unchanged. No acute osseous normality. IMPRESSION: Increased right upper lung consolidation is most suspicious for worsening pneumonia although metastatic disease progression is a possibility. Report Dictated By: Kd Madera MD at 06/16/2017 6:04 PM Report E-Signed By: Kd Madera MD at 06/16/2017 6:07 PM WSN:[id number]: [facility] [place]IENT NAME: Jarret Aguilar : 1950 MR: [id number] V: [id number] EXAM DATE: [id number] ORDERING PHYSICIAN: MILES MARROQUIN TECHNOLOGIST: [place] [facility] [place] Patient: Jarret Aguilar : 1950 Visit/Account:[id number] Date of Sevice: 06/16/2017 EXAMINATION: CT chest without IV contrast HISTORY: Lung cancer, shortness of breath, cough TECHNIQUE: CT was obtained through the chest without intravenous contrast. Sagittal and coronal MPR reformatted images were generated. One of the following dose optimization techniques was utilized in the performance of this exam: automated exposure control; adjustment of the mA and/ or kV according to patient size; or use of iterative reconstruction technique. Specific details can be referenced in the facility's radiology CT exam operational policy. COMPARISON: June 04, 2017 CT, June 16, 2017 chest radiograph FINDINGS: Lower neck: Normal. Heart / pericardium/aorta/great vessels: Coronary artery calcifications. Mediastinum: Normal. Lymph node assessment: Right hilar enlarged lymph node versus mass measuring approximately 3.2 cm AP dimension, axial image 40 is unchanged. Pleura: Trace unchanged loculated fluid along the right lateral upper chest. Loculated fluid along the right minor fissure has slightly increased. Lungs: Unchanged mild to moderate pulmonary fibrosis. Unchanged 1.2 cm left lower lobe nodule, image 46. Right lower lobe superior segment consolidation with air bronchograms similar to prior. Right upper lobe consolidation has increased. Emphysematous cystic spaces noted in the region of consolidation. Hyperexpanded right middle lobe. Upper abdomen: Unchanged left adrenal gland metastasis. Chest wall: Normal. Musculoskeletal: No fracture or osseous destruction. IMPRESSION: 1. Increased right upper lobe consolidation concerning for worsening pneumonia. 2. Right hilar region mass versus adenopathy measuring up to 3.2 cm as before. 3. Loculated fluid along the right minor fissure has slightly increased. 4. Unchanged pulmonary fibrosis. Report Dictated By: Reji Barragan MD at 06/16/2017 7:28 PM Report E-Signed By: Reji Barragan MD at 06/16/2017 7:41 PM WSN:[id number] ED Course/Re-evaluation Clinical Indication for ER IV: Hydration ED Course IV normal saline at 100 mL an hour in the emergency room did receive 125 of Solu -Medrol IV push dual neb times one that this patient was released on the with a right upper lobe pneumonia this pneumonia appears to be getting worse with worsening loculated fluid did talk to Dr. Rene Nichols he did agree to admit this patient and will decide on anabiotic choices. Dr. Nichols S note that they are going to wait on antibiotics at this time Re-evaluation Talk to Dr. Rene Nichols he agrees to admit this patient with worsening pneumonia Decision to Disposition Date: Jun 16, 2017 Decision to Disposition Time: 20:38 Depart Departure Latest Vital Signs Vital Signs Date Time Temp Pulse Resp B/P (MAP) Pulse Ox O2 Delivery O2 Flow Rate FiO2 06/16/17 20:30 124/109 (114) 06/16/17 19:47 95 06/16/17 19:32 82 06/16/17 18:42 23 06/16/17 18:28 3.0 06/16/17 17:20 98.6 Room Air Core Temperature (Celsius): 36.39 Impression: Primary Impression: Stage 4 lung cancer Additional Impressions: Right upper lobe pneumonia Shortness of breath Weakness generalized Condition: Improved Disposition: Admitted from ER Referrals: AHSAN KOTHARI (PCP) Core Measures Addressed: CAP Cap Core Measurers: Blood Cult prior to Abx Problem Qualifiers MILES MARROQUIN Jun 16, 2017 17:19
[2017-06-16] MEDS ORDERED: NS(*) 0.9% 1000 ML BAG 1,000 ML IV ONE (17:26)
[2017-06-16] MEDS ORDERED: ALBUTEROL/IPRATROPIUM 3 ML NEB NEB ONE (17:30)
[2017-06-16] MEDS ORDERED: ONDANSETRON 4 MG/2 ML VIAL ONE (17:31)
[2017-06-16] MEDS ORDERED: ONDANSETRON 4 MG/2 ML VIAL IVP ONE (17:35)
[2017-06-16] MEDS ORDERED: methylPREDNIS SUCC 125 MG/2ML IVP ONE (17:35)
[2017-06-16 17:39] LABS: PLATELET COUNT, AUTOMATED 264 K/uL (150-450)
[2017-06-16 17:47] LABS: INR 1.01
[2017-06-16] MEDS ORDERED: LORazepam 2 MG/ML VIAL IVP ONE (17:50)
--- NOTE | 2017-06-16 17:58 | EKG ---
FACILITY: [facility] PATIENT NAME: PAT DELANEY : [id number] MR: [id number] V: [id number] EXAM DATE: ORDERING PHYSICIAN: MILES MARROQUIN TECHNOLOGIST: SYLVESTER Harris Reason : SOB Blood Pressure : / mmHG Vent. Rate : 089 BPM Atrial Rate : 089 BPM P-R Int : 186 ms QRS Dur : 140 ms QT Int : 426 ms P-R-T Axes : 067 -63 047 degrees QTc Int : 518 ms Normal sinus rhythm Right bundle branch block Left anterior fascicular block Bifascicular block Abnormal ECG When compared with ECG of 01-JUN-2017 14:48, No significant change was found Confirmed by SATHYA EARL ([id number]) on 06/16/2017 10:58:43 PM Referred By: JOSE Confirmed By:SATHYA EARL
--- NOTE | 2017-06-16 18:10 | RADIOLOGY IMAGING REPORT ---
FACILITY: [facility] - [place] PATIENT NAME: Jarret Aguilar : 1950 MR: [id number] V: [id number] EXAM DATE: ORDERING PHYSICIAN: MILES MARROQUIN TECHNOLOGIST: Location: [facility] Patient: Jarret Aguilar : 1950 Visit/Account:[id number] Date of Sevice: 06/16/2017 Examination: CHEST SINGLE AP Comparison: 06/04/2017 and earlier History: Respiratory distress. Lung cancer. Findings: Background chronic lung disease. Right upper lobe ill-defined consolidation has slightly in creased in the interval. No other new or enlarging consolidation. No pneumothorax or effusion. Cardia c and hilar contour size is unchanged. No acute osseous normality. IMPRESSION: Increased right upper lung consolidation is most suspicious for worsening pneumonia although metastat ic disease progression is a possibility. Report Dictated By: Kd Madera MD at 06/16/2017 6:04 PM Report E-Signed By: Kd Madera MD at 06/16/2017 6:07 PM WSN:[id number]
--- NOTE | 2017-06-16 19:46 | RADIOLOGY IMAGING REPORT ---
[place] [facility] [place] NAME: Jarret Aguilar : 1950 MR: [id number] V: [id number] EXAM DATE: ORDERING PHYSICIAN: MILES MARROQUIN TECHNOLOGIST: Location: [facility] Patient: Jarret Aguilar : 1950 Visit/Account:[id number] Date of Sevice: 06/16/2017 EXAMINATION: CT chest without IV contrast HISTORY: Lung cancer, shortness of breath, cough TECHNIQUE: CT was obtained through the chest without intravenous contrast. Sagittal and coronal MP R reformatted images were generated. One of the following dose optimization techniques was utilized in the performance of this exam: autom ated exposure control; adjustment of the mA and/or kV according to patient size; or use of iterative reconstruction technique. Specific details can be referenced in the facility's radiology CT exam ope rational policy. COMPARISON: June 04, 2017 CT, June 16, 2017 chest radiograph FINDINGS: Lower neck: Normal. Heart / pericardium/aorta/great vessels: Coronary artery calcifications. Mediastinum: Normal. Lymph node assessment: Right hilar enlarged lymph node versus mass measuring approximately 3.2 cm AP dimension, axial image 40 is unchanged. Pleura: Trace unchanged loculated fluid along the right lateral upper chest. Loculated fluid along th e right minor fissure has slightly increased. Lungs: Unchanged mild to moderate pulmonary fibrosis. Unchanged 1.2 cm left lower lobe nodule, image 46. Right lower lobe superior segment consolidation with air bronchograms similar to prior. Right up per lobe consolidation has increased. Emphysematous cystic spaces noted in the region of consolidatio n. Hyperexpanded right middle lobe. Upper abdomen: Unchanged left adrenal gland metastasis. Chest wall: Normal. Musculoskeletal: No fracture or osseous destruction. IMPRESSION: 1. Increased right upper lobe consolidation concerning for worsening pneumonia. 2. Right hilar region mass versus adenopathy measuring up to 3.2 cm as before. 3. Loculated fluid along the right minor fissure has slightly increased. 4. Unchanged pulmonary fibrosis. Report Dictated By: Reji Barragan MD at 06/16/2017 7:28 PM Report E-Signed By: Reji Barragan MD at 06/16/2017 7:41 PM WSN:[id number]
[2017-06-16 21:15] VITALS: BP 173/98
[2017-06-16 21:45] VITALS: BP 154/90
[2017-06-16] MEDS ORDERED: ALBUTEROL 2.5 MG/3 ML NEB NEB PRN (21:55)
--- NOTE | 2017-06-16 22:08 | History & Physical ---
History of Present Illness History of Present Illness 67yo male with stage 4 lung cancer and post-obstructive pneumonia who presented to the ER with weakness and SOB. He was discharged 10 days ago from inpatient for a post-obstructive pneumonia. He was sent out on Levofloxacin. He reportedly did well for awhile, but progressively weakened such that he could barely walk. He also reports progressive SOB over the last couple of days. He does admit to smoking since being discharged. In the ER, he received SoluMedrol, Lorazepam, Zofran and a DuoNeb. History Other Past Medical Hx I cannot enter through the problem list. Stage 4 lung cancer Post-obstructive pneumonia Depression H/o GI Bleed BPH Renal Failure Home Meds Active Scripts Oxycodone Hcl/Acet 5/325 Mg (ENDOCET 5-325 TABLET) 1 Each Tablet, 1 EACH PO Q4- 6H Y for PAIN, #45 TAB Prov:JAE NUNO ADMINISTRATIVE SUPPORT MANAGER-BC, ONC 06/09/17 Oxycodone Hcl (OXYCONTIN) 10 Mg Tab.er.12h, 10 MG PO Q12H, #60 TAB Prov:JAE NUNO ADMINISTRATIVE SUPPORT MANAGER-BC, ONC 06/09/17 Levofloxacin 750 Mg Tab (LEVOFLOXACIN 750 MG TAB) 750 Mg Tablet, 750 MG PO Q48H@ 1000, #2 TAB 0 Refills Prov:KEVIN GORDON DO 06/06/17 Lorazepam (LORAZEPAM) 0.5 Mg Tablet, 0.5 MG PO Q8H Y for ANXIETY, #30 TAB 0 Refills Prov:MICHEAL HATCH MD 05/31/17 Reported Medications Esomeprazole Magnesium (Esomeprazole Magnesium) 40 Mg Capsule.dr, 1 CAP PO DAILY 05/28/17 Vortioxetine Hydrobromide (Brintellix) 20 Mg Tablet, 1 TAB PO DAILY 05/28/17 Gabapentin (GABAPENTIN) 300 Mg Capsule, 300 MG PO BID, CAPSULE 01/31/17 Amitriptyline Hcl (AMITRIPTYLINE HCL) 75 Mg Tablet, 75 MG PO QHS, #5 TAB 01/01/17 Cyanocobalamin (Vitamin B-12) (VITAMIN B-12) 1,000 Mcg Tablet.er, 1000 MCG PO DAILY 04/11/16 Cholecalciferol (Vitamin D3) (VITAMIN D) 2,000 Unit Capsule, 2000 UNIT PO 2XW, CAPSULE 04/11/16 Latanoprost (LATANOPROST) 2.5 Ml Drops, 2.5 ML OP HS 04/11/16 Folic Acid (FOLIC ACID) 1 Mg Tablet, 1 MG PO DAILY 05/26/13 Multivit, Min No.21/Folic Acid (SUPERVITE EC CAPLET) 1 Mg Tablet.dr, 1 MG PO 05/26/13 Tamsulosin Hcl (Flomax) 0.4 Mg Cap, 0.4 MG PO QDAY, #30 2 Refills 04/09/11 Allergies: Coded Allergies: carboplatin (Verified Allergy, Severe, ANAPHYLAXIS, 06/16/17) Carboplatin recieved on 02/11/17 no reaction after receiving full dose. Carboplatin recieved again on 03/04/17 200 of the 500mls recieved and patient began to cough, experienced dizziness, nausea and short of breath, rapid response was called and patient was taken to the ER. Carboplatin recieved for th 3rd time on03/26/17 and patient recived around 75mls of the drug and began to experience the same symptoms as above. Patient History: Anxiety disorder MOTHER, , Age:51 FH: depression MOTHER, , Age:51 FH: emphysema FATHER, , Age:72 Pulmonary fibrosis BROTHER OR SISTER Hx Smoking: Yes Smoking Status: Current: Every Day Smoker Exposure to Second Hand Smoke?: Yes (Patient smokes 1 1/2 packs daily for forty -three years.) Caffeine Intake: Coffee Caffeine/Cups Per Day: 2 Hx Alcohol Use: Yes Hx Substance Use Disorder: No Social Drug Use: Never Social Drugs: Marijuana Amount Of Social Drug/s Used: a couple times in college Review of Systems All Systems Reviewed/Normal: Yes, Except as Noted Exam Vital Signs Vital Signs Date Time Temp Pulse Resp B/P (MAP) Pulse Ox O2 Delivery O2 Flow Rate FiO2 06/16/17 20:30 124/109 (114) 06/16/17 19:47 95 06/16/17 19:32 82 06/16/17 18:42 23 06/16/17 18:28 3.0 06/16/17 17:20 98.6 Room Air General Appearance: Alert, Awake, Other (Appears anxious and pale. Normal wob. He smells like cigarettes) Neuro: No Gross deficits Eyes: PERRLA ENT: Moist Mucous Membranes Cardiovascular: Regular Rate and Rhythm Respiratory: Clear to Auscultation GI: Abd Soft and Non-Tender Extremities: No Edema Medical Decision Making Data Points Result Diagram: 06/16/17 17106/16/17 171 Item Value Date Time Lymphocytes (%) (Auto) 9.5 % L 06/16/17 171 Monocytes (%) (Auto) 13.1 % H 06/16/17 171 Eosinophils (%) (Auto) 2.6 % 06/16/17 171 Basophils (%) (Auto) 0.7 % 06/16/17 1712 Lactate 2.4 mmol/L H 06/16/17 1751 Creatinine 1.30 mg/dl H 06/16/17 1712 B-Type Natriuretic Peptide 107 pg/ml H 06/16/17 1712 Troponin I < 0.012 ng/ml 06/16/17 1712 Alkaline Phosphatase 108 U/L 06/16/17 1712 Alanine Aminotransferase (ALT/SGPT) 33 U/L 06/16/17 1712 Aspartate Amino Transf (AST/SGOT) 26 U/L 06/16/17 1712 Magnesium Level 1.8 mg/dl 06/16/17 1712 Total Bilirubin 1.0 mg/dl 06/16/17 1712 Urine RBC None /HPF 06/16/17 1820 Urine WBC 1 /HPF 06/16/17 1820 Urine Leukocyte Esterase Negative 06/16/17 1820 Urine Urobilinogen Negative mg/dL 06/16/17 1820 Venous Blood pH 7.51 H 06/16/17 1751 EKG / Imaging Imaging Chest CT - 1. Increased right upper lobe consolidation concerning for worsening pneumonia. 2. Right hilar region mass versus adenopathy measuring up to 3.2 cm as before. 3. Loculated fluid along the right minor fissure has slightly increased. 4. Unchanged pulmonary fibrosis. CXR - Increased right upper lung consolidation is most suspicious for worsening pneumonia although metastatic disease progression is a possibility. Assessment and Plan Problems: (1) Right upper lobe pneumonia Status: Acute Assessment & Plan: This is a post-obstructive pneumonia related to the stage 4 adenocarcinoma of the lung. After discussion about that the pneumonia won't be cleared secondary to the cancer, the patient doesn't want to treat the pneumonia. He wants to pursue comfort care measures. (2) Stage 4 lung cancer Status: Chronic Assessment & Plan: On previous admissions, the patient requested not to treat the cancer. Now he is having a complication with a post-obstructive pneumonia. See above. (3) Weakness generalized Status: Acute Assessment & Plan: He is too weak to be at his motel room. He reports not being able to walk. Will ask SW to help look into disposition for comfort care. (4) Acute renal failure Assessment & Plan: Creatinine has been elevated since 05/21. Likely, related to vancomycin. Stable. (5) Upper GI hemorrhage Status: Chronic Assessment & Plan: Continue Protonix. (6) Bloodstream infection due to portacath Status: Resolved Copies to: LEELA SAUCEDO MD; JAE NUNO ADMINISTRATIVE SUPPORT MANAGER-BC, ONC Venous Thromboembolism Antithrombotics Is Pt On Any Antithrombotics?: No Exam Sepsis Risk: No Definite Risk SATHYA EARL MD Jun 16, 2017 22:08
[2017-06-16] MEDS: LORazepam 0.5 MG TAB PO PRN (22:30)
[2017-06-16] MEDS: AMITRIPTYLINE HCL 25 MG TAB PO SCH (22:30)
[2017-06-17 02:38] VITALS: BP 174/97
[2017-06-17] MEDS: PANTOPRAZOLE SOD 40 MG TABEC PO SCH (06:11)
[2017-06-17 08:25] VITALS: BP 139/89
[2017-06-17] MEDS: GABAPENTIN 300 MG CAP PO SCH ×2 (08:28→20:19)
[2017-06-17] MEDS: TAMSULOSIN HCL 0.4 MG CAP PO SCH (08:28)
[2017-06-17] MEDS ORDERED: ENOXAPARIN 40 MG/0.4ML SYR SC SCH (09:00)
[2017-06-17] MEDS: LORazepam 0.5 MG TAB PO PRN ×2 (14:12→23:08)
[2017-06-17 15:04] VITALS: BP 143/77
--- NOTE | 2017-06-17 16:11 | Hospitalist Progress Note ---
Subjective Progress Notes Subjective The patient feels much better today. Physical Exam Vital Signs Date Time Temp Pulse Resp B/P (MAP) Pulse Ox O2 Delivery O2 Flow Rate FiO2 06/17/17 15:04 99.0 96 24 143/77 (99) 92 Nasal Cannula 3.0 Intake and Output 06/18/17 07:00 Intake Total 560 ml Balance 560 ml Intake Oral 560 ml # Voids 2 General Appearance: Alert, Awake, No Acute Distress Neuro: Other (Memory is poor at times. ) Eyes: PERRLA Cardiovascular: Regular Rate and Rhythm Respiratory: Other (Decreased BS R upper lung field. ) GI: Soft and Non-Tender Extremities: Other (Clubbing of fingers.) Integumentary: Skin Intact without Lesion / Mass Psych: Alert & Oriented X3, Appropriate Mood & Affect Result Diagram: 06/16/17171106/16/171711 Assessment and Plan Problems: (1) Right upper lobe pneumonia Status: Acute Assessment & Plan: This is a post-obstructive pneumonia related to the stage 4 adenocarcinoma of the lung versus worsening cancer. After discussion about how the pneumonia won't be cleared secondary to the cancer, the patient doesn't want to treat the pneumonia. He wants to pursue comfort care measures. The patient admits he is not doing well at home. He is agreeable to considering comfort care on ECF or at the [facility]. (2) Stage 4 lung cancer Status: Chronic Assessment & Plan: On previous admissions, the patient requested not to treat the cancer. Now he is having a complication with a post-obstructive pneumonia. See above. (3) Weakness generalized Status: Acute Assessment & Plan: He is too weak to be at his motel room. He reports not being able to walk. Will ask SW to help look into disposition for comfort care. (4) Acute renal failure Assessment & Plan: Creatinine has been elevated since 05/21. Likely, related to vancomycin. Stable. (5) Upper GI hemorrhage Status: Chronic Assessment & Plan: Continue Protonix. (6) Bloodstream infection due to portacath Status: Resolved Time Spent on Plan of Care: < 30 min Exam Sepsis Risk: No Definite Risk CHERRI HATCH MD Jun 17, 2017 16:11
[2017-06-17 16:17] VITALS: Ht 180.3 cm; Wt 80.3 kg
[2017-06-17 20:09] VITALS: BP 140/86
[2017-06-17] MEDS: AMITRIPTYLINE HCL 25 MG TAB PO SCH (20:20)
[2017-06-17] MEDS ORDERED: LATANOPRO 0.005% OP SOLN 2.5ML OU SCH (21:00)
[2017-06-18 02:43] VITALS: BP 118/70
[2017-06-18] MEDS: PANTOPRAZOLE SOD 40 MG TABEC PO SCH (05:34)
[2017-06-18 07:14] VITALS: BP 134/91
[2017-06-18] MEDS ORDERED: OXYC-823 PO (08:25)
[2017-06-18] MEDS ORDERED: OXYC-854 PO (08:25)
--- NOTE | 2017-06-18 08:33 | Hospitalist Depart ---
Discharge Summary Reason for Hosp/Final Diag: (1) Right upper lobe pneumonia Status: Acute Hospital Course & Plan: This is a post-obstructive pneumonia related to the stage 4 adenocarcinoma of the lung versus worsening cancer. After discussion about how the pneumonia won't be cleared secondary to the cancer, the patient didn't want to treat the pneumonia. He wants to pursue comfort care measures. Arrangements were made for transfer to [facility] for end-of-care. (2) Stage 4 lung cancer Status: Chronic Hospital Course & Plan: On previous admissions, the patient requested not to treat the cancer. Now he is having a complication with a post-obstructive pneumonia. See above. (3) Weakness generalized Status: Acute Hospital Course & Plan: He is too weak to be at his motel room. He reports not being able to walk. He will be transferred to [facility] for end- of-life care. (4) Acute renal failure Hospital Course & Plan: Creatinine has been elevated since 05/21. Likely, related to vancomycin. Stable. (5) Upper GI hemorrhage Status: Chronic Hospital Course & Plan: Continue Protonix. (6) Bloodstream infection due to portacath Status: Resolved Departure Weight (Pounds): 177 Weight (Ounces): 2.0 Result Diagram: 06/16/17 1712 06/16/17 171 Item Value Date Time Albumin 4.2 g/dl 06/16/17 1712 Total Protein 8.1 gm/dl 06/16/17 1712 B-Type Natriuretic Peptide 107 pg/ml H 06/16/17 1712 Troponin I < 0.012 ng/ml 06/16/17 1712 Alkaline Phosphatase 108 U/L 06/16/17 1712 Alanine Aminotransferase (ALT/SGPT) 33 U/L 06/16/17 1712 Aspartate Amino Transf (AST/SGOT) 26 U/L 06/16/17 1712 Total Bilirubin 1.0 mg/dl 06/16/17 1712 Calcium Level 10.0 mg/dl 06/16/17 1712 Magnesium Level 1.8 mg/dl 06/16/17 1712 Lactate 2.4 mmol/L H 06/16/17 1751 Urine Color Yellow 06/16/17 1820 Urine Clarity Clear 06/16/17 1820 Urine pH 7.0 pH 06/16/17 1820 Urine Specific [place] 1.005 06/16/17 1820 Urine Protein Negative mg/dL 06/16/17 1820 Urine Glucose (UA) Negative mg/dL 06/16/17 1820 Urine Ketones Trace mg/dL 06/16/17 1820 Urine Blood Negative 06/16/17 1820 Urine Nitrite Negative 06/16/17 1820 Urine Bilirubin Negative 06/16/17 1820 Urine Urobilinogen Negative mg/dL 06/16/17 1820 Urine Leukocyte Esterase Negative 06/16/17 1820 Urine RBC None /HPF 06/16/17 1820 Urine WBC 1 /HPF 06/16/17 1820 Urine Squamous Epithelial Cells Few /LPF 06/16/17 1820 Urine Bacteria Negative /HPF 06/16/17 1820 Urine Mucus None /HPF 06/16/17 1820 Venous Blood pH 7.51 H 06/16/17 1751 Imaging PATIENT NAME: Jarret Aguilar : 1950 MR: [id number] V: [id number] EXAM DATE: ORDERING PHYSICIAN: MILES MARROQUIN TECHNOLOGIST: [place] [facility] [place] Jarret Aguilar : 1950 Visit/Account:[id number] Date of Sevice: 06/16/2017 Examination: CHEST SINGLE AP Comparison: 06/04/2017 and earlier History: Respiratory distress. Lung cancer. Findings: Background chronic lung disease. Right upper lobe ill-defined consolidation has slightly increased in the interval. No other new or enlarging consolidation. No pneumothorax or effusion. Cardiac and hilar contour size is unchanged. No acute osseous normality. IMPRESSION: Increased right upper lung consolidation is most suspicious for worsening pneumonia although metastatic disease progression is a possibility. Report Dictated By: Kd Madera MD at 06/16/2017 6:04 PM Report E-Signed By: Kd Madera MD at 06/16/2017 6:07 PM WSN:[id number] PATIENT NAME: Jarret Aguilar : 1950 MR: [id number] V: [id number] EXAM DATE: [id number] ORDERING PHYSICIAN: MILES MARROQUIN TECHNOLOGIST: [place] [facility] [place] Patient: Jarret Aguilar : 1950 Visit/Account:[id number] Date of Sevice: 06/16/2017 EXAMINATION: CT chest without IV contrast HISTORY: Lung cancer, shortness of breath, cough TECHNIQUE: CT was obtained through the chest without intravenous contrast. Sagittal and coronal MPR reformatted images were generated. One of the following dose optimization techniques was utilized in the performance of this exam: automated exposure control; adjustment of the mA and/ or kV according to patient size; or use of iterative reconstruction technique. Specific details can be referenced in the facility's radiology CT exam operational policy. COMPARISON: June 04, 2017 CT, June 16, 2017 chest radiograph FINDINGS: Lower neck: Normal. Heart / pericardium/aorta/great vessels: Coronary artery calcifications. Mediastinum: Normal. Lymph node assessment: Right hilar enlarged lymph node versus mass measuring approximately 3.2 cm AP dimension, axial image 40 is unchanged. Pleura: Trace unchanged loculated fluid along the right lateral upper chest. Loculated fluid along the right minor fissure has slightly increased. Lungs: Unchanged mild to moderate pulmonary fibrosis. Unchanged 1.2 cm left lower lobe nodule, image 46. Right lower lobe superior segment consolidation with air bronchograms similar to prior. Right upper lobe consolidation has increased. Emphysematous cystic spaces noted in the region of consolidation. Hyperexpanded right middle lobe. Upper abdomen: Unchanged left adrenal gland metastasis. Chest wall: Normal. Musculoskeletal: No fracture or osseous destruction. IMPRESSION: 1. Increased right upper lobe consolidation concerning for worsening pneumonia. 2. Right hilar region mass versus adenopathy measuring up to 3.2 cm as before. 3. Loculated fluid along the right minor fissure has slightly increased. 4. Unchanged pulmonary fibrosis. Report Dictated By: Reji Barragan MD at 06/16/2017 7:28 PM Report E-Signed By: Reji Barragan MD at 06/16/2017 7:41 PM WSN:[id number] EKG PATIENT NAME: JARRET AGUILAR : [id number] MR: [id number] V: [id number] EXAM DATE: [id number] ORDERING PHYSICIAN: MILES MARROQUIN TECHNOLOGIST: SYLVESTER Harris Reason : SOB Blood Pressure : / mmHG Vent. Rate : 089 BPM Atrial Rate : 089 BPM P-R Int : 186 ms QRS Dur : 140 ms QT Int : 426 ms P-R-T Axes : 067 -63 047 degrees QTc Int : 518 ms Normal sinus rhythm Right bundle branch block Left anterior fascicular block Bifascicular block Abnormal ECG When compared with ECG of 01-JUN-2017 14:48, No significant change was found Confirmed by SATHYA EARL ([id number]) on 06/16/2017 10:58:43 PM Referred By: [facility] Confirmed By:SATHYA EARL Condition: No Change Discharge: Hospice Time Spent: > 30 min Discharge Instructions Home Meds Active Scripts Oxycodone Hcl/Acet 5/325 Mg (ENDOCET 5-325 TABLET) 1 Each Tablet, 1 EACH PO Q4- 6H Y for PAIN, #45 TAB 0 Refills Prov:MICHEAL HATCH MD 06/18/17 Oxycodone Hcl (OXYCONTIN) 10 Mg Tab.er.12h, 10 MG PO Q12H, #60 TAB 0 Refills Prov:MICHEAL HATCH MD 06/18/17 Lorazepam (LORAZEPAM) 0.5 Mg Tablet, 0.5 MG PO Q8H Y for ANXIETY, #30 TAB 0 Refills Prov:MICHEAL HATCH MD 05/31/17 Reported Medications Esomeprazole Magnesium (Esomeprazole Magnesium) 40 Mg Capsule.dr, 1 CAP PO DAILY 05/28/17 Vortioxetine Hydrobromide (Brintellix) 20 Mg Tablet, 1 TAB PO DAILY 05/28/17 Gabapentin (GABAPENTIN) 300 Mg Capsule, 300 MG PO BID, CAPSULE 01/31/17 Amitriptyline Hcl (AMITRIPTYLINE HCL) 75 Mg Tablet, 75 MG PO QHS, #5 TAB 01/01/17 Latanoprost (LATANOPROST) 2.5 Ml Drops, 2.5 ML OP HS 04/11/16 Tamsulosin Hcl (Flomax) 0.4 Mg Cap, 0.4 MG PO QDAY, #30 2 Refills 04/09/11 Discontinued Reported Medications Cyanocobalamin (Vitamin B-12) (VITAMIN B-12) 1,000 Mcg Tablet.er, 1000 MCG PO DAILY 04/11/16 Cholecalciferol (Vitamin D3) (VITAMIN D) 2,000 Unit Capsule, 2000 UNIT PO 2XW, CAPSULE 04/11/16 Folic Acid (FOLIC ACID) 1 Mg Tablet, 1 MG PO DAILY 05/26/13 Multivit, Min No.21/Folic Acid (SUPERVITE EC CAPLET) 1 Mg Tablet.dr, 1 MG PO 05/26/13 Discontinued Scripts Levofloxacin 750 Mg Tab (LEVOFLOXACIN 750 MG TAB) 750 Mg Tablet, 750 MG PO Q48H@ 1000, #2 TAB 0 Refills Prov:KEVIN GORDON 06/06/17 Diet: Regular Activity: As Tolerated Special Instructions: Oxygen at 3-4L via nasal cannula continuously. Venous Thromboembolism Antithrombotics Is Pt On Any Antithrombotics?: No MICHEAL HATCH MD Jun 18, 2017 08:33
[2017-06-18] MEDS: TAMSULOSIN HCL 0.4 MG CAP PO SCH (08:42)
[2017-06-18] MEDS: GABAPENTIN 300 MG CAP PO SCH (08:42)
[2017-06-18] MEDS ORDERED: VORTIOXETINE HYDROBROMIDE 20 MG TABLET PO SCH (09:00)
== END 2017-06-18 09:20 | disposition hospice, inpatient (51) | DRG 194 ==
LOC: ER 17:18 → MED 21:03
PROVIDERS: ADMIT Internal Medicine; ATTEND Internal Medicine
DX: J18.1 Lobar pneumonia, unspecified organism (principal); C34.91 Malignant neoplasm of unspecified part of right bronchus or lung; C79.51 Secondary malignant neoplasm of bone; J44.0 Chronic obstructive pulmonary disease with (acute) lower respiratory infection; N17.9 Acute kidney failure, unspecified; R53.1 Weakness; K31.84 Gastroparesis; F17.210 Nicotine dependence, cigarettes, uncomplicated; T36.8X5A Adverse effect of other systemic antibiotics, initial encounter; N40.0 Benign prostatic hyperplasia without lower urinary tract symptoms; F32.9 Major depressive disorder, single episode, unspecified; Z51.5 Encounter for palliative care; I25.2 Old myocardial infarction; Z88.8 Allergy status to other drugs, medicaments and biological substances; Z92.3 Personal history of irradiation; Z99.81 Dependence on supplemental oxygen
CPT/HCPCS: 71045; 71250; 81001; 82040; 82247; 82310; 82374; 82435; 82565; 82800; 82947; 83605; 83735; 83880; 84075; 84132; 84155; 84295; 84450; 84460; 84484; 84520; 85025; 85610; 85730; 87040; 87070; 87077; 87186; 93005; 94640; 96361; 96374; 96375; 99285; J1650; J2060; J2405; J2930; J7030; J7613

== ENCOUNTER → 2017-06-16 | Outpatient (CLI) | payer MEDICARE ==
[~2017-06-16] MED LIST changes: +LEVO750T27 PO
[2017-06-17 16:17] VITALS: BMI 24.7
== END ==
LOC: AMB 16:58
PROVIDERS: ATTEND Nurse Practitioner
DX: R06.02 Shortness of breath (principal); R53.1 Weakness; C34.90 Malignant neoplasm of unspecified part of unspecified bronchus or lung
CPT/HCPCS: A0425; A0427